=== PATIENT | female | born 1965 | race African-American/Black ===

== ENCOUNTER 2018-03-21 14:11 | Inpatient (IN) | payer MEDICARE, OTHER ==
[~2018-03-21] VITALS: Ht 165.1 cm; Wt 118.0 kg
[~2018-03-21 14:11] MED LIST: CALC1CAP PO; ESOM1CAP16 PO; FLEE5TAB PO; GABA400C5 PO; HYDR-3288 PO; MIDO5TAB PO; NOVOINJ3 SQ; ONDA4TAB15 PO; RANI150T PO
[2018-03-21 14:21] VITALS: BP 159/66; PULSE 78; RESP 23; TEMP 98.7; O2SAT 87
--- NOTE | 2018-03-21 14:44 | PD ---
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 Symptoms started this morning at 1 AM she describes as a burning sensation in her epigastrium. She reports multiple episodes of nonbloody emesis. She reports that she had similar pain last week with associated diarrhea but it resolved. She reports that yesterday she ate some spaghetti O's. She denies any other dietary changes. She reports chronic shortness of breath but denies any acute shortness of breath. She denies any chest pain, cough or congestion, lower extremity edema, flank pain, fevers or chills. She is anuric. She reports history of diabetes and hypertension. No other complaints. PFSH Past Medical History Arthritis: No Asthma: No Autoimmune Disease: No Blood Disorders: No Heart Rhythm Problems: No Cancer: No Cardiovascular Problems: Yes High Cholesterol: Yes Chemotherapy: No Chest Pain: No Congestive Heart Failure: No COPD: No Cerebrovascular Accident: No Diabetes: Yes Patient Takes Glucophage: No Dialysis: Yes (PERITONEAL NIGHTLY) Diminished Hearing: No Endocrine: Yes (DM about 5 yrs. ago) Gastrointestinal Disorders: Yes (REFLUX) GERD: Yes Genitourinary: Yes Headaches: No Hepatitis: No Hiatal Hernia: No Heparin Induced Thrombocytopen: No Immune Disorder: No Implanted Vascular Access Dvce: Yes (HX OF RIGHT IJ X 3/RIGHT ARM FISTULA) Kidney Stones: No Musculoskeletal: Yes Neurologic: Yes (NEUROPATHY) Psychiatric: No Reproductive: No Respiratory: Yes Immunizations Current: Yes Migraines: No Myocardial Infarction: No Radiation Therapy: No Renal Failure: Yes Seizures: No Sickle Cell Disease: No Sleep Apnea: No Thyroid Disease: No Ulcer: No ?: Unknown Menopausal: Yes : 1 Para: 1 Past Surgical History Abdominal Surgery: Yes (peritoneal dialysis gallbladder) AICD: No Appendectomy: No Arteriovenous Shunt: No Body Medical Devices: TENKOFF Cardiac Surgery: No Cholecystectomy: Yes Ear Surgery: No Endocrine Surgery: No Eye Surgery: No Genitourinary Surgery: No Gynecologic Surgery: No Insulin Pump: No Joint Replacement: No Neurologic Surgery: No Oral Surgery: No Pacemaker: No Thoracic Surgery: No Other Surgery: Yes (hernia fistula on left arm) Social History Alcohol Use: No Tobacco Use: No Substance Use: No Allergies-Medications (Allergen,Severity, Reaction): Coded Allergies: Sulfa (Sulfonamide Antibiotics) (Unverified Allergy, Severe, Rash, ) morphine (Unverified Allergy, Severe, ITCHING, 09/21/17) penicillin G (Unverified Allergy, Severe, UNKNOWN, 09/21/17) amoxicillin (Verified Allergy, Intermediate, Rash, 09/21/17) *MDRO Multi-Drug Resistant Organism (Verified Allergy, Unknown, 09/21/17) VRE Buttock Wound 01/15/2013 C Diff 05/2014 Reported Meds & Prescriptions Reported Meds & Active Scripts Active Grayson (Hydrocodone-Acetaminophen) 7.5-325 mg Tab 1 Tab PO HS PRN Reported Novolog Flexpen Inj (Insulin Aspart) Unknown Strength Pen Unknown Dose SQ Bisacodyl EC (Bisacodyl) 5 Mg Tabec 5 Mg PO DAILY PRN Calcium Acetate (Phosphate Binder) 667 Mg Cap 667 Mg PO BID TAKE WITH MEALS Esomeprazole DR 40 Mg Capdr 40 Mg PO DAILY Gabapentin 400 Mg Cap 400 Cap PO BID Midodrine 5 Mg Tab 5 Mg PO //SAT TUESDAY,TUESDAY,TUESDAY,TUESDAY Ondansetron (Ondansetron HCl) 4 Mg Tab 4 Mg PO TUTHSA PRN TUESDAY,TUESDAY, TUESDAY Ranitidine (Ranitidine HCl) 150 Mg Tab 150 Mg PO HS Review of Systems Except as stated in HPI: all other systems reviewed are Neg Physical Exam Narrative GENERAL: Well-developed well-nourished female who appears uncomfortable. Her oxygen saturation is 90% on room air. SKIN: Warm and dry. HEAD: Atraumatic. Normocephalic. EYES: Pupils equal and round. No scleral icterus. No injection or drainage. ENT: No nasal bleeding or discharge. Mucous membranes pink and moist. NECK: Trachea midline. No JVD. CARDIOVASCULAR: Regular rate and rhythm. No murmur appreciated. RESPIRATORY: No accessory muscle use. Clear to auscultation. Breath sounds equal bilaterally. GASTROINTESTINAL: Abdomen soft, tender to palpation in the epigastrium and periumbilical region without guarding. No CVA tenderness. MUSCULOSKELETAL: No obvious deformities. No clubbing. No cyanosis. No edema. NEUROLOGICAL: Awake and alert. No obvious cranial nerve deficits. Motor grossly within normal limits. Normal speech. Data Data Last Documented VS Vital Signs Date Time Temp Pulse Resp B/P (MAP) Pulse Ox O2 Delivery O2 Flow Rate FiO2 03/21/18 14:50 98 Room Air 03/21/18 14:36 20 03/21/18 14:21 98.7 78 159/66 (97) Orders Orders Arterial Blood Gas (Abg) (03/21/18 ) Comprehensive Metabolic Panel (03/21/18 14:38) Lipase (03/21/18 14:38) Lactic Acid (03/21/18 14:38) Prothrombin Time / Inr (Pt) (03/21/18 14:38) Act Partial Throm Time (Ptt) (03/21/18 14:38) Ct Abd/Pel W/O Iv Contrast (03/21/18 14:38) Iv Access Insert/Monitor (03/21/18 14:38) Ecg Monitoring (03/21/18 14:38) Oximetry (03/21/18 14:38) Morphine Inj (Morphine Inj) (03/21/18 14:45) Sodium Chloride 0.9% Flush (Ns Flush) (03/21/18 14:45) Electrocardiogram (03/21/18 14:38) Magnesium (Mg) (03/21/18 14:38) Phosphorus (Po4) (03/21/18 14:38) Ckmb (Isoenzyme) Profile (03/21/18 14:38) Troponin I (03/21/18 14:38) Chest, Single Ap (03/21/18 14:38) Bilateral Bp Monitoring (03/21/18 14:38) Ondansetron Odt (Zofran Odt) (03/21/18 14:45) Complete Blood Count With Diff (03/21/18 14:38) Hydromorphone Pf Inj (Dilaudid Pf Inj) (03/21/18 15:30) Consult Gastroenterology (03/21/18 ) (Hub Use Only)Inp Phy Cons/Ref (03/21/18 ) Invasive Rad Dept Consult (03/21/18 ) Ca 19-9 (03/21/18 16:34) Diet Npo Except Meds (03/21/18 Dinner) Igg Subclasses (1,2,3.4,Total) (03/21/18 16:35) Ranjana Screen (03/21/18 16:35) Admit Order (Ed Use Only) (03/21/18 16:44) Labs Laboratory Tests Test 03/21/18 14:48 03/21/18 14:50 Blood Gas Puncture Site RT RADIAL Blood Gas Patient Temperature 98.6 Blood Gas HCO3 25 mmol/L Blood Gas Base Excess 0.2 mmol/L Blood Gas Oxygen Saturation 91 % Arterial Blood pH 7.37 Arterial Blood Partial Pressure CO2 45 mmHg Arterial Blood Partial Pressure O2 71 mmHG Arterial Blood Oxygen Content 14.9 Vol % Arterial Blood Carboxyhemoglobin 1.6 % Arterial Blood Methemoglobin 1.0 % Blood Gas Hemoglobin 11.6 G/DL Oxygen Delivery Device NASAL CANNULA Blood Gas Liter Flow 2 L/M White Blood Count 13.4 TH/MM3 Red Blood Count 3.96 MIL/MM3 Hemoglobin 12.3 GM/DL Hematocrit 38.7 % Mean Corpuscular Volume 97.9 FL Mean Corpuscular Hemoglobin 31.1 PG Mean Corpuscular Hemoglobin Concent 31.8 % Red Cell Distribution Width 14.9 % Platelet Count 206 TH/MM3 Mean Platelet Volume 10.3 FL Neutrophils (%) (Auto) 90.7 % Lymphocytes (%) (Auto) 4.9 % Monocytes (%) (Auto) 4.2 % Eosinophils (%) (Auto) 0.0 % Basophils (%) (Auto) 0.2 % Neutrophils # (Auto) 12.1 TH/MM3 Lymphocytes # (Auto) 0.7 TH/MM3 Monocytes # (Auto) 0.6 TH/MM3 Eosinophils # (Auto) 0.0 TH/MM3 Basophils # (Auto) 0.0 TH/MM3 CBC Comment DIFF FINAL Differential Comment Prothrombin Time 10.1 SEC Prothromb Time International Ratio 1.0 RATIO Activated Partial Thromboplast Time 23.7 SEC Blood Urea Nitrogen 35 MG/DL Creatinine 9.14 MG/DL Random Glucose 316 MG/DL Total Protein 9.2 GM/DL Albumin 3.1 GM/DL Calcium Level 8.8 MG/DL Phosphorus Level 5.5 MG/DL Magnesium Level 2.3 MG/DL Alkaline Phosphatase 140 U/L Aspartate Amino Transf (AST/SGOT) 30 U/L Alanine Aminotransferase (ALT/SGPT) 23 U/L Total Bilirubin 0.4 MG/DL Sodium Level 137 MEQ/L Potassium Level 4.9 MEQ/L Chloride Level 99 MEQ/L Carbon Dioxide Level 27.2 MEQ/L Anion Gap 11 MEQ/L Estimat Glomerular Filtration Rate 5 ML/MIN Lactic Acid Level 1.6 mmol/L Total Creatine Kinase 94 U/L Troponin I 0.02 NG/ML Lipase 513 U/L [facility] Medical Decision Making Medical Screen Exam Complete: Yes Emergency Medical Condition: Yes Medical Record Reviewed: Yes Differential Diagnosis Pancreatitis, perforation, gastritis, gastroenteritis, colitis, diverticulitis, acute coronary syndrome Narrative Course The patient was placed on ECG monitoring pulse oximetry. 12-lead EKG was obtained. Lab work, chest x-ray, CT abdomen pelvis ordered. The patient was given Dilaudid. An ABG was obtained revealing CBC reveals WBC count of 13.4 with 90% neutrophils. CMP reveals GFR 5, glucose 316, lipase 513. CT abdomen and pelvis reveals large complex mixed attenuation mass lesion involving the tail the pancreas. A large pseudocyst would be a leading consideration. This is incompletely evaluated on this study. Discussed with echocardiography radiology technologist Dr. Gupta who will be happy to consult but recommends general surgery consult. I discussed with Dr. Regalado the general surgeon sql server consultant who sees no intervention from a surgery standpoint at this time but would be happy to discuss with GI. Ultimately this patient will be admitted and this can be worked out further on an inpatient basis. Discussed with Dr. Zhou who is agreeable with admission. Discussed with Dr. Joshua who will perform dialysis. Diagnosis Primary Impression: Abdominal pain Additional Impressions: Pancreatic pseudocyst Leukocytosis Admitting Information Admitting Physician Requests: Admit Yo Garcia March 21, 2018 14:44
[2018-03-21] MEDS ORDERED: ONDANSETRON ODT 4 MG TAB PO ONE (14:45)
[2018-03-21] MEDS ORDERED: MORPHINE SULFATE 4 MG/ML INJ IV PUSH ONE (14:45)
[2018-03-21] MEDS ORDERED: SODIUM CHLORIDE 0.9% FLUSH 10 ML FLUSH IV FLUSH PRN ×2 (14:45→17:15)
[2018-03-21 14:50] VITALS: O2SAT 98
[2018-03-21] MEDS ORDERED: HYDROmorphone HCL PF 2 MG/ML VIAL IV PUSH ONE (15:30)
--- NOTE | 2018-03-21 15:30 | RADRPT ---
EXAM DATE/TIME: 03/21/2018 14:44 [facility] COMPARISON: No previous studies available for comparison. INDICATIONS : Shortness of breath and vomiting. MEDICAL HISTORY : Hypertension. Diabetes mellitus type II. SURGICAL HISTORY : Appendectomy. ENCOUNTER: Initial ACUITY: 1 day PAIN SCORE: 0/10 LOCATION: Bilateral chest FINDINGS: A single view of the chest demonstrates the lungs to be symmetrically aerated without evidence of mas s, infiltrate or effusion. The cardiomediastinal contours are unremarkable. Osseous structures are intact. CONCLUSION: No acute disease. Antelmo Aparicio MD on March 21, 2018 at 15:27 Board Certified Radiologist. This report was verified electronically.
[2018-03-21 15:34] LABS: AUTOMATED NEUTROPHIL # 12.1 TH/MM3 (1.8-7.7); BASOPHIL % 0.2 % (0.0-2.0); HEMATOCRIT 38.7 % (35.0-46.0); HEMOGLOBIN 12.3 GM/DL (11.6-15.3); LYMPH % 4.9 % (9.0-44.0); LYMPHOCYTE # 0.7 TH/MM3 (1.0-4.8); MEAN CELL VOLUME 97.9 FL (80.0-100.0); MEAN CORPUSCULAR HEMOGLOBIN 31.1 PG (27.0-34.0); MEAN CORPUSCULAR HGB CONC 31.8 % (32.0-36.0); MEAN PLATELET VOLUME 10.3 FL (7.0-11.0); MONO % 4.2 % (0.0-8.0); MONOCYTE # 0.6 TH/MM3 (0-0.9); NEUT % 90.7 % (16.0-70.0); PLATELET COUNT 206 TH/MM3 (150-450); RED BLOOD COUNT 3.96 MIL/MM3 (4.00-5.30); RED CELL DISTRIBUTION WIDTH 14.9 % (11.6-17.2); WHITE BLOOD COUNT 13.4 TH/MM3 (4.0-11.0)
[2018-03-21 15:44] LABS: ALBUMIN 3.1 GM/DL (3.4-5.0); ALKALINE PHOSPHATASE 140 U/L (45-117); ALT (GPT) 23 U/L (10-53); AST (GOT) 30 U/L (15-37); BICARBONATE 27.2 MEQ/L (21.0-32.0); BLOOD UREA NITROGEN 35 MG/DL (7-18); CALCIUM 8.8 MG/DL (8.5-10.1); CHLORIDE 99 MEQ/L (98-107); CREATININE 9.14 MG/DL (0.50-1.00); GLOMERULAR FILTRATION RATE 5 ML/MIN (>89); GLUCOSE,RANDOM 316 MG/DL (74-106); MAGNESIUM 2.3 MG/DL (1.5-2.5); PHOSPHORUS 5.5 MG/DL (2.5-4.9); SODIUM (NA) 137 MEQ/L (136-145); TOTAL BILIRUBIN ADULT 0.4 MG/DL (0.2-1.0); TOTAL PROTEIN 9.2 GM/DL (6.4-8.2); TROPONIN I 0.02 NG/ML (0.02-0.05)
--- NOTE | 2018-03-21 15:44 | RADRPT ---
EXAM DATE/TIME: 03/21/2018 15:12 [facility] COMPARISON: No previous studies available for comparison. INDICATIONS : Mid abdominal pain with vomiting ORAL CONTRAST: No oral contrast ingested. RADIATION DOSE: 23.20 CTDIvol (mGy) ; Patient body habitus MEDICAL HISTORY : Gastroesophageal reflux disease. Diabetes mellitus type 1. Colitis SURGICAL HISTORY : None. ENCOUNTER: Initial ACUITY: 1 day PAIN SCALE: 5/10 LOCATION: abdominal TECHNIQUE: Volumetric scanning of the abdomen and pelvis was performed. Using automated exposure control and ad justment of the mA and/or kV according to patient size, radiation dose was kept as low as reasonably achievable to obtain optimal diagnostic quality images. DICOM format image data is available electro nically for review and comparison. FINDINGS: Lung bases are clear. Patient is status post cholecystectomy. Spleen, liver, adrenals, urinary bladde r unremarkable. Uterus and adnexa are unremarkable. Vascular calcifications are noted. There is no ev idence of bowel obstruction. No adenopathy. Extensive atherosclerotic calcifications are seen. The ex amination demonstrates at the tail of the pancreas medial to the spleen a mixed attenuation mass abut ting the posterior wall the stomach and measured approximate 9.3 x 6 cm on image 23 and 8.1 x 7.4 cm in transverse and AP dimension on image 26. The kidneys are small and hyperdense. Within the subcutan eous fat of the anterior abdominal wall at the level of the umbilicus, a hypodense collection is seen with calcification posteriorly measuring 6.3 x 1.8 cm in transverse and AP dimension. CONCLUSION: There is a large complex mixed attenuation mass lesion involving the tail of the pancreas. A large ps eudocyst would be the leading consideration. This is incompletely evaluated on this study. Antelmo Aparicio MD on March 21, 2018 at 15:39 Board Certified Radiologist. This report was verified electronically.
[2018-03-21 15:54] LABS: PROTHROMBIN TIME - PATIENT 10.1 SEC (9.8-11.6)
--- NOTE | 2018-03-21 16:34 | PD.CONS ---
HPI History of Present Illness This is a 52 year old yo F with PMH significant for ESRD on HD T,TH,Sat, gastroparesis, gastritis, pancreatitis with pancreatic pseudocyst, DM, hyperlipidemia, and neuropathy. Pt presented to the ER today with complaints of severe abdominal pain that began in the middle of the night and woke her up out of her sleep. Pain is located in her epigastric area, states constant, described as burning and aching. Associated with nausea and vomiting, reports multiple episodes of emesis, denies hematemesis and coffee ground emesis. Also complaining of acid reflux and heartburn, takes Prilosec with little relief. Denies any changes in BMs, unintentional weight loss. Labs in ER revealed elevated lipase and CT findings revealed a large complex mixed attenuation mass lesion involving the tail of the pancreas, pseudocyst would be leading consideration. Pt has history of pancreatic pseudocyst in 2014, seen by our service, underwent CT guided drainage. Last EGD done in 2014 revealed a normal exam. Has never had colonoscopy. Previous J tube for gastroparesis, this was removed in 2014 and she is not currently on any medication for this. She denies ETOH, smoking, illicit drug use. Recently started on two new medications , Auryxia and Tradjenta. She reports she has not recently followed up with a GI doctor. (Nadine Santiago) PFSH Past Medical History ESRD on HD Hyperlipidemia DM Gastroparesis Pancreatitis with pancreatic pseudocyst Neuropathy HTN Past Surgical History EGD Cholecystectomy Hernia repair Fistula (Nadine Santiago) Coded Allergies: Sulfa (Sulfonamide Antibiotics) (Unverified Allergy, Severe, Rash, ) morphine (Unverified Allergy, Severe, ITCHING, 09/21/17) penicillin G (Unverified Allergy, Severe, UNKNOWN, 09/21/17) amoxicillin (Verified Allergy, Intermediate, Rash, 09/21/17) *MDRO Multi-Drug Resistant Organism (Verified Allergy, Unknown, 09/21/17) VRE Buttock Wound 01/15/2013 C Diff 05/2014 Social History Denies ETOH, illicit drugs, smoking (Nadine Santiago) Review of Systems Gastrointestinal: COMPLAINS OF: Abdominal pain, Nausea, Vomiting, Heartburn, DENIES: Black stools, Bloody stools, Constipation, Diarrhea, Difficulty Swallowing, Odynophagia, Swelling of Abdomen, Hematemesis (Nadine Santiago) GI Exam Vitals I&O Vital Signs Date Time Temp Pulse Resp B/P (MAP) Pulse Ox O2 Delivery O2 Flow Rate FiO2 03/21/18 14:50 98 Room Air 03/21/18 14:36 20 03/21/18 14:21 98.7 78 23 159/66 (97) 87 Imaging Last Impressions Chest X-Ray 03/21/18 1438 Signed Impressions: Service Date/Time: Wednesday, March 21, 2018 14:44 - CONCLUSION: No acute disease. Antelmo Aparicio MD Abdomen/Pelvis CT 03/21/18 1438 Signed Impressions: Service Date/Time: Wednesday, March 21, 2018 15:12 - CONCLUSION: There is a large complex mixed attenuation mass lesion involving the tail of the pancreas. A large pseudocyst would be the leading consideration. This is incompletely evaluated on this study. Antelmo Aparicio MD Laboratory Test 03/21/18 14:48 03/21/18 14:50 Blood Gas Puncture Site RT RADIAL Blood Gas Patient Temperature 98.6 Blood Gas HCO3 25 mmol/L Blood Gas Base Excess 0.2 mmol/L Blood Gas Oxygen Saturation 91 % Arterial Blood pH 7.37 Arterial Blood Partial Pressure CO2 45 mmHg Arterial Blood Partial Pressure O2 71 mmHG Arterial Blood Oxygen Content 14.9 Vol % Arterial Blood Carboxyhemoglobin 1.6 % Arterial Blood Methemoglobin 1.0 % Blood Gas Hemoglobin 11.6 G/DL Oxygen Delivery Device NASAL CANNULA Blood Gas Liter Flow 2 L/M White Blood Count 13.4 TH/MM3 Red Blood Count 3.96 MIL/MM3 Hemoglobin 12.3 GM/DL Hematocrit 38.7 % Mean Corpuscular Volume 97.9 FL Mean Corpuscular Hemoglobin 31.1 PG Mean Corpuscular Hemoglobin Concent 31.8 % Red Cell Distribution Width 14.9 % Platelet Count 206 TH/MM3 Mean Platelet Volume 10.3 FL Neutrophils (%) (Auto) 90.7 % Lymphocytes (%) (Auto) 4.9 % Monocytes (%) (Auto) 4.2 % Eosinophils (%) (Auto) 0.0 % Basophils (%) (Auto) 0.2 % Neutrophils # (Auto) 12.1 TH/MM3 Lymphocytes # (Auto) 0.7 TH/MM3 Monocytes # (Auto) 0.6 TH/MM3 Eosinophils # (Auto) 0.0 TH/MM3 Basophils # (Auto) 0.0 TH/MM3 CBC Comment DIFF FINAL Differential Comment Prothrombin Time 10.1 SEC Prothromb Time International Ratio 1.0 RATIO Activated Partial Thromboplast Time 23.7 SEC Blood Urea Nitrogen 35 MG/DL Creatinine 9.14 MG/DL Random Glucose 316 MG/DL Total Protein 9.2 GM/DL Albumin 3.1 GM/DL Calcium Level 8.8 MG/DL Phosphorus Level 5.5 MG/DL Magnesium Level 2.3 MG/DL Alkaline Phosphatase 140 U/L Aspartate Amino Transf (AST/SGOT) 30 U/L Alanine Aminotransferase (ALT/SGPT) 23 U/L Total Bilirubin 0.4 MG/DL Sodium Level 137 MEQ/L Potassium Level 4.9 MEQ/L Chloride Level 99 MEQ/L Carbon Dioxide Level 27.2 MEQ/L Anion Gap 11 MEQ/L Estimat Glomerular Filtration Rate 5 ML/MIN Lactic Acid Level 1.6 mmol/L Total Creatine Kinase 94 U/L Troponin I 0.02 NG/ML Lipase 513 U/L Physical Examination HEENT: Normocephalic; atraumatic CHEST: Shallow respirations CARDIAC: RRR ABDOMEN: Obese, soft, epigastric tenderness, bowel sounds active SKIN: Normal; no rash; no jaundice. WELLNESS NURSE RN: Alert and oriented times three. (Nadine Santiago) Assessment and Plan Plan Assessment: - Pancreatitis with CT findings suggestive of possible large pancreatic pseudocyst History of pseudocyst with CT guided drainage in Nov 2014 Complaining of epigastric pain, nausea, vomiting that woke her up in the middle of the night Lipase-513 CT abdomen and pelvis W/O IV contrast (03/21) --> There is a large complex mixed attenuation mass lesion involving the tail of the pancreas. A large pseudocyst would be the leading consideration. This is incompletely evaluated on this study. History of pancreatitis with pancreatic pseudocyst, according to previous records was not amenable to drainage by IR 1st episode of pancreatitis in 2014 Denies ETOH New medications: Auryxia and Tradjenta Denies family history of pancreatic issues Previous cholecystectomy Last EGD in 2014, normal exam, previous EGD revealed esophagitis and gastritis Never had colonoscopy - Gastroparesis- previously had a J tube- removed in 2014, also noted to be previously on EES and Reglan, not currently on any medication for this at this time - Leukocytosis, afebrile - ESRD on HD- T, , Sat- did not go today because she did not feel well enough Plan: IR consult for possible drainage of pseudocyst CA 19-9 IgG 4, SNEHA NPO IVF Antiemetics PRN Pain control Monitor labs Further recommendations based on clinical course and results of above Pt has been seen and examined by myself and Dr. Gupta and this note is written on her behalf (Nadine Santiago) Physician Comments seen, examined agree with above if IR not able to drain/biopsy-we will consider eus tumor markers (Alicia Gupta MD) Nadine Santiago March 21, 2018 16:34 Alicia Gupta MD March 21, 2018 17:44
[2018-03-21 16:51] VITALS: BP 179/79; PULSE 75; RESP 18; O2SAT 94
[2018-03-21] MEDS ORDERED: SODIUM CHLOR 0.9% 1000 ML INJ 1,000 ML IV SCH (16:51)
[2018-03-21] MEDS ORDERED: BISACODYL 10 MG SUPP RECTAL PRN (17:00)
[2018-03-21] MEDS ORDERED: GLUCAGON 1 MG/ML VIAL OTHER PRN (17:00)
[2018-03-21] MEDS ORDERED: SENNOSIDES 8.6 MG TAB PO PRN (17:00)
[2018-03-21] MEDS: INSULIN ASPART SUPPLEMENTAL SCALE SQ SCH ×2 (17:00→21:00)
[2018-03-21] MEDS ORDERED: PANTOPRAZOLE SODIUM 40 MG VIAL IVP ONE (17:00)
[2018-03-21] MEDS ORDERED: LACTULOSE SYRUP 20 GM/30 ML CUP PO PRN (17:00)
[2018-03-21] MEDS ORDERED: NALOXONE HCL 0.4 MG/ML AMP IV PUSH PRN (17:00)
[2018-03-21] MEDS ORDERED: DEXTROSE 50% IN WATER 50 ML VIAL(D50) IV PUSH PRN (17:00)
[2018-03-21] MEDS ORDERED: MAGNESIUM HYDROXIDE SUSP 30 ML CUP PO PRN (17:00)
[2018-03-21 17:10] VITALS: O2SAT 90
[2018-03-21] MEDS ORDERED: SODIUM CHLOR 0.9% 1000 ML INJ 1,000 ML IV PRN (17:11)
[2018-03-21] MEDS ORDERED: SODIUM CHLOR 0.9% 1000 ML INJ 1,000 ML OTHER PRN ×2 (17:11)
[2018-03-21] MEDS ORDERED: ACETAMINOPHEN 325 MG TAB PO PRN (17:15)
[2018-03-21] MEDS ORDERED: cloNIDine HCL 0.1 MG TAB PO PRN ×2 (17:15→19:00)
[2018-03-21] MEDS ORDERED: HEPARIN SODIUM - IV 10,000 UNITS/10 ML VIAL IV FLUSH PRN (17:15)
[2018-03-21] MEDS ORDERED: NITROGLYCERIN 0.4 MG SL 25 TABS/BTL SL PRN (17:15)
[2018-03-21] MEDS ORDERED: diphenhydrAMINE HCL 25 MG CAP PO PRN (17:15)
--- NOTE | 2018-03-21 17:25 | PD.CONS ---
HPI Service Nephrology Consult Requested By Reason for Consult ESRD Primary Care Physician Lucretia Costello MD History of Present Illness Ms. Vega is a 52 year old lady with history of ESRD being admitted with abdominal pain. CT of the abdomen revealed large pancreatic complex cyst in the tail area, possibly pancreatic pseudocyst. No fever. She has nausea and vomiting. No diarrhea. Review of Systems Constitutional: COMPLAINS OF: Fatigue Cardiovascular: DENIES: Chest pain Gastrointestinal: COMPLAINS OF: Abdominal pain, Nausea, Vomiting Past Family Social History Allergies: Coded Allergies: Sulfa (Sulfonamide Antibiotics) (Unverified Allergy, Severe, Rash, ) morphine (Unverified Allergy, Severe, ITCHING, 09/21/17) penicillin G (Unverified Allergy, Severe, UNKNOWN, 09/21/17) amoxicillin (Verified Allergy, Intermediate, Rash, 09/21/17) *MDRO Multi-Drug Resistant Organism (Verified Allergy, Unknown, 09/21/17) VRE Buttock Wound 01/15/2013 C Diff 05/2014 Past Medical History ESRD Foot drop Hypertension Pancreatitis History of peritonitis Anemia Secondary hyperparathyroidism. Reported Medications Novolog Flexpen Inj (Insulin Aspart) Unknown Strength Pen Unknown Dose SQ Bisacodyl EC (Bisacodyl) 5 Mg Tabec 5 Mg PO DAILY PRN Calcium Acetate (Phosphate Binder) 667 Mg Cap 667 Mg PO BID TAKE WITH MEALS Esomeprazole DR 40 Mg Capdr 40 Mg PO DAILY Gabapentin 400 Mg Cap 400 Cap PO BID Midodrine 5 Mg Tab 5 Mg PO //SAT TUESDAY,TUESDAY,TUESDAY,TUESDAY Ondansetron (Ondansetron HCl) 4 Mg Tab 4 Mg PO TUTHSA PRN TUESDAY,TUESDAY, TUESDAY Ranitidine (Ranitidine HCl) 150 Mg Tab 150 Mg PO HS Family History reviewed, non contributory Social History , no tobacco or ETOH Physical Exam Vital Signs Vital Signs Date Time Temp Pulse Resp B/P (MAP) Pulse Ox O2 Delivery O2 Flow Rate FiO2 03/21/18 17:10 90 Room Air 03/21/18 16:51 75 18 179/79 (112) 94 Room Air 03/21/18 14:50 98 Room Air 03/21/18 14:36 20 03/21/18 14:21 98.7 78 23 159/66 (97) 87 Physical Exam GENERAL: patient is awake, complains of abdominal pain. SKIN: Warm and dry. HEAD: Normocephalic. EYES: No scleral icterus. No injection or drainage. NECK: Supple, trachea midline. No JVD or lymphadenopathy. CARDIOVASCULAR: Regular rhythm, tachycardia. RESPIRATORY: Breath sounds equal bilaterally. No accessory muscle use. GASTROINTESTINAL: Abdomen soft, positive bowel sounds, obese, some tenderness in the umbilical and epigastric areas. MUSCULOSKELETAL: No cyanosis, or edema. BACK: Nontender without obvious deformity. No CVA tenderness. Laboratory Laboratory Tests Test 03/21/18 14:48 03/21/18 14:50 Blood Gas Puncture Site RT RADIAL Blood Gas Patient Temperature 98.6 Blood Gas HCO3 25 Blood Gas Base Excess 0.2 Blood Gas Oxygen Saturation 91 Arterial Blood pH 7.37 Arterial Blood Partial Pressure CO2 45 Arterial Blood Partial Pressure O2 71 Arterial Blood Oxygen Content 14.9 Arterial Blood Carboxyhemoglobin 1.6 Arterial Blood Methemoglobin 1.0 Blood Gas Hemoglobin 11.6 Oxygen Delivery Device NASAL CANNULA Blood Gas Liter Flow 2 White Blood Count 13.4 Red Blood Count 3.96 Hemoglobin 12.3 Hematocrit 38.7 Mean Corpuscular Volume 97.9 Mean Corpuscular Hemoglobin 31.1 Mean Corpuscular Hemoglobin Concent 31.8 Red Cell Distribution Width 14.9 Platelet Count 206 Mean Platelet Volume 10.3 Neutrophils (%) (Auto) 90.7 Lymphocytes (%) (Auto) 4.9 Monocytes (%) (Auto) 4.2 Eosinophils (%) (Auto) 0.0 Basophils (%) (Auto) 0.2 Neutrophils # (Auto) 12.1 Lymphocytes # (Auto) 0.7 Monocytes # (Auto) 0.6 Eosinophils # (Auto) 0.0 Basophils # (Auto) 0.0 CBC Comment DIFF FINAL Differential Comment Prothrombin Time 10.1 Prothromb Time International Ratio 1.0 Activated Partial Thromboplast Time 23.7 Blood Urea Nitrogen 35 Creatinine 9.14 Random Glucose 316 Total Protein 9.2 Albumin 3.1 Calcium Level 8.8 Phosphorus Level 5.5 Magnesium Level 2.3 Alkaline Phosphatase 140 Aspartate Amino Transf (AST/SGOT) 30 Alanine Aminotransferase (ALT/SGPT) 23 Total Bilirubin 0.4 Sodium Level 137 Potassium Level 4.9 Chloride Level 99 Carbon Dioxide Level 27.2 Anion Gap 11 Estimat Glomerular Filtration Rate 5 Lactic Acid Level 1.6 Total Creatine Kinase 94 Troponin I 0.02 Lipase 513 Result Diagram: 03/21/18 1450 03/21/18 1450 Assessment and Plan Problem List: (1) ESRD (end stage renal disease) ICD Codes: N18.6 - ESRD (end stage renal disease) Status: Acute Plan: Dialysis today and TTS. Monitor fluid and electrolytes. No Gadolinium. Avoid excessive IVF. (2) Hypertension ICD Codes: I10 - Hypertension Status: Acute Plan: BP is high, home medication list does not include any antihypertensive, may not be accurate. No need for midodrine. Monitor. (3) Diabetes mellitus ICD Codes: E11.9 - Diabetes mellitus Status: Chronic Plan: Insulin coverage, maintain blood glucose between 140 and 180. (4) Abdominal pain ICD Codes: R10.9 - Abdominal pain Status: Acute Plan: CT report noted. GI on the case. (5) Pancreatic pseudocyst ICD Codes: K86.3 - Pseudocyst of pancreas Status: Acute Plan: Unclear if this is the cause of abdominal symptoms. GI workup in progress. Assessment and Plan Thanks for the consult. Lokesh Joshua MD March 21, 2018 17:25
--- NOTE | 2018-03-21 18:18 | HHI.HP ---
[facility] Lucretia Costello MD Admission Diagnosis Abdominal pain, pancreatic pseudocyst Diagnoses: (1) Pancreatic pseudocyst (2) Pancreatitis (3) Nausea & vomiting (4) Abdominal pain (5) ESRD on hemodialysis Chief Complaint: Nausea, vomiting and abdominal pain Travel History International Travel<30 Days: No Contact w/Intl Traveler <30 Da: No Traveled to Known Affected Are: No History of Present Illness Ms. Vega is a 52-year-old -[place] female with past medical history significant for HTN, HLD, ESRD on HD ,,Tue, gastroparesis, pancreatitis, pancreatic cyst, DM, neuropathy, and anemia who presents to the emergency department with complaints of abdominal pain, nausea and vomiting. Patient reports that abdominal pain began around 1 AM along with nausea and vomiting. She reports that the night before she had SpaghettiOs for dinner which she normally does not have. She describes pain as burning and aching rating it 10/ 10, moving on her left side would make pain radiated to her left side of her abdomen. She reports taking something for acid reflux without any relief of pain, nausea or vomiting. She denies any black, dark, or bloody emesis. She denies any recent fevers, chills, vomiting prior to this morning, shortness of breath, cough, diarrhea, constipation, black black stools, abdominal pain or discomfort previously. She also denies any recent ill contacts. She was not able to go to HD this morning as due to nausea and vomiting and she is currently seen in hemodialysis department undergoing HD. At the moment she reports pain is 9/10 with some ongoing nausea but no longer vomiting. She denies any headache, dizziness, or chest pain. She does endorse shortness of breath, reports that this has been ongoing for several months, no cough or fevers reported. Review of Systems Except as stated in HPI: all other systems reviewed are Neg Past Family Social History Past Medical History ESRD on HD Tuesday, , Tuesday Hyperlipidemia DM Gastroparesis Neuropathy Foot drop L>R per patient Peritonitis Anemia Secondary hyperparathyroidism Pancreatitis with pancreatic pseudocyst Neuropathy HTN Past Surgical History EGD J-tube insertion and subsequent removal in 2014 Cholecystectomy Hernia repair Left upper arm fistula Left femur fracture with surgical repair Reported Medications Reported Meds & Active Scripts Active Starbuck (Hydrocodone-Acetaminophen) 7.5-325 mg Tab 1 Tab PO HS PRN Reported Novolog Flexpen Inj (Insulin Aspart) Unknown Strength Pen Unknown Dose SQ Bisacodyl EC (Bisacodyl) 5 Mg Tabec 5 Mg PO DAILY PRN Calcium Acetate (Phosphate Binder) 667 Mg Cap 667 Mg PO BID TAKE WITH MEALS Esomeprazole DR 40 Mg Capdr 40 Mg PO DAILY Gabapentin 400 Mg Cap 400 Cap PO BID Midodrine 5 Mg Tab 5 Mg PO //SAT TUESDAY,TUESDAY,TUESDAY,TUESDAY Ondansetron (Ondansetron HCl) 4 Mg Tab 4 Mg PO TUTHSA PRN TUESDAY,TUESDAY, TUESDAY Ranitidine (Ranitidine HCl) 150 Mg Tab 150 Mg PO HS Allergies: Coded Allergies: Sulfa (Sulfonamide Antibiotics) (Unverified Allergy, Severe, Rash, ) morphine (Unverified Allergy, Severe, ITCHING, 09/21/17) penicillin G (Unverified Allergy, Severe, UNKNOWN, 09/21/17) amoxicillin (Verified Allergy, Intermediate, Rash, 09/21/17) *MDRO Multi-Drug Resistant Organism (Verified Allergy, Unknown, 09/21/17) VRE Buttock Wound 01/15/2013 C Diff 05/2014 Family History Family history significant for GERD Father: Renal disease Social History Denies ETOH, illicit drugs, smoking Physical Exam Vital Signs Vital Signs Date Time Temp Pulse Resp B/P (MAP) Pulse Ox O2 Delivery O2 Flow Rate FiO2 03/21/18 17:10 90 Room Air 03/21/18 16:51 75 18 179/79 (112) 94 Room Air 03/21/18 14:50 98 Room Air 03/21/18 14:36 20 03/21/18 14:21 98.7 78 23 159/66 (97) 87 Physical Exam GENERAL: This is a well-nourished, well-developed patient, in no apparent distress. SKIN: No rashes, ecchymoses or lesions. Cool and dry. HEAD: Atraumatic. Normocephalic. No temporal or scalp tenderness. EYES: Pupils equal round and reactive. Extraocular motions intact. No scleral icterus. No injection or drainage. ENT: Nose without bleeding, purulent drainage. Throat without erythema. Uvula midline. Airway patent. NECK: Trachea midline. No JVD. Supple. CARDIOVASCULAR: Regular rate and rhythm without murmurs, gallops, or rubs. Left upper arm fistula noted, currently undergoing HD. RESPIRATORY: Clear to auscultation. Breath sounds equal bilaterally. Rotation somewhat limited due to body habitus. No wheezes, rales, or rhonchi. GASTROINTESTINAL: Abdomen soft, nondistended, obese. Mid abdominal tenderness to palpation. No guarding. Normal active bowel sounds. MUSCULOSKELETAL: Extremities without clubbing, cyanosis, or edema. No joint tenderness, effusion, or edema noted. No calf tenderness. NEUROLOGICAL: Awake and alert, oriented 3. Cranial nerves II through XII grossly intact. Motor and sensory grossly within normal limits. Normal speech. Laboratory Laboratory Tests Test 03/21/18 14:48 03/21/18 14:50 Blood Gas Puncture Site RT RADIAL Blood Gas Patient Temperature 98.6 Blood Gas HCO3 25 Blood Gas Base Excess 0.2 Blood Gas Oxygen Saturation 91 Arterial Blood pH 7.37 Arterial Blood Partial Pressure CO2 45 Arterial Blood Partial Pressure O2 71 Arterial Blood Oxygen Content 14.9 Arterial Blood Carboxyhemoglobin 1.6 Arterial Blood Methemoglobin 1.0 Blood Gas Hemoglobin 11.6 Oxygen Delivery Device NASAL CANNULA Blood Gas Liter Flow 2 White Blood Count 13.4 Red Blood Count 3.96 Hemoglobin 12.3 Hematocrit 38.7 Mean Corpuscular Volume 97.9 Mean Corpuscular Hemoglobin 31.1 Mean Corpuscular Hemoglobin Concent 31.8 Red Cell Distribution Width 14.9 Platelet Count 206 Mean Platelet Volume 10.3 Neutrophils (%) (Auto) 90.7 Lymphocytes (%) (Auto) 4.9 Monocytes (%) (Auto) 4.2 Eosinophils (%) (Auto) 0.0 Basophils (%) (Auto) 0.2 Neutrophils # (Auto) 12.1 Lymphocytes # (Auto) 0.7 Monocytes # (Auto) 0.6 Eosinophils # (Auto) 0.0 Basophils # (Auto) 0.0 CBC Comment DIFF FINAL Differential Comment Prothrombin Time 10.1 Prothromb Time International Ratio 1.0 Activated Partial Thromboplast Time 23.7 Blood Urea Nitrogen 35 Creatinine 9.14 Random Glucose 316 Total Protein 9.2 Albumin 3.1 Calcium Level 8.8 Phosphorus Level 5.5 Magnesium Level 2.3 Alkaline Phosphatase 140 Aspartate Amino Transf (AST/SGOT) 30 Alanine Aminotransferase (ALT/SGPT) 23 Total Bilirubin 0.4 Sodium Level 137 Potassium Level 4.9 Chloride Level 99 Carbon Dioxide Level 27.2 Anion Gap 11 Estimat Glomerular Filtration Rate 5 Lactic Acid Level 1.6 Total Creatine Kinase 94 Troponin I 0.02 Lipase 513 Result Diagram: 03/21/18 1450 03/21/18 1450 Imaging Last Impressions Chest X-Ray 03/21/181437 Signed Impressions: Service Date/Time: Wednesday, March 21, 2018 14:44 - CONCLUSION: No acute disease. Antelmo Aparicio MD Abdomen/Pelvis CT 03/21/181437 Signed Impressions: Service Date/Time: Wednesday, March 21, 2018 15:12 - CONCLUSION: There is a large complex mixed attenuation mass lesion involving the tail of the pancreas. A large pseudocyst would be the leading consideration. This is incompletely evaluated on this study. Antelmo Aparicio MD Caprini VTE Risk Assessment Caprini VTE Risk Assessment: No/Low Risk (score <= 1) Caprini Risk Assessment Model Point Value = 1 Point Value = 2 Point Value = 3 Point Value = 5 Age 41-60 Minor surgery BMI > 25 kg/m2 Swollen legs Varicose veins or History of unexplained or recurrent spontaneous Oral contraceptives or hormone replacement Sepsis (< 1 month) Serious lung disease, including pneumonia (< 1 month) Abnormal pulmonary function Acute myocardial infarction Congestive heart failure (< 1 month) History of inflammatory bowel disease Medical patient at bed rest Age 61-74 Arthroscopic surgery Major open surgery (> 45 min) Laparoscopic surgery (> 45 min) Malignancy Confined to bed (> 72 hours) Immobilizing plaster cast Central venous access Age >= 75 History of VTE Family history of VTE Factor V Leiden Prothrombin [id number] Lupus anticoagulant Anticardiolipin antibodies Elevated serum homocysteine Heparin-induced thrombocytopenia Other congenital or acquired thrombophilia Stroke (< 1 month) Elective arthroplasty Hip, pelvis, or leg fracture Acute spinal cord injury (< 1 month) Prophylaxis Regimen Total Risk Factor Score Risk Level Prophylaxis Regimen 0-1 Low Early ambulation 2 Moderate Order ONE of the following: *Sequential Compression Device (SCD) *Heparin 5000 units SQ BID 3-4 Higher Order ONE of the following medications: *Heparin 5000 units SQ TID *Enoxaparin/Lovenox 40 mg SQ daily (WT < 150 kg, CrCl > 30 mL/min) *Enoxaparin/Lovenox 30 mg SQ daily (WT < 150 kg, CrCl > 10-29 mL/min) *Enoxaparin/Lovenox 30 mg SQ BID (WT < 150 kg, CrCl > 30 mL/min) AND/OR *Sequential Compression Device (SCD) 5 or more Highest Order ONE of the following medications: *Heparin 5000 units SQ TID (Preferred with Epidurals) *Enoxaparin/Lovenox 40 mg SQ daily (WT < 150 kg, CrCl > 30 mL/min) *Enoxaparin/Lovenox 30 mg SQ daily (WT < 150 kg, CrCl > 10-29 mL/min) *Enoxaparin/Lovenox 30 mg SQ BID (WT < 150 kg, CrCl > 30 mL/min) AND *Sequential Compression Device (SCD) Assessment and Plan Assessment and Plan Ms. Vega is a 52-year-old -[place] female with past medical history significant for HTN, HLD, ESRD on HD T,TH,Sat, gastroparesis, pancreatitis, pancreatic cyst, DM, neuropathy, and anemia who presents to the emergency department with complaints of abdominal pain, nausea and vomiting. Possible pancreatic pseudocyst Abdominal pain Leukocytosis -CT of abdomen and pelvis reviewed, pancreatic tail mass medial to the spleen with mixed attenuation, measuring approximately 9.3 x 6 cm on different image measuring 8.1 x 7.4 cm in transverse. Study is consistent with the large pseudocyst although incomplete evaluation with study. -Patient received IV Dilaudid in the ED. -Pain control with p.o. Starbuck as needed, IV Dilaudid for breakthrough pain -GI consulted for further recommendations, appreciate assistance. -IR consulted for possible drainage and biopsy tomorrow -Leukocytosis noted on lab, afebrile, chest x-ray negative, anuria, lactic acid 1.6. Possibly reactive, recheck CBC in am. Pancreatitis Nausea/vomiting -Lipase 513, no IVF secondary to ESRD on HD. HD done this afternoon, recheck lipase in the a.m. -CT of abdomen pelvis with the above findings -PO Zofran if able to take PO if not IV Reglan as needed for N/V -Discussed with Dr. Gupta at bedside, start clear liquid diet as tolerated DM Hx gastroparesis -Accu-Cheks with insulin sliding scale -Patient reports she takes long-acting insulin at bedtime, will hold for the moment secondary to nausea and vomiting and poor p.o. intake - Hx J-tube removal in 2014, could consider scheduled Reglan for gastroparesis ESRD on HD -On dialysis Tuesday, , Tuesday. Last HD done this afternoon on -Nephrology services consulted for ongoing management, greatly appreciate assistance. HTN -Currently having HD, history of hypotension on Midrin in the past -We will add clonidine as needed for HTN -Continue monitoring BP and if needed start antihypertensive DVT prophylaxis- VALENTINO/SCD's and early ambulation Discussed with patient, briefly with and . Physician Certification 2 Midnight Certification Type: Admission for Inpatient Services Order for Inpatient Services The services are ordered in accordance with Medicare regulations or non- Medicare payer requirements, as applicable. In the case of services not specified as inpatient-only, they are appropriately provided as inpatient services in accordance with the 2-midnight benchmark. Estimated LOS (days): 3 days is the estimated time the patient will need to remain in the hospital, assuming treatment plan goals are met and no additional complications. Post-Hospital Plan: Home Daria Rice March 21, 2018 18:18
[2018-03-21] MEDS ORDERED: ACETAMINOPHEN/HYDROcodone 325 MG/5 MG TAB PO PRN (18:30)
[2018-03-21] MEDS ORDERED: METOCLOPRAMIDE HCL 10 MG/2 ML VIAL IV PUSH PRN (18:30)
[2018-03-21 21:12] VITALS: BP 130/60; PULSE 71; RESP 19; TEMP 97.3; O2SAT 99
[2018-03-21] MEDS: ACETAMINOPHEN/HYDROcodone 325 MG/7.5 MG TAB PO PRN (21:54)
[2018-03-21] MEDS: DOCUSATE SODIUM 50 MG/SENNA 8.6 MG TAB PO SCH (21:54)
[2018-03-21] MEDS: ONDANSETRON ODT 4 MG TAB PO PRN (22:11)
[2018-03-22] VITALS: BP 145/79; PULSE 78; RESP 19; TEMP 97.6; O2SAT 93
[2018-03-22] MEDS: HYDROmorphone HCL PF 2 MG/ML VIAL IV PUSH PRN ×2 (02:53→14:06)
[2018-03-22 08:00] VITALS: BP 111/52; PULSE 82; RESP 19; TEMP 98.1; O2SAT 94
[2018-03-22] MEDS: DOCUSATE SODIUM 50 MG/SENNA 8.6 MG TAB PO SCH ×2 (08:23→22:21)
[2018-03-22 08:28] LABS: AUTOMATED NEUTROPHIL # 11.2 TH/MM3 (1.8-7.7); BASOPHIL % 0.3 % (0.0-2.0); EOSINOPHIL % 0.2 % (0.0-4.0); HEMATOCRIT 37.8 % (35.0-46.0); HEMOGLOBIN 11.6 GM/DL (11.6-15.3); LYMPH % 4.4 % (9.0-44.0); LYMPHOCYTE # 0.6 TH/MM3 (1.0-4.8); MEAN CELL VOLUME 99.3 FL (80.0-100.0); MEAN CORPUSCULAR HEMOGLOBIN 30.6 PG (27.0-34.0); MEAN CORPUSCULAR HGB CONC 30.8 % (32.0-36.0); MEAN PLATELET VOLUME 10.4 FL (7.0-11.0); MONO % 11.4 % (0.0-8.0); MONOCYTE # 1.5 TH/MM3 (0-0.9); NEUT % 83.7 % (16.0-70.0); PLATELET COUNT 212 TH/MM3 (150-450); RED BLOOD COUNT 3.81 MIL/MM3 (4.00-5.30); RED CELL DISTRIBUTION WIDTH 15.3 % (11.6-17.2); WHITE BLOOD COUNT 13.4 TH/MM3 (4.0-11.0)
[2018-03-22] MEDS: INSULIN ASPART SUPPLEMENTAL SCALE SQ SCH ×4 (08:28→22:21)
[2018-03-22] MEDS ORDERED: FERR1TAB16 PO (08:41)
[2018-03-22] MEDS ORDERED: TRAD5TAB PO (08:41)
[2018-03-22 09:35] LABS: ALBUMIN 2.9 GM/DL (3.4-5.0); AST (GOT) 23 U/L (15-37); BICARBONATE 28.4 MEQ/L (21.0-32.0); BLOOD UREA NITROGEN 21 MG/DL (7-18); CALCIUM 8.6 MG/DL (8.5-10.1); CHLORIDE 98 MEQ/L (98-107); CREATININE 6.73 MG/DL (0.50-1.00); GLOMERULAR FILTRATION RATE 8 ML/MIN (>89); GLUCOSE,RANDOM 211 MG/DL (74-106); SODIUM (NA) 138 MEQ/L (136-145)
[2018-03-22 09:40] LABS: ALKALINE PHOSPHATASE 134 U/L (45-117); ALT (GPT) 23 U/L (10-53); TOTAL BILIRUBIN ADULT 0.5 MG/DL (0.2-1.0); TOTAL PROTEIN 9.4 GM/DL (6.4-8.2)
[2018-03-22 10:46] VITALS: O2SAT 92
[2018-03-22 12:00] VITALS: BP 111/66; PULSE 77; RESP 19; TEMP 98.7; O2SAT 94
[2018-03-22] MEDS: PANTOPRAZOLE SOD 40 MG DELAYED RELEASE TAB PO SCH (12:00)
[2018-03-22] MEDS: ONDANSETRON ODT 4 MG TAB PO PRN (12:00)
[2018-03-22] MEDS: ACETAMINOPHEN/HYDROcodone 325 MG/7.5 MG TAB PO PRN (12:00)
--- NOTE | 2018-03-22 12:26 | HHI.NPPN ---
Subjective General Problems: Anemia Renal Failure: Chronic, End Stage Renal Disease Interval History Abdominal pain is still present. Ordered clear liquid diet but reporting nausea and diminished appetite. Dialyzed yesterday. (Mili Abarca) Review of Systems Gastrointestinal Gastrointestinal: Abdominal Pain, Nausea & Vomiting (Mili Abarca) Objective Data Data Vital Signs Date Time Temp Pulse Resp B/P (MAP) Pulse Ox O2 Delivery O2 Flow Rate FiO2 03/22/18 08:00 98.1 82 19 111/52 (71) 94 03/22/18 00:00 97.6 78 19 145/79 (101) 93 03/21/18 21:12 97.3 71 19 130/60 (83) 99 03/21/18 17:10 90 Room Air 03/21/18 16:51 75 18 179/79 (112) 94 Room Air 03/21/18 14:50 98 Room Air 03/21/18 14:36 20 03/21/18 14:21 98.7 78 23 159/66 (97) 87 (Mili Abarca) -: 03/22/18 0600 03/22/18 0702 Imaging Last 72 hours Impressions Chest X-Ray 03/21/18 1438 Signed Impressions: Service Date/Time: Wednesday, March 21, 2018 14:44 - CONCLUSION: No acute disease. Antelmo Aparicio MD Abdomen/Pelvis CT 03/21/18 1438 Signed Impressions: Service Date/Time: Wednesday, March 21, 2018 15:12 - CONCLUSION: There is a large complex mixed attenuation mass lesion involving the tail of the pancreas. A large pseudocyst would be the leading consideration. This is incompletely evaluated on this study. Antelmo Aparicio MD (Mili Abarca) Physical Exam General Appearance: Well Developed, Well Nourished, Comfortable, Obese (Mili Abarca) Throat Throat Exam: Oral Mucosa [place] & Moist (Mili Abarca) Pulmonary Resp Exam: Clear Bilaterally, Breath Sounds Equal, No Distress (Mili Abarca) Cardiology CV Exam: Regular, Normal Sinus Rhythm, Good Perfusion (Mili Abarca) Gastrointestinal/Abdomen GI Exam: Soft, Bowel Sounds Present, Positive Bowel Movement, Distended GI Remarks generalized tenderness upper quadrants, some guarding is noted. BM yesterday. (Mili Abarca) Musculoskeletal MS Exam: Joints Intact, Normal Tone, Unable to Ambulate (Mili Abarca) Integumentary Skin Exam: Clear, Warm, Dry, Intact (Mili Abarca) Extremeties Extremities Exam: No Edema, Pedal Pulses Palpable (Mili Abarca) Neurologic Neuro Exam: Alert, Awake, Oriented, Speech Clear, Moving All Extremities (Mili Abarca) Psychiatric Psych Exam: Appropriate Responses (Mili Abarca) Assessment/Plan Discussed Condition With: Patient Assessment Summary: Hypertension, End Stage Renal Disease Problem List: (1) ESRD (end stage renal disease) ICD Codes: N18.6 - ESRD (end stage renal disease) Status: Acute Plan: Continue HD support TTS, due tomorrow. She had 3.5L UF yesterday, tolerated well Avoid Left arm procedures, protect AVF form invasive procedures. Evaluate electrolytes intermittently. Avoid IVF administration; Gadolinium is contraindicated High protein diet encouraged as diet is advanced. . (2) Abdominal pain ICD Codes: R10.9 - Abdominal pain Status: Acute Plan: Now very nauseated. Had BM yesterday. CT report noted, has pancreatic cyst. To have I&D vs EUS to obtain tissues sample. GI following. PRN pain medications and antiemetics ordered. (3) Pancreatic pseudocyst ICD Codes: K86.3 - Pseudocyst of pancreas Status: Acute Plan: Unclear if this is the cause of abdominal symptoms. GI workup ongoing. See above. (4) Hypertension ICD Codes: I10 - Hypertension Status: Acute Plan: Blood pressure is high; home list not include any antihypertensive, may not be accurate. Will follow with HD clinic regarding list of medications. start amlodipine daily; has PRN clonidine ordered. (5) Diabetes mellitus ICD Codes: E11.9 - Diabetes mellitus Status: Chronic Plan: Insulin coverage, maintain blood glucose between 140 and 180. (Mili Abarca) Plan patient was seen and examined. Agree with above assessment and plan. (Lokesh Joshua MD) Mili Abarca March 22, 2018 12:26 Lokesh Joshua MD March 23, 2018 08:16
[2018-03-22] MEDS: amLODIPine BESYLATE 5 MG TAB PO SCH (13:00)
--- NOTE | 2018-03-22 13:32 | HHI.PR ---
Subjective Remarks Follow-up abdominal pain. Patient reporting nausea, but no vomiting. Still having abdominal pain in the upper abdomen, unchanged from yesterday. Objective Vitals Vital Signs Date Time Temp Pulse Resp B/P (MAP) Pulse Ox O2 Delivery O2 Flow Rate FiO2 03/22/18 12:00 98.7 77 19 111/66 (81) 94 03/22/18 10:46 92 Nasal Cannula 2.00 03/22/18 08:00 98.1 82 19 111/52 (71) 94 03/22/18 00:00 97.6 78 19 145/79 (101) 93 03/21/18 21:12 97.3 71 19 130/60 (83) 99 03/21/18 17:10 90 Room Air 03/21/18 16:51 75 18 179/79 (112) 94 Room Air 03/21/18 14:50 98 Room Air 03/21/18 14:36 20 03/21/18 14:21 98.7 78 23 159/66 (97) 87 I/O 03/21/18 03/21/18 03/21/18 03/22/18 03/22/18 03/22/18 07:00 15:00 23:00 07:00 15:00 23:00 Intake Total 240 ml Output Total 3500 ml Balance -3500 ml 240 ml Intake Oral 240 ml Output Hemodialysis 3500 ml Result Diagram: 03/22/18 0600 03/22/18 0702 Imaging Last Impressions Chest X-Ray 03/21/18 1438 Signed Impressions: Service Date/Time: Wednesday, March 21, 2018 14:44 - CONCLUSION: No acute disease. Antelmo Aparicio MD Abdomen/Pelvis CT 03/21/18 1438 Signed Impressions: Service Date/Time: Wednesday, March 21, 2018 15:12 - CONCLUSION: There is a large complex mixed attenuation mass lesion involving the tail of the pancreas. A large pseudocyst would be the leading consideration. This is incompletely evaluated on this study. Antelmo Aparicio MD Objective Remarks General: Obese female in no acute distress. Heart: Regular rate and rhythm. No murmur. Lungs: Clear to auscultation bilaterally. No wheezes, rales, or rhonchi. Breathing is nonlabored. Abdomen: Soft, tender to palpation in the upper abdomen and midepigastric region , nondistended. Extremities: No lower extremity edema. Psych: Alert and oriented. Neuro: Normal speech. No focal deficits noted. Procedures None Urinary Catheter: No Vascular Central Line Catheter: No A/P Problem List: (1) Pancreatic pseudocyst ICD Code: K86.3 - Pseudocyst of pancreas Status: Acute (2) Pancreatitis ICD Code: K85.90 - Acute pancreatitis without necrosis or infection, unspecified (3) Nausea & vomiting ICD Code: R11.2 - Nausea with vomiting, unspecified (4) Abdominal pain ICD Code: R10.9 - Unspecified abdominal pain (5) ESRD on hemodialysis ICD Code: N18.6 - End stage renal disease; Z99.2 - Dependence on renal dialysis Assessment and Plan 1. Abdominal pain: Pancreatic pseudocyst, possible pancreatic tail mass noted on CT. Appreciate gastroenterology recommendations. Planning for endoscopic ultrasound, possibly Tuesday. Continue pain control, antiemetics. Clear liquid diet. 2. End-stage renal disease: Continue hemodialysis per nephrology. 3. Pancreatitis: Lipase is improving. Continue pain control. 4. Diabetes mellitus: Monitor Accu-Cheks and cover with sliding scale insulin. 5. Gastroparesis: Not currently on medication. Had prior J-tube, which was removed in 2014. 6. Hypertension: Clonidine as needed. Patient has history of hypotension and is on Midrin. 7. DVT prophylaxis: VALENTINO Astudillo. Discharge Planning Pending clinical improvement. Bronson Zhou MD March 22, 2018 13:32
--- NOTE | 2018-03-22 13:38 | HHI.GIFU ---
Subjective Remarks Pt sitting up in bed Complaining of continued abdominal pain Tolerating clear liquids (Nadine Santiago) Objective Vitals I&O Vital Signs Date Time Temp Pulse Resp B/P (MAP) Pulse Ox O2 Delivery O2 Flow Rate FiO2 03/22/18 12:00 98.7 77 19 111/66 (81) 94 03/22/18 10:46 92 Nasal Cannula 2.00 03/22/18 08:00 98.1 82 19 111/52 (71) 94 03/22/18 00:00 97.6 78 19 145/79 (101) 93 03/21/18 21:12 97.3 71 19 130/60 (83) 99 03/21/18 17:10 90 Room Air 03/21/18 16:51 75 18 179/79 (112) 94 Room Air 03/21/18 14:50 98 Room Air 03/21/18 14:36 20 03/21/18 14:21 98.7 78 23 159/66 (97) 87 I/O 03/21/18 03/21/18 03/21/18 03/22/18 03/22/18 03/22/18 07:00 15:00 23:00 07:00 15:00 23:00 Intake Total 240 ml Output Total 3500 ml Balance -3500 ml 240 ml Intake Oral 240 ml Output Hemodialysis 3500 ml Laboratory Laboratory Tests Test 03/21/18 14:48 03/21/18 14:50 03/22/18 06:00 03/22/18 07:02 Blood Gas Puncture Site RT RADIAL Blood Gas Patient Temperature 98.6 Blood Gas HCO3 25 Blood Gas Base Excess 0.2 Blood Gas Oxygen Saturation 91 Arterial Blood pH 7.37 Arterial Blood Partial Pressure CO2 45 Arterial Blood Partial Pressure O2 71 Arterial Blood Oxygen Content 14.9 Arterial Blood Carboxyhemoglobin 1.6 Arterial Blood Methemoglobin 1.0 Blood Gas Hemoglobin 11.6 Oxygen Delivery Device NASAL CANNULA Blood Gas Liter Flow 2 White Blood Count 13.4 13.4 Red Blood Count 3.96 3.81 Hemoglobin 12.3 11.6 Hematocrit 38.7 37.8 Mean Corpuscular Volume 97.9 99.3 Mean Corpuscular Hemoglobin 31.1 30.6 Mean Corpuscular Hemoglobin Concent 31.8 30.8 Red Cell Distribution Width 14.9 15.3 Platelet Count 206 212 Mean Platelet Volume 10.3 10.4 Neutrophils (%) (Auto) 90.7 83.7 Lymphocytes (%) (Auto) 4.9 4.4 Monocytes (%) (Auto) 4.2 11.4 Eosinophils (%) (Auto) 0.0 0.2 Basophils (%) (Auto) 0.2 0.3 Neutrophils # (Auto) 12.1 11.2 Lymphocytes # (Auto) 0.7 0.6 Monocytes # (Auto) 0.6 1.5 Eosinophils # (Auto) 0.0 0.0 Basophils # (Auto) 0.0 0.0 CBC Comment DIFF FINAL DIFF FINAL Differential Comment Prothrombin Time 10.1 Prothromb Time International Ratio 1.0 Activated Partial Thromboplast Time 23.7 Blood Urea Nitrogen 35 21 Creatinine 9.14 6.73 Random Glucose 316 211 Total Protein 9.2 9.4 Albumin 3.1 2.9 Calcium Level 8.8 8.6 Phosphorus Level 5.5 Magnesium Level 2.3 Alkaline Phosphatase 140 134 Aspartate Amino Transf (AST/SGOT) 30 23 Alanine Aminotransferase (ALT/SGPT) 23 23 Total Bilirubin 0.4 0.5 Sodium Level 137 138 Potassium Level 4.9 3.7 Chloride Level 99 98 Carbon Dioxide Level 27.2 28.4 Anion Gap 11 12 Estimat Glomerular Filtration Rate 5 8 Lactic Acid Level 1.6 Total Creatine Kinase 94 Troponin I 0.02 Lipase 513 389 CA 19-9 Antigen 52.8 Imaging Last Impressions Chest X-Ray 03/21/188 Signed Impressions: Service Date/Time: Wednesday, March 21, 2018 14:44 - CONCLUSION: No acute disease. Antelmo Aparicio MD Abdomen/Pelvis CT 03/21/18 1438 Signed Impressions: Service Date/Time: Wednesday, March 21, 2018 15:12 - CONCLUSION: There is a large complex mixed attenuation mass lesion involving the tail of the pancreas. A large pseudocyst would be the leading consideration. This is incompletely evaluated on this study. Antelmo Aparicio MD Physical Exam HEENT: Normocephalic; atraumatic CHEST: Even/unlabored ABDOMEN: Distended, semi-firm, epigastric TTP, bowel sounds active SKIN: Normal; no rash; no jaundice. ESL INSTRUCTIONAL ASSISTANT: Alert and oriented times three. (Nadine Santiago) Assessment and Plan Plan Assessment: - Pancreatitis with CT findings suggestive of possible large pancreatic pseudocyst History of pseudocyst with CT guided drainage in Nov 2014 Complaining of epigastric pain, nausea, vomiting that woke her up in the middle of the night Lipase-513 CT abdomen and pelvis W/O IV contrast (03/21) --> There is a large complex mixed attenuation mass lesion involving the tail of the pancreas. A large pseudocyst would be the leading consideration. This is incompletely evaluated on this study. History of pancreatitis with pancreatic pseudocyst, according to previous records was not amenable to drainage by IR 1st episode of pancreatitis in 2014 Denies ETOH New medications: Auryxia and Tradjenta Denies family history of pancreatic issues Previous cholecystectomy Last EGD in 2014, normal exam, previous EGD revealed esophagitis and gastritis Never had colonoscopy - Gastroparesis- previously had a J tube- removed in 2014, also noted to be previously on EES and Reglan, not currently on any medication for this at this time - Leukocytosis, afebrile - ESRD on HD- , , Tue- did not go today because she did not feel well enough (03/22) Pt with continued abdominal pain. CA 19-9 - 52.8. Lipase now WNL. SNEHA negative, IgG [address] Machado IR, states that percutaneous drainage would not be the preferred option because she will likely end up with senior care drain. Discussed case with Dr. Jade and tenatively will plan for EUS Tuesday. Plan: Abdominal US EUS possibly Tuesday IgG 4 pending Clear liquids IVF Antiemetics PRN Pain control Monitor labs Further recommendations based on clinical course and results of above Pt has been seen and examined by myself and Dr. Gupta and this note is written on her behalf (Nadine Santiago) Physician Comments seen, examined agree with above (Alicia Gupta MD) Nadine Santiago March 22, 2018 13:38 Alicia Gupta MD March 22, 2018 16:47
--- NOTE | 2018-03-22 14:44 | RADRPT ---
EXAM DATE/TIME: 03/22/2018 14:33 [facility] COMPARISON: CT ABDOMEN & PELVIS W/O CONTRAST, August 12, 2015, 10:29. CT ABDOMEN & PELVIS W/O CONTRAST, March 21, 2018, 15:12. INDICATIONS : Evaluate for pancreatic pseudocyst drainage/biopsy FINDINGS: The patient's previous CT scan from 03/21/18 was reviewed. This indeed demonstrate a 5.8 x 9.3 cm thai ection within the tail of the pancreas. Review of the patient's previous imaging demonstrates a histo ry of pancreatitis. There is been previous drainage catheter placed within the collection along the p osterior aspect of the tail of the pancreas. Most recently there was a drainage catheter in this area 08/12/15. The previous imaging would suggest this represents chronic pseudocyst. I would not recommend repeat d rainage of this unless there is significant suspicion for infection and or obstruction. CONCLUSION: 1. This patient has had previous pancreatitis with drainage catheters placed in the same collection b ack in 2014 as such, I would not recommend drainage of this unless there is significant suspicion for infection or obstructive symptoms Broderick Machado MD on March 22, 2018 at 14:38 Board Certified Radiologist. This report was verified electronically.
[2018-03-22 16:00] VITALS: BP 100/52; PULSE 68; RESP 19; TEMP 98.3; O2SAT 91
[2018-03-22] MEDS: AURYXIA 210 MG PO SCH (17:00)
[2018-03-22 20:00] VITALS: BP 126/57; PULSE 85; RESP 17; TEMP 98.1; O2SAT 94
[2018-03-22] MEDS ORDERED: NON-FORMULARY DRUG (Ranitidine 150 MG) PO SCH (21:00)
[2018-03-22] MEDS ORDERED: CALCIUM ACETATE 667 MG CAP PO SCH (21:00)
--- NOTE | 2018-03-22 21:09 | RADRPT ---
EXAM DATE/TIME: 03/22/2018 19:40 [facility] COMPARISON: CT ABDOMEN & PELVIS W/O CONTRAST, March 21, 2018, 15:12. INDICATIONS : Abnormal CT. Pancreatic cyst. MEDICAL HISTORY : Hypercholesterolemia. Hypertension. Gastroesophageal reflux disease. Neuropathy. Dizziness. Numbness. Dyspnea. Colitis. Renal failure. Dialysis. Diabetes. Anemia. C-diff. SURGICAL HISTORY : Cholecystectomy. Fistula on left arm. ENCOUNTER: Subsequent ACUITY: 1 day PAIN SCORE: 6/10 LOCATION: Bilateral Abdomen. MEASUREMENTS: LIVER: 14.4 cm length COMMON DUCT: 6 mm RIGHT KIDNEY: 7.1 x 3.7 x 3.8 cm LEFT KIDNEY: 8.5 x 4.9 x 4.9 cm SPLEEN: 10.5 x cm length AORTA: 2.1cm maximal FINDINGS: LIVER: Normal echotexture without focal lesion or ductal dilatation. COMMON DUCT: No intraluminal mass or stone visualized. GALLBLADDER: The patient is status post cholecystectomy. PANCREAS: There is a complex cystic mass measuring 9.6 x 10.1 x 9.9 cm at the pancreatic tail region. This like ly represents a pseudocyst although is nonspecific. RIGHT KIDNEY: The kidneys are small and echogenic without hydronephrosis. LEFT KIDNEY: The kidneys are small and echogenic without hydronephrosis. SPLEEN: No focal lesion. AORTA: Non aneurysmal. IVC: Within normal limits. CONCLUSION: 1. 10 cm complex cystic mass the pancreatic tail. This is nonspecific. A pseudocyst would be the most common mass. Other cystic masses/neoplasms cannot be excluded on the ultrasound alone. 2. Small echogenic kidneys consistent with chronic renal disease. Tanmay Bella MD on March 22, 2018 at 21:02 Board Certified Radiologist. This report was verified electronically.
[2018-03-22] MEDS: GABAPENTIN 400 MG CAP PO SCH (22:21)
--- NOTE | 2018-03-22 22:33 | EKG ---
Date Performed: 03/21/2018 Time Performed: 15:46:01 PTAGE: 52 years EKG: Sinus rhythm MODERATE ST DEPRESSION ABNORMAL ECG PREVIOUS TRACING : 03/16/2016 21.18 Since the previous tracing, no significant change noted DOCTOR: Kaleb Hernandez Interpretating Date/Time 03/22/2018 22:32:02
[2018-03-23] VITALS (8 sets, daily range): BP systolic 79–166; BP diastolic 32–103; PULSE 77–96; RESP 16–20; TEMP 97.3–98.3; O2SAT 91–98
[2018-03-23] MEDS: ACETAMINOPHEN/HYDROcodone 325 MG/7.5 MG TAB PO PRN (06:37)
[2018-03-23] MEDS: AURYXIA 210 MG PO SCH ×3 (08:00→15:43)
[2018-03-23] MEDS: INSULIN ASPART SUPPLEMENTAL SCALE SQ SCH ×4 (08:15→21:42)
[2018-03-23] MEDS: PANTOPRAZOLE SOD 40 MG DELAYED RELEASE TAB PO SCH (08:17)
[2018-03-23] MEDS: amLODIPine BESYLATE 5 MG TAB PO SCH (08:17)
[2018-03-23] MEDS: DOCUSATE SODIUM 50 MG/SENNA 8.6 MG TAB PO SCH ×2 (08:17→21:41)
[2018-03-23] MEDS: GABAPENTIN 400 MG CAP PO SCH ×2 (08:17→21:41)
[2018-03-23 08:36] LABS: AUTOMATED NEUTROPHIL # 18.1 TH/MM3 (1.8-7.7); BASOPHIL % 0.2 % (0.0-2.0); EOSINOPHIL % 0.1 % (0.0-4.0); HEMATOCRIT 36.5 % (35.0-46.0); LYMPH % 3.5 % (9.0-44.0); LYMPHOCYTE # 0.7 TH/MM3 (1.0-4.8); MEAN CELL VOLUME 100.7 FL (80.0-100.0); MEAN CORPUSCULAR HEMOGLOBIN 30.4 PG (27.0-34.0); MEAN CORPUSCULAR HGB CONC 30.2 % (32.0-36.0); MEAN PLATELET VOLUME 10.3 FL (7.0-11.0); MONO % 9.3 % (0.0-8.0); MONOCYTE # 1.9 TH/MM3 (0-0.9); NEUT % 86.9 % (16.0-70.0); PLATELET COUNT 201 TH/MM3 (150-450); RED BLOOD COUNT 3.62 MIL/MM3 (4.00-5.30); RED CELL DISTRIBUTION WIDTH 15.3 % (11.6-17.2); WHITE BLOOD COUNT 20.8 TH/MM3 (4.0-11.0)
--- NOTE | 2018-03-23 08:54 | HHI.NPPN ---
Subjective General Problems: Anemia Renal Failure: Chronic, End Stage Renal Disease Interval History All the notes were reviewed. To have dialysis today. EUS is planned by GI. Patient reports that abdominal pain is better. Review of Systems Gastrointestinal Gastrointestinal: Abdominal Pain, Nausea & Vomiting Objective Data Data Vital Signs Date Time Temp Pulse Resp B/P (MAP) Pulse Ox O2 Delivery O2 Flow Rate FiO2 03/23/18 08:39 Nasal Cannula 2.00 03/23/18 00:00 97.6 79 17 121/60 (80) 95 03/22/18 20:00 98.1 85 17 126/57 (80) 94 03/22/18 16:00 98.3 68 19 100/52 (68) 91 03/22/18 12:00 98.7 77 19 111/66 (81) 94 03/22/18 10:46 92 Nasal Cannula 2.00 -: 03/23/18 0624 03/22/18 0702 Physical Exam General Appearance: Well Developed, Well Nourished, Comfortable, Obese Throat Throat Exam: Oral Mucosa [place] & Moist Pulmonary Resp Exam: Clear Bilaterally, Breath Sounds Equal, No Distress Cardiology CV Exam: Regular, Normal Sinus Rhythm, Good Perfusion Gastrointestinal/Abdomen GI Exam: Soft, Bowel Sounds Present, Positive Bowel Movement, Distended Musculoskeletal MS Exam: Joints Intact, Normal Tone, Unable to Ambulate Integumentary Skin Exam: Clear, Warm, Dry, Intact Extremeties Extremities Exam: No Edema, Pedal Pulses Palpable Neurologic Neuro Exam: Alert, Awake, Oriented, Speech Clear, Moving All Extremities Psychiatric Psych Exam: Appropriate Responses Assessment/Plan Discussed Condition With: Patient Assessment Summary: Hypertension, End Stage Renal Disease Problem List: (1) ESRD (end stage renal disease) ICD Codes: N18.6 - ESRD (end stage renal disease) Status: Acute Plan: Continue HD support TTS, dialysis today. Avoid Left arm procedures, protect AVF form invasive procedures. Evaluate electrolytes intermittently. Avoid IVF administration; Gadolinium is contraindicated High protein diet encouraged as diet is advanced. . (2) Abdominal pain ICD Codes: R10.9 - Abdominal pain Status: Acute Plan: CT report noted, has pancreatic cyst. EUS is planned. GI following. PRN pain medications and antiemetics ordered. (3) Pancreatic pseudocyst ICD Codes: K86.3 - Pseudocyst of pancreas Status: Acute Plan: Unclear if this is the cause of abdominal symptoms. GI workup ongoing. See above. (4) Hypertension ICD Codes: I10 - Hypertension Status: Acute Plan: BP is now acceptable. started amlodipine daily; has PRN clonidine ordered. (5) Diabetes mellitus ICD Codes: E11.9 - Diabetes mellitus Status: Chronic Plan: Insulin coverage, maintain blood glucose between 140 and 180. Lokesh Joshua MD March 23, 2018 08:54
[2018-03-23 09:01] LABS: BICARBONATE 26.8 MEQ/L (21.0-32.0); CALCIUM 8.5 MG/DL (8.5-10.1); CREATININE 8.58 MG/DL (0.50-1.00)
[2018-03-23] MEDS: MANNITOL 12.5 GM/50 ML VIAL IV PRN (09:58)
[2018-03-23] MEDS: ALBUMIN 25% INJ 100 ML IV PRN (09:58)
--- NOTE | 2018-03-23 14:36 | HHI.PR ---
Subjective Remarks Follow up abdominal pain. Patient still reporting upper abdominal pain, unchanged. No nausea/vomiting. Had dialysis today. Objective Vitals Vital Signs Date Time Temp Pulse Resp B/P (MAP) Pulse Ox O2 Delivery O2 Flow Rate FiO2 03/23/18 13:25 98.3 91 18 124/59 (80) 93 03/23/18 08:39 Nasal Cannula 2.00 03/23/18 08:00 97.3 87 16 79/32 (48) 91 03/23/18 00:00 97.6 79 17 121/60 (80) 95 03/22/18 20:00 98.1 85 17 126/57 (80) 94 03/22/18 16:00 98.3 68 19 100/52 (68) 91 I/O 03/22/18 03/22/18 03/22/18 03/23/18 03/23/18 03/23/18 07:00 15:00 23:00 07:00 15:00 23:00 Intake Total 240 ml 240 ml 240 ml Output Total 0 ml 1000 ml Balance 240 ml 240 ml 240 ml -1000 ml Intake Oral 240 ml 240 ml 240 ml Output Urine Total 0 ml Hemodialysis 1000 ml # Voids 0 # Bowel Movements 0 Result Diagram: 03/23/18 0624 03/23/18 0624 Imaging Last Impressions Consultation 03/22/18 1433 Signed Impressions: Service Date/Time: Thursday, March 22, 2018 14:33 - CONCLUSION: 1. This patient has had previous pancreatitis with drainage catheters placed in the same collection back in 2014 as such, I would not recommend drainage of this unless there is significant suspicion for infection or obstructive symptoms Broderick Machado MD Abdomen Ultrasound 03/22/18 0000 Signed Impressions: Service Date/Time: Thursday, March 22, 2018 19:40 - CONCLUSION: 1. 10 cm complex cystic mass the pancreatic tail. This is nonspecific. A pseudocyst would be the most common mass. Other cystic masses/neoplasms cannot be excluded on the ultrasound alone. 2. Small echogenic kidneys consistent with chronic renal disease. Tanmay Bella MD Chest X-Ray 03/21/18 1438 Signed Impressions: Service Date/Time: Wednesday, March 21, 2018 14:44 - CONCLUSION: No acute disease. Antelmo Aparicio MD Abdomen/Pelvis CT 03/21/18 1438 Signed Impressions: Service Date/Time: Wednesday, March 21, 2018 15:12 - CONCLUSION: There is a large complex mixed attenuation mass lesion involving the tail of the pancreas. A large pseudocyst would be the leading consideration. This is incompletely evaluated on this study. Antelmo Aparicio MD Objective Remarks General: Obese female in no acute distress. Heart: Regular rate and rhythm. No murmur. Lungs: Clear to auscultation bilaterally. No wheezes, rales, or rhonchi. Breathing is nonlabored. Abdomen: Soft, tender to palpation in the upper abdomen and midepigastric region , nondistended. Extremities: No lower extremity edema. Psych: Alert and oriented. Neuro: Normal speech. No focal deficits noted. Procedures None Urinary Catheter: No Vascular Central Line Catheter: No A/P Problem List: (1) Pancreatic pseudocyst ICD Code: K86.3 - Pseudocyst of pancreas Status: Acute (2) Pancreatitis ICD Code: K85.90 - Acute pancreatitis without necrosis or infection, unspecified (3) Nausea & vomiting ICD Code: R11.2 - Nausea with vomiting, unspecified (4) Abdominal pain ICD Code: R10.9 - Unspecified abdominal pain (5) ESRD on hemodialysis ICD Code: N18.6 - End stage renal disease; Z99.2 - Dependence on renal dialysis Assessment and Plan 1. Abdominal pain: Pancreatic pseudocyst, possible pancreatic tail mass noted on CT. Appreciate gastroenterology recommendations. Planning for endoscopic ultrasound, possibly tomorrow. Continue pain control, antiemetics. Clear liquid diet. May request IR drainage of pseudocyst. 2. End-stage renal disease: Continue hemodialysis per nephrology. 3. Pancreatitis: Lipase is improving. Continue pain control. 4. Diabetes mellitus: Monitor Accu-Cheks and cover with sliding scale insulin. 5. Gastroparesis: Not currently on medication. Had prior J-tube, which was removed in 2014. 6. Hypertension: Clonidine as needed. Patient has history of hypotension and is on Midrin. 7. DVT prophylaxis: SCDs, VALENTINO hose. 8. Leukocytosis: WBCs increasing. Recheck labs. Start empiric antibiotics for presumed GI source. Check blood cultures. Discussed with Dr. Gupta. Discharge Planning Pending clinical improvement. Bronson Zhou MD March 23, 2018 14:36
[2018-03-23] MEDS ORDERED: LEVOFLOXACIN 500 MG TAB PO SCH (15:00)
--- NOTE | 2018-03-23 15:37 | HHI.GIFU ---
Subjective Remarks Pt tolerating clear liquids Denies nausea, vomiting Still having some abdominal pain, states all the way across at the level of her umbilicus Had dialysis today (Nadine Santiago) Objective Vitals I&O Vital Signs Date Time Temp Pulse Resp B/P (MAP) Pulse Ox O2 Delivery O2 Flow Rate FiO2 03/23/18 13:25 98.3 91 18 124/59 (80) 93 03/23/18 08:39 Nasal Cannula 2.00 03/23/18 08:00 97.3 87 16 79/32 (48) 91 03/23/18 00:00 97.6 79 17 121/60 (80) 95 03/22/18 20:00 98.1 85 17 126/57 (80) 94 03/22/18 16:00 98.3 68 19 100/52 (68) 91 I/O 03/22/18 03/22/18 03/22/18 03/23/18 03/23/18 03/23/18 07:00 15:00 23:00 07:00 15:00 23:00 Intake Total 240 ml 240 ml 240 ml Output Total 0 ml 1000 ml Balance 240 ml 240 ml 240 ml -1000 ml Intake Oral 240 ml 240 ml 240 ml Output Urine Total 0 ml Hemodialysis 1000 ml # Voids 0 # Bowel Movements 0 Laboratory Laboratory Tests Test 03/23/18 06:24 White Blood Count 20.8 Red Blood Count 3.62 Hemoglobin 11.0 Hematocrit 36.5 Mean Corpuscular Volume 100.7 Mean Corpuscular Hemoglobin 30.4 Mean Corpuscular Hemoglobin Concent 30.2 Red Cell Distribution Width 15.3 Platelet Count 201 Mean Platelet Volume 10.3 Neutrophils (%) (Auto) 86.9 Lymphocytes (%) (Auto) 3.5 Monocytes (%) (Auto) 9.3 Eosinophils (%) (Auto) 0.1 Basophils (%) (Auto) 0.2 Neutrophils # (Auto) 18.1 Lymphocytes # (Auto) 0.7 Monocytes # (Auto) 1.9 Eosinophils # (Auto) 0.0 Basophils # (Auto) 0.0 CBC Comment DIFF FINAL Differential Comment Blood Urea Nitrogen 29 Creatinine 8.58 Random Glucose 160 Calcium Level 8.5 Sodium Level 137 Potassium Level 4.0 Chloride Level 97 Carbon Dioxide Level 26.8 Anion Gap 13 Estimat Glomerular Filtration Rate 6 Imaging Last Impressions Consultation 03/22/18 1433 Signed Impressions: Service Date/Time: Thursday, March 22, 2018 14:33 - CONCLUSION: 1. This patient has had previous pancreatitis with drainage catheters placed in the same collection back in 2014 as such, I would not recommend drainage of this unless there is significant suspicion for infection or obstructive symptoms Broderick Machado MD Abdomen Ultrasound 03/22/18 0000 Signed Impressions: Service Date/Time: Thursday, March 22, 2018 19:40 - CONCLUSION: 1. 10 cm complex cystic mass the pancreatic tail. This is nonspecific. A pseudocyst would be the most common mass. Other cystic masses/neoplasms cannot be excluded on the ultrasound alone. 2. Small echogenic kidneys consistent with chronic renal disease. Tanmay Bella MD Chest X-Ray 03/21/188 Signed Impressions: Service Date/Time: Wednesday, March 21, 2018 14:44 - CONCLUSION: No acute disease. Antelmo Aparicio MD Abdomen/Pelvis CT 03/21/18 1438 Signed Impressions: Service Date/Time: Wednesday, March 21, 2018 15:12 - CONCLUSION: There is a large complex mixed attenuation mass lesion involving the tail of the pancreas. A large pseudocyst would be the leading consideration. This is incompletely evaluated on this study. Antelmo Aparicio MD Physical Exam HEENT: Normocephalic; atraumatic CHEST: Even/unlabored ABDOMEN: Distended, semi-firm, epigastric TTP, bowel sounds active SKIN: Normal; no rash; no jaundice. ANNEALING OVEN OPERATOR: Alert and oriented times three. (Nadine Santiago) Assessment and Plan Plan Assessment: - Pancreatitis with CT findings suggestive of possible large pancreatic pseudocyst History of pseudocyst with CT guided drainage in Nov 2014 Complaining of epigastric pain, nausea, vomiting that woke her up in the middle of the night Lipase-513 CT abdomen and pelvis W/O IV contrast (03/21) --> There is a large complex mixed attenuation mass lesion involving the tail of the pancreas. A large pseudocyst would be the leading consideration. This is incompletely evaluated on this study. History of pancreatitis with pancreatic pseudocyst, according to previous records was not amenable to drainage by IR 1st episode of pancreatitis in 2014 Denies ETOH New medications: Auryxia and Tradjenta Denies family history of pancreatic issues Previous cholecystectomy Last EGD in 2014, normal exam, previous EGD revealed esophagitis and gastritis Never had colonoscopy - Gastroparesis- previously had a J tube- removed in 2014, also noted to be previously on EES and Reglan, not currently on any medication for this at this time - Leukocytosis, afebrile - ESRD on HD- T, TH, Sat- did not go today because she did not feel well enough (03/22) Pt with continued abdominal pain. CA 19-9 - 52.8. Lipase now WNL. SNEHA negative, IgG [address] Machado IR, states that percutaneous drainage would not be the preferred option because she will likely end up with terminal makeup operator drain. Discussed case with Dr. Jade and tenatively will plan for EUS Tuesday. (03/23) Pt complaining of continued abdominal pain. Tolerating clear liquids, denies nausea, vomiting. Went for dialysis today. Increase in leukocytosis noted, pt started on Levaquin and Flagyl. US abdomen --> 10 cm complex cystic mass the pancreatic tail. This is nonspecific. A pseudocyst would be the most common mass. Other cystic masses/neoplasms cannot be excluded on the ultrasound alone. Small echogenic kidneys consistent with chronic renal disease. Plan: EUS possibly tomorrow If WBCs continue to go up tonight, repeat CT and consult IR for drainage Obtain consent NPO after MN IgG 4 pending Clear liquids Flagyl and Levaquin IVF Antiemetics PRN Pain control Monitor labs Further recommendations based on clinical course and results of above Pt has been seen and examined by myself and Dr. Gupta and this note is written on her behalf (Nadine Santiago) Physician Comments agree with above ID consult stool studies c diff (Alicia Gupta MD) Nadine Santiago March 23, 2018 15:37 Alicia Gupta MD March 23, 2018 18:20
[2018-03-23] MEDS: metroNIDAZOLE 500 MG TAB PO SCH ×2 (15:42→21:41)
[2018-03-23 16:32] LABS: AUTOMATED NEUTROPHIL # 23.2 TH/MM3 (1.8-7.7); BASOPHIL # 0.1 TH/MM3 (0-0.2); BASOPHIL % 0.3 % (0.0-2.0); EOSINOPHIL % 0.2 % (0.0-4.0); HEMOGLOBIN 9.8 GM/DL (11.6-15.3); LYMPH % 4.5 % (9.0-44.0); LYMPHOCYTE # 1.2 TH/MM3 (1.0-4.8); MEAN CELL VOLUME 100.7 FL (80.0-100.0); MEAN CORPUSCULAR HEMOGLOBIN 30.7 PG (27.0-34.0); MEAN CORPUSCULAR HGB CONC 30.5 % (32.0-36.0); MEAN PLATELET VOLUME 10.9 FL (7.0-11.0); MONOCYTE # 1.9 TH/MM3 (0-0.9); PLATELET COUNT 175 TH/MM3 (150-450); RED BLOOD COUNT 3.18 MIL/MM3 (4.00-5.30); RED CELL DISTRIBUTION WIDTH 15.6 % (11.6-17.2); WHITE BLOOD COUNT 26.4 TH/MM3 (4.0-11.0)
--- NOTE | 2018-03-23 16:37 | PD ---
Physical Exam Narrative I, Dr. Cancino, have reviewed the advance practice practitioner's documentation and am in agreement, met with the patient face to face, made the diagnosis, and the medical decision making was done by me. *My assessment and Findings: Patient presented to the emergency department complaining of abdominal pain, nausea/vomiting, diarrhea. The latter of which resolved last week. She is a dialysis patient, but missed dialysis today. She presented to the emergency department afebrile, slightly hypertensive at 159/66 , remaining vital signs stable. She had diffuse abdominal tenderness on exam. Workup was positive for leukocytosis, slight acidosis, hyperglycemia, elevated lipase, and elevated creatinine. Chest x-ray was negative for any acute process and CT abdomen pelvis showed a mass lesion of pancreatic tail. The mid- level provider consulted GI and surgery from the emergency department. She was given IV Dilaudid for pain and admitted to the hospital for further evaluation and management. Data Data Last Documented VS Vital Signs Date Time Temp Pulse Resp B/P (MAP) Pulse Ox O2 Delivery O2 Flow Rate FiO2 03/21/18 14:50 98 Room Air 03/21/18 14:36 20 03/21/18 14:21 98.7 78 159/66 (97) Orders Orders Arterial Blood Gas (Abg) (03/21/18 ) Comprehensive Metabolic Panel (03/21/18 14:38) Lipase (03/21/18 14:38) Lactic Acid (03/21/18 14:38) Prothrombin Time / Inr (Pt) (03/21/18 14:38) Act Partial Throm Time (Ptt) (03/21/18 14:38) Ct Abd/Pel W/O Iv Contrast (03/21/18 14:38) Iv Access Insert/Monitor (03/21/18 14:38) Ecg Monitoring (03/21/18 14:38) Oximetry (03/21/18 14:38) Morphine Inj (Morphine Inj) (03/21/18 14:45) Sodium Chloride 0.9% Flush (Ns Flush) (03/21/18 14:45) Electrocardiogram (03/21/18 14:38) Magnesium (Mg) (03/21/18 14:38) Phosphorus (Po4) (03/21/18 14:38) Ckmb (Isoenzyme) Profile (03/21/18 14:38) Troponin I (03/21/18 14:38) Chest, Single Ap (03/21/18 14:38) Bilateral Bp Monitoring (03/21/18 14:38) Ondansetron Odt (Zofran Odt) (03/21/18 14:45) Complete Blood Count With Diff (03/21/18 14:38) Hydromorphone Pf Inj (Dilaudid Pf Inj) (03/21/18 15:30) Consult Gastroenterology (03/21/18 ) (Hub Use Only)Inp Phy Cons/Ref (03/21/18 ) Ca 19-9 (03/21/18 16:34) Igg Subclasses (1,2,3.4,Total) (03/21/18 16:35) Ranjana Screen (03/21/18 16:35) Admit Order (Ed Use Only) (03/21/18 16:44) Labs Laboratory Tests Test 03/21/18 14:48 03/21/18 14:50 Blood Gas Puncture Site RT RADIAL Blood Gas Patient Temperature 98.6 Blood Gas HCO3 25 mmol/L Blood Gas Base Excess 0.2 mmol/L Blood Gas Oxygen Saturation 91 % Arterial Blood pH 7.37 Arterial Blood Partial Pressure CO2 45 mmHg Arterial Blood Partial Pressure O2 71 mmHG Arterial Blood Oxygen Content 14.9 Vol % Arterial Blood Carboxyhemoglobin 1.6 % Arterial Blood Methemoglobin 1.0 % Blood Gas Hemoglobin 11.6 G/DL Oxygen Delivery Device NASAL CANNULA Blood Gas Liter Flow 2 L/M White Blood Count 13.4 TH/MM3 Red Blood Count 3.96 MIL/MM3 Hemoglobin 12.3 GM/DL Hematocrit 38.7 % Mean Corpuscular Volume 97.9 FL Mean Corpuscular Hemoglobin 31.1 PG Mean Corpuscular Hemoglobin Concent 31.8 % Red Cell Distribution Width 14.9 % Platelet Count 206 TH/MM3 Mean Platelet Volume 10.3 FL Neutrophils (%) (Auto) 90.7 % Lymphocytes (%) (Auto) 4.9 % Monocytes (%) (Auto) 4.2 % Eosinophils (%) (Auto) 0.0 % Basophils (%) (Auto) 0.2 % Neutrophils # (Auto) 12.1 TH/MM3 Lymphocytes # (Auto) 0.7 TH/MM3 Monocytes # (Auto) 0.6 TH/MM3 Eosinophils # (Auto) 0.0 TH/MM3 Basophils # (Auto) 0.0 TH/MM3 CBC Comment DIFF FINAL Differential Comment Prothrombin Time 10.1 SEC Prothromb Time International Ratio 1.0 RATIO Activated Partial Thromboplast Time 23.7 SEC Blood Urea Nitrogen 35 MG/DL Creatinine 9.14 MG/DL Random Glucose 316 MG/DL Total Protein 9.2 GM/DL Albumin 3.1 GM/DL Calcium Level 8.8 MG/DL Phosphorus Level 5.5 MG/DL Magnesium Level 2.3 MG/DL Alkaline Phosphatase 140 U/L Aspartate Amino Transf (AST/SGOT) 30 U/L Alanine Aminotransferase (ALT/SGPT) 23 U/L Total Bilirubin 0.4 MG/DL Sodium Level 137 MEQ/L Potassium Level 4.9 MEQ/L Chloride Level 99 MEQ/L Carbon Dioxide Level 27.2 MEQ/L Anion Gap 11 MEQ/L Estimat Glomerular Filtration Rate 5 ML/MIN Lactic Acid Level 1.6 mmol/L Total Creatine Kinase 94 U/L Troponin I 0.02 NG/ML Lipase 513 U/L MDM Supervised Visit with MARIS: Yes Diagnosis Primary Impression: Abdominal pain Qualified Codes: R10.84 - Generalized abdominal pain Additional Impressions: Leukocytosis Qualified Codes: D72.829 - Elevated white blood cell count, unspecified Pancreatic pseudocyst Admitting Information Admitting Physician Requests: Admit Condition: Stable Isabella Cancino MD March 23, 2018 16:37
[2018-03-23] MEDS ORDERED: DIATRIZOATE MEGLUM/DIATRIZOATE SOD 9 ML CUP PO ONE (19:00)
[2018-03-23] MEDS ORDERED: RESP: ALBUTEROL 2.5 MG/IPRATROPIUM 0.5 MG NEB (PRN) NEB (21:45)
[2018-03-23] MEDS ORDERED: Vancomycin Consult Pharmacy 1 EA OTHER SCH (21:45)
[2018-03-23] MEDS ORDERED: AZTREONAM INJ 2,000 MG in SODIUM CHLORIDE 0.9% INJ 100 ML IV SCH (21:45)
[2018-03-23] MEDS ORDERED: LEVOFLOXACIN 750 MG PREMIX INJ 150 ML IV SCH (21:45)
[2018-03-23] MEDS ORDERED: RESP: ALBUTEROL 2.5 MG/IPRATROPIUM 0.5 MG NEB (SCH) NEB (22:00)
--- NOTE | 2018-03-23 22:13 | RADRPT ---
EXAM DATE/TIME: 03/23/2018 20:47 [facility] COMPARISON: CHEST SINGLE AP, March 21, 2018, 14:44. INDICATIONS : Respiratory failure. MEDICAL HISTORY : Hypercholesterolemia. Hypertension. Gastroesophageal reflux disease. Neuropathy. Dizziness. Numbness. Dyspnea. Colitis. Renal failure. Dialysis. Diabetes mellitus type II. Anemia. C-diff. SURGICAL HISTORY : Cholecystectomy. Fistula on left arm. ENCOUNTER: Subsequent ACUITY: 1 week PAIN SCORE: 0/10 LOCATION: Bilateral chest FINDINGS: The heart size is enlarged. There is patchy density in the medial left base. Right lung appears gross ly clear. CONCLUSION: 1. Cardia megaly. 2. Increased density in the retrocardiac area likely related to some atelectasis or consolidation. Tanmay Bella MD on March 23, 2018 at 22:10 Board Certified Radiologist. This report was verified electronically.
--- NOTE | 2018-03-23 22:43 | RADRPT ---
EXAM DATE/TIME: 03/23/2018 21:21 [facility] COMPARISON: CT ABDOMEN & PELVIS W/O CONTRAST, March 21, 2018, 15:12. INDICATIONS : Abdominal pain, evaluate pancreatic pseudocyst. ORAL CONTRAST: No oral contrast ingested. RADIATION DOSE: 21.99 CTDIvol (mGy) MEDICAL HISTORY : Hypertension. Diabetes. Dialysis. Colitis. Renal failure. SURGICAL HISTORY : Cholecystectomy. ENCOUNTER: Initial ACUITY: 1 day PAIN SCALE: 4/10 LOCATION: Abdomen. TECHNIQUE: Volumetric scanning of the abdomen and pelvis was performed. Using automated exposure control and ad justment of the mA and/or kV according to patient size, radiation dose was kept as low as reasonably achievable to obtain optimal diagnostic quality images. DICOM format image data is available electro nically for review and comparison. FINDINGS: LOWER LUNGS: There are bibasilar areas of consolidation being worse on the left. LIVER: Homogeneous density without lesion. There is no dilation of the biliary tree. No calcified gallston es. SPLEEN: Normal size without lesion. The cystic lesion of the pancreatic tail abuts the medial aspect of the s pleen. PANCREAS: There is a 8 cm cystic mass of the pancreatic tail. KIDNEYS: Normal in size and shape. There is no mass, stone, or hydronephrosis. Arterial calcifications are se en in the central aspects of the kidneys bilaterally. ADRENAL GLANDS: Within normal limits. VASCULAR: There is no aortic aneurysm. Arterial calcifications are seen. BOWEL/MESENTERY: Sigmoid colon diverticula are seen. ABDOMINAL WALL: There appears to be hernia mesh in the midline. There is some fluid seen superficial to the mesh like ly related to a seroma. This was present previously. This measures 6.3 x 1.8 x 5.3 cm. RETROPERITONEUM: Normal size lymph nodes are seen. BLADDER: No wall thickening or mass. REPRODUCTIVE: Within normal limits. INGUINAL: There is no lymphadenopathy or hernia. MUSCULOSKELETAL: Within normal limits for patient age. CONCLUSION: 1. 8 cm cystic mass in the pancreatic tail. The slight erosions of pseudocysts. Other cystic masses i n the pancreatic tail couldn't similar appearance. 2. Hernia mesh in the midline with a suspected seroma seen superficial to this. This is unchanged. 3. Colonic diverticula in the sigmoid region without inflammatory change. 4. Bibasilar areas of consolidation. Tanmay Bella MD on March 23, 2018 at 22:37 Board Certified Radiologist. This report was verified electronically.
[2018-03-23 22:52] LABS: ALBUMIN 3.3 GM/DL (3.4-5.0); ALKALINE PHOSPHATASE 138 U/L (45-117); ALT (GPT) 32 U/L (10-53); AST (GOT) 39 U/L (15-37); BICARBONATE 29.5 MEQ/L (21.0-32.0); BLOOD UREA NITROGEN 19 MG/DL (7-18); CALCIUM 8.6 MG/DL (8.5-10.1); CHLORIDE 96 MEQ/L (98-107); CREATININE 6.19 MG/DL (0.50-1.00); GLOMERULAR FILTRATION RATE 9 ML/MIN (>89); GLUCOSE,RANDOM 212 MG/DL (74-106); SODIUM (NA) 136 MEQ/L (136-145); TOTAL BILIRUBIN ADULT 0.4 MG/DL (0.2-1.0); TOTAL PROTEIN 8.8 GM/DL (6.4-8.2)
[2018-03-23] MEDS ORDERED: LEVOFLOXACIN/DEXTROSE 250 MG/50 ML IV ONE (23:00)
[2018-03-23] MEDS ORDERED: VANCOMYCIN INJ 1,000 MG in SODIUM CHLOR 0.9% 250 ML INJ 250 ML IV ONE (23:00)
[2018-03-24] VITALS (21 sets, daily range): BP systolic 93–137; BP diastolic 50–65; PULSE 75–91; RESP 13–22; TEMP 98.3–100.1; O2SAT 93–100
[2018-03-24 00:23] LABS: AUTOMATED NEUTROPHIL # 17.8 TH/MM3 (1.8-7.7); BASOPHIL # 0.1 TH/MM3 (0-0.2); BASOPHIL % 0.4 % (0.0-2.0); HEMATOCRIT 35.5 % (35.0-46.0); HEMOGLOBIN 10.8 GM/DL (11.6-15.3); LYMPH % 1.8 % (9.0-44.0); LYMPHOCYTE # 0.4 TH/MM3 (1.0-4.8); MEAN CELL VOLUME 100.2 FL (80.0-100.0); MEAN CORPUSCULAR HEMOGLOBIN 30.6 PG (27.0-34.0); MEAN CORPUSCULAR HGB CONC 30.5 % (32.0-36.0); MEAN PLATELET VOLUME 10.3 FL (7.0-11.0); MONOCYTE # 1.8 TH/MM3 (0-0.9); NEUT % 88.8 % (16.0-70.0); PLATELET COUNT 194 TH/MM3 (150-450); RED BLOOD COUNT 3.54 MIL/MM3 (4.00-5.30); RED CELL DISTRIBUTION WIDTH 15.4 % (11.6-17.2); WHITE BLOOD COUNT 20.1 TH/MM3 (4.0-11.0)
[2018-03-24] MEDS ORDERED: SODIUM CHLOR 0.9% 1000 ML INJ 1,000 ML IV SCH (00:34)
[2018-03-24] MEDS ORDERED: SODIUM CHLORIDE 0.9% FLUSH 10 ML FLUSH IV FLUSH PRN ×2 (00:45→01:45)
[2018-03-24] MEDS ORDERED: fentaNYL DRIP 250 ML IV PRN ×2 (00:45→04:00)
[2018-03-24] MEDS ORDERED: ROCURONIUM INJ 100 MG/10 ML VIAL IV ONE (00:45)
[2018-03-24] MEDS ORDERED: ONDANSETRON HCL 4 MG/2 ML VIAL IV PUSH PRN (00:45)
[2018-03-24] MEDS ORDERED: NURSING INFORMATION XX SCH ×2 (00:45→03:15)
[2018-03-24] MEDS ORDERED: RESP: ALBUTEROL 2.5 MG/3 ML NEB (PRN) INH (00:45)
[2018-03-24] MEDS ORDERED: LACTULOSE SYRUP 20 GM/30 ML CUP PO PRN (00:45)
[2018-03-24] MEDS ORDERED: BISACODYL 10 MG SUPP RECTAL PRN (00:45)
[2018-03-24] MEDS ORDERED: PROPOFOL 1000 MG/100 ML INJ 100 ML IV PRN (00:45)
[2018-03-24] MEDS ORDERED: SENNOSIDES 8.6 MG TAB PO PRN (00:45)
[2018-03-24] MEDS ORDERED: ETOMIDATE 40 MG/20 ML VIAL IV PUSH ONE (00:45)
[2018-03-24] MEDS ORDERED: MAGNESIUM HYDROXIDE SUSP 30 ML CUP PO PRN (00:45)
[2018-03-24] MEDS ORDERED: CHLORHEXIDINE GLUCONATE 2 % 1 PACK (2 CLOTHS) TOP PRN (00:45)
[2018-03-24 00:54] LABS: BANDS 5 % (0-6); CORRECTED NUCLEATED RBC 1 /100 WBC (0-0); LYMPHOCYTES 3 % (9-44); MONOCYTES 4 % (0-8); MYELOCYTES 1 % (0-0); NEUTROPHIL # MANUAL DIFF 18.7 TH/MM3 (1.8-7.7); NUCLEATED RED BLOOD CELL 1 (0-0); POLYS (SEG NEUTROPHILS) 87 % (16-70)
[2018-03-24 00:55] LABS: TOXIC VACUOLATION PRESENT (NONE SEEN)
--- NOTE | 2018-03-24 01:37 | PD.PROCEDR ---
Central Line Procedure REASON FOR PROCEDURE Central venous access PROCEDURE PERFORMED Central line placement: Right IJ CVL CONSENT Informed consent for procedure was obtained from competent patient. The risks and benefits of the procedure were discussed to include but limited to bleeding , clot formation, infection, and even . ANESTHESIA Local injection of 1% Lidocaine DESCRIPTION OF THE PROCEDURE The patient was placed in supine, mild Trendelenburg position. The area was exposed and cleansed with ChloraPrep, times two. Large sterile drape was used to cover the patient, with the site exposed, under sterile conditions including cap, face mask, sterile gown, and sterile gloves. On multiple attempts, the introducer needle was inserted with negative pressure in syringe and venous flash was obtained. The guide wire was then advanced without any restriction and the needle was removed. The dilator was used without any complications. Using Seldinger technique the antibiotic triple lumen catheter was advanced over the guide wire to a depth of 14 centimeters. The guide wire was removed. All ports were aspirated with dark venous blood return and flushed easily with sterile saline. All ports were capped. Antibiotic disc was placed around central line at puncture site. The central line was secured to the skin with two interrupted 2.0 silk sutures. The area was bandaged with sterile see- through central line bandage. RADIOLOGICAL DATA Ultrasound guidance was used to locate right internal jugular vein. Doppler/ color flow was used to confirm venous flow. COMPLICATIONS: CVL goes cephalad towards the head. Once femoral line was placed, central line was removed. ESTIMATED BLOOD LOSS: Less than 10 cc. Bret Chau MD March 24, 2018 01:37
--- NOTE | 2018-03-24 01:43 | PD.CONS ---
[facility] Service Critical Care Medicine Consult Requested By Gemma Cristina Reason for Consult Respiratory failure/CO2 retention and no IV access Primary Care Physician Lucretia Costello MD History of Present Illness This is a 52-year-old AA female. Date of admission 03/21/2018. Past medical history includes end-stage renal disease on hemodialysis Tuesday// Tuesday. Diabetes mellitus with gastroparesis, hypertension, hyperlipidemia, history of's pancreatic cyst, anemia chronic kidney disease and secondary hyperparathyroidism. She presented to [facility] on 03/21 with a chief complaint of denies abdominal pain associated with nausea/vomiting. Rated as 10 on a scale of 1-10. CT the abdomen/pelvis revealed large complex mixed attenuation mass lesion involving the tail the pancreas. Large pseudocyst consideration.. Patient was placed on levofloxacin and metronidazole.. Patient was evaluated by nephrology and gastroenterology. Gastrology recommend repeat CT due to continued abdominal pain. This revealed seroma both her abdominal midline mesh and 8 cm pancreatic pseudocyst. Colonic diverticuli. Pulmonary infiltration. . Most recently there was a drainage catheter in this area 08/12/15.This was evaluated by interventional radiology did not do not recommend drainage at this time unless necessary for infectious causes. GI also recommended infectious disease consult which will be performed today. Overnight, patient became acutely hypoxic and short of breath. Confused with altered mental status. There have a pH is 7.18 with CO2 retention. Failed BiPAP was transferred to ICU for further evaluation treatment. Patient had no IV access on admission and after several times a central line was placed in the left femoral region. Failed internal jugular placement. Cannot identify subclavian vessels. She did fail high flow nasal cannula and is currently orotracheally intubated Review of Systems Constitutional: COMPLAINS OF: Fatigue, Weight gain, DENIES: Fever Endocrine: DENIES: Polydipsia, Polyuria Eyes: DENIES: Blurred vision Respiratory: DENIES: Apneas, Cough Cardiovascular: DENIES: Chest pain, Claudication Gastrointestinal: COMPLAINS OF: Abdominal pain, Nausea, Vomiting, DENIES: Diarrhea Genitourinary: DENIES: Urinary frequency Musculoskeletal: DENIES: Joint pain Integumentary: DENIES: Abnormal pigmentation, Pruritus, Rash Hematologic/lymphatic: DENIES: Bruising Immunologic/allergic: DENIES: Eczema Neurologic: DENIES: Headache Psychiatric: COMPLAINS OF: Anxiety, Confusion, Depression Past Family Social History Allergies: Coded Allergies: Sulfa (Sulfonamide Antibiotics) (Unverified Allergy, Severe, Rash, ) morphine (Unverified Allergy, Severe, ITCHING, 09/21/17) penicillin G (Unverified Allergy, Severe, UNKNOWN, 09/21/17) amoxicillin (Verified Allergy, Intermediate, Rash, 09/21/17) *MDRO Multi-Drug Resistant Organism (Verified Allergy, Unknown, 09/21/17) VRE Buttock Wound 01/15/2013 C Diff 05/2014 Past Medical History End-stage renal disease on hemodialysis Tuesday//Tuesday Essential hypertension Hyperlipidemia 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 Anemia of chronic kidney disease Secondary hyperparathyroidism Recurrent pancreatitis with pancreatic pseudocyst History of peritonitis Footdrop left greater than right Past Surgical History History of G-tube insertion and subsequent removal 2014 History of tracheostomy status post decannulation Left upper arm fistula History of midline hernia repair status post cholecystectomy Left femur fracture with surgical repair Reported Medications Novolog Flexpen Inj (Insulin Aspart) Unknown Strength Pen Unknown Dose SQ Bisacodyl EC (Bisacodyl) 5 Mg Tabec 5 Mg PO DAILY PRN Calcium Acetate (Phosphate Binder) 667 Mg Cap 667 Mg PO BID TAKE WITH MEALS Esomeprazole DR 40 Mg Capdr 40 Mg PO DAILY Gabapentin 400 Mg Cap 400 Cap PO BID Midodrine 5 Mg Tab 5 Mg PO //Tue,TUESDAY,TUESDAY,TUESDAY Ondansetron (Ondansetron HCl) 4 Mg Tab 4 Mg PO TUTHSA PRN TUESDAY,TUESDAY, TUESDAY Ranitidine (Ranitidine HCl) 150 Mg Tab 150 Mg PO HS Active Ordered Medications Reviewed in EMR Family History Father with medical renal disease. Positive for gastroesophageal reflux disease Social History No tobacco, alcohol or intravenous drug use Physical Exam Vital Signs Vital Signs Date Time Temp Pulse Resp B/P (MAP) Pulse Ox O2 Delivery O2 Flow Rate FiO2 03/24/18 00:46 95 15.00 03/23/18 23:44 98 40 03/23/18 23:44 96 Nasal Cannula 5.00 40 03/23/18 20:00 98.3 96 20 97/47 (64) 92 03/23/18 18:31 Nasal Cannula 2.00 03/23/18 16:10 100/61 (74) 03/23/18 16:05 166/103 (124) 03/23/18 16:00 98.1 77 17 85/42 (56) 92 03/23/18 14:40 16 03/23/18 13:25 98.3 91 18 124/59 (80) 93 03/23/18 08:39 Nasal Cannula 2.00 03/23/18 08:00 97.3 87 16 79/32 (48) 91 Physical Exam GENERAL: 62-year-old female currently resting in mildly confused SKIN: Warm and dry. No rashes appreciated HEAD: Atraumatic. Normocephalic. EYES: Pupils equal and round. No scleral icterus. No injection or drainage. ENT: No nasal bleeding or discharge. Mucous membranes pink and moist. NECK: Trachea midline. No JVD. CARDIOVASCULAR: Regular rate and rhythm. S1, S2. No S4. Diminished. RESPIRATORY: Diminished due to body habitus. Clear to auscultation. Breath sounds equal bilaterally. GASTROINTESTINAL: Abdomen soft, obese. Midline abdomen/epigastric region tender to palpation. No guarding rigidity. Normoactive bowel sounds. MUSCULOSKELETAL: Extremities with trace bilateral lower extremity edema. Left AV fistula with positive thrill. NEUROLOGICAL: Awake and alert. No obvious cranial nerve deficits. Diminished sensation to light touch and pinprick bilateral lower extremities. Motor grossly within normal limits. Five out of 5 muscle strength in the arms and legs. Normal speech. Laboratory Laboratory Tests Test 03/23/18 06:24 03/23/18 15:54 03/23/18 21:15 03/23/18 22:09 White Blood Count 20.8 26.4 Red Blood Count 3.62 3.18 Hemoglobin 11.0 9.8 Hematocrit 36.5 32.0 Mean Corpuscular Volume 100.7 100.7 Mean Corpuscular Hemoglobin 30.4 30.7 Mean Corpuscular Hemoglobin Concent 30.2 30.5 Red Cell Distribution Width 15.3 15.6 Platelet Count 201 175 Mean Platelet Volume 10.3 10.9 Neutrophils (%) (Auto) 86.9 88.0 Lymphocytes (%) (Auto) 3.5 4.5 Monocytes (%) (Auto) 9.3 7.0 Eosinophils (%) (Auto) 0.1 0.2 Basophils (%) (Auto) 0.2 0.3 Neutrophils # (Auto) 18.1 23.2 Lymphocytes # (Auto) 0.7 1.2 Monocytes # (Auto) 1.9 1.9 Eosinophils # (Auto) 0.0 0.0 Basophils # (Auto) 0.0 0.1 CBC Comment DIFF FINAL AUTO DIFF Differential Comment AUTO DIFF CONFIRMED Blood Urea Nitrogen 29 19 Creatinine 8.58 6.19 Random Glucose 160 212 Calcium Level 8.5 8.6 Sodium Level 137 136 Potassium Level 4.0 4.1 Chloride Level 97 96 Carbon Dioxide Level 26.8 29.5 Anion Gap 13 11 Estimat Glomerular Filtration Rate 6 9 Platelet Estimate NORMAL Platelet Morphology Comment NORMAL Blood Gas Puncture Site RT RADIAL Blood Gas Patient Temperature 98.6 Blood Gas HCO3 31 Blood Gas Base Excess 4.0 Blood Gas Oxygen Saturation 88 Arterial Blood pH 7.24 Arterial Blood Partial Pressure CO2 75 Arterial Blood Partial Pressure O2 64 Arterial Blood Oxygen Content 12.0 Arterial Blood Carboxyhemoglobin 1.8 Arterial Blood Methemoglobin 1.2 Blood Gas Hemoglobin 9.7 Oxygen Delivery Device NASAL CANNULA Blood Gas Liter Flow 2 Total Protein 8.8 Albumin 3.3 Alkaline Phosphatase 138 Aspartate Amino Transf (AST/SGOT) 39 Alanine Aminotransferase (ALT/SGPT) 32 Total Bilirubin 0.4 Lactic Acid Level 1.7 Ammonia 20 Test 03/24/18 00:12 03/24/18 00:30 White Blood Count 20.1 Red Blood Count 3.54 Hemoglobin 10.8 Hematocrit 35.5 Mean Corpuscular Volume 100.2 Mean Corpuscular Hemoglobin 30.6 Mean Corpuscular Hemoglobin Concent 30.5 Red Cell Distribution Width 15.4 Platelet Count 194 Mean Platelet Volume 10.3 Neutrophils (%) (Auto) 88.8 Lymphocytes (%) (Auto) 1.8 Monocytes (%) (Auto) 9.0 Eosinophils (%) (Auto) 0.0 Basophils (%) (Auto) 0.4 Neutrophils # (Auto) 17.8 Lymphocytes # (Auto) 0.4 Monocytes # (Auto) 1.8 Eosinophils # (Auto) 0.0 Basophils # (Auto) 0.1 CBC Comment AUTO DIFF Differential Total Cells Counted 100 Neutrophils % (Manual) 87 Band Neutrophils % 5 Lymphocytes % 3 Monocytes % 4 Neutrophils # (Manual) 18.7 Myelocytes 1 Nucleated Red Blood Cells 1 Differential Comment FINAL DIFF MANUAL Toxic Vacuolation PRESENT Platelet Estimate NORMAL Platelet Morphology Comment NORMAL Red Cell Morphology Comment NORMAL Blood Gas Puncture Site RT RADIAL Blood Gas Patient Temperature 98.6 Blood Gas HCO3 33 Blood Gas Base Excess 4.9 Blood Gas Oxygen Saturation 87 Arterial Blood pH 7.19 Arterial Blood Partial Pressure CO2 90 Arterial Blood Partial Pressure O2 68 Arterial Blood Oxygen Content 12.0 Arterial Blood Carboxyhemoglobin 1.4 Arterial Blood Methemoglobin 1.6 Blood Gas Hemoglobin 9.8 Oxygen Delivery Device BIPAP Blood Gas Ventilator Setting IPAP18/EPAP+8 Blood Gas Inspired Oxygen 40 Date/Time Source Procedure Growth Status 03/23/18 15:54 Blood Peripheral Aerobic Blood Culture Pending Received 03/23/18 15:54 Blood Peripheral Anaerobic Blood Culture Pending Received Result Diagram: 03/24/18 0012 03/23/189 Imaging Last Impressions Abdomen/Pelvis CT 03/23/18 1820 Signed Impressions: Service Date/Time: March 21:21 - CONCLUSION: 1. 8 cm cystic mass in the pancreatic tail. The slight erosions of pseudocysts. Other cystic masses in the pancreatic tail couldn't similar appearance. 2. Hernia mesh in the midline with a suspected seroma seen superficial to this. This is unchanged. 3. Colonic diverticula in the sigmoid region without inflammatory change. 4. Bibasilar areas of consolidation. Tanmay Bella MD Chest X-Ray 03/23/18 0000 Signed Impressions: Service Date/Time: March 20:47 - CONCLUSION: 1. Cardia megaly. 2. Increased density in the retrocardiac area likely related to some atelectasis or consolidation. Tanmay Bella MD Consultation 03/22/18 1433 Signed Impressions: Service Date/Time: Thursday, March 22, 2018 14:33 - CONCLUSION: 1. This patient has had previous pancreatitis with drainage catheters placed in the same collection back in 2015 as such, I would not recommend drainage of this unless there is significant suspicion for infection or obstructive symptoms Broderick Machado MD Abdomen Ultrasound 03/22/18 0000 Signed Impressions: Service Date/Time: Thursday, March 22, 2018 19:40 - CONCLUSION: 1. 10 cm complex cystic mass the pancreatic tail. This is nonspecific. A pseudocyst would be the most common mass. Other cystic masses/neoplasms cannot be excluded on the ultrasound alone. 2. Small echogenic kidneys consistent with chronic renal disease. Tanmay Bella MD Septic Shock Reassessment Septic shock perfusion: reassessment completed Assessment and Plan Assessment and Plan Neuro/Psych: Acute encephalopathy secondary to sepsis/pancreatitis Diabetic neuropathy Written for propofol/fentanyl drips for sedation/analgesia while intubated Goal of RA SS -2 Daily sedation vacation Acetaminophen 650 mg p.o. every 6 hours as needed fever Patient is currently on oxycodone/acetaminophen 5/325 1 tablet every 4 hours as needed pain 1 through 5. Hydromorphone 1 mg IV every 4 hours as needed pain 6 or 10 Currently on gabapentin 400mg p.o. twice daily home medication for neuropathy. Continue. CV: Essential hypertension Hyperlipidemia Currently normal saline at 84 cc an hour Currently not requiring vasopressors and/or antihypertensives On amlodipine 5 mg daily previously during this hospitalization. Is currently on hold Resp: Acute respiratory failure ASHLYN? PRVC ventilation ordered Albuterol/ipratropium aerosols every 4 hours with albuterol aerosols every 2 hours as needed dyspnea Ventilator bundle Spontaneous breathing trials when clinically indicated Follow postintubation chest x-ray and ABG GI: Gastroesophageal reflux disease Pancreatitis with pancreatic pseudocyst Currently n.p.o. NG tube replaced to low intermittent wall suction CT abdomen/pelvis revealed 8 cm pancreatic pseudocyst at tail of pancreas. Colonic diverticulosis. Seroma midline abdominal mesh. Evaluated by GI. They recommended ID consult and drainage places by IR. IR currently does not recommend. Previously placed 2014. Patient is on ranitidine 150 mg p.o. daily at night at home. Along with esomeprazole 40 mg daily at home Currently on lansoprazole 30 mg daily Docusate sodium/senna 1 tablet twice daily for bowel regimen : No indication for Garcia placement Endo: Diabetes mellitus Sliding scale insulin Novulog low regimen every 4 hours Accu-Cheks to maintain euglycemia Currently off linagliptin 5 mg p.o. daily and insulin aspart pen for diabetes at home. Renal: End-stage renal disease on hemodialysis Tuesday//Tuesday Secondary hyperparathyroidism IHD from left upper extremity per Dr. Joshua Heme: Macrocytic currently normocytic anemia/anemia of chronic kidney disease Leukocytosis Continue with ferric citrate 210 mg p.o. twice daily/home medication No indication for transfusion of blood products at this time. ID: Currently in vancomycin, aztreonam the prophylaxis and metronidazole Infectious disease consultation Pertinent cultures Blood cultures 2 no growth 03/23. Sputum and influenza ordered FEN: Replace electrolytes as clinically indicated Continue calcium acetate 667 mg p.o. twice daily with meals. MSK: History of foot drop left greater than right Elevated SNEHA with confirmatory test pending PT evaluate and treat Access -Left femoral CVL day #1 placed 03/24 failed right IJ CVL Prophylaxis -GI -pantoprazole -DVT -SCD/heparin subcu Critical Care: The total critical care time was 35 minutes. Time to perform other separately billable procedures was not included in the critical care time. Code Status Full code full code Discussed Condition With . Patient. Care plan discussed and all questions answered Bret Chau MD March 24, 2018 01:42
--- NOTE | 2018-03-24 02:13 | RADRPT ---
EXAM DATE/TIME: 03/24/2018 01:44 [facility] COMPARISON: CHEST SINGLE AP, March 23, 2018, 20:47. INDICATIONS : Confirm central line placement. MEDICAL HISTORY : Venous insufficiency. Hypertension. Diabetes. Dialysis. Colitis. Renal failure. SURGICAL HISTORY : Cholecystectomy. ENCOUNTER: Subsequent ACUITY: 1 day PAIN SCORE: 6/10 LOCATION: Bilateral chest FINDINGS: A single portable frontal view of the chest shows a catheter overlying the base the neck. This projec ts cephalad within the neck. The catheter does not project towards the cavoatrial junction. No pneumo thorax. Bilateral pulmonary infiltrates. These are progressed the prior study. Mild cardiomegaly. CONCLUSION: 1. Central line within the right neck projects cephalad into the neck and not towards the heart. No p neumothorax. 2. Worsening bilateral pulmonary infiltrates. Manuel Contreras Jr., MD on March 24, 2018 at 2:09 Board Certified Radiologist. This report was verified electronically.
[2018-03-24] MEDS: CHLORHEXIDINE GLUCONATE 2 % 1 PACK (2 CLOTHS) TOP SCH (02:43)
[2018-03-24 02:52] LABS: AUTOMATED NEUTROPHIL # 17.1 TH/MM3 (1.8-7.7); BASOPHIL % 0.2 % (0.0-2.0); EOSINOPHIL % 0.1 % (0.0-4.0); HEMATOCRIT 31.5 % (35.0-46.0); HEMOGLOBIN 9.7 GM/DL (11.6-15.3); LYMPH % 3.2 % (9.0-44.0); LYMPHOCYTE # 0.6 TH/MM3 (1.0-4.8); MEAN CELL VOLUME 99.3 FL (80.0-100.0); MEAN CORPUSCULAR HEMOGLOBIN 30.6 PG (27.0-34.0); MEAN CORPUSCULAR HGB CONC 30.8 % (32.0-36.0); MEAN PLATELET VOLUME 10.2 FL (7.0-11.0); MONO % 8.7 % (0.0-8.0); MONOCYTE # 1.7 TH/MM3 (0-0.9); NEUT % 87.8 % (16.0-70.0); PLATELET COUNT 204 TH/MM3 (150-450); RED BLOOD COUNT 3.17 MIL/MM3 (4.00-5.30); RED CELL DISTRIBUTION WIDTH 15.1 % (11.6-17.2); WHITE BLOOD COUNT 19.5 TH/MM3 (4.0-11.0)
[2018-03-24] MEDS: PANTOPRAZOLE SODIUM 40 MG VIAL IV PUSH SCH (03:00)
--- NOTE | 2018-03-24 03:05 | PD.PROCEDR ---
Central Line Procedure REASON FOR PROCEDURE Central venous access PROCEDURE PERFORMED Central line placement: Left femoral CVL CONSENT Informed consent for procedure was obtained from competent patient. The risks and benefits of the procedure were discussed to include but limited to bleeding , clot formation, infection, and even . ANESTHESIA Local injection of 1% Lidocaine DESCRIPTION OF THE PROCEDURE The patient was placed in supine, mild Trendelenburg position. The area was exposed and cleansed with ChloraPrep, times two. Large sterile drape was used to cover the patient, with the site exposed, under sterile conditions including cap, face mask, sterile gown, and sterile gloves. On single attempt, the introducer needle was inserted with negative pressure in syringe and venous flash was obtained. The guide wire was then advanced without any restriction and the needle was removed. The dilator was used without any complications. Using Seldinger technique the antibiotic coated triple catheter was advanced over the guide wire to a depth of 20 centimeters. The guide wire was removed. All ports were aspirated with dark venous blood return and flushed easily with sterile saline. All ports were capped. Antibiotic disc was placed around central line at puncture site. The central line was secured to the skin with two interrupted 2.0 silk sutures. The area was bandaged with sterile see- through central line bandage. RADIOLOGICAL DATA Ultrasound guidance was used to locate left femoral vein. Doppler/color flow was used to confirm venous flow. COMPLICATIONS: No apparent complications ESTIMATED BLOOD LOSS: Less than 1 cc. Bret Chau MD March 24, 2018 03:05
[2018-03-24] MEDS: metroNIDAZOLE 500 MG TAB PO SCH (03:15)
[2018-03-24 03:16] LABS: BICARBONATE 31.5 MEQ/L (21.0-32.0); CALCIUM 8.6 MG/DL (8.5-10.1); CREATININE 6.44 MG/DL (0.50-1.00)
[2018-03-24 03:19] LABS: TROPONIN I 0.06 NG/ML (0.02-0.05)
[2018-03-24] MEDS: AZTREONAM INJ 500 MG in SODIUM CHLORIDE 0.9% INJ 100 ML IV SCH ×3 (03:25→23:24)
[2018-03-24] MEDS ORDERED: MIDAZOLAM 100 MG/100 ML INJ 100 ML IV PRN (04:00)
[2018-03-24] MEDS ORDERED: TERBUTALINE INJ 1 MG/ML AMP SQ PRN (04:00)
[2018-03-24] MEDS ORDERED: NOREPINEPHRINE INJ 4 MG in SODIUM CHLOR 0.9% 250 ML INJ 246 ML IV PRN (04:00)
--- NOTE | 2018-03-24 04:07 | PD.PROCEDR ---
Procedure Note Procedure DATE: 03/24/2018 PROCEDURE: Orotracheal intubation INDICATION: Acute hypoxic respiratory failure DETAILS OF PROCEDURE The patient was placed in optimal position and preoxygenated with 100% FiO2 via bag valve mask. At the start oxygen saturation was 100%. The patient was administered 20 mg etomidate IV and 50 milligrams rocuronium IV. I entered the oropharynx with a size 4 GVL glidescope blade and obtained a grade 2 view of the airway. On single attempt a size 8.0 cuffed endotracheal tube was passed through the vocal cords. Correct tube location was confirmed with end tidal CO2 detector and by auscultating over bilateral lung jackson. The endotracheal tube was secured with adhesive tape at a depth of 23 cm at the lips. The patient was connected to the ventilator. The patient tolerated the procedure well without any apparent complications. Oxygen saturations were maintained greater than 95% all times. STAT chest x-ray pending at time of dictation. Bret Chau MD March 24, 2018 04:07
[2018-03-24] MEDS ORDERED: ONDANSETRON ODT 4 MG TAB PO PRN (04:15)
[2018-03-24 04:22] LABS: ALBUMIN 2.8 GM/DL (3.4-5.0); ALT (GPT) 26 U/L (10-53); AST (GOT) 25 U/L (15-37); CHOLESTEROL 151 MG/DL (120-200); DIRECT BILIRUBIN ADULT 0.1 MG/DL (0.0-0.2); TRIGLYCERIDES 78 MG/DL (42-150)
[2018-03-24 04:31] LABS: ALKALINE PHOSPHATASE 116 U/L (45-117); CHOLESTEROL/ HDL RATIO 2.97 RATIO; HDL CHOLESTEROL 50.7 MG/DL (40.0-60.0); INDIRECT BILIRUBIN 0.2 MG/DL (0.0-0.8); LDL CHOLESTEROL 85 MG/DL (0-99); TOTAL BILIRUBIN ADULT 0.3 MG/DL (0.2-1.0); TOTAL PROTEIN 7.7 GM/DL (6.4-8.2)
[2018-03-24] MEDS: RESP: ALBUTEROL 2.5 MG/IPRATROPIUM 0.5 MG NEB (SCH) INH ×6 (04:59→23:38)
--- NOTE | 2018-03-24 06:27 | RADRPT ---
EXAM DATE/TIME: 03/24/2018 04:47 [facility] COMPARISON: CHEST SINGLE AP, March 24, 2018, 1:44. INDICATIONS : Shortness of breath. MEDICAL HISTORY : Venous insufficiency. Hypertension. Diabetes. Dialysis. Colitis. Renal failure. SURGICAL HISTORY : Cholecystectomy. ENCOUNTER: Subsequent ACUITY: 1 week PAIN SCORE: Non-responsive. LOCATION: chest FINDINGS: Examination is limited by the portable nature of the study in conjunction with the patient's body hab itus. The heart is enlarged. Bilateral pulmonary infiltrates most pronounced within the left base. No effusions. Tip of the endotracheal tube 3 cm in the sudhir. Nasogastric tube courses off the inferio r margin of the film. No central line observed. No pneumothorax. CONCLUSION: Unchanged bilateral pulmonary infiltrates. Interval intubation. Manuel Contreras Jr., MD on March 24, 2018 at 6:25 Board Certified Radiologist. This report was verified electronically.
[2018-03-24] MEDS: MIDAZOLAM 50 MG/NS 50 ML DRIP Premix IV PRN ×2 (08:00→12:18)
[2018-03-24] MEDS: INSULIN ASPART SUPPLEMENTAL SCALE SQ SCH ×4 (08:00→23:24)
[2018-03-24] MEDS: GABAPENTIN 400 MG CAP PO SCH ×2 (09:00→20:08)
[2018-03-24] MEDS ORDERED: ARTIFICIAL TEARS OPTH OINT 3.5 APPLIC/3.5 GM TUBO EACH EYE SCH (09:00)
[2018-03-24] MEDS: DOCUSATE SODIUM 50 MG/SENNA 8.6 MG TAB PO SCH ×2 (09:00→20:09)
[2018-03-24] MEDS ORDERED: LANSOPRAZOLE SOLUTAB 30 MG TAB NG SCH (09:00)
[2018-03-24] MEDS: ARTIFICIAL TEARS OPTH SOLN 15 ML BTL EACH EYE SCH (09:00)
[2018-03-24 10:05] LABS: RANDOM VANCOMYCIN 16.1 COMMENT; TROPONIN I 0.1 NG/ML (0.02-0.05)
--- NOTE | 2018-03-24 10:55 | HHI.GIFU ---
Subjective Remarks Pt now orally intubated, CPAP trial Facial grimace to abdominal palpation Nonverbal- per chart pt became hypoxic over night and confused, failed BiPaP, was transferred to ICU and intubated (Nadine Santiago) Objective Vitals I&O Vital Signs Date Time Temp Pulse Resp B/P (MAP) Pulse Ox O2 Delivery O2 Flow Rate FiO2 03/24/18 08:24 98 40 03/24/18 06:00 75 03/24/18 05:01 100 50 03/24/18 04:00 99.1 91 21 135/65 (88) 97 03/24/18 04:00 91 03/24/18 04:00 50 03/24/18 03:59 100 50 03/24/18 03:04 95 High Flow Nasal Cannula 30.00 40 03/24/18 02:00 81 03/24/18 01:42 98.9 81 16 137/63 (87) 99 03/24/18 00:46 95 15.00 03/24/18 00:00 98.3 79 13 104/57 (73) 93 03/23/18 23:44 98 40 03/23/18 23:44 96 Nasal Cannula 5.00 40 03/23/18 20:00 98.3 96 20 97/47 (64) 92 03/23/18 18:31 Nasal Cannula 2.00 03/23/18 16:10 100/61 (74) 03/23/18 16:05 166/103 (124) 03/23/18 16:00 98.1 77 17 85/42 (56) 92 03/23/18 14:40 16 03/23/18 13:25 98.3 91 18 124/59 (80) 93 I/O 03/23/18 03/23/18 03/23/18 03/24/18 03/24/18 03/24/18 07:00 15:00 23:00 07:00 15:00 23:00 Intake Total 240 ml 965 ml 300 ml Output Total 1000 ml Balance 240 ml -1000 ml 965 ml 300 ml Intake Oral 240 ml 965 ml IV Total 300 ml Hemodialysis 1000 ml # Voids 0 0 # Bowel Movements 0 Laboratory Laboratory Tests Test 03/23/18 15:54 03/23/18 21:15 03/23/18 22:09 03/24/18 00:12 White Blood Count 26.4 20.1 Red Blood Count 3.18 3.54 Hemoglobin 9.8 10.8 Hematocrit 32.0 35.5 Mean Corpuscular Volume 100.7 100.2 Mean Corpuscular Hemoglobin 30.7 30.6 Mean Corpuscular Hemoglobin Concent 30.5 30.5 Red Cell Distribution Width 15.6 15.4 Platelet Count 175 194 Mean Platelet Volume 10.9 10.3 Neutrophils (%) (Auto) 88.0 88.8 Lymphocytes (%) (Auto) 4.5 1.8 Monocytes (%) (Auto) 7.0 9.0 Eosinophils (%) (Auto) 0.2 0.0 Basophils (%) (Auto) 0.3 0.4 Neutrophils # (Auto) 23.2 17.8 Lymphocytes # (Auto) 1.2 0.4 Monocytes # (Auto) 1.9 1.8 Eosinophils # (Auto) 0.0 0.0 Basophils # (Auto) 0.1 0.1 CBC Comment AUTO DIFF AUTO DIFF Differential Comment AUTO DIFF CONFIRMED FINAL DIFF MANUAL Platelet Estimate NORMAL NORMAL Platelet Morphology Comment NORMAL NORMAL Blood Gas Puncture Site RT RADIAL Blood Gas Patient Temperature 98.6 Blood Gas HCO3 31 Blood Gas Base Excess 4.0 Blood Gas Oxygen Saturation 88 Arterial Blood pH 7.24 Arterial Blood Partial Pressure CO2 75 Arterial Blood Partial Pressure O2 64 Arterial Blood Oxygen Content 12.0 Arterial Blood Carboxyhemoglobin 1.8 Arterial Blood Methemoglobin 1.2 Blood Gas Hemoglobin 9.7 Oxygen Delivery Device NASAL CANNULA Blood Gas Liter Flow 2 Blood Urea Nitrogen 19 Creatinine 6.19 Random Glucose 212 Total Protein 8.8 Albumin 3.3 Calcium Level 8.6 Alkaline Phosphatase 138 Aspartate Amino Transf (AST/SGOT) 39 Alanine Aminotransferase (ALT/SGPT) 32 Total Bilirubin 0.4 Sodium Level 136 Potassium Level 4.1 Chloride Level 96 Carbon Dioxide Level 29.5 Anion Gap 11 Estimat Glomerular Filtration Rate 9 Lactic Acid Level 1.7 Ammonia 20 Differential Total Cells Counted 100 Neutrophils % (Manual) 87 Band Neutrophils % 5 Lymphocytes % 3 Monocytes % 4 Neutrophils # (Manual) 18.7 Myelocytes 1 Nucleated Red Blood Cells 1 Toxic Vacuolation PRESENT Red Cell Morphology Comment NORMAL Test 03/24/18 00:30 03/24/18 01:30 03/24/18 02:30 03/24/18 03:30 Blood Gas Puncture Site RT RADIAL RT RADIAL Blood Gas Patient Temperature 98.6 98.6 Blood Gas HCO3 33 31 Blood Gas Base Excess 4.9 4.3 Blood Gas Oxygen Saturation 87 89 Arterial Blood pH 7.19 7.26 Arterial Blood Partial Pressure CO2 90 71 Arterial Blood Partial Pressure O2 68 68 Arterial Blood Oxygen Content 12.0 12.3 Arterial Blood Carboxyhemoglobin 1.4 1.3 Arterial Blood Methemoglobin 1.6 1.7 Blood Gas Hemoglobin 9.8 9.8 Oxygen Delivery Device BIPAP NASAL CANNULA Blood Gas Ventilator Setting [id number]/EPAP+8 Blood Gas Inspired Oxygen 40 Nasal Screen MRSA (PCR) MRSA NOT DETECTED White Blood Count 19.5 Red Blood Count 3.17 Hemoglobin 9.7 Hematocrit 31.5 Mean Corpuscular Volume 99.3 Mean Corpuscular Hemoglobin 30.6 Mean Corpuscular Hemoglobin Concent 30.8 Red Cell Distribution Width 15.1 Platelet Count 204 Mean Platelet Volume 10.2 Neutrophils (%) (Auto) 87.8 Lymphocytes (%) (Auto) 3.2 Monocytes (%) (Auto) 8.7 Eosinophils (%) (Auto) 0.1 Basophils (%) (Auto) 0.2 Neutrophils # (Auto) 17.1 Lymphocytes # (Auto) 0.6 Monocytes # (Auto) 1.7 Eosinophils # (Auto) 0.0 Basophils # (Auto) 0.0 CBC Comment DIFF FINAL Differential Comment Blood Gas Liter Flow 6 Blood Urea Nitrogen 21 Creatinine 6.44 Random Glucose 184 Calcium Level 8.6 Sodium Level 138 Potassium Level 4.0 Chloride Level 96 Carbon Dioxide Level 31.5 Anion Gap 11 Estimat Glomerular Filtration Rate 8 Troponin I 0.06 Lactic Acid Level 1.0 Total Bilirubin 0.3 Direct Bilirubin 0.1 Indirect Bilirubin 0.2 Aspartate Amino Transf (AST/SGOT) 25 Alanine Aminotransferase (ALT/SGPT) 26 Alkaline Phosphatase 116 Ammonia LESS THAN 10 Lactate Dehydrogenase 218 Total Creatine Kinase 82 C-Reactive Protein 27.50 Total Protein 7.7 Albumin 2.8 Triglycerides Level 78 Cholesterol Level 151 LDL Cholesterol 85 HDL Cholesterol 50.7 Cholesterol/HDL Ratio 2.97 Amylase Level 58 Lipase 98 Thyroid Stimulating Hormone 3rd Gen 0.183 Test 03/24/18 06:39 03/24/18 09:18 Blood Gas Puncture Site RT RADIAL Blood Gas Patient Temperature 98.6 Blood Gas HCO3 28 Blood Gas Base Excess 4.5 Blood Gas Oxygen Saturation 92 Arterial Blood pH 7.47 Arterial Blood Partial Pressure CO2 40 Arterial Blood Partial Pressure O2 67 Arterial Blood Oxygen Content 12.5 Arterial Blood Carboxyhemoglobin 1.2 Arterial Blood Methemoglobin 1.6 Blood Gas Hemoglobin 9.6 Oxygen Delivery Device VENTILATOR Blood Gas Ventilator Setting SEE COMMENT Blood Gas Inspired Oxygen 50 Total Creatine Kinase 72 Troponin I 0.10 Tumor Marker HCG 2 Random Vancomycin Level 16.1 Date/Time Source Procedure Growth Status 03/23/18 15:54 Blood Peripheral Aerobic Blood Culture Pending Received 03/23/18 15:54 Blood Peripheral Anaerobic Blood Culture Pending Received 03/24/18 06:30 Nasal Aspirate Influenza Types A,B Antigen (MICHAEL) Pending Received Imaging Last Impressions Chest X-Ray 03/24/18 0000 Signed Impressions: Service Date/Time: Saturday, March 24, 2018 04:47 - CONCLUSION: Unchanged bilateral pulmonary infiltrates. Interval intubation. Manuel Contreras Jr., MD Abdomen/Pelvis CT 03/23/18 1820 Signed Impressions: Service Date/Time: March 21:21 - CONCLUSION: 1. 8 cm cystic mass in the pancreatic tail. The slight erosions of pseudocysts. Other cystic masses in the pancreatic tail couldn't similar appearance. 2. Hernia mesh in the midline with a suspected seroma seen superficial to this. This is unchanged. 3. Colonic diverticula in the sigmoid region without inflammatory change. 4. Bibasilar areas of consolidation. Tanmay Bella MD Consultation 03/22/18 1433 Signed Impressions: Service Date/Time: Thursday, March 22, 2018 14:33 - CONCLUSION: 1. This patient has had previous pancreatitis with drainage catheters placed in the same collection back in 2015 as such, I would not recommend drainage of this unless there is significant suspicion for infection or obstructive symptoms Broderick Machdao MD Abdomen Ultrasound 03/22/18 0000 Signed Impressions: Service Date/Time: Thursday, March 22, 2018 19:40 - CONCLUSION: 1. 10 cm complex cystic mass the pancreatic tail. This is nonspecific. A pseudocyst would be the most common mass. Other cystic masses/neoplasms cannot be excluded on the ultrasound alone. 2. Small echogenic kidneys consistent with chronic renal disease. Tanmay Bella MD Physical Exam HEENT: Normocephalic; atraumatic CHEST: Diminished, breath sounds equal ABDOMEN: Distended, semi-firm, facial grimacing to palpation, bowel sounds active SKIN: Normal; no rash; no jaundice. 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 A large pseudocyst would be the leading consideration. This is incompletely evaluated on this study. History of pancreatitis with pancreatic pseudocyst, according to previous records was not amenable to drainage by IR 1st episode of pancreatitis in 2014 Denies ETOH New medications: Auryxia and Tradjenta Denies family history of pancreatic issues Previous cholecystectomy Last EGD in 2014, normal exam, previous EGD revealed esophagitis and gastritis Never had colonoscopy - Gastroparesis- previously had a J tube- removed in 2014, also noted to be previously on EES and Reglan, not currently on any medication for this at this time - Leukocytosis, afebrile - ESRD on HD- T, , Tue- did not go today because she did not feel well enough (03/22) Pt with continued abdominal pain. CA 19-9 - 52.8. Lipase now WNL. SNEHA negative, IgG [address] Carter BARRERA, states that percutaneous drainage would not be the preferred option because she will likely end up with group home drain. Discussed case with Dr. Jade and tenatively will plan for EUS Tuesday. (03/23) Pt complaining of continued abdominal pain. Tolerating clear liquids, denies nausea, vomiting. Went for dialysis today. Increase in leukocytosis noted, pt started on Levaquin and Flagyl. US abdomen --> 10 cm complex cystic mass the pancreatic tail. This is nonspecific. A pseudocyst would be the most common mass. Other cystic masses/neoplasms cannot be excluded on the ultrasound alone. Small echogenic kidneys consistent with chronic renal disease. (03/24) Pt became hypoxic overnight, failed BiPAP, transferred to ICU and intubated. Currently on CPAP trial. Chest x-ray reveals worsening bilateral pulmonary infiltrates. Leukocytosis did improve some this morning. ID consulted, recommendations pending. CT abdomen and pelvis W/O contrast repeated last night --> 8cm cystic mass in the pancreatic tail. The slight erosion of pseudocysts. Hernia mesh in the midline with a suspected seroma seen superficial to this. This is unchanged. Colonic diverticula in the sigmoid region without inflammatory change. Case discussed by Dr. Gupta with IR, still do not feel drainage is indicated at this time unless all attendings feel it necessary and the cause for infection. ID consult pending. Pt not stable at this time for EUS. Plan: EUS on hold- pt not stable ID consult pending IgG 4 pending Flagyl, Levaquin, Aztreonam IVF Antiemetics PRN Pain control Monitor labs Further recommendations based on clinical course and results of above Pt has been seen and examined by myself and Dr. Gupta and this note is written on her behalf (Nadine Santiago) Physician Comments seen, examined agree with above ok to start trickle feeding (Alicia Gupta MD) Nadine Santiago March 24, 2018 10:55 Alicia Gupta MD March 24, 2018 17:49
[2018-03-24 11:23] LABS: AUTOMATED NEUTROPHIL # 15.5 TH/MM3 (1.8-7.7); BASOPHIL # 0.1 TH/MM3 (0-0.2); BASOPHIL % 0.3 % (0.0-2.0); EOSINOPHIL # 0.1 TH/MM3 (0-0.4); EOSINOPHIL % 0.4 % (0.0-4.0); HEMATOCRIT 29.9 % (35.0-46.0); HEMOGLOBIN 9.2 GM/DL (11.6-15.3); LYMPH % 2.7 % (9.0-44.0); LYMPHOCYTE # 0.5 TH/MM3 (1.0-4.8); MEAN CELL VOLUME 98.7 FL (80.0-100.0); MEAN CORPUSCULAR HEMOGLOBIN 30.3 PG (27.0-34.0); MEAN CORPUSCULAR HGB CONC 30.7 % (32.0-36.0); MEAN PLATELET VOLUME 10.6 FL (7.0-11.0); MONO % 11.4 % (0.0-8.0); MONOCYTE # 2.1 TH/MM3 (0-0.9); NEUT % 85.2 % (16.0-70.0); PLATELET COUNT 210 TH/MM3 (150-450); RED BLOOD COUNT 3.03 MIL/MM3 (4.00-5.30); RED CELL DISTRIBUTION WIDTH 15.4 % (11.6-17.2); WHITE BLOOD COUNT 18.2 TH/MM3 (4.0-11.0)
[2018-03-24 11:40] LABS: BICARBONATE 30.8 MEQ/L (21.0-32.0); CALCIUM 8.5 MG/DL (8.5-10.1); CREATININE 6.76 MG/DL (0.50-1.00)
--- NOTE | 2018-03-24 11:51 | PD.ID.CON ---
History of Present Illness Service ID Consult Requested By Reason for Consult Evaluation and Mment of sepsis, Pneumonia in a patient with Pancreatic Pseudocyst. Primary Care Physician Lucretia Costello MD Diagnoses: History of Present Illness This is a 52-year-old AA female. Date of admission 03/21/2018. Past medical history includes end-stage renal disease on hemodialysis Tuesday// Tuesday. Diabetes mellitus with gastroparesis, hypertension, hyperlipidemia, history of's pancreatic cyst, anemia chronic kidney disease and secondary hyperparathyroidism. She presented to [facility] on 03/21 with a chief complaint of denies abdominal pain associated with nausea/vomiting. Rated as 10 on a scale of 1-10. CT the abdomen/pelvis revealed large complex mixed attenuation mass lesion involving the tail the pancreas. Large pseudocyst consideration.. Patient was placed on levofloxacin and metronidazole.. Patient was evaluated by nephrology and gastroenterology. Gastrology recommend repeat CT due to continued abdominal pain. This revealed seroma both her abdominal midline mesh and 8 cm pancreatic pseudocyst. Colonic diverticuli. Pulmonary infiltration. . Most recently there was a drainage catheter in this area 08/12/15.This was evaluated by interventional radiology did not do not recommend drainage at this time unless necessary for infectious causes. GI also recommended infectious disease consult which will be performed today. Overnight, patient became acutely hypoxic and short of breath. Confused with altered mental status. There have a pH is 7.18 with CO2 retention. Failed BiPAP was transferred to ICU for further evaluation treatment. Patient had no IV access on admission and after several times a central line was placed in the left femoral region. Failed internal jugular placement. Cannot identify subclavian vessels. She did fail high flow nasal cannula and is currently orotracheally intubated Review of Systems ROS Limitations: Intubated Past Family Social History Allergies: Coded Allergies: Sulfa (Sulfonamide Antibiotics) (Unverified Allergy, Severe, Rash, ) morphine (Unverified Allergy, Severe, ITCHING, 09/21/17) penicillin G (Unverified Allergy, Severe, UNKNOWN, 09/21/17) amoxicillin (Verified Allergy, Intermediate, Rash, 09/21/17) *MDRO Multi-Drug Resistant Organism (Verified Allergy, Unknown, 09/21/17) VRE Buttock Wound 01/15/2013 C Diff 05/2014 Past Medical History End-stage renal disease on hemodialysis Tuesday//Tuesday Essential hypertension Hyperlipidemia 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 Anemia of chronic kidney disease Secondary hyperparathyroidism Recurrent pancreatitis with pancreatic pseudocyst History of peritonitis Footdrop left greater than right Past Surgical History History of G-tube insertion and subsequent removal 2014 History of tracheostomy status post decannulation Left upper arm fistula History of midline hernia repair status post cholecystectomy Left femur fracture with surgical repair Reported Medications Reported Meds & Active Scripts Active [place] (Hydrocodone-Acetaminophen) 7.5-325 mg Tab 1 Tab PO HS PRN Reported Tradjenta (Linagliptin) 5 Mg Tab 5 Mg PO DAILY Auryxia (Ferric Citrate) 210 Mg Iron Tab 2 Tab PO TIDAC Novolog Flexpen Inj (Insulin Aspart) Unknown Strength Pen Unknown Dose SQ Bisacodyl EC (Bisacodyl) 5 Mg Tabec 5 Mg PO DAILY PRN Calcium Acetate (Phosphate Binder) 667 Mg Cap 667 Mg PO BID TAKE WITH MEALS Esomeprazole DR 40 Mg Capdr 40 Mg PO DAILY Gabapentin 400 Mg Cap 400 Cap PO BID Midodrine 5 Mg Tab 5 Mg PO //Tue,TUESDAY,TUESDAY,TUESDAY Ondansetron (Ondansetron HCl) 4 Mg Tab 4 Mg PO TUTHSA PRN TUESDAY,TUESDAY, TUESDAY Ranitidine (Ranitidine HCl) 150 Mg Tab 150 Mg PO HS Active Ordered Medications Current Medications Medications (Trade) Dose Ordered Sig/Valery Route Start Time Stop Time Status Last Admin (Narcan Inj) 0.4 mg UNSCH PRN IV PUSH 03/21/18 17:00 03/23/18 09:57 (D50w (Vial) Inj) 50 ml UNSCH PRN IV PUSH 03/21/18 17:00 (Glucagon Inj) 1 mg UNSCH PRN OTHER 03/21/18 17:00 Sodium Chloride 1,000 ml @ 0 mls/hr Q0M PRN OTHER 03/21/18 17:11 (Heparin Inj) 8,000 units UNSCH PRN IV FLUSH 03/21/18 17:15 Sodium Chloride 1,000 ml @ 200 mls/hr Q5H PRN IV 03/21/18 17:11 Sodium Chloride 1,000 ml @ 0 mls/hr Q0M PRN OTHER 03/21/18 17:11 (Mannitol Inj) 12.5 gm UNSCH PRN IV 03/21/18 17:15 03/23/18 09:58 Albumin Human 100 ml @ 60 mls/hr UNSCH PRN IV 03/21/18 17:15 03/23/18 09:58 (NS Flush) 5 ml UNSCH PRN IV FLUSH 03/21/18 17:15 (Heparin Inj) UNSCH PRN .XX 03/21/18 17:15 (Gentamicin Inj) 20 mg UNSCH PRN OTHER 03/21/18 17:15 (Tylenol) 650 mg UNSCH PRN PO 03/21/18 17:15 (Benadryl) 25 mg UNSCH PRN PO 03/21/18 17:15 (Nitrostat Sl) 0.4 mg UNSCH PRN SL 03/21/18 17:15 (Catapres) 0.1 mg UNSCH PRN PO 03/21/18 17:15 (Gelfoam 12 Mm/7 Mm Top) 1 foam UNSCH PRN TOP 03/21/18 17:15 (Reglan Inj) 5 mg Q6H PRN IV PUSH 03/21/18 18:30 (Dilaudid Pf Inj) 1 mg Q3H PRN IV PUSH 03/21/18 18:45 03/22/18 14:06 (Catapres) 0.1 mg Q6H PRN PO 03/21/18 19:00 (Neurontin) 400 mg BID PO 03/22/18 21:00 03/23/18 21:41 Patient Own Medication PT OWN MED: FANI... TIDAC PO 03/22/18 17:00 (Norvasc) 5 mg DAILY PO 03/22/18 13:00 Future Hold 03/23/18 08:17 (Flagyl) 500 mg Q6H PO 03/23/18 16:00 03/24/18 03:15 Pharmacy Profile Note 0 ml @ 0 mls/hr UNSCH OTHER 03/23/18 21:45 Aztreonam 500 mg/ Sodium Chloride 100 ml @ 200 mls/hr Q12H IV 03/23/18 23:00 Levofloxacin/ Dextrose 100 ml @ 100 mls/hr Q48H IV 03/25/18 20:00 (Peridex 0.12% Liq) 15 ml BID@08,20 MT 03/24/18 08:00 Sodium Chloride 1,000 ml @ 84 mls/hr [id number] IV 03/24/18 00:34 03/24/18 03:07 (NS Flush) 2 ml UNSCH PRN IV FLUSH 03/24/18 00:45 (NS Flush) 2 ml BID IV FLUSH 03/24/18 09:00 (Tears Naturale Opth Soln) 1 drop TID EACH EYE 03/24/18 09:00 (Duoneb Neb) 1 ampule Q4HR NEB INH 03/24/18 04:00 03/24/18 11:41 (Albuterol Neb) 2.5 mg Q2HR NEB PRN INH 03/24/18 00:45 [place] [place] 1 Q361D XX 03/24/18 00:45 03/24/18 00:45 (Chlorhexidine 2% Cloth) 3 pack Taper DAILY@04 TOP 03/24/18 04:00 03/20/19 03:59 03/24/18 02:43 (Chlorhexidine 2% Cloth) 3 pack UNSCH PRN TOP 03/24/18 00:45 (Izzy-Colace) 1 tab BID PO 03/24/18 09:00 (Milk Of Magnesia Liq) 30 ml Q12H PRN PO 03/24/18 00:45 (Senokot) 17.2 mg Q12H PRN PO 03/24/18 00:45 (Dulcolax Supp) 10 mg DAILY PRN RECTAL 03/24/18 00:45 (Lactulose Liq) 30 ml DAILY PRN PO 03/24/18 00:45 (NS Flush) DAILY IV FLUSH 03/24/18 09:00 (NS Flush) UNSCH PRN IV FLUSH 03/24/18 01:45 (Protonix Inj) 40 mg Q24H IV PUSH 03/24/18 03:00 03/24/18 03:00 (Percocet 5-325 Mg) 1 tab Q4H PRN PO 03/24/18 03:15 (Dilaudid Pf Inj) 1 mg Q4H PRN IV 03/24/18 03:30 [place] [place] [facility] [place] 1 Q361D XX 03/24/18 03:15 03/24/18 03:15 Fentanyl Citrate 250 ml @ 5 mls/hr TITRATE PRN IV 03/24/18 04:00 03/24/18 04:00 Norepinephrine Bitartrate 4 mg/ Sodium Chloride 250 ml @ 7.5 mls/hr TITRATE PRN IV 03/24/18 04:00 (Brethine Inj) 1 mg UNSCH PRN SQ 03/24/18 04:00 (Heparin Inj) 5,000 units Q12HR SQ 03/24/18 09:00 Midazolam HCl 50 ml @ 2 mls/hr TITRATE PRN IV 03/24/18 04:15 (Zofran Odt) 4 mg Q6H PRN PO 03/24/18 04:15 (NovoLOG SUPPLEMENTAL SCALE) 1 Q4HR SQ 03/24/18 08:00 Family History Father with medical renal disease. Positive for gastroesophageal reflux disease. Social History No tobacco, alcohol or intravenous drug use. Physical Exam Vital Signs Vital Signs Date Time Temp Pulse Resp B/P (MAP) Pulse Ox O2 Delivery O2 Flow Rate FiO2 03/24/18 11:41 97 40 03/24/18 10:00 76 03/24/18 09:00 40 03/24/18 08:24 98 40 03/24/18 08:00 75 03/24/18 08:00 50 03/24/18 06:00 75 03/24/18 05:01 100 50 03/24/18 04:00 99.1 91 21 135/65 (88) 97 03/24/18 04:00 91 03/24/18 04:00 50 03/24/18 03:59 100 50 03/24/18 03:04 95 High Flow Nasal Cannula 30.00 40 03/24/18 02:00 81 03/24/18 01:42 98.9 81 16 137/63 (87) 99 03/24/18 00:46 95 15.00 03/24/18 00:00 98.3 79 13 104/57 (73) 93 03/23/18 23:44 98 40 03/23/18 23:44 96 Nasal Cannula 5.00 40 03/23/18 20:00 98.3 96 20 97/47 (64) 92 03/23/18 18:31 Nasal Cannula 2.00 03/23/18 16:10 100/61 (74) 03/23/18 16:05 166/103 (124) 03/23/18 16:00 98.1 77 17 85/42 (56) 92 03/23/18 14:40 16 03/23/18 13:25 98.3 91 18 124/59 (80) 93 Physical Exam GENERAL:Obese, well-developed patient, in no apparent distress. SKIN: No rashes, ecchymoses or lesions. Cool and dry. HEAD: Atraumatic. Normocephalic. No temporal or scalp tenderness. EYES: Pupils equal round and reactive. No scleral icterus. No injection or drainage. ENT: Intubated. NECK: Trachea midline. Supple, nontender, no meningeal signs. CARDIOVASCULAR: HS audible. RESPIRATORY: Bilateral Decreased AE in bases anteriorly. GASTROINTESTINAL: Abdomen soft, non-tender, nondistended. Obese. MUSCULOSKELETAL: Extremities without clubbing, cyanosis, or edema. AV fistula site ok. NEUROLOGICAL: Sedated. Non focal exam Psych could not be assessed IV line sites with no e.o infection. Laboratory Laboratory Tests Test 03/23/18 15:54 03/23/18 21:15 03/23/18 22:09 03/24/18 00:12 White Blood Count 26.4 20.1 Red Blood Count 3.18 3.54 Hemoglobin 9.8 10.8 Hematocrit 32.0 35.5 Mean Corpuscular Volume 100.7 100.2 Mean Corpuscular Hemoglobin 30.7 30.6 Mean Corpuscular Hemoglobin Concent 30.5 30.5 Red Cell Distribution Width 15.6 15.4 Platelet Count 175 194 Mean Platelet Volume 10.9 10.3 Neutrophils (%) (Auto) 88.0 88.8 Lymphocytes (%) (Auto) 4.5 1.8 Monocytes (%) (Auto) 7.0 9.0 Eosinophils (%) (Auto) 0.2 0.0 Basophils (%) (Auto) 0.3 0.4 Neutrophils # (Auto) 23.2 17.8 Lymphocytes # (Auto) 1.2 0.4 Monocytes # (Auto) 1.9 1.8 Eosinophils # (Auto) 0.0 0.0 Basophils # (Auto) 0.1 0.1 CBC Comment AUTO DIFF AUTO DIFF Differential Comment AUTO DIFF CONFIRMED FINAL DIFF MANUAL Platelet Estimate NORMAL NORMAL Platelet Morphology Comment NORMAL NORMAL Blood Gas Puncture Site RT RADIAL Blood Gas Patient Temperature 98.6 Blood Gas HCO3 31 Blood Gas Base Excess 4.0 Blood Gas Oxygen Saturation 88 Arterial Blood pH 7.24 Arterial Blood Partial Pressure CO2 75 Arterial Blood Partial Pressure O2 64 Arterial Blood Oxygen Content 12.0 Arterial Blood Carboxyhemoglobin 1.8 Arterial Blood Methemoglobin 1.2 Blood Gas Hemoglobin 9.7 Oxygen Delivery Device NASAL CANNULA Blood Gas Liter Flow 2 Blood Urea Nitrogen 19 Creatinine 6.19 Random Glucose 212 Total Protein 8.8 Albumin 3.3 Calcium Level 8.6 Alkaline Phosphatase 138 Aspartate Amino Transf (AST/SGOT) 39 Alanine Aminotransferase (ALT/SGPT) 32 Total Bilirubin 0.4 Sodium Level 136 Potassium Level 4.1 Chloride Level 96 Carbon Dioxide Level 29.5 Anion Gap 11 Estimat Glomerular Filtration Rate 9 Lactic Acid Level 1.7 Ammonia 20 Differential Total Cells Counted 100 Neutrophils % (Manual) 87 Band Neutrophils % 5 Lymphocytes % 3 Monocytes % 4 Neutrophils # (Manual) 18.7 Myelocytes 1 Nucleated Red Blood Cells 1 Toxic Vacuolation PRESENT Red Cell Morphology Comment NORMAL Test 03/24/18 00:30 03/24/18 01:30 03/24/18 02:30 03/24/18 03:30 Blood Gas Puncture Site RT RADIAL RT RADIAL Blood Gas Patient Temperature 98.6 98.6 Blood Gas HCO3 33 31 Blood Gas Base Excess 4.9 4.3 Blood Gas Oxygen Saturation 87 89 Arterial Blood pH 7.19 7.26 Arterial Blood Partial Pressure CO2 90 71 Arterial Blood Partial Pressure O2 68 68 Arterial Blood Oxygen Content 12.0 12.3 Arterial Blood Carboxyhemoglobin 1.4 1.3 Arterial Blood Methemoglobin 1.6 1.7 Blood Gas Hemoglobin 9.8 9.8 Oxygen Delivery Device BIPAP NASAL CANNULA Blood Gas Ventilator Setting [id number]+8 Blood Gas Inspired Oxygen 40 Nasal Screen MRSA (PCR) MRSA NOT DETECTED White Blood Count 19.5 Red Blood Count 3.17 Hemoglobin 9.7 Hematocrit 31.5 Mean Corpuscular Volume 99.3 Mean Corpuscular Hemoglobin 30.6 Mean Corpuscular Hemoglobin Concent 30.8 Red Cell Distribution Width 15.1 Platelet Count 204 Mean Platelet Volume 10.2 Neutrophils (%) (Auto) 87.8 Lymphocytes (%) (Auto) 3.2 Monocytes (%) (Auto) 8.7 Eosinophils (%) (Auto) 0.1 Basophils (%) (Auto) 0.2 Neutrophils # (Auto) 17.1 Lymphocytes # (Auto) 0.6 Monocytes # (Auto) 1.7 Eosinophils # (Auto) 0.0 Basophils # (Auto) 0.0 CBC Comment DIFF FINAL Differential Comment Blood Gas Liter Flow 6 Blood Urea Nitrogen 21 Creatinine 6.44 Random Glucose 184 Calcium Level 8.6 Sodium Level 138 Potassium Level 4.0 Chloride Level 96 Carbon Dioxide Level 31.5 Anion Gap 11 Estimat Glomerular Filtration Rate 8 Troponin I 0.06 Lactic Acid Level 1.0 Total Bilirubin 0.3 Direct Bilirubin 0.1 Indirect Bilirubin 0.2 Aspartate Amino Transf (AST/SGOT) 25 Alanine Aminotransferase (ALT/SGPT) 26 Alkaline Phosphatase 116 Ammonia LESS THAN 10 Lactate Dehydrogenase 218 Total Creatine Kinase 82 C-Reactive Protein 27.50 Total Protein 7.7 Albumin 2.8 Triglycerides Level 78 Cholesterol Level 151 LDL Cholesterol 85 HDL Cholesterol 50.7 Cholesterol/HDL Ratio 2.97 Amylase Level 58 Lipase 98 Thyroid Stimulating Hormone 3rd Gen 0.183 Test 03/24/18 06:39 03/24/18 09:18 03/24/18 11:06 Blood Gas Puncture Site RT RADIAL Blood Gas Patient Temperature 98.6 Blood Gas HCO3 28 Blood Gas Base Excess 4.5 Blood Gas Oxygen Saturation 92 Arterial Blood pH 7.47 Arterial Blood Partial Pressure CO2 40 Arterial Blood Partial Pressure O2 67 Arterial Blood Oxygen Content 12.5 Arterial Blood Carboxyhemoglobin 1.2 Arterial Blood Methemoglobin 1.6 Blood Gas Hemoglobin 9.6 Oxygen Delivery Device VENTILATOR Blood Gas Ventilator Setting SEE COMMENT Blood Gas Inspired Oxygen 50 Total Creatine Kinase 72 Troponin I 0.10 Tumor Marker HCG 2 Random Vancomycin Level 16.1 White Blood Count 18.2 Red Blood Count 3.03 Hemoglobin 9.2 Hematocrit 29.9 Mean Corpuscular Volume 98.7 Mean Corpuscular Hemoglobin 30.3 Mean Corpuscular Hemoglobin Concent 30.7 Red Cell Distribution Width 15.4 Platelet Count 210 Mean Platelet Volume 10.6 Neutrophils (%) (Auto) 85.2 Lymphocytes (%) (Auto) 2.7 Monocytes (%) (Auto) 11.4 Eosinophils (%) (Auto) 0.4 Basophils (%) (Auto) 0.3 Neutrophils # (Auto) 15.5 Lymphocytes # (Auto) 0.5 Monocytes # (Auto) 2.1 Eosinophils # (Auto) 0.1 Basophils # (Auto) 0.1 CBC Comment DIFF FINAL Differential Comment Blood Urea Nitrogen 23 Creatinine 6.76 Random Glucose 118 Calcium Level 8.5 Sodium Level 139 Potassium Level 3.5 Chloride Level 100 Carbon Dioxide Level 30.8 Anion Gap 8 Estimat Glomerular Filtration Rate 8 Date/Time Source Procedure Growth Status 03/23/18 15:54 Blood Peripheral Aerobic Blood Culture - Preliminary NO GROWTH IN 1 DAY Resulted 03/23/18 15:54 Blood Peripheral Anaerobic Blood Culture - Preliminary NO GROWTH IN 1 DAY Resulted 03/24/18 06:30 Nasal Aspirate Influenza Types A,B Antigen (MICHAEL) - Final NEGATIVE FOR FLU A AND B ANTIGEN.... Complete Result Diagram: 03/24/18 1106 03/24/18 1106 Imaging Last Impressions Chest X-Ray 03/24/18 0000 Signed Impressions: Service Date/Time: Saturday, March 24, 2018 04:47 - CONCLUSION: Unchanged bilateral pulmonary infiltrates. Interval intubation. Manuel Contreras Jr., MD Abdomen/Pelvis CT 03/23/18 1820 Signed Impressions: Service Date/Time: March 21:21 - CONCLUSION: 1. 8 cm cystic mass in the pancreatic tail. The slight erosions of pseudocysts. Other cystic masses in the pancreatic tail couldn't similar appearance. 2. Hernia mesh in the midline with a suspected seroma seen superficial to this. This is unchanged. 3. Colonic diverticula in the sigmoid region without inflammatory change. 4. Bibasilar areas of consolidation. Tanmay Bella MD Consultation 03/22/18 1433 Signed Impressions: Service Date/Time: Thursday, March 22, 2018 14:33 - CONCLUSION: 1. This patient has had previous pancreatitis with drainage catheters placed in the same collection back in 2015 as such, I would not recommend drainage of this unless there is significant suspicion for infection or obstructive symptoms Broderick Machado MD Abdomen Ultrasound 03/22/18 0000 Signed Impressions: Service Date/Time: Thursday, March 22, 2018 19:40 - CONCLUSION: 1. 10 cm complex cystic mass the pancreatic tail. This is nonspecific. A pseudocyst would be the most common mass. Other cystic masses/neoplasms cannot be excluded on the ultrasound alone. 2. Small echogenic kidneys consistent with chronic renal disease. Tanmay Bella MD Assessment and Plan Assessment and Plan Possible new sepsis Pneumonia ? aspiration vs HCAP Acute resp failure on vent. Acute pancreatitis with pseudocyst. Morbidly obese BMI 41.3 kg/m2 DM2 uncontrolled with Nephropathy ESRD on HD using AV fistula. HD on ,,Tue Recs: Continue Azactam IV Continue Vanco IV in HD. Ordered x 1 dose and then pharmacist to make it scheduled at 1500 mg IV with each HD. Checked random level: 16.4 on preHD day (HD days ,,Tue) Continue Levaquin ok to change to oral. DC Flagyl Check sputum cultures Check UA with reflex to culture. Follow blood cultures Follow clinically. Ivelisse Tian RN, MD March 24, 2018 11:51
--- NOTE | 2018-03-24 12:28 | EKG ---
Date Performed: 03/24/2018 Time Performed: 09:22:14 PTAGE: 52 years EKG: Sinus rhythm with bigeminal PACs. Abnormal ECG PREVIOUS TRACING : 03/21/2018 15.46 Since the previous tracing, no significant change noted DOCTOR: Mohit Magana Interpretating Date/Time 03/24/2018 12:23:07
[2018-03-24] MEDS: HEPARIN SODIUM - SQ 10,000 UNITS/ML VIAL SQ SCH ×2 (12:30→20:08)
[2018-03-24] MEDS ORDERED: VANCOMYCIN INJ 1,500 MG in SODIUM CHLORID 0.9% 500 ML INJ 500 ML IV SCH (13:00)
[2018-03-24 13:27] LABS: HEMOGLOBIN A1C 10.9 % (4.3-6.0)
--- NOTE | 2018-03-24 13:30 | HHI.NPPN ---
Subjective General Problems: Anemia Renal Failure: Chronic, End Stage Renal Disease Interval History During dialysis and throughout the evening she became increasing somnolent. Was transferred to [facility], intubated and placed on the vent. Chest xray reviewed. Central line placed. at bedside. Multiple antibiotics started. (Mili Abarca) Review of Systems General General Remarks unable to obtain (Mili Abarca) Objective Data Data Vital Signs Date Time Temp Pulse Resp B/P (MAP) Pulse Ox O2 Delivery O2 Flow Rate FiO2 03/24/18 12:00 40 03/24/18 12:00 78 03/24/18 11:41 97 40 03/24/18 10:00 76 03/24/18 09:00 40 03/24/18 08:24 98 40 03/24/18 08:00 75 03/24/18 08:00 50 03/24/18 06:00 75 03/24/18 05:01 100 50 03/24/18 04:00 99.1 91 21 135/65 (88) 97 03/24/18 04:00 91 03/24/18 04:00 50 03/24/18 03:59 100 50 03/24/18 03:04 95 High Flow Nasal Cannula 30.00 40 03/24/18 02:00 81 03/24/18 01:42 98.9 81 16 137/63 (87) 99 03/24/18 00:46 95 15.00 03/24/18 00:00 98.3 79 13 104/57 (73) 93 03/23/18 23:44 98 40 03/23/18 23:44 96 Nasal Cannula 5.00 40 03/23/18 20:00 98.3 96 20 97/47 (64) 92 03/23/18 18:31 Nasal Cannula 2.00 03/23/18 16:10 100/61 (74) 03/23/18 16:05 166/103 (124) 03/23/18 16:00 98.1 77 17 85/42 (56) 92 03/23/18 14:40 16 03/23/18 13:25 98.3 91 18 124/59 (80) 93 (Mili Abarca) -: 03/24/18 1106 5/18/18 1106 Microbiology 03/23/18 Aerobic Blood Culture - Preliminary, Resulted NO GROWTH IN 1 DAY 03/23/18 Anaerobic Blood Culture - Preliminary, Resulted NO GROWTH IN 1 DAY 03/23/18 Aerobic Blood Culture - Preliminary, Resulted NO GROWTH IN 1 DAY 03/23/18 Anaerobic Blood Culture - Preliminary, Resulted NO GROWTH IN 1 DAY 03/24/18 Gram Stain, Received Pending 03/24/18 Sputum Culture, Received Pending 03/24/18 Influenza Types A,B Antigen (MICHAEL) - Final, Complete NEGATIVE FOR FLU A AND B ANTIGEN.... Imaging Last 72 hours Impressions Chest X-Ray 03/24/18 0000 Signed Impressions: Service Date/Time: Saturday, March 24, 2018 04:47 - CONCLUSION: Unchanged bilateral pulmonary infiltrates. Interval intubation. Manuel Contreras Jr., MD Chest X-Ray 03/24/18 0000 Signed Impressions: Service Date/Time: Saturday, March 24, 2018 01:44 - CONCLUSION: 1. Central line within the right neck projects cephalad into the neck and not towards the heart. No pneumothorax. 2. Worsening bilateral pulmonary infiltrates. Manuel Contreras Jr., MD Abdomen/Pelvis CT 03/23/18 1820 Signed Impressions: Service Date/Time: March 21:21 - CONCLUSION: 1. 8 cm cystic mass in the pancreatic tail. The slight erosions of pseudocysts. Other cystic masses in the pancreatic tail couldn't similar appearance. 2. Hernia mesh in the midline with a suspected seroma seen superficial to this. This is unchanged. 3. Colonic diverticula in the sigmoid region without inflammatory change. 4. Bibasilar areas of consolidation. Tanmay Bella MD Chest X-Ray 03/23/18 0000 Signed Impressions: Service Date/Time: March 20:47 - CONCLUSION: 1. Cardia megaly. 2. Increased density in the retrocardiac area likely related to some atelectasis or consolidation. Tanmay Bella MD Consultation 03/22/18 1433 Signed Impressions: Service Date/Time: Thursday, March 22, 2018 14:33 - CONCLUSION: 1. This patient has had previous pancreatitis with drainage catheters placed in the same collection back in 2014 as such, I would not recommend drainage of this unless there is significant suspicion for infection or obstructive symptoms Broderick Machado MD Abdomen Ultrasound 03/22/18 0000 Signed Impressions: Service Date/Time: Thursday, March 22, 2018 19:40 - CONCLUSION: 1. 10 cm complex cystic mass the pancreatic tail. This is nonspecific. A pseudocyst would be the most common mass. Other cystic masses/neoplasms cannot be excluded on the ultrasound alone. 2. Small echogenic kidneys consistent with chronic renal disease. Tanmay Bella MD Chest X-Ray 03/21/18 1438 Signed Impressions: Service Date/Time: Wednesday, March 21, 2018 14:44 - CONCLUSION: No acute disease. Antelmo Aparicio MD Abdomen/Pelvis CT 03/21/18 1438 Signed Impressions: Service Date/Time: Wednesday, March 21, 2018 15:12 - CONCLUSION: There is a large complex mixed attenuation mass lesion involving the tail of the pancreas. A large pseudocyst would be the leading consideration. This is incompletely evaluated on this study. Antelmo Aparicio MD Tubes & Lines Comment TLC left femoral (Mili Abarca) Physical Exam General Appearance: Well Developed, Well Nourished, Comfortable, Obese Appearance Remarks intubated, unresponsive (Mili Abarca) Throat Throat Exam: Oral Mucosa [place] & Moist (Mili Abarca) Pulmonary Resp Exam: Clear Bilaterally, Breath Sounds Equal, No Distress (Mili Abarca) Cardiology CV Exam: Regular, Normal Sinus Rhythm, Good Perfusion (Mili Abarca) Gastrointestinal/Abdomen GI Exam: Soft, Bowel Sounds Present, Positive Bowel Movement, Distended GI Remarks obese (Mili Abarca) Musculoskeletal MS Exam: Joints Intact, Normal Tone, Unable to Ambulate (Mili Abarca) Integumentary Skin Exam: Clear, Warm, Dry, Intact (Mili Abarca) Extremeties Extremities Exam: No Edema, Pedal Pulses Palpable (Mili Abarca) Neurologic Neuro Exam: Unresponsive, Sedated (Mili Abarca) Psychiatric Psych Exam: Appropriate Responses (Mili Abarca) Assessment/Plan Discussed Condition With: Spouse Assessment Summary: Anemia of CKD, Hypertension, End Stage Renal Disease Problem List: (1) ESRD (end stage renal disease) ICD Codes: N18.6 - ESRD (end stage renal disease) Status: Acute Plan: Continue HD support TTS, due tomorrow. One liter UF yesterday. Avoid Left arm procedures, protect AVF from invasive procedures. Evaluate electrolytes intermittently. Stop IVF that is infusing Gadolinium is contraindicated Currently NPO. (2) Abdominal pain ICD Codes: R10.9 - Abdominal pain Status: Acute Plan: CT report noted, has pancreatic cyst. Not a candidate for drainage. EUS on hold due to clinical instability GI following. (3) Pancreatic pseudocyst ICD Codes: K86.3 - Pseudocyst of pancreas Status: Acute Plan: Unclear if this is the cause of abdominal symptoms. GI workup ongoing. See above. (4) Hypertension ICD Codes: I10 - Hypertension Status: Acute Plan: Borderline hypotensive BP has been variable Stop IVF Fluid removal as tolerated (5) Diabetes mellitus ICD Codes: E11.9 - Diabetes mellitus Status: Chronic Plan: Insulin coverage, maintain blood glucose between 140 and 180. (6) Respiratory failure ICD Codes: J96.90 - Respiratory failure Status: Acute Plan: ABG reviewed, she had respiratory acidosis, CO 2 retention Intubated 03/24 Vent weening as tolerated, per protocol CCM managing (7) Pneumonia ICD Codes: J18.9 - Pneumonia Status: Acute Plan: ID following On IV Levaquin (may change to PO), IV vancomycin, IV Azactam. Lactic acid normal, afebrile with leukocytosis (Mili Abarca) Plan patient was seen and examined. All the notes were reviewed. Dialysis tomorrow. Avoid excessive IVF. Developed hypercapnic renal failure. (Lokesh Joshua MD) Mili Abarca March 24, 2018 13:29 Lokesh Joshua MD March 24, 2018 14:10
[2018-03-24 16:38] LABS: ANA PATTERN SPECKLED
[2018-03-24] MEDS: CHLORHEXIDINE 0.12% (ORAL KIT) 15 ML CUP MT SCH (20:10)
[2018-03-24] MEDS: SODIUM CHLORIDE 0.9% FLUSH 10 ML FLUSH IV FLUSH SCH (20:11)
[2018-03-25] VITALS (20 sets, daily range): BP systolic 93–124; BP diastolic 54–60; PULSE 71–94; RESP 16–28; TEMP 98.4–100.8; O2SAT 93–100
[2018-03-25] MEDS: PANTOPRAZOLE SODIUM 40 MG VIAL IV PUSH SCH (02:56)
[2018-03-25] MEDS: INSULIN ASPART SUPPLEMENTAL SCALE SQ SCH ×5 (04:00→20:00)
[2018-03-25] MEDS: RESP: ALBUTEROL 2.5 MG/IPRATROPIUM 0.5 MG NEB (SCH) INH ×6 (04:04→23:46)
[2018-03-25 04:31] LABS: AUTOMATED NEUTROPHIL # 15.9 TH/MM3 (1.8-7.7); BASOPHIL # 0.1 TH/MM3 (0-0.2); BASOPHIL % 0.5 % (0.0-2.0); EOSINOPHIL # 0.2 TH/MM3 (0-0.4); EOSINOPHIL % 0.8 % (0.0-4.0); HEMATOCRIT 31.2 % (35.0-46.0); HEMOGLOBIN 9.8 GM/DL (11.6-15.3); LYMPH % 4.4 % (9.0-44.0); LYMPHOCYTE # 0.8 TH/MM3 (1.0-4.8); MEAN CELL VOLUME 96.8 FL (80.0-100.0); MEAN CORPUSCULAR HEMOGLOBIN 30.5 PG (27.0-34.0); MEAN CORPUSCULAR HGB CONC 31.5 % (32.0-36.0); MEAN PLATELET VOLUME 10.7 FL (7.0-11.0); MONO % 10.4 % (0.0-8.0); NEUT % 83.9 % (16.0-70.0); PLATELET COUNT 232 TH/MM3 (150-450); RED BLOOD COUNT 3.22 MIL/MM3 (4.00-5.30); RED CELL DISTRIBUTION WIDTH 14.7 % (11.6-17.2)
[2018-03-25] MEDS: CHLORHEXIDINE GLUCONATE 2 % 1 PACK (2 CLOTHS) TOP SCH (04:45)
[2018-03-25 04:47] LABS: INTERNATIONAL NORMALIZED RATIO 1.1 RATIO; PROTHROMBIN TIME - PATIENT 11.2 SEC (9.8-11.6)
[2018-03-25 04:52] LABS: ALBUMIN 2.5 GM/DL (3.4-5.0); ALKALINE PHOSPHATASE 122 U/L (45-117); ALT (GPT) 19 U/L (10-53); AST (GOT) 20 U/L (15-37); BICARBONATE 26.9 MEQ/L (21.0-32.0); BLOOD UREA NITROGEN 32 MG/DL (7-18); CALCIUM 8.7 MG/DL (8.5-10.1); CHLORIDE 99 MEQ/L (98-107); CREATININE 7.97 MG/DL (0.50-1.00); GLOMERULAR FILTRATION RATE 6 ML/MIN (>89); GLUCOSE,RANDOM 128 MG/DL (74-106); MAGNESIUM 1.8 MG/DL (1.5-2.5); PHOSPHORUS 3.8 MG/DL (2.5-4.9); SODIUM (NA) 138 MEQ/L (136-145); TOTAL BILIRUBIN ADULT 0.5 MG/DL (0.2-1.0); TOTAL PROTEIN 7.4 GM/DL (6.4-8.2)
[2018-03-25] MEDS: DOCUSATE SODIUM 50 MG/SENNA 8.6 MG TAB PO SCH ×2 (09:00→21:05)
--- NOTE | 2018-03-25 09:48 | HHI.NPPN ---
Subjective General Problems: Anemia Renal Failure: Chronic, End Stage Renal Disease Additional Remarks Patient intubated, seen on HD today. Opens eyes, awake. Review of Systems General General Remarks unable to obtain Objective Data Data Vital Signs Date Time Temp Pulse Resp B/P (MAP) Pulse Ox O2 Delivery O2 Flow Rate FiO2 03/25/18 08:16 96 35 03/25/18 06:00 79 03/25/18 04:07 95 35 03/25/18 04:00 85 03/25/18 04:00 40 03/25/18 04:00 100.8 85 21 121/57 (78) 95 03/25/18 02:00 72 03/25/18 01:21 94 35 03/25/18 00:00 94 03/25/18 00:00 40 03/25/18 00:00 99.8 94 22 108/56 (73) 94 03/24/18 22:01 97 35 03/24/18 22:01 35 03/24/18 22:00 82 03/24/18 20:00 75 03/24/18 20:00 100.1 75 22 93/50 (64) 95 03/24/18 20:00 40 03/24/18 19:55 95 40 03/24/18 16:00 84 03/24/18 16:00 40 03/24/18 15:52 97 40 03/24/18 14:00 84 03/24/18 12:00 40 03/24/18 12:00 78 03/24/18 12:00 99.7 78 20 109/53 (71) 99 03/24/18 11:41 97 40 03/24/18 10:00 76 -: 03/25/18 0402 03/25/18 0402 Microbiology 03/24/18 Gram Stain - Final, Resulted 03/24/18 Sputum Culture, Resulted Pending Tubes & Lines Comment TLC left femoral Physical Exam General Appearance: Well Developed, Well Nourished, Comfortable, Obese Throat Throat Exam: Oral Mucosa [place] & Moist Pulmonary Resp Exam: Clear Bilaterally, Breath Sounds Equal, No Distress Cardiology CV Exam: Regular, Normal Sinus Rhythm, Good Perfusion Gastrointestinal/Abdomen GI Exam: Soft, Bowel Sounds Present, Positive Bowel Movement, Distended Musculoskeletal MS Exam: Joints Intact, Normal Tone, Unable to Ambulate Integumentary Skin Exam: Clear, Warm, Dry, Intact Extremeties Extremities Exam: No Edema, Pedal Pulses Palpable Neurologic Neuro Exam: Unresponsive, Sedated Psychiatric Psych Exam: Appropriate Responses Assessment/Plan Discussed Condition With: Spouse Assessment Summary: Anemia of CKD, Hypertension, End Stage Renal Disease Problem List: (1) ESRD (end stage renal disease) ICD Codes: N18.6 - ESRD (end stage renal disease) Status: Acute Plan: Continue HD support TTS. Seen on HD today, goal 3L UF as tolerated. Avoid Left arm procedures, protect AVF from invasive procedures. Evaluate electrolytes intermittently. Continue to hold IVFs. Gadolinium is contraindicated (2) Abdominal pain ICD Codes: R10.9 - Abdominal pain Status: Acute Plan: CT report noted, has pancreatic cyst. Not a candidate for drainage. EUS on hold due to clinical instability GI following. Continue to follow with ID (3) Pancreatic pseudocyst ICD Codes: K86.3 - Pseudocyst of pancreas Status: Acute Plan: Unclear if this is the cause of abdominal symptoms. GI workup ongoing. See above. (4) Hypertension ICD Codes: I10 - Hypertension Status: Acute Plan: Borderline hypotensive BP has been variable IVFs held Fluid removal as tolerated (5) Diabetes mellitus ICD Codes: E11.9 - Diabetes mellitus Status: Chronic Plan: Insulin coverage, maintain blood glucose between 140 and 180. (6) Respiratory failure ICD Codes: J96.90 - Respiratory failure Status: Acute Plan: ABG reviewed, she had respiratory acidosis, CO 2 retention Intubated 03/24 Vent weening as tolerated, per protocol UF as tolerated with HD CCM managing (7) Pneumonia ICD Codes: J18.9 - Pneumonia Status: Acute Plan: ID following On IV Levaquin (may change to PO), IV vancomycin, IV Azactam. Lactic acid normal, afebrile with leukocytosis Broderick Goodrich MD March 25, 2018 09:48
[2018-03-25] MEDS: HEPARIN SODIUM - SQ 10,000 UNITS/ML VIAL SQ SCH ×2 (11:06→21:05)
[2018-03-25] MEDS: SODIUM CHLORIDE 0.9% FLUSH 10 ML FLUSH IV FLUSH SCH ×4 (11:07→21:06)
[2018-03-25] MEDS: CHLORHEXIDINE 0.12% (ORAL KIT) 15 ML CUP MT SCH ×2 (11:09→20:00)
[2018-03-25] MEDS: GABAPENTIN 400 MG CAP PO SCH ×2 (12:38→21:05)
[2018-03-25] MEDS: AZTREONAM INJ 500 MG in SODIUM CHLORIDE 0.9% INJ 100 ML IV SCH ×2 (12:52→22:36)
[2018-03-25] MEDS ORDERED: ALBUMIN 25% INJ 100 ML IV ONE (14:00)
[2018-03-25] MEDS: ARTIFICIAL TEARS OPTH SOLN 15 ML BTL EACH EYE SCH ×3 (14:05→17:25)
[2018-03-25] MEDS ORDERED: LEVOFLOXACIN 250 MG TAB PO SCH (15:00)
--- NOTE | 2018-03-25 21:03 | HHI.CCPN ---
Subjective Remarks/Hospital Course This is a 52-year-old AA female. Date of admission 03/21/2018. Past medical history includes end-stage renal disease on hemodialysis Tuesday// Tuesday. Diabetes mellitus with gastroparesis, hypertension, hyperlipidemia, history of's pancreatic cyst, anemia chronic kidney disease and secondary hyperparathyroidism. She presented to [facility] on 03/21 with a chief complaint of denies abdominal pain associated with nausea/vomiting. Rated as 10 on a scale of 1-10. CT the abdomen/pelvis revealed large complex mixed attenuation mass lesion involving the tail the pancreas. Large pseudocyst consideration.. Patient was placed on levofloxacin and metronidazole.. Patient was evaluated by nephrology and gastroenterology. Gastrology recommend repeat CT due to continued abdominal pain. This revealed seroma both her abdominal midline mesh and 8 cm pancreatic pseudocyst. Colonic diverticuli. Pulmonary infiltration. . Most recently there was a drainage catheter in this area 08/12/15.This was evaluated by interventional radiology did not do not recommend drainage at this time unless necessary for infectious causes. GI also recommended infectious disease consult which will be performed today. Overnight, patient became acutely hypoxic and short of breath. Confused with altered mental status. There have a pH is 7.18 with CO2 retention. Failed BiPAP was transferred to ICU for further evaluation treatment. Patient had no IV access on admission and after several times a central line was placed in the left femoral region. Failed internal jugular placement. Cannot identify subclavian vessels. She did fail high flow nasal cannula and is currently orotracheally intubated Subjective: 03/25: HD today with 3.5 kg removal. Post HD hypotension with SBP 60, normalized after albumin 25 gram IV. Remains on mechanical ventilation, now tolerates CPAP 08/11. Objective Vital Signs Date Time Temp Pulse Resp B/P (MAP) Pulse Ox O2 Delivery O2 Flow Rate FiO2 03/25/18 20:22 100 35 03/25/18 18:00 75 03/25/18 16:00 98.6 16 117/58 (77) 03/24/18 03:04 High Flow Nasal Cannula 30.00 Intake and Output 03/25/18 03/25/18 03/26/18 08:00 16:00 00:00 Output Total 150 ml 3500 ml 0 ml Balance -150 ml -3500 ml 0 ml Result Diagram: 03/25/18 0402 03/25/18 0402 Other Results Microbiology Date/Time Source Procedure Growth Status 03/24/18 06:30 Nasal Aspirate Influenza Types A,B Antigen (MICHAEL) - Final NEGATIVE FOR FLU A AND B ANTIGEN.... Complete Imaging Last Impressions Abdomen/Pelvis CT 03/23/18 1820 Signed Impressions: Service Date/Time: March 21:21 - CONCLUSION: 1. 8 cm cystic mass in the pancreatic tail. The slight erosions of pseudocysts. Other cystic masses in the pancreatic tail couldn't similar appearance. 2. Hernia mesh in the midline with a suspected seroma seen superficial to this. This is unchanged. 3. Colonic diverticula in the sigmoid region without inflammatory change. 4. Bibasilar areas of consolidation. Tanmay Bella MD Chest X-Ray 03/23/18 0000 Signed Impressions: Service Date/Time: March 20:47 - CONCLUSION: 1. Cardia megaly. 2. Increased density in the retrocardiac area likely related to some atelectasis or consolidation. Tanmay Bella MD Consultation 03/22/18 1433 Signed Impressions: Service Date/Time: Thursday, March 22, 2018 14:33 - CONCLUSION: 1. This patient has had previous pancreatitis with drainage catheters placed in the same collection back in 2015 as such, I would not recommend drainage of this unless there is significant suspicion for infection or obstructive symptoms Broderick Machado MD Abdomen Ultrasound 03/22/18 0000 Signed Impressions: Service Date/Time: Thursday, March 22, 2018 19:40 - CONCLUSION: 1. 10 cm complex cystic mass the pancreatic tail. This is nonspecific. A pseudocyst would be the most common mass. Other cystic masses/neoplasms cannot be excluded on the ultrasound alone. 2. Small echogenic kidneys consistent with chronic renal disease. Tanmay Bella MD Procedures None Objective Remarks GENERAL: 62-year-old female currently resting SKIN: Warm and dry. No rashes appreciated HEAD: Atraumatic. Normocephalic. EYES: Pupils equal and round. No scleral icterus. No injection or drainage. ENT: No nasal bleeding or discharge. Mucous membranes pink and moist. NECK: Trachea midline. No JVD. CARDIOVASCULAR: Regular rate and rhythm. S1, S2. No S4. Diminished. RESPIRATORY: Diminished due to body habitus. Clear to auscultation. Breath sounds equal bilaterally. GASTROINTESTINAL: Abdomen soft, obese. Midline abdomen/epigastric region tender to palpation. No guarding rigidity. Normoactive bowel sounds. MUSCULOSKELETAL: Extremities with trace bilateral lower extremity edema. Left AV fistula with positive thrill. VASC: L femoral CVL in place. NEUROLOGICAL: Awake, opens eyes. No obvious cranial nerve deficits.. Motor grossly within normal limits. A/P Assessment and Plan Neuro/Psych: Acute encephalopathy secondary to sepsis/pancreatitis Diabetic neuropathy Written for propofol/fentanyl drips for sedation/analgesia while intubated Goal of RA SS -2 Daily sedation vacation Acetaminophen 650 mg p.o. every 6 hours as needed fever Patient is currently on oxycodone/acetaminophen 5/325 1 tablet every 4 hours as needed pain 1 through 5. Hydromorphone 1 mg IV every 4 hours as needed pain 6 or 10 Currently on gabapentin 400mg p.o. twice daily home medication for neuropathy. Continue. CV: Essential hypertension Hyperlipidemia Off IVF. Currently not requiring vasopressors and/or antihypertensives On amlodipine 5 mg daily previously during this hospitalization, will continue to hold Resp: Acute respiratory failure ASHLYN? PRVC ventilation ordered. Daily CPAP trials. Albuterol/ipratropium aerosols every 4 hours with albuterol aerosols every 2 hours as needed dyspnea Ventilator bundle Spontaneous breathing trials when clinically indicated Follow postintubation chest x-ray and ABG GI: Gastroesophageal reflux disease Pancreatitis with pancreatic pseudocyst Currently n.p.o., start trickle feeds per GI recs. Glucerna 10 ml/hr. EUS on hold. CT abdomen/pelvis revealed 8 cm pancreatic pseudocyst at tail of pancreas. Colonic diverticulosis. Seroma midline abdominal mesh. Evaluated by GI. They recommended ID consult and drainage places by IR. IR currently does not recommend. Previously placed 2014. Patient is on ranitidine 150 mg p.o. daily at night at home. Along with esomeprazole 40 mg daily at home Currently on lansoprazole 30 mg daily Docusate sodium/senna 1 tablet twice daily for bowel regimen FEN/RENAL: End-stage renal disease on hemodialysis Tuesday//Tuesday No indication for Garcia placement Secondary hyperparathyroidism IHD from left upper extremity fistula per Dr. Joshua Continue calcium acetate 667 mg p.o. twice daily with meals. Endo: Diabetes mellitus Sliding scale insulin Novulog low regimen every 4 hours Accu-Cheks to maintain euglycemia Currently off linagliptin 5 mg p.o. daily and insulin aspart pen for diabetes at home. Heme: Macrocytic currently normocytic anemia/anemia of chronic kidney disease Leukocytosis Continue with ferric citrate 210 mg p.o. twice daily/home medication No indication for transfusion of blood products at this time. ID: Aspiration pneumonia vs HCAP. Currently in vancomycin, aztreonam and levaquin. Flagyl discontinued per ID. Infectious disease following Pertinent cultures Blood cultures 2 no growth 03/23. Sputum neg 03/24, influenza negative. MSK: History of foot drop left greater than right Elevated SNEHA with confirmatory test pending PT evaluate and treat Access -Left femoral CVL placed 03/24 #2. failed right IJ CVL Prophylaxis -GI -pantoprazole -DVT -SCD/heparin subcu Level 3 followup Sheeba Parada MD March 25, 2018 21:03
[2018-03-25] MEDS: LEVOFLOXACIN 500 MG PREMIX INJ 100 ML IV SCH (21:06)
[2018-03-26] VITALS (20 sets, daily range): BP systolic 104–163; BP diastolic 55–76; PULSE 72–84; RESP 20–29; TEMP 98.2–100.3; O2SAT 95–100
[2018-03-26] MEDS: HYDROmorphone HCL PF 0.5 MG/0.5 ML SYRINGE IV PRN (01:02)
[2018-03-26] MEDS: RESP: ALBUTEROL 2.5 MG/IPRATROPIUM 0.5 MG NEB (SCH) INH ×6 (03:59→23:31)
[2018-03-26] MEDS: INSULIN ASPART SUPPLEMENTAL SCALE SQ SCH ×6 (04:00→20:00)
[2018-03-26] MEDS: CHLORHEXIDINE GLUCONATE 2 % 1 PACK (2 CLOTHS) TOP SCH (04:00)
[2018-03-26] MEDS: PANTOPRAZOLE SODIUM 40 MG VIAL IV PUSH SCH (06:21)
[2018-03-26 07:30] LABS: AUTOMATED NEUTROPHIL # 15.7 TH/MM3 (1.8-7.7); BASOPHIL % 0.2 % (0.0-2.0); EOSINOPHIL # 0.2 TH/MM3 (0-0.4); HEMATOCRIT 29.9 % (35.0-46.0); HEMOGLOBIN 9.3 GM/DL (11.6-15.3); LYMPH % 2.8 % (9.0-44.0); LYMPHOCYTE # 0.5 TH/MM3 (1.0-4.8); MEAN CELL VOLUME 96.7 FL (80.0-100.0); MEAN CORPUSCULAR HEMOGLOBIN 30.1 PG (27.0-34.0); MEAN CORPUSCULAR HGB CONC 31.2 % (32.0-36.0); MEAN PLATELET VOLUME 10.2 FL (7.0-11.0); MONO % 10.2 % (0.0-8.0); MONOCYTE # 1.9 TH/MM3 (0-0.9); NEUT % 85.8 % (16.0-70.0); PLATELET COUNT 258 TH/MM3 (150-450); RED BLOOD COUNT 3.09 MIL/MM3 (4.00-5.30); WHITE BLOOD COUNT 18.3 TH/MM3 (4.0-11.0)
[2018-03-26 07:37] LABS: ALBUMIN 2.6 GM/DL (3.4-5.0); AST (GOT) 16 U/L (15-37); BICARBONATE 26.5 MEQ/L (21.0-32.0); BLOOD UREA NITROGEN 26 MG/DL (7-18); CHLORIDE 98 MEQ/L (98-107); CREATININE 6.59 MG/DL (0.50-1.00); GLOMERULAR FILTRATION RATE 8 ML/MIN (>89); GLUCOSE,RANDOM 139 MG/DL (74-106); SODIUM (NA) 139 MEQ/L (136-145)
[2018-03-26 07:40] LABS: ALKALINE PHOSPHATASE 116 U/L (45-117); ALT (GPT) 14 U/L (10-53); TOTAL BILIRUBIN ADULT 0.5 MG/DL (0.2-1.0); TOTAL PROTEIN 7.6 GM/DL (6.4-8.2)
[2018-03-26] MEDS: CHLORHEXIDINE 0.12% (ORAL KIT) 15 ML CUP MT SCH ×2 (08:58→20:00)
[2018-03-26] MEDS: SODIUM CHLORIDE 0.9% FLUSH 10 ML FLUSH IV FLUSH SCH ×3 (09:00→21:01)
[2018-03-26] MEDS: GABAPENTIN 400 MG CAP PO SCH ×2 (09:01→21:01)
[2018-03-26] MEDS: HEPARIN SODIUM - SQ 10,000 UNITS/ML VIAL SQ SCH ×2 (09:01→21:00)
[2018-03-26] MEDS: DOCUSATE SODIUM 50 MG/SENNA 8.6 MG TAB PO SCH ×2 (09:04→21:01)
--- NOTE | 2018-03-26 10:19 | HHI.NPPN ---
Subjective General Problems: Anemia Renal Failure: Chronic, End Stage Renal Disease Additional Remarks Patient intubated, awake. Some hypotension after HD yesterday Review of Systems General General Remarks unable to obtain Objective Data Data Vital Signs Date Time Temp Pulse Resp B/P (MAP) Pulse Ox O2 Delivery O2 Flow Rate FiO2 03/26/18 08:01 96 35 03/26/18 08:00 35 03/26/18 06:00 81 03/26/18 05:45 100 100 03/26/18 04:56 95 35 03/26/18 04:30 100 15.00 100 03/26/18 04:00 99.0 80 23 163/76 (105) 99 03/26/18 04:00 80 03/26/18 04:00 35 03/26/18 04:00 35 03/26/18 02:00 74 03/26/18 01:32 20 03/26/18 01:02 100 35 03/26/18 00:00 35 03/26/18 00:00 72 03/26/18 00:00 99.2 72 20 126/60 (82) 97 03/25/18 22:02 100 35 03/25/18 22:00 35 03/25/18 22:00 76 03/25/18 20:22 100 35 03/25/18 20:00 35 03/25/18 20:00 71 03/25/18 20:00 99.2 71 17 103/59 (74) 99 03/25/18 18:00 75 03/25/18 16:22 95 35 03/25/18 16:00 98.6 80 16 117/58 (77) 99 03/25/18 16:00 40 03/25/18 16:00 80 03/25/18 14:00 79 03/25/18 13:44 35 03/25/18 13:44 99 35 03/25/18 12:00 40 03/25/18 12:00 76 03/25/18 12:00 98.9 76 20 93/54 (67) 97 03/25/18 11:00 97 35 -: 03/26/18 0630 03/26/18 0630 Tubes & Lines Comment TLC left femoral Physical Exam General Appearance: Well Developed, Well Nourished, Comfortable, Obese Throat Throat Exam: Oral Mucosa [place] & Moist Pulmonary Resp Exam: Clear Bilaterally, Breath Sounds Equal, No Distress Cardiology CV Exam: Regular, Normal Sinus Rhythm, Good Perfusion Gastrointestinal/Abdomen GI Exam: Soft, Bowel Sounds Present, Positive Bowel Movement, Distended Musculoskeletal MS Exam: Joints Intact, Normal Tone, Unable to Ambulate Integumentary Skin Exam: Clear, Warm, Dry, Intact Extremeties Extremities Exam: No Edema, Pedal Pulses Palpable Neurologic Neuro Exam: Unresponsive, Sedated Psychiatric Psych Exam: Appropriate Responses Assessment/Plan Discussed Condition With: Spouse Assessment Summary: Anemia of CKD, Hypertension, End Stage Renal Disease Problem List: (1) ESRD (end stage renal disease) ICD Codes: N18.6 - ESRD (end stage renal disease) Status: Acute Plan: Continue HD support TTS. HD done yesterday with 3.5L UF. Some hypotension post HD, BP improved today. Plan next HD Tuesday. Avoid Left arm procedures, protect AVF from invasive procedures. Evaluate electrolytes intermittently. Continue to hold IVFs. Gadolinium is contraindicated (2) Abdominal pain ICD Codes: R10.9 - Abdominal pain Status: Acute Plan: CT report noted, has pancreatic cyst. Not a candidate for drainage. EUS on hold due to clinical instability GI following. Continue to follow with ID (3) Pancreatic pseudocyst ICD Codes: K86.3 - Pseudocyst of pancreas Status: Acute Plan: Unclear if this is the cause of abdominal symptoms. GI workup ongoing. See above. (4) Hypertension ICD Codes: I10 - Hypertension Status: Acute Plan: Borderline hypotensive BP has been variable IVFs held Fluid removal as tolerated (5) Diabetes mellitus ICD Codes: E11.9 - Diabetes mellitus Status: Chronic Plan: Insulin coverage, maintain blood glucose between 140 and 180. (6) Respiratory failure ICD Codes: J96.90 - Respiratory failure Status: Acute Plan: ABG reviewed, she had respiratory acidosis, CO 2 retention Intubated 03/24 Vent weening as tolerated, per protocol UF as tolerated with HD CCM managing (7) Pneumonia ICD Codes: J18.9 - Pneumonia Status: Acute Plan: ID following On IV Levaquin (may change to PO), IV vancomycin, IV Azactam. Lactic acid normal, afebrile with leukocytosis Broderick Goodrich MD March 26, 2018 10:19
[2018-03-26] MEDS: AURYXIA 210 MG PO SCH ×2 (12:00→16:34)
--- NOTE | 2018-03-26 12:27 | HHI.CCPN ---
Subjective Remarks/Hospital Course This is a 52-year-old AA female. Date of admission 03/21/2018. Past medical history includes end-stage renal disease on hemodialysis Tuesday// Tuesday. Diabetes mellitus with gastroparesis, hypertension, hyperlipidemia, history of's pancreatic cyst, anemia chronic kidney disease and secondary hyperparathyroidism. She presented to [facility] on 03/21 with a chief complaint of denies abdominal pain associated with nausea/vomiting. Rated as 10 on a scale of 1-10. CT the abdomen/pelvis revealed large complex mixed attenuation mass lesion involving the tail the pancreas. Large pseudocyst consideration.. Patient was placed on levofloxacin and metronidazole.. Patient was evaluated by nephrology and gastroenterology. Gastrology recommend repeat CT due to continued abdominal pain. This revealed seroma both her abdominal midline mesh and 8 cm pancreatic pseudocyst. Colonic diverticuli. Pulmonary infiltration. . Most recently there was a drainage catheter in this area 08/12/15.This was evaluated by interventional radiology did not do not recommend drainage at this time unless necessary for infectious causes. GI also recommended infectious disease consult which will be performed today. Overnight, patient became acutely hypoxic and short of breath. Confused with altered mental status. There have a pH is 7.18 with CO2 retention. Failed BiPAP was transferred to ICU for further evaluation treatment. Patient had no IV access on admission and after several times a central line was placed in the left femoral region. Failed internal jugular placement. Cannot identify subclavian vessels. She did fail high flow nasal cannula and is currently orotracheally intubated 03/25: HD today with 3.5 kg removal. Post HD hypotension with SBP 60, normalized after albumin 25 gram IV. Remains on mechanical ventilation, now tolerates CPAP 10/5. Subjective: 03/26 Tolerating CPAP 10/5, placed to 5/5 now and RSBI in 40s, plan to extubate if tolerates. Objective Vital Signs Date Time Temp Pulse Resp B/P (MAP) Pulse Ox O2 Delivery O2 Flow Rate FiO2 03/26/18 10:26 99 35 03/26/18 10:00 84 03/26/18 08:00 100.3 22 127/60 (82) 03/26/18 04:30 15.00 03/24/18 03:04 High Flow Nasal Cannula Intake and Output 03/26/18 03/26/18 03/27/18 08:00 16:00 00:00 Intake Total 76 ml Output Total 150 ml Balance -74 ml Result Diagram: 03/26/18 0630 03/26/18 0630 Other Results Microbiology Date/Time Source Procedure Growth Status 03/24/18 12:40 Sputum Endotracheal Gram Stain - Final Complete 03/24/18 12:40 Sputum Endotracheal Sputum Culture - Final HEAVY GROWTH NORMAL RESPIRATORY ROSE Complete 03/24/18 06:30 Nasal Aspirate Influenza Types A,B Antigen (MICHAEL) - Final NEGATIVE FOR FLU A AND B ANTIGEN.... Complete Imaging Last Impressions Abdomen/Pelvis CT 03/23/18 1820 Signed Impressions: Service Date/Time: March 21:21 - CONCLUSION: 1. 8 cm cystic mass in the pancreatic tail. The slight erosions of pseudocysts. Other cystic masses in the pancreatic tail couldn't similar appearance. 2. Hernia mesh in the midline with a suspected seroma seen superficial to this. This is unchanged. 3. Colonic diverticula in the sigmoid region without inflammatory change. 4. Bibasilar areas of consolidation. Tanmay Bella MD Chest X-Ray 03/23/18 0000 Signed Impressions: Service Date/Time: March 20:47 - CONCLUSION: 1. Cardia megaly. 2. Increased density in the retrocardiac area likely related to some atelectasis or consolidation. Tanmay Bella MD Consultation 03/22/18 1433 Signed Impressions: Service Date/Time: Thursday, March 22, 2018 14:33 - CONCLUSION: 1. This patient has had previous pancreatitis with drainage catheters placed in the same collection back in 2015 as such, I would not recommend drainage of this unless there is significant suspicion for infection or obstructive symptoms Broderick Machado MD Abdomen Ultrasound 03/22/18 0000 Signed Impressions: Service Date/Time: Thursday, March 22, 2018 19:40 - CONCLUSION: 1. 10 cm complex cystic mass the pancreatic tail. This is nonspecific. A pseudocyst would be the most common mass. Other cystic masses/neoplasms cannot be excluded on the ultrasound alone. 2. Small echogenic kidneys consistent with chronic renal disease. Tanmay Bella MD Procedures None Objective Remarks GENERAL: 62-year-old female currently sitting up in [facility] bed on vent. SKIN: Warm and dry. HEAD: Atraumatic. Normocephalic. EYES: Pupils equal and round. No scleral icterus. No injection or drainage. ENT: No nasal bleeding or discharge. Mucous membranes pink and moist. NECK: Trachea midline. No JVD. CARDIOVASCULAR: Regular rate and rhythm. S1, S2. RESPIRATORY: Diminished due to body habitus. Clear to auscultation. Breath sounds equal bilaterally. On CPAP 5/5 and appears comfortable with RSBI iin 40s. GASTROINTESTINAL: Abdomen soft, obese. Midline abdomen/epigastric region tender to palpation but appears less tender than yesterday. No guarding rigidity. Normoactive bowel sounds. MUSCULOSKELETAL: Extremities with trace bilateral lower extremity edema. Left AV fistula with positive thrill. VASC: L femoral CVL in place. Dressing in place at R IJ site. NEUROLOGICAL: Awake, opens eyes, makes eye contact nods and does hand gestures in response to questions. . No obvious cranial nerve deficits. Moving all extremities without focal deficit. A/P Assessment and Plan Neuro/Psych: Acute encephalopathy secondary to sepsis/pancreatitis Diabetic neuropathy Off sedatives and following commands. Acetaminophen 650 mg p.o. every 6 hours as needed fever Patient is currently on oxycodone/acetaminophen 5/325 1 tablet every 4 hours as needed pain 1 through 5. Hydromorphone 1 mg IV every 4 hours as needed pain 6 or 10 Currently on gabapentin 400mg p.o. twice daily home medication for neuropathy. Continue. CV: Essential hypertension Hyperlipidemia Off IVF. Currently not requiring vasopressors and/or antihypertensives Resume amlodipine 5 mg daily Resp: Acute respiratory failure ASHLYN? PRVC, Tolerating CPAP trial. Extubate today. Bipap nocturnal. Albuterol/ipratropium aerosols every 4 hours with albuterol aerosols every 2 hours as needed dyspnea GI: Gastroesophageal reflux disease Pancreatitis with pancreatic pseudocyst Tolerating trickle feeds. Swallow eval when extubated. NPO at midnight for possible EUS on Tuesday, though Dr. Gupta says it may need to be rescheduled due to multiple cases. CT abdomen/pelvis revealed 8 cm pancreatic pseudocyst at tail of pancreas. Colonic diverticulosis. Seroma midline abdominal mesh. Evaluated by GI. They recommended ID consult and drainage places by IR. IR currently does not recommend. Previously placed 2014. Patient is on ranitidine 150 mg p.o. daily at night at home/ esomeprazole 40 mg daily at home Currently on lansoprazole 30 mg daily Docusate sodium/senna 1 tablet twice daily for bowel regimen FEN/RENAL: End-stage renal disease on hemodialysis Tuesday//Tuesday No indication for Garcia placement Secondary hyperparathyroidism IHD from left upper extremity fistula per Dr. Joshua Continue calcium acetate 667 mg p.o. twice daily with meals. Endo: Diabetes mellitus Sliding scale insulin Novulog low regimen every 4 hours Accu-Cheks to maintain euglycemia. Glucose at target. Currently off linagliptin 5 mg p.o. daily and insulin aspart pen for diabetes at home. Heme: Macrocytic currently normocytic anemia/anemia of chronic kidney disease Leukocytosis Continue with ferric citrate 210 mg p.o. twice daily/home medication No indication for transfusion of blood products at this time. ID: Aspiration pneumonia vs HCAP. Currently on vancomycin, aztreonam and levaquin. Flagyl discontinued per ID. Infectious disease following, likely can narrow coverage, discussing with cross cover ID. Pertinent cultures Blood cultures 2 no growth 03/23. Sputum neg 03/24, influenza negative. MSK: History of foot drop left greater than right Elevated SNEHA with low titer. PT evaluate and treat Access -Left femoral CVL placed 03/24 #3. right IJ CVL was removed after it tracked up into neck. Place PIV and d/c CVL. Prophylaxis -GI -pantoprazole -DVT -SCD/heparin subcu Patient is tolerating CPAP. GI uncertain if EUS can be done Tuesday or not and agree with proceeding with extubation at this time. updated at bedside. Level 3 followup Sheeba Parada MD March 26, 2018 12:27
[2018-03-26] MEDS: AZTREONAM INJ 500 MG in SODIUM CHLORIDE 0.9% INJ 100 ML IV SCH (12:36)
[2018-03-26] MEDS: ARTIFICIAL TEARS OPTH SOLN 15 ML BTL EACH EYE SCH ×3 (12:36→18:17)
[2018-03-26] MEDS: oxyCODONE/ACETAMINOPHEN 5 MG/325 MG TAB PO PRN (13:53)
--- NOTE | 2018-03-26 18:12 | HHI.IDPN ---
Subjective Subjective Remarks ID X cover for Dr Rodriguez 52 yo F morbidly obese with ESRD/HD presented with abd pain on 03/21/2018. w/u showed panceratic pseudocst Overnight, patient became acutely hypoxic and short of breath, was intubated BC are negative @ 3 days, WBC still elevated @ 18 K Today pt is doing better extubated on NC O2 denies c/o Antibiotics m levaquin vancomycin Allergies: Coded Allergies: Sulfa (Sulfonamide Antibiotics) (Unverified Allergy, Severe, Rash, ) morphine (Unverified Allergy, Severe, ITCHING, 09/21/17) penicillin G (Unverified Allergy, Severe, UNKNOWN, 09/21/17) amoxicillin (Verified Allergy, Intermediate, Rash, 09/21/17) *MDRO Multi-Drug Resistant Organism (Verified Allergy, Unknown, 09/21/17) VRE Buttock Wound 01/15/2013 C Diff 05/2014 Objective . Vital Signs Date Time Temp Pulse Resp B/P (MAP) Pulse Ox O2 Delivery O2 Flow Rate FiO2 03/26/18 16:00 98.2 81 29 104/55 (71) 96 03/26/18 16:00 81 03/26/18 14:54 20 03/26/18 14:00 Nasal Cannula 4 03/26/18 14:00 83 03/26/18 14:00 98 Nasal Cannula 4.00 03/26/18 12:00 99.5 76 24 113/58 (76) 98 03/26/18 12:00 76 03/26/18 12:00 35 03/26/18 10:26 99 35 03/26/18 10:00 84 03/26/18 08:01 96 35 03/26/18 08:00 76 03/26/18 08:00 100.3 76 22 127/60 (82) 98 03/26/18 08:00 35 03/26/18 06:00 81 03/26/18 05:45 100 100 03/26/18 04:56 95 35 03/26/18 04:30 100 15.00 100 03/26/18 04:00 99.0 80 23 163/76 (105) 99 03/26/18 04:00 80 03/26/18 04:00 35 03/26/18 04:00 35 03/26/18 02:00 74 03/26/18 01:32 20 03/26/18 01:02 100 35 03/26/18 00:00 35 03/26/18 00:00 72 03/26/18 00:00 99.2 72 20 126/60 (82) 97 03/25/18 22:02 100 35 03/25/18 22:00 35 03/25/18 22:00 76 03/25/18 20:22 100 35 03/25/18 20:00 35 03/25/18 20:00 71 03/25/18 20:00 99.2 71 17 103/59 (74) 99 03/26/18 03/26/18 03/27/18 15:00 23:00 07:00 Intake Total 100 ml Balance 100 ml IV Total 100 ml . Laboratory Tests Test 03/25/18 04:02 03/26/18 06:30 White Blood Count 19.0 TH/MM3 18.3 TH/MM3 Red Blood Count 3.22 MIL/MM3 3.09 MIL/MM3 Hemoglobin 9.8 GM/DL 9.3 GM/DL Hematocrit 31.2 % 29.9 % Mean Corpuscular Volume 96.8 FL 96.7 FL Mean Corpuscular Hemoglobin 30.5 PG 30.1 PG Mean Corpuscular Hemoglobin Concent 31.5 % 31.2 % Red Cell Distribution Width 14.7 % 15.0 % Platelet Count 232 TH/MM3 258 TH/MM3 Mean Platelet Volume 10.7 FL 10.2 FL Neutrophils (%) (Auto) 83.9 % 85.8 % Lymphocytes (%) (Auto) 4.4 % 2.8 % Monocytes (%) (Auto) 10.4 % 10.2 % Eosinophils (%) (Auto) 0.8 % 1.0 % Basophils (%) (Auto) 0.5 % 0.2 % Neutrophils # (Auto) 15.9 TH/MM3 15.7 TH/MM3 Lymphocytes # (Auto) 0.8 TH/MM3 0.5 TH/MM3 Monocytes # (Auto) 2.0 TH/MM3 1.9 TH/MM3 Eosinophils # (Auto) 0.2 TH/MM3 0.2 TH/MM3 Basophils # (Auto) 0.1 TH/MM3 0.0 TH/MM3 CBC Comment DIFF FINAL DIFF FINAL Differential Comment Laboratory Tests Test 03/25/18 04:02 03/26/18 06:30 Blood Urea Nitrogen 32 MG/DL 26 MG/DL Creatinine 7.97 MG/DL 6.59 MG/DL Random Glucose 128 MG/DL 139 MG/DL Total Protein 7.4 GM/DL 7.6 GM/DL Albumin 2.5 GM/DL 2.6 GM/DL Calcium Level 8.7 MG/DL 9.0 MG/DL Phosphorus Level 3.8 MG/DL Magnesium Level 1.8 MG/DL Alkaline Phosphatase 122 U/L 116 U/L Aspartate Amino Transf (AST/SGOT) 20 U/L 16 U/L Alanine Aminotransferase (ALT/SGPT) 19 U/L 14 U/L Total Bilirubin 0.5 MG/DL 0.5 MG/DL Sodium Level 138 MEQ/L 139 MEQ/L Potassium Level 3.7 MEQ/L 3.6 MEQ/L Chloride Level 99 MEQ/L 98 MEQ/L Carbon Dioxide Level 26.9 MEQ/L 26.5 MEQ/L Anion Gap 12 MEQ/L 15 MEQ/L Estimat Glomerular Filtration Rate 6 ML/MIN 8 ML/MIN Lactic Acid Level 1.3 mmol/L Microbiology Date/Time Source Procedure Growth Status 03/24/18 12:40 Sputum Endotracheal Gram Stain - Final Complete 03/24/18 12:40 Sputum Endotracheal Sputum Culture - Final HEAVY GROWTH NORMAL RESPIRATORY MADHU Complete 03/24/18 06:30 Nasal Aspirate Influenza Types A,B Antigen (MICHAEL) - Final NEGATIVE FOR FLU A AND B ANTIGEN.... Complete Imaging Last Impressions Chest X-Ray 03/24/18 0000 Signed Impressions: Service Date/Time: Saturday, March 24, 2018 04:47 - CONCLUSION: Unchanged bilateral pulmonary infiltrates. Interval intubation. Manuel Contreras Jr., MD Abdomen/Pelvis CT 03/23/18 1820 Signed Impressions: Service Date/Time: March 21:21 - CONCLUSION: 1. 8 cm cystic mass in the pancreatic tail. The slight erosions of pseudocysts. Other cystic masses in the pancreatic tail couldn't similar appearance. 2. Hernia mesh in the midline with a suspected seroma seen superficial to this. This is unchanged. 3. Colonic diverticula in the sigmoid region without inflammatory change. 4. Bibasilar areas of consolidation. Tanmay Bella MD Consultation 03/22/18 1433 Signed Impressions: Service Date/Time: Thursday, March 22, 2018 14:33 - CONCLUSION: 1. This patient has had previous pancreatitis with drainage catheters placed in the same collection back in 2015 as such, I would not recommend drainage of this unless there is significant suspicion for infection or obstructive symptoms Broderick Machado MD Abdomen Ultrasound 03/22/18 0000 Signed Impressions: Service Date/Time: Thursday, March 22, 2018 19:40 - CONCLUSION: 1. 10 cm complex cystic mass the pancreatic tail. This is nonspecific. A pseudocyst would be the most common mass. Other cystic masses/neoplasms cannot be excluded on the ultrasound alone. 2. Small echogenic kidneys consistent with chronic renal disease. Tanmay Bella MD Physical Exam GENERAL:Obese, well-developed patient, in no apparent distress. SKIN: No rashes, ecchymoses or lesions. Cool and dry. HEAD: Atraumatic. Normocephalic. No temporal or scalp tenderness. EYES: Pupils equal round and reactive. No scleral icterus. No injection or drainage. ENT: Intubated. NECK: Trachea midline. Supple, nontender, no meningeal signs. CARDIOVASCULAR: regular ; no murmurs RESPIRATORY: Bilateral Decreased AE in bases anteriorly. GASTROINTESTINAL: Abdomen soft, non-tender, nondistended. Obese. No palpable masses MUSCULOSKELETAL: Extremities without clubbing, cyanosis, or edema. AV fistula site ok. NEUROLOGICAL: Sedated. Non focal exam Psych could not be assessed Assessment & Plan Remarks Possible new sepsis Pneumonia ? aspiration vs HCAP nl madhu on resp clx - blood clx all negative @ 72 hrs Acute resp failure on vent. Acute pancreatitis with pseudocyst. Morbidly obese BMI 41.3 kg/m2 DM2 uncontrolled with Nephropathy ESRD on HD using AV fistula. HD on ,,Sat - pt is anuric Recs: dc Azactam IV dc Vanco IV Continue Levaquin ok to change to oral. fu clx untill final fu clinically repeat clx if more fever dw Yesenia Grimes MD March 26, 2018 18:12
--- NOTE | 2018-03-26 19:14 | HHI.GIFU ---
GI Follow-up Note Consult Follow-up Subjective: Late entry-patient seen earlier int .Patient laying in bed comfortably, intubated , awake -possible extubation today.no nausea, vomiting, pain better . Objective: PHYSICAL EXAMINATION: Vitals signs stable No fever Vital Signs Date Time Temp Pulse Resp B/P (MAP) Pulse Ox O2 Delivery O2 Flow Rate FiO2 03/26/18 18:00 79 03/26/18 16:00 98.2 81 29 104/55 (71) 96 03/26/18 16:00 81 03/26/18 14:54 20 03/26/18 14:00 Nasal Cannula 4 03/26/18 14:00 83 03/26/18 14:00 98 Nasal Cannula 4.00 03/26/18 12:00 99.5 76 24 113/58 (76) 98 03/26/18 12:00 76 03/26/18 12:00 35 HEENT: Pupils round and reactive to light; normocephalic; atraumatic; no jaundice. Throat is clear. NECK: Neck is supple, no JVD, no lymphadenopathy. CHEST: Chest is clear to auscultation and percussion. CARDIAC: Regular rate and rhythm with no murmur gallop or rubs. ABDOMEN: Soft, obese , nontender; no hepatosplenomegaly; bowel sounds are present in all four quadrants. EXTREMITIES: No clubbing, cyanosis, or edema. SKIN: Normal; no rash; no jaundice. [employer]: No focal deficits; alert and oriented times three. Available Data (labs, X- Rays, Procedues) : Laboratory Tests Test 03/25/18 04:02 03/26/18 06:30 White Blood Count 19.0 TH/MM3 18.3 TH/MM3 Red Blood Count 3.22 MIL/MM3 3.09 MIL/MM3 Hemoglobin 9.8 GM/DL 9.3 GM/DL Hematocrit 31.2 % 29.9 % Mean Corpuscular Volume 96.8 FL 96.7 FL Mean Corpuscular Hemoglobin 30.5 PG 30.1 PG Mean Corpuscular Hemoglobin Concent 31.5 % 31.2 % Red Cell Distribution Width 14.7 % 15.0 % Platelet Count 232 TH/MM3 258 TH/MM3 Mean Platelet Volume 10.7 FL 10.2 FL Neutrophils (%) (Auto) 83.9 % 85.8 % Lymphocytes (%) (Auto) 4.4 % 2.8 % Monocytes (%) (Auto) 10.4 % 10.2 % Eosinophils (%) (Auto) 0.8 % 1.0 % Basophils (%) (Auto) 0.5 % 0.2 % Neutrophils # (Auto) 15.9 TH/MM3 15.7 TH/MM3 Lymphocytes # (Auto) 0.8 TH/MM3 0.5 TH/MM3 Monocytes # (Auto) 2.0 TH/MM3 1.9 TH/MM3 Eosinophils # (Auto) 0.2 TH/MM3 0.2 TH/MM3 Basophils # (Auto) 0.1 TH/MM3 0.0 TH/MM3 CBC Comment DIFF FINAL DIFF FINAL Differential Comment Prothrombin Time 11.2 SEC Prothromb Time International Ratio 1.1 RATIO Activated Partial Thromboplast Time 25.5 SEC Blood Urea Nitrogen 32 MG/DL 26 MG/DL Creatinine 7.97 MG/DL 6.59 MG/DL Random Glucose 128 MG/DL 139 MG/DL Total Protein 7.4 GM/DL 7.6 GM/DL Albumin 2.5 GM/DL 2.6 GM/DL Calcium Level 8.7 MG/DL 9.0 MG/DL Phosphorus Level 3.8 MG/DL Magnesium Level 1.8 MG/DL Alkaline Phosphatase 122 U/L 116 U/L Aspartate Amino Transf (AST/SGOT) 20 U/L 16 U/L Alanine Aminotransferase (ALT/SGPT) 19 U/L 14 U/L Total Bilirubin 0.5 MG/DL 0.5 MG/DL Sodium Level 138 MEQ/L 139 MEQ/L Potassium Level 3.7 MEQ/L 3.6 MEQ/L Chloride Level 99 MEQ/L 98 MEQ/L Carbon Dioxide Level 26.9 MEQ/L 26.5 MEQ/L Anion Gap 12 MEQ/L 15 MEQ/L Estimat Glomerular Filtration Rate 6 ML/MIN 8 ML/MIN Lactic Acid Level 1.3 mmol/L ASSESSMENT/PLAN: Pancreatic pseudocyst-no indication of infection-was evaluated by surgery and IR -no drainage recommended abdominal pain-better , unclear if related to pseudocyst respiratory failure-s/p intubation -improving-possible extubation today elevated wbc -improving ,possible aspiration pneumonia - id following morbid obesity ESRD on HD Recommendations advance diet as tolerated, tf if remains intubated eus possible tomorrow if scheduled permits, if not next week to further evaluate pseudocyst antibiotics as per ID discussed with rn, patient and It was a pleasure seeing Tam Vega. Thank you for this consult. Entered by: Alicia Mayfield MD March 26, 2018 19:14
[2018-03-27] VITALS (18 sets, daily range): BP systolic 89–125; BP diastolic 50–63; PULSE 71–90; RESP 19–115; TEMP 98.2–98.7; O2SAT 93–100
[2018-03-27] MEDS: SODIUM CHLOR 0.9% 1000 ML INJ 1,000 ML IV SCH ×2 (03:29→04:36)
[2018-03-27] MEDS: PANTOPRAZOLE SODIUM 40 MG VIAL IV PUSH SCH (03:29)
[2018-03-27] MEDS: RESP: ALBUTEROL 2.5 MG/IPRATROPIUM 0.5 MG NEB (SCH) INH ×6 (03:54→22:57)
[2018-03-27] MEDS: CHLORHEXIDINE GLUCONATE 2 % 1 PACK (2 CLOTHS) TOP SCH (04:00)
[2018-03-27] MEDS: INSULIN ASPART SUPPLEMENTAL SCALE SQ SCH ×6 (04:00→20:16)
[2018-03-27 08:05] LABS: BASOPHIL # 0.1 TH/MM3 (0-0.2); BASOPHIL % 0.5 % (0.0-2.0); EOSINOPHIL # 0.3 TH/MM3 (0-0.4); EOSINOPHIL % 1.6 % (0.0-4.0); HEMATOCRIT 30.5 % (35.0-46.0); HEMOGLOBIN 9.2 GM/DL (11.6-15.3); LYMPH % 5.4 % (9.0-44.0); LYMPHOCYTE # 0.9 TH/MM3 (1.0-4.8); MEAN CELL VOLUME 98.1 FL (80.0-100.0); MEAN CORPUSCULAR HEMOGLOBIN 29.7 PG (27.0-34.0); MEAN CORPUSCULAR HGB CONC 30.3 % (32.0-36.0); MEAN PLATELET VOLUME 9.8 FL (7.0-11.0); MONO % 9.4 % (0.0-8.0); MONOCYTE # 1.6 TH/MM3 (0-0.9); NEUT % 83.1 % (16.0-70.0); PLATELET COUNT 298 TH/MM3 (150-450); RED BLOOD COUNT 3.11 MIL/MM3 (4.00-5.30); RED CELL DISTRIBUTION WIDTH 15.5 % (11.6-17.2); WHITE BLOOD COUNT 16.9 TH/MM3 (4.0-11.0)
[2018-03-27 08:28] LABS: BICARBONATE 27.7 MEQ/L (21.0-32.0); CREATININE 7.7 MG/DL (0.50-1.00)
[2018-03-27] MEDS: SODIUM CHLORIDE 0.9% FLUSH 10 ML FLUSH IV FLUSH SCH ×3 (09:00→18:12)
[2018-03-27] MEDS: DOCUSATE SODIUM 50 MG/SENNA 8.6 MG TAB PO SCH ×2 (09:00→20:17)
--- NOTE | 2018-03-27 10:18 | PD.PROCEDR ---
GI Procedure PROCEDURE PERFORMED EGD with biopsy followed by endoscopic ultrasound with FNA INDICATION FOR PROCEDURE Abdominal pain, pancreatic pseudocyst PROCEDURE: The procedure, risks and benefits were discussed with Patient/POA and informed consent was obtained. Anesthesia sedated Patient with Diprivan. Patient was placed in the left lateral decubitus position. EGD: The Pentax videoscope was introduced through the oropharynx and advanced to the second portion of the duodenum under direct visualization. Retroflexion was performed in the stomach. FINDINGS: The esophagus this was normal The stomach there was a large bulging into the posterior wall of the stomach with patchy erythema probably from secondary compression but no ulcerations no erosions 2 small nodules were noted in the antrum one measuring about 2-3 mm the other about 7-8 mm both were biopsied but benign-appearing The duodenum this was normal EUS: The Pentax videoscope was introduced through the oropharynx and advanced to the second portion of the duodenum . FINDINGS: The pancreatic parenchyma in the head and the body was basically unremarkable with normal pancreatic duct and normal common bile duct The antral nodule appeared to be a hypoechoic lesion in the submucosa homogeneous otherwise unremarkable The pancreatic cyst appeared to be a large simple cyst measuring about 7-8 cm FNA was performed and we obtained dark green return more bilious than anything else at this point the sample fluid is going to be sent for analysis No lymphadenopathy was seen No gallbladder was seen ESTIMATED BLOOD LOSS: None SPECIMENS REMOVED: Antral biopsies and pancreatic cyst sample COMPLICATIONS: None IMPRESSION: Gastritis Antral nodules Pancreatic pseudocyst PLAN: Await biopsies Continue with current supportive care Monitor labs Patient was noted to be on antibiotics and no additional antibiotics were used during the procedure Avtar Jade MD March 27, 2018 10:18
[2018-03-27] MEDS ORDERED: DO NOT ADM ANY ANTICOAGULANT DRUGS PRN (10:35)
[2018-03-27] MEDS ORDERED: *RESP: ALBUTEROL 2.5 MG/3 ML NEB (PRN) PERIprocedural Use ONLY NEB ONE (10:43)
[2018-03-27] MEDS: CHLORHEXIDINE 0.12% (ORAL KIT) 15 ML CUP MT SCH ×2 (11:55→20:00)
[2018-03-27] MEDS: GABAPENTIN 400 MG CAP PO SCH ×2 (11:56→20:17)
[2018-03-27] MEDS: AURYXIA 210 MG PO SCH ×3 (11:56→18:11)
[2018-03-27] MEDS: HEPARIN SODIUM - SQ 10,000 UNITS/ML VIAL SQ SCH ×2 (11:56→20:16)
[2018-03-27] MEDS: ARTIFICIAL TEARS OPTH SOLN 15 ML BTL EACH EYE SCH ×3 (11:57→18:12)
[2018-03-27] MEDS: amLODIPine BESYLATE 5 MG TAB PO SCH (11:57)
[2018-03-27] MEDS ORDERED: PHENYLEPH/NS 1000 MCG/10 ML SYR IV ONE (12:00)
[2018-03-27] MEDS ORDERED: LIDOCAINE HCL 1% PF 5 ML SYRINGE OTHER ONE (12:00)
[2018-03-27] MEDS ORDERED: ONDANSETRON HCL 4 MG/2 ML VIAL IV ONE (12:00)
[2018-03-27] MEDS ORDERED: GLYCOPYRROLATE 1 MG/5 ML SYRINGE IV PUSH ONE (12:00)
[2018-03-27] MEDS ORDERED: ROCURONIUM INJ 50 MG/5 ML SYRINGE IV PUSH ONE (12:00)
[2018-03-27] MEDS ORDERED: PROPOFOL 200 MG/20 ML AMP IV ONE (12:00)
[2018-03-27] MEDS ORDERED: NEOSTIGMINE 5 MG/5 ML SYRINGE IV PUSH ONE (12:00)
--- NOTE | 2018-03-27 13:50 | HHI.PR ---
Addendum to Inpatient Note Addendum Reason: Additional Documentation Additional Information Patient in procedure earlier today. to cover for me 03/28/2018 to 03/30/2018. Ivelisse Rodriguez MD March 27, 2018 13:50
--- NOTE | 2018-03-27 17:24 | HHI.CCPN ---
Subjective Remarks/Hospital Course This is a 52-year-old AA female. Date of admission 03/21/2018. Past medical history includes end-stage renal disease on hemodialysis Tuesday// Tuesday. Diabetes mellitus with gastroparesis, hypertension, hyperlipidemia, history of's pancreatic cyst, anemia chronic kidney disease and secondary hyperparathyroidism. She presented to [facility] on 03/21 with a chief complaint of denies abdominal pain associated with nausea/vomiting. Rated as 10 on a scale of 1-10. CT the abdomen/pelvis revealed large complex mixed attenuation mass lesion involving the tail the pancreas. Large pseudocyst consideration.. Patient was placed on levofloxacin and metronidazole.. Patient was evaluated by nephrology and gastroenterology. Gastrology recommend repeat CT due to continued abdominal pain. This revealed seroma both her abdominal midline mesh and 8 cm pancreatic pseudocyst. Colonic diverticuli. Pulmonary infiltration. . Most recently there was a drainage catheter in this area 08/12/15.This was evaluated by interventional radiology did not do not recommend drainage at this time unless necessary for infectious causes. GI also recommended infectious disease consult which will be performed today. Overnight, patient became acutely hypoxic and short of breath. Confused with altered mental status. There have a pH is 7.18 with CO2 retention. Failed BiPAP was transferred to ICU for further evaluation treatment. Patient had no IV access on admission and after several times a central line was placed in the left femoral region. Failed internal jugular placement. Cannot identify subclavian vessels. She did fail high flow nasal cannula and is currently orotracheally intubated 03/25: HD today with 3.5 kg removal. Post HD hypotension with SBP 60, normalized after albumin 25 gram IV. Remains on mechanical ventilation, now tolerates CPAP 10/5. Subjective: 03/26 Tolerating CPAP 10/5, placed to 5/5 now and RSBI in 40s, plan to extubate if tolerates. 03/27: On BiPAP overnight yesterday. On nasal cannula currently. Underwent EGD earlier. Resting comfortably in bed not in any acute distress. Objective Vital Signs Date Time Temp Pulse Resp B/P (MAP) Pulse Ox O2 Delivery O2 Flow Rate FiO2 03/27/18 16:00 98.6 79 28 99/54 (69) 93 03/27/18 08:12 Nasal Cannula 3.00 5/21/18 00:35 35 Intake and Output 03/27/18 03/27/18 03/28/18 08:00 16:00 00:00 Intake Total 2000 ml 450 ml Output Total 0 ml Balance 2000 ml 450 ml Result Diagram: 03/27/18 0708 03/27/18 0708 Imaging Last Impressions Abdomen/Pelvis CT 03/23/18 1820 Signed Impressions: Service Date/Time: March 21:21 - CONCLUSION: 1. 8 cm cystic mass in the pancreatic tail. The slight erosions of pseudocysts. Other cystic masses in the pancreatic tail couldn't similar appearance. 2. Hernia mesh in the midline with a suspected seroma seen superficial to this. This is unchanged. 3. Colonic diverticula in the sigmoid region without inflammatory change. 4. Bibasilar areas of consolidation. Tanmay Bella MD Chest X-Ray 03/23/18 0000 Signed Impressions: Service Date/Time: March 20:47 - CONCLUSION: 1. Cardia megaly. 2. Increased density in the retrocardiac area likely related to some atelectasis or consolidation. Tanmay Bella MD Consultation 03/22/18 1433 Signed Impressions: Service Date/Time: Thursday, March 22, 2018 14:33 - CONCLUSION: 1. This patient has had previous pancreatitis with drainage catheters placed in the same collection back in 2014 as such, I would not recommend drainage of this unless there is significant suspicion for infection or obstructive symptoms Broderick Machado MD Abdomen Ultrasound 03/22/18 0000 Signed Impressions: Service Date/Time: Thursday, March 22, 2018 19:40 - CONCLUSION: 1. 10 cm complex cystic mass the pancreatic tail. This is nonspecific. A pseudocyst would be the most common mass. Other cystic masses/neoplasms cannot be excluded on the ultrasound alone. 2. Small echogenic kidneys consistent with chronic renal disease. Tanmay Bella MD Procedures None Objective Remarks GENERAL: 62-year-old female currently sitting up in [facility] bed on nasal cannula SKIN: Warm and dry. HEAD: Atraumatic. Normocephalic. EYES: Pupils equal and round. No scleral icterus. No injection or drainage. ENT: No nasal bleeding or discharge. Mucous membranes pink and moist. NECK: Trachea midline. No JVD. CARDIOVASCULAR: Regular rate and rhythm. S1, S2. RESPIRATORY: Diminished due to body habitus. Clear to auscultation. Breath sounds equal bilaterally. GASTROINTESTINAL: Abdomen soft, obese. Midline abdomen/epigastric region tender to palpation but appears less tender than yesterday. No guarding rigidity. Normoactive bowel sounds. MUSCULOSKELETAL: Extremities with trace bilateral lower extremity edema. Left AV fistula with positive thrill. VASC: L femoral CVL in place. Dressing in place at R IJ site. NEUROLOGICAL: Awake, opens eyes, makes eye contact nods and does hand gestures in response to questions. . No obvious cranial nerve deficits. Moving all extremities without focal deficit. A/P Assessment and Plan Neuro/Psych: Acute encephalopathy secondary to sepsis/pancreatitis Diabetic neuropathy Off sedatives and following commands. Acetaminophen 650 mg p.o. every 6 hours as needed fever Patient is currently on oxycodone/acetaminophen 5/325 1 tablet every 4 hours as needed pain 1 through 5. Hydromorphone 1 mg IV every 4 hours as needed pain 6 or 10 Currently on gabapentin 400mg p.o. twice daily home medication for neuropathy. Continue. CV: Essential hypertension Hyperlipidemia Off IVF. Currently not requiring vasopressors and/or antihypertensives Resume amlodipine 5 mg daily Resp: Acute respiratory failure ASHLYN? Extubated on 03/26, continue Bipap nocturnal and as needed. Albuterol/ipratropium aerosols every 4 hours with albuterol aerosols every 2 hours as needed dyspnea GI: Gastroesophageal reflux disease Pancreatitis with pancreatic pseudocyst Status post EGD/EUS with sampling from pancreatic pseudocyst done on 03/27. CT abdomen/pelvis revealed 8 cm pancreatic pseudocyst at tail of pancreas. Colonic diverticulosis. Seroma midline abdominal mesh. Evaluated by GI. They recommended ID consult and drainage places by IR. IR currently does not recommend. Previously placed 2014. Patient is on ranitidine 150 mg p.o. daily at night at home/ esomeprazole 40 mg daily at home Currently on lansoprazole 30 mg daily Docusate sodium/senna 1 tablet twice daily for bowel regimen FEN/RENAL: End-stage renal disease on hemodialysis Tuesday//Tuesday No indication for Garcia placement Secondary hyperparathyroidism IHD from left upper extremity fistula per Dr. Joshua Continue calcium acetate 667 mg p.o. twice daily with meals. Endo: Diabetes mellitus Sliding scale insulin Novulog low regimen every 4 hours Accu-Cheks to maintain euglycemia. Glucose at target. Currently off linagliptin 5 mg p.o. daily and insulin aspart pen for diabetes at home. Heme: Macrocytic currently normocytic anemia/anemia of chronic kidney disease Leukocytosis Continue with ferric citrate 210 mg p.o. twice daily/home medication No indication for transfusion of blood products at this time. ID: Aspiration pneumonia vs HCAP. Currently on vancomycin, aztreonam and levaquin. Flagyl discontinued per ID. Infectious disease following, likely can narrow coverage, discussing with cross cover ID. Pertinent cultures Blood cultures 2 no growth 03/23. Sputum neg 03/24, influenza negative. MSK: History of foot drop left greater than right Elevated SNEHA with low titer. PT evaluate and treat Access -Left femoral CVL placed 03/24. right IJ CVL was removed after it tracked up into neck. Place PIV and d/c CVL. Prophylaxis -GI -pantoprazole -DVT -SCD/heparin subcu Consult and transfer to hospitalist service for further medical management. Critical signing off, please reconsult if needed. Agus Rodriguez MD March 27, 2018 17:24
--- NOTE | 2018-03-27 19:22 | HHI.NPPN ---
Subjective General Problems: Anemia Renal Failure: Chronic, End Stage Renal Disease Additional Remarks Underwent EUS earlier. Dialysis tomorrow. On Oxygen by Nasal cannula Review of Systems General General Remarks unable to obtain Objective Data Data 03/27/18 03/28/18 19:00 07:00 Intake Total 1230 ml Output Total 0 ml Balance 1230 ml Intake Oral 780 ml IV Total 225 ml Other 225 ml Output Urine Total 0 ml # Bowel Movements 1 Vital Signs Date Time Temp Pulse Resp B/P (MAP) Pulse Ox O2 Delivery O2 Flow Rate FiO2 03/27/18 18:00 90 03/27/18 16:00 98.6 79 28 99/54 (69) 93 03/27/18 16:00 79 03/27/18 14:00 80 03/27/18 12:00 83 03/27/18 12:00 98.4 83 24 124/63 (83) 03/27/18 11:00 88 19 124/57 (79) 96 03/27/18 10:33 98.6 92 18 136/58 (84) 90 03/27/18 08:12 100 Nasal Cannula 3.00 03/27/18 08:02 100 Nasal Cannula 4 03/27/18 08:02 98.3 76 20 131/76 (94) 100 03/27/18 08:00 03/27/18 08:00 85 03/27/18 07:00 98.6 85 115 89/50 (63) 98 03/27/18 06:00 80 03/27/18 04:00 98.7 79 24 125/60 (81) 97 03/27/18 04:00 79 03/27/18 02:00 72 03/27/18 00:35 98 35 03/27/18 00:00 98.4 73 19 98/55 (69) 94 03/27/18 00:00 73 03/26/18 22:26 96 35 03/26/18 22:00 80 03/26/18 20:00 75 03/26/18 20:00 98.8 75 20 111/56 (74) 100 03/26/18 19:58 100 Nasal Cannula 3.00 -: 03/27/18 0708 03/27/18 0708 Microbiology 03/27/18 Gram Stain, Received Pending 03/27/18 Body Fluid Culture, Received Pending Tubes & Lines Comment TLC left femoral Physical Exam General Appearance: Well Developed, Well Nourished, Comfortable, Obese Throat Throat Exam: Oral Mucosa Carrizo & Moist Pulmonary Resp Exam: Clear Bilaterally, Breath Sounds Equal, No Distress Cardiology CV Exam: Regular, Normal Sinus Rhythm, Good Perfusion Gastrointestinal/Abdomen GI Exam: Soft, Bowel Sounds Present, Positive Bowel Movement, Distended Musculoskeletal MS Exam: Joints Intact, Normal Tone, Unable to Ambulate Integumentary Skin Exam: Clear, Warm, Dry, Intact Extremeties Extremities Exam: No Edema, Pedal Pulses Palpable Neurologic Neuro Exam: Unresponsive, Sedated Psychiatric Psych Exam: Appropriate Responses Assessment/Plan Discussed Condition With: Spouse Assessment Summary: Anemia of CKD, Hypertension, End Stage Renal Disease Problem List: (1) ESRD (end stage renal disease) ICD Codes: N18.6 - ESRD (end stage renal disease) Status: Acute Plan: Continue HD support TTS. Avoid Left arm procedures, protect AVF from invasive procedures. Evaluate electrolytes intermittently. Continue to hold IVFs. Gadolinium is contraindicated (2) Abdominal pain ICD Codes: R10.9 - Abdominal pain Status: Acute Plan: CT report noted, has pancreatic cyst. Had EUS today. Had FNA biopsy of the pancreatic pseudocyst. Awaiting biopsy results. (3) Pancreatic pseudocyst ICD Codes: K86.3 - Pseudocyst of pancreas Status: Acute Plan: Unclear if this is the cause of abdominal symptoms. GI workup ongoing. See above. (4) Hypertension ICD Codes: I10 - Hypertension Status: Acute Plan: Borderline hypotensive BP has been variable IVFs held Fluid removal as tolerated (5) Diabetes mellitus ICD Codes: E11.9 - Diabetes mellitus Status: Chronic Plan: Insulin coverage, maintain blood glucose between 140 and 180. (6) Pneumonia ICD Codes: J18.9 - Pneumonia Status: Acute Plan: Antibiotics per Lokesh Venegas MD March 27, 2018 19:22
[2018-03-27] MEDS: LEVOFLOXACIN 500 MG PREMIX INJ 100 ML IV SCH (20:15)
[2018-03-28] VITALS (15 sets, daily range): BP systolic 92–160; BP diastolic 49–60; PULSE 69–80; RESP 19–25; TEMP 98.2–98.8; O2SAT 93–100
[2018-03-28] MEDS: INSULIN ASPART SUPPLEMENTAL SCALE SQ SCH ×6 (01:10→20:54)
[2018-03-28] MEDS: RESP: ALBUTEROL 2.5 MG/IPRATROPIUM 0.5 MG NEB (SCH) INH (03:30)
[2018-03-28] MEDS: CHLORHEXIDINE GLUCONATE 2 % 1 PACK (2 CLOTHS) TOP SCH (04:00)
[2018-03-28] MEDS: PANTOPRAZOLE SODIUM 40 MG VIAL IV PUSH SCH (05:39)
[2018-03-28] MEDS: AURYXIA 210 MG PO SCH ×3 (08:00→17:38)
[2018-03-28] MEDS: amLODIPine BESYLATE 5 MG TAB PO SCH (09:00)
[2018-03-28] MEDS: GABAPENTIN 400 MG CAP PO SCH ×2 (09:00→20:53)
[2018-03-28] MEDS: DOCUSATE SODIUM 50 MG/SENNA 8.6 MG TAB PO SCH ×2 (09:00→20:54)
[2018-03-28] MEDS: SODIUM CHLORIDE 0.9% FLUSH 10 ML FLUSH IV FLUSH SCH ×3 (09:00→20:53)
[2018-03-28] MEDS: HEPARIN SODIUM - SQ 10,000 UNITS/ML VIAL SQ SCH ×2 (09:00→20:53)
[2018-03-28 09:23] LABS: HEMATOCRIT 28.1 % (35.0-46.0); HEMOGLOBIN 8.6 GM/DL (11.6-15.3); MEAN CELL VOLUME 97.5 FL (80.0-100.0); MEAN CORPUSCULAR HEMOGLOBIN 29.8 PG (27.0-34.0); MEAN CORPUSCULAR HGB CONC 30.5 % (32.0-36.0); MEAN PLATELET VOLUME 9.6 FL (7.0-11.0); PLATELET COUNT 293 TH/MM3 (150-450); RED BLOOD COUNT 2.88 MIL/MM3 (4.00-5.30); RED CELL DISTRIBUTION WIDTH 15.4 % (11.6-17.2); WHITE BLOOD COUNT 13.7 TH/MM3 (4.0-11.0)
--- NOTE | 2018-03-28 09:33 | HHI.IDPN ---
Subjective Subjective Remarks ID COVERAGE 52 yo F morbidly obese with ESRD/HD presented with abd pain on 03/21/2018. w/u showed panceratic pseudocst Overnight, patient became acutely hypoxic and short of breath, was intubated BC are negative @ 3 days, WBC still elevated @ 18 K Today pt is doing better extubated on NC O2 denies c/o This is a 52-year-old AA female. Date of admission 03/21/2018. Past medical history includes end-stage renal disease on hemodialysis Tuesday/ /Tuesday. Diabetes mellitus with gastroparesis, hypertension, hyperlipidemia, history of's pancreatic cyst, anemia chronic kidney disease and secondary hyperparathyroidism. She presented to [facility] on 03/21 with a chief complaint of denies abdominal pain associated with nausea/vomiting. Rated as 10 on a scale of 1-10. CT the abdomen/pelvis revealed large complex mixed attenuation mass lesion involving the tail the pancreas. Large pseudocyst consideration.. Patient was placed on levofloxacin and metronidazole.. Patient was evaluated by nephrology and gastroenterology. Gastrology recommend repeat CT due to continued abdominal pain. This revealed seroma both her abdominal midline mesh and 8 cm pancreatic pseudocyst. Colonic diverticuli. Pulmonary infiltration. . Most recently there was a drainage catheter in this area 08/12/15.This was evaluated by interventional radiology did not do not recommend drainage at this time unless necessary for infectious causes. GI also recommended infectious disease consult which will be performed today. Overnight, patient became acutely hypoxic and short of breath. Confused with altered mental status. There have a pH is 7.18 with CO2 retention. Failed BiPAP was transferred to ICU for further evaluation treatment. Patient had no IV access on admission and after several times a central line was placed in the left femoral region. Failed internal jugular placement. Cannot identify subclavian vessels. She did fail high flow nasal cannula and is currently orotracheally intubated Notes reviewed On nasal O2 Afebrile BP okay Getting ready to start hemodialysis Underwent GI procedure yesterday, and had aspiration of the pancreatic pseudocyst Pancreatic pseudocyst fluid culture pending WBC decreasing Antibiotics Levaquin Current Medications Medications (Trade) Dose Ordered Sig/Valery Route Start Time Stop Time Status Last Admin (Narcan Inj) 0.4 mg UNSCH PRN IV PUSH 03/21/18 17:00 03/23/18 09:57 (D50w (Vial) Inj) 50 ml UNSCH PRN IV PUSH 03/21/18 17:00 (Glucagon Inj) 1 mg UNSCH PRN OTHER 03/21/18 17:00 Sodium Chloride 1,000 ml @ 0 mls/hr Q0M PRN OTHER 03/21/18 17:11 (Heparin Inj) 8,000 units UNSCH PRN IV FLUSH 03/21/18 17:15 Sodium Chloride 1,000 ml @ 200 mls/hr Q5H PRN IV 03/21/18 17:11 Sodium Chloride 1,000 ml @ 0 mls/hr Q0M PRN OTHER 03/21/18 17:11 (Mannitol Inj) 12.5 gm UNSCH PRN IV 03/21/18 17:15 03/23/18 09:58 Albumin Human 100 ml @ 60 mls/hr UNSCH PRN IV 03/21/18 17:15 03/23/18 09:58 (NS Flush) 5 ml UNSCH PRN IV FLUSH 03/21/18 17:15 (Heparin Inj) UNSCH PRN .XX 03/21/18 17:15 (Gentamicin Inj) 20 mg UNSCH PRN OTHER 03/21/18 17:15 (Tylenol) 650 mg UNSCH PRN PO 03/21/18 17:15 (Benadryl) 25 mg UNSCH PRN PO 03/21/18 17:15 (Nitrostat Sl) 0.4 mg UNSCH PRN SL 03/21/18 17:15 (Catapres) 0.1 mg UNSCH PRN PO 03/21/18 17:15 (Gelfoam 12 Mm/7 Mm Top) 1 foam UNSCH PRN TOP 03/21/18 17:15 (Reglan Inj) 5 mg Q6H PRN IV PUSH 03/21/18 18:30 (Dilaudid Pf Inj) 1 mg Q3H PRN IV PUSH 03/21/18 18:45 03/22/18 14:06 (Catapres) 0.1 mg Q6H PRN PO 03/21/18 19:00 (Neurontin) 400 mg BID PO 03/22/18 21:00 03/27/18 20:17 Patient Own Medication PT OWN MED: FANI... TIDAC PO 03/22/18 17:00 03/27/18 18:11 Levofloxacin/ Dextrose 100 ml @ 100 mls/hr Q48H IV 03/25/18 20:00 03/27/18 20:15 (Peridex 0.12% Liq) 15 ml BID@08,20 MT 03/24/18 08:00 03/27/18 11:55 (NS Flush) 2 ml UNSCH PRN IV FLUSH 03/24/18 00:45 03/25/18 02:56 (NS Flush) 2 ml BID IV FLUSH 03/24/18 09:00 03/27/18 18:12 (Tears Naturale Opth Soln) 1 drop TID EACH EYE 03/24/18 09:00 03/27/18 18:12 (Albuterol Neb) 2.5 mg Q2HR NEB PRN INH 03/24/18 00:45 ([facility] Nursing Information) 1 Q361D XX 03/24/18 00:45 03/24/18 00:45 (Chlorhexidine 2% Cloth) 3 pack Taper DAILY@04 TOP 03/24/18 04:00 03/20/19 03:59 03/28/18 04:00 (Chlorhexidine 2% Cloth) 3 pack UNSCH PRN TOP 03/24/18 00:45 (Izzy-Colace) 1 tab BID PO 03/24/18 09:00 03/27/18 20:17 (Milk Of Magnesia Liq) 30 ml Q12H PRN PO 03/24/18 00:45 (Senokot) 17.2 mg Q12H PRN PO 03/24/18 00:45 (Dulcolax Supp) 10 mg DAILY PRN RECTAL 03/24/18 00:45 (Lactulose Liq) 30 ml DAILY PRN PO 03/24/18 00:45 (NS Flush) DAILY IV FLUSH 03/24/18 09:00 03/27/18 09:00 (NS Flush) UNSCH PRN IV FLUSH 03/24/18 01:45 (Protonix Inj) 40 mg Q24H IV PUSH 03/24/18 03:00 03/28/18 05:39 (Percocet 5-325 Mg) 1 tab Q4H PRN PO 03/24/18 03:15 03/26/18 13:53 (Dilaudid Pf Inj) 1 mg Q4H PRN IV 03/24/18 03:30 03/26/18 01:02 ([facility] Nursing Information) 1 Q361D XX 03/24/18 03:15 03/24/18 03:15 Fentanyl Citrate 250 ml @ 5 mls/hr TITRATE PRN IV 03/24/18 04:00 03/24/18 04:00 (Heparin Inj) 5,000 units Q12HR SQ 03/24/18 09:00 03/27/18 20:16 Midazolam HCl 50 ml @ 2 mls/hr TITRATE PRN IV 03/24/18 04:15 03/24/18 12:18 (Zofran Odt) 4 mg Q6H PRN PO 03/24/18 04:15 (NovoLOG SUPPLEMENTAL SCALE) 1 Q4HR SQ 03/24/18 08:00 03/28/18 01:10 (Norvasc) 5 mg DAILY PO 03/27/18 09:00 03/27/18 11:57 ([facility] Nursing Information) ALL NURSING DEPARTME... 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 Anemia of chronic kidney disease Secondary hyperparathyroidism Recurrent pancreatitis with pancreatic pseudocyst History of peritonitis Footdrop left greater than right Past Surgical History History of G-tube insertion and subsequent removal 2014 History of tracheostomy status post decannulation Left upper arm fistula History of midline hernia repair status post cholecystectomy Left femur fracture with surgical repair Allergies: Coded Allergies: Sulfa (Sulfonamide Antibiotics) (Unverified Allergy, Severe, Rash, ) morphine (Unverified Allergy, Severe, ITCHING, 09/21/17) penicillin G (Unverified Allergy, Severe, UNKNOWN, 09/21/17) amoxicillin (Verified Allergy, Intermediate, Rash, 09/21/17) *MDRO Multi-Drug Resistant Organism (Verified Allergy, Unknown, 09/21/17) VRE Buttock Wound 01/15/2013 C Diff 05/2014 Objective . Vital Signs Date Time Temp Pulse Resp B/P (MAP) Pulse Ox O2 Delivery O2 Flow Rate FiO2 03/28/18 08:00 98.2 75 23 101/49 (66) 93 03/28/18 08:00 75 03/28/18 06:00 73 03/28/18 04:07 100 40 03/28/18 04:00 72 03/28/18 04:00 98.2 70 22 92/55 (67) 97 03/28/18 02:00 69 03/28/18 01:09 100 50 03/28/18 00:00 98.3 72 20 92/54 (67) 100 03/28/18 00:00 72 03/27/18 23:20 100 50 03/27/18 22:00 71 03/27/18 20:45 95 50 03/27/18 20:00 98.2 79 20 101/55 (70) 96 03/27/18 20:00 79 03/27/18 19:45 96 35 03/27/18 19:26 93 Nasal Cannula 3.00 03/27/18 18:00 90 03/27/18 16:00 98.6 79 28 99/54 (69) 93 03/27/18 16:00 79 03/27/18 14:00 80 03/27/18 12:00 83 03/27/18 12:00 98.4 83 24 124/63 (83) 03/27/18 11:00 88 19 124/57 (79) 96 03/27/18 10:33 98.6 92 18 136/58 (84) 90 . Laboratory Tests Test 03/27/18 07:08 03/28/18 08:40 White Blood Count 16.9 TH/MM3 13.7 TH/MM3 Red Blood Count 3.11 MIL/MM3 2.88 MIL/MM3 Hemoglobin 9.2 GM/DL 8.6 GM/DL Hematocrit 30.5 % 28.1 % Mean Corpuscular Volume 98.1 FL 97.5 FL Mean Corpuscular Hemoglobin 29.7 PG 29.8 PG Mean Corpuscular Hemoglobin Concent 30.3 % 30.5 % Red Cell Distribution Width 15.5 % 15.4 % Platelet Count 298 TH/MM3 293 TH/MM3 Mean Platelet Volume 9.8 FL 9.6 FL Neutrophils (%) (Auto) 83.1 % Lymphocytes (%) (Auto) 5.4 % Monocytes (%) (Auto) 9.4 % Eosinophils (%) (Auto) 1.6 % Basophils (%) (Auto) 0.5 % Neutrophils # (Auto) 14.0 TH/MM3 Lymphocytes # (Auto) 0.9 TH/MM3 Monocytes # (Auto) 1.6 TH/MM3 Eosinophils # (Auto) 0.3 TH/MM3 Basophils # (Auto) 0.1 TH/MM3 CBC Comment DIFF FINAL Differential Comment Laboratory Tests Test 03/27/18 07:08 03/27/18 11:27 03/28/18 08:40 Blood Urea Nitrogen 37 MG/DL Creatinine 7.70 MG/DL Random Glucose 110 MG/DL Calcium Level 9.0 MG/DL Sodium Level 140 MEQ/L Potassium Level 4.0 MEQ/L Chloride Level 102 MEQ/L Carbon Dioxide Level 27.7 MEQ/L Anion Gap 10 MEQ/L Estimat Glomerular Filtration Rate 7 ML/MIN Lipase 87 U/L Carcinoembryonic Antigen 1.6 NG/ML Microbiology Date/Time Source Procedure Growth Status 03/27/18 10:03 Fluid Pancreatic Fluid Gram Stain - Final Resulted 03/27/18 10:03 Fluid Pancreatic Fluid Body Fluid Culture Pending Resulted Imaging Last Impressions Chest X-Ray 03/24/18 0000 Signed Impressions: Service Date/Time: Saturday, March 24, 2018 04:47 - CONCLUSION: Unchanged bilateral pulmonary infiltrates. Interval intubation. Manuel Contreras Jr., MD Abdomen/Pelvis CT 03/23/18 1820 Signed Impressions: Service Date/Time: March 21:21 - CONCLUSION: 1. 8 cm cystic mass in the pancreatic tail. The slight erosions of pseudocysts. Other cystic masses in the pancreatic tail couldn't similar appearance. 2. Hernia mesh in the midline with a suspected seroma seen superficial to this. This is unchanged. 3. Colonic diverticula in the sigmoid region without inflammatory change. 4. Bibasilar areas of consolidation. Tanmay Bella MD Consultation 03/22/18 1433 Signed Impressions: Service Date/Time: Thursday, March 22, 2018 14:33 - CONCLUSION: 1. This patient has had previous pancreatitis with drainage catheters placed in the same collection back in 2014 as such, I would not recommend drainage of this unless there is significant suspicion for infection or obstructive symptoms Broderick Machado MD Abdomen Ultrasound 03/22/18 0000 Signed Impressions: Service Date/Time: Thursday, March 22, 2018 19:40 - CONCLUSION: 1. 10 cm complex cystic mass the pancreatic tail. This is nonspecific. A pseudocyst would be the most common mass. Other cystic masses/neoplasms cannot be excluded on the ultrasound alone. 2. Small echogenic kidneys consistent with chronic renal disease. Tanmay Bella MD Physical Exam GENERAL: Obese, well-developed patient, awake and alert , in no apparent distress. SKIN: No rashes, ecchymoses or lesions. Cool and dry. HEAD: Atraumatic. Normocephalic. No temporal or scalp tenderness. EYES: Pupils equal round and reactive. No scleral icterus. No injection or drainage. ENT: Intubated. NECK: Trachea midline. Supple, nontender, no meningeal signs. CARDIOVASCULAR: regular ; no murmurs RESPIRATORY: Bilateral Decreased AE in bases anteriorly. GASTROINTESTINAL: Abdomen soft, non-tender, nondistended. Obese. MUSCULOSKELETAL: Extremities without clubbing, cyanosis, or edema. AV fistula site ok. NEUROLOGICAL: Grossly nonfocal Psych calm and cooperative Assessment & Plan Remarks Possible new sepsis, improving Pneumonia ? aspiration vs HCAP - nl madhu on resp clx - blood clx all negative @ 72 hrs Acute resp failure on vent. Acute pancreatitis with pseudocyst. Morbidly obese BMI 41.3 kg/m2 DM2 uncontrolled with Nephropathy ESRD on HD using AV fistula. HD on ,Th,Sat - pt is anuric Recs: Continue Levaquin Follow new cultures Monitor progress Follow Flori Cabezas MD March 28, 2018 09:33
[2018-03-28] MEDS: MANNITOL 12.5 GM/50 ML VIAL IV PRN (10:03)
[2018-03-28] MEDS: ALBUMIN 25% INJ 100 ML IV PRN (10:03)
--- NOTE | 2018-03-28 10:35 | HHI.NPPN ---
Subjective General Problems: Anemia Renal Failure: Chronic, End Stage Renal Disease Interval History Seen during bedside dialysis. is present. More alert. (Mili Abarca) Objective Data Data Vital Signs Date Time Temp Pulse Resp B/P (MAP) Pulse Ox O2 Delivery O2 Flow Rate FiO2 03/28/18 10:00 74 03/28/18 08:00 98.2 75 23 101/49 (66) 93 03/28/18 08:00 75 03/28/18 06:00 73 03/28/18 04:07 100 40 03/28/18 04:00 72 03/28/18 04:00 98.2 70 22 92/55 (67) 97 03/28/18 02:00 69 03/28/18 01:09 100 50 03/28/18 00:00 98.3 72 20 92/54 (67) 100 03/28/18 00:00 72 03/27/18 23:20 100 50 03/27/18 22:00 71 03/27/18 20:45 95 50 03/27/18 20:00 98.2 79 20 101/55 (70) 96 03/27/18 20:00 79 03/27/18 19:45 96 35 03/27/18 19:26 93 Nasal Cannula 3.00 03/27/18 18:00 90 03/27/18 16:00 98.6 79 28 99/54 (69) 93 03/27/18 16:00 79 03/27/18 14:00 80 03/27/18 12:00 83 03/27/18 12:00 98.4 83 24 124/63 (83) 03/27/18 11:00 88 19 124/57 (79) 96 03/27/18 10:33 98.6 92 18 136/58 (84) 90 (Mili Abarca) -: 03/28/18 0840 03/27/18 0708 Imaging Last Impressions Chest X-Ray 03/24/18 0000 Signed Impressions: Service Date/Time: Saturday, March 24, 2018 04:47 - CONCLUSION: Unchanged bilateral pulmonary infiltrates. Interval intubation. Manuel Contreras Jr., MD Abdomen/Pelvis CT 03/23/18 1820 Signed Impressions: Service Date/Time: March 21:21 - CONCLUSION: 1. 8 cm cystic mass in the pancreatic tail. The slight erosions of pseudocysts. Other cystic masses in the pancreatic tail couldn't similar appearance. 2. Hernia mesh in the midline with a suspected seroma seen superficial to this. This is unchanged. 3. Colonic diverticula in the sigmoid region without inflammatory change. 4. Bibasilar areas of consolidation. Tanmay Bella MD Consultation 03/22/18 1433 Signed Impressions: Service Date/Time: Thursday, March 22, 2018 14:33 - CONCLUSION: 1. This patient has had previous pancreatitis with drainage catheters placed in the same collection back in 2014 as such, I would not recommend drainage of this unless there is significant suspicion for infection or obstructive symptoms Broderick Machado MD Abdomen Ultrasound 03/22/18 0000 Signed Impressions: Service Date/Time: Thursday, March 22, 2018 19:40 - CONCLUSION: 1. 10 cm complex cystic mass the pancreatic tail. This is nonspecific. A pseudocyst would be the most common mass. Other cystic masses/neoplasms cannot be excluded on the ultrasound alone. 2. Small echogenic kidneys consistent with chronic renal disease. Tanmay Bella MD (Mili Abarca) Physical Exam General Appearance: Well Developed, Well Nourished, Comfortable, Obese (Mili Abarca) Throat Throat Exam: Oral Mucosa [place] & Moist (Mili Abarca) Pulmonary Resp Exam: Clear Bilaterally, Breath Sounds Equal, No Distress (Mili Abarca) Cardiology CV Exam: Regular, Normal Sinus Rhythm, Good Perfusion (Mili Abarca) Gastrointestinal/Abdomen GI Exam: Soft, Bowel Sounds Present, Positive Bowel Movement, Distended GI Remarks obese (Mili Abarca) Musculoskeletal MS Exam: Joints Intact, Normal Tone, Unable to Ambulate (Mili Abarca) Integumentary Skin Exam: Clear, Warm, Dry, Intact (Mili Abarca) Extremeties Extremities Exam: Pedal Pulses Palpable, Moderate Edema (Mili Abarca) Neurologic Neuro Exam: Awake, Speech Clear, Moving All Extremities (Mili Abarca) Psychiatric Psych Exam: Appropriate Responses (Mili Abarca) Assessment/Plan Discussed Condition With: Patient, Spouse Assessment Summary: Anemia of CKD, Hypotension, End Stage Renal Disease Problem List: (1) ESRD (end stage renal disease) ICD Codes: N18.6 - ESRD (end stage renal disease) Status: Acute Plan: Seen during bedside dialysis today on a 3K, 250 BFR, goal 2L Continue HD support TTS. AVF has infiltrated recently, protect that extremity Evaluate electrolytes intermittently. Avoid IVF Gadolinium is contraindicated High protein diet recommended. (2) Abdominal pain ICD Codes: R10.9 - Abdominal pain Status: Acute Plan: CT report noted, has pancreatic cyst. s/p EUS today with FNA biopsy of the pancreatic pseudocyst, results pending (3) Pancreatic pseudocyst ICD Codes: K86.3 - Pseudocyst of pancreas Status: Acute Plan: Unclear if this is the cause of abdominal symptoms. GI workup ongoing. See above. (4) Hypertension ICD Codes: I10 - Hypertension Status: Acute Plan: Stop Norvasc Intermittent hypotension, given 3 liters IVF overnight. Fluid removal as tolerated with HD Can use midodrine if needed (5) Diabetes mellitus ICD Codes: E11.9 - Diabetes mellitus Status: Chronic Plan: Insulin coverage, maintain blood glucose between 140 and 180. (6) Pneumonia ICD Codes: J18.9 - Pneumonia Status: Acute Plan: ? aspiration On Levaquin. Previously on Vancomycin and aztreonam ID has evaluated (Mili Abarca) Plan patient was seen and examined during dialysis. Her AVF is not functioning well, low blood flow rate. May need Fistulogram. Agree with above assessment and plan. (Lokesh Joshua MD) Mili Abarca March 28, 2018 10:35 Lokesh Joshua MD March 28, 2018 16:04
[2018-03-28 10:49] LABS: ALBUMIN 2.3 GM/DL (3.4-5.0); AST (GOT) 15 U/L (15-37); BLOOD UREA NITROGEN 38 MG/DL (7-18); CALCIUM 8.7 MG/DL (8.5-10.1); CHLORIDE 102 MEQ/L (98-107); CREATININE 7.41 MG/DL (0.50-1.00); GLOMERULAR FILTRATION RATE 7 ML/MIN (>89); GLUCOSE,RANDOM 116 MG/DL (74-106); SODIUM (NA) 140 MEQ/L (136-145)
[2018-03-28 10:50] LABS: ALT (GPT) 13 U/L (10-53)
[2018-03-28 10:52] LABS: ALKALINE PHOSPHATASE 100 U/L (45-117); TOTAL BILIRUBIN ADULT 0.3 MG/DL (0.2-1.0); TOTAL PROTEIN 7.2 GM/DL (6.4-8.2)
--- NOTE | 2018-03-28 11:08 | HHI.PR ---
Subjective Remarks The patient was getting dialysis. She said that she has been coughing up a lot of mucus. She says her abdominal pain is improved. Discussed with nursing at the bedside. Objective Vitals Vital Signs Date Time Temp Pulse Resp B/P (MAP) Pulse Ox O2 Delivery O2 Flow Rate FiO2 03/28/18 10:00 74 03/28/18 08:00 98.2 75 23 101/49 (66) 93 03/28/18 08:00 75 03/28/18 06:00 73 03/28/18 04:07 100 40 03/28/18 04:00 72 03/28/18 04:00 98.2 70 22 92/55 (67) 97 03/28/18 02:00 69 03/28/18 01:09 100 50 03/28/18 00:00 98.3 72 20 92/54 (67) 100 03/28/18 00:00 72 03/27/18 23:20 100 50 03/27/18 22:00 71 03/27/18 20:45 95 50 03/27/18 20:00 98.2 79 20 101/55 (70) 96 03/27/18 20:00 79 03/27/18 19:45 96 35 03/27/18 19:26 93 Nasal Cannula 3.00 03/27/18 18:00 90 03/27/18 16:00 98.6 79 28 99/54 (69) 93 03/27/18 16:00 79 03/27/18 14:00 80 03/27/18 12:00 83 03/27/18 12:00 98.4 83 24 124/63 (83) I/O 03/27/18 03/27/18 03/27/18 03/28/18 03/28/18 03/28/18 07:00 15:00 23:00 07:00 15:00 23:00 Intake Total 2000 ml 450 ml 780 ml 360 ml Output Total 0 ml 0 ml 0 ml Balance 2000 ml 450 ml 780 ml 360 ml Intake Oral 0 ml 780 ml 360 ml IV Total 2000 ml 225 ml Other 225 ml Output Urine Total 0 ml 0 ml 0 ml # Bowel Movements 1 1 0 Result Diagram: 03/28/18 0840 03/28/18 0840 Imaging Last Impressions Chest X-Ray 03/24/18 0000 Signed Impressions: Service Date/Time: Saturday, March 24, 2018 04:47 - CONCLUSION: Unchanged bilateral pulmonary infiltrates. Interval intubation. Manuel Contreras Jr., MD Abdomen/Pelvis CT 03/23/18 1820 Signed Impressions: Service Date/Time: March 21:21 - CONCLUSION: 1. 8 cm cystic mass in the pancreatic tail. The slight erosions of pseudocysts. Other cystic masses in the pancreatic tail couldn't similar appearance. 2. Hernia mesh in the midline with a suspected seroma seen superficial to this. This is unchanged. 3. Colonic diverticula in the sigmoid region without inflammatory change. 4. Bibasilar areas of consolidation. Tanmay Bella MD Consultation 03/22/18 1433 Signed Impressions: Service Date/Time: Thursday, March 22, 2018 14:33 - CONCLUSION: 1. This patient has had previous pancreatitis with drainage catheters placed in the same collection back in 2014 as such, I would not recommend drainage of this unless there is significant suspicion for infection or obstructive symptoms Broderick Machado MD Abdomen Ultrasound 03/22/18 0000 Signed Impressions: Service Date/Time: Thursday, March 22, 2018 19:40 - CONCLUSION: 1. 10 cm complex cystic mass the pancreatic tail. This is nonspecific. A pseudocyst would be the most common mass. Other cystic masses/neoplasms cannot be excluded on the ultrasound alone. 2. Small echogenic kidneys consistent with chronic renal disease. Tanmay Bella MD Objective Remarks GENERAL: No apparent distress. SKIN: Warm and dry. HEAD: Atraumatic. Normocephalic. EYES: Pupils equal and round. No scleral icterus. No injection or drainage. ENT: No nasal bleeding or discharge. Mucous membranes pink and moist. NECK: Trachea midline. No JVD. CARDIOVASCULAR: Regular rate and rhythm. S1, S2. RESPIRATORY: Clear to auscultation. Breath sounds equal bilaterally. GASTROINTESTINAL: Abdomen soft, obese. Midline abdomen/epigastric region tender to palpation but appears less tender than yesterday. No guarding rigidity. Normoactive bowel sounds. MUSCULOSKELETAL: Extremities with trace bilateral lower extremity edema. Left AV fistula with positive thrill. VASC: L femoral CVL in place. Dressing in place at R IJ site. NEUROLOGICAL: No obvious cranial nerve deficits. Moving all extremities without focal deficit. Procedures None A/P Problem List: (1) Pancreatic pseudocyst ICD Code: K86.3 - Pseudocyst of pancreas Status: Acute (2) Pancreatitis ICD Code: K85.90 - Acute pancreatitis without necrosis or infection, unspecified (3) Nausea & vomiting ICD Code: R11.2 - Nausea with vomiting, unspecified (4) Abdominal pain ICD Code: R10.9 - Unspecified abdominal pain (5) ESRD on hemodialysis ICD Code: N18.6 - End stage renal disease; Z99.2 - Dependence on renal dialysis Assessment and Plan Acute encephalopathy secondary to sepsis/pancreatitis Diabetic neuropathy. Off sedatives and following commands. - Acetaminophen 650 mg p.o. every 6 hours as needed fever - Patient is currently on oxycodone/acetaminophen 5/325 1 tablet every 4 hours as needed pain 1 through 5. Hydromorphone 1 mg IV every 4 hours as needed pain 6 or 10 - Currently on gabapentin 400mg p.o. twice daily home medication for neuropathy. Continue. Essential hypertension Hyperlipidemia Off IVF. Currently not requiring vasopressors and/or antihypertensives - Resume amlodipine 5 mg daily Acute respiratory failure ASHLYN? Extubated on 03/26. - continue Bipap nocturnal and as needed. - Albuterol/ipratropium aerosols every 4 hours with albuterol aerosols every 2 hours as needed dyspnea Gastroesophageal reflux disease/ Pancreatitis with pancreatic pseudocyst Status post EGD/EUS with sampling from pancreatic pseudocyst done on 03/27. CT abdomen/pelvis revealed 8 cm pancreatic pseudocyst at tail of pancreas. Colonic diverticulosis. Seroma midline abdominal mesh. Evaluated by GI. They recommended ID consult and drainage places by IR. IR currently does not recommend. Previously placed 2014. - Patient is on ranitidine 150 mg p.o. daily at night at home/ esomeprazole 40 mg daily at home. Currently on lansoprazole 30 mg daily - Docusate sodium/senna 1 tablet twice daily for bowel regimen - follow up with GI End-stage renal disease on hemodialysis Tuesday//Tuesday No indication for Garcia placement. Secondary hyperparathyroidism. IHD from left upper extremity fistula per Dr. Joshua - Continue calcium acetate 667 mg p.o. twice daily with meals. Diabetes mellitus - Sliding scale insulin NovoLog low regimen every 4 hours Accu-Cheks to maintain euglycemia. Glucose at target. - Currently off linagliptin 5 mg p.o. daily and insulin aspart pen for diabetes at home. Aspiration pneumonia vs HCAP. - Currently Levaquin per ID. History of foot drop left greater than right Elevated SNEHA with low titer. - PT evaluate and treat Prophylaxis -GI -pantoprazole -DVT -SCD/heparin subcu Problem Qualifiers (1) Abdominal pain: Qualified Codes: R10.84 - Generalized abdominal pain John Blackburn DO March 28, 2018 11:08
[2018-03-28] MEDS: ARTIFICIAL TEARS OPTH SOLN 15 ML BTL EACH EYE SCH ×3 (11:48→17:14)
[2018-03-28] MEDS: oxyCODONE/ACETAMINOPHEN 5 MG/325 MG TAB PO PRN (11:48)
[2018-03-28] MEDS: CHLORHEXIDINE 0.12% (ORAL KIT) 15 ML CUP MT SCH ×2 (11:50→20:00)
--- NOTE | 2018-03-28 15:27 | HHI.GIFU ---
Subjective Remarks Pt reports significant improvement in abdominal pain and nausea today Lunch tray at bedside has been completely finished Reports BM this morning (Nadine Santiago) Objective Vitals I&O Vital Signs Date Time Temp Pulse Resp B/P (MAP) Pulse Ox O2 Delivery O2 Flow Rate FiO2 03/28/18 14:00 73 03/28/18 12:48 16 03/28/18 12:00 80 03/28/18 12:00 98.7 80 25 111/58 (75) 95 03/28/18 10:00 74 03/28/18 08:00 98.2 75 23 101/49 (66) 93 03/28/18 08:00 75 03/28/18 06:00 73 03/28/18 04:07 100 40 03/28/18 04:00 72 03/28/18 04:00 98.2 70 22 92/55 (67) 97 03/28/18 02:00 69 03/28/18 01:09 100 50 03/28/18 00:00 98.3 72 20 92/54 (67) 100 03/28/18 00:00 72 03/27/18 23:20 100 50 03/27/18 22:00 71 03/27/18 20:45 95 50 03/27/18 20:00 98.2 79 20 101/55 (70) 96 03/27/18 20:00 79 03/27/18 19:45 96 35 03/27/18 19:26 93 Nasal Cannula 3.00 03/27/18 18:00 90 03/27/18 16:00 98.6 79 28 99/54 (69) 93 03/27/18 16:00 79 I/O 03/27/18 03/27/18 03/27/18 03/28/18 03/28/18 03/28/18 07:00 15:00 23:00 07:00 15:00 23:00 Intake Total 2000 ml 450 ml 780 ml 360 ml 200 ml Output Total 0 ml 0 ml 0 ml 3000 ml Balance 2000 ml 450 ml 780 ml 360 ml -2800 ml Intake Oral 0 ml 780 ml 360 ml IV Total 2000 ml 225 ml 200 ml Other 225 ml Output Urine Total 0 ml 0 ml 0 ml Hemodialysis 3000 ml # Bowel Movements 1 1 0 Laboratory Laboratory Tests Test 03/28/18 08:40 White Blood Count 13.7 Red Blood Count 2.88 Hemoglobin 8.6 Hematocrit 28.1 Mean Corpuscular Volume 97.5 Mean Corpuscular Hemoglobin 29.8 Mean Corpuscular Hemoglobin Concent 30.5 Red Cell Distribution Width 15.4 Platelet Count 293 Mean Platelet Volume 9.6 Blood Urea Nitrogen 38 Creatinine 7.41 Random Glucose 116 Total Protein 7.2 Albumin 2.3 Calcium Level 8.7 Alkaline Phosphatase 100 Aspartate Amino Transf (AST/SGOT) 15 Alanine Aminotransferase (ALT/SGPT) 13 Total Bilirubin 0.3 Sodium Level 140 Potassium Level 4.1 Chloride Level 102 Carbon Dioxide Level 26.0 Anion Gap 12 Estimat Glomerular Filtration Rate 7 Phosphorus Level 5.7 Date/Time Source Procedure Growth Status 03/23/18 15:54 Blood Peripheral Aerobic Blood Culture - Final NO GROWTH IN 5 DAYS Complete 03/23/18 15:54 Blood Peripheral Anaerobic Blood Culture - Final NO GROWTH IN 5 DAYS Complete 03/27/18 10:03 Fluid Pancreatic Fluid Gram Stain - Final Resulted 03/27/18 10:03 Fluid Pancreatic Fluid Body Fluid Culture - Preliminary NO GROWTH IN 24 HOURS. Resulted 03/24/18 12:40 Sputum Endotracheal Gram Stain - Final Complete 03/24/18 12:40 Sputum Endotracheal Sputum Culture - Final HEAVY GROWTH NORMAL RESPIRATORY ROSE Complete Imaging Last Impressions Chest X-Ray 03/24/18 0000 Signed Impressions: Service Date/Time: Saturday, March 24, 2018 04:47 - CONCLUSION: Unchanged bilateral pulmonary infiltrates. Interval intubation. Manuel Contreras Jr., MD Abdomen/Pelvis CT 03/23/18 1820 Signed Impressions: Service Date/Time: March 21:21 - CONCLUSION: 1. 8 cm cystic mass in the pancreatic tail. The slight erosions of pseudocysts. Other cystic masses in the pancreatic tail couldn't similar appearance. 2. Hernia mesh in the midline with a suspected seroma seen superficial to this. This is unchanged. 3. Colonic diverticula in the sigmoid region without inflammatory change. 4. Bibasilar areas of consolidation. Tanmay Bella MD Consultation 03/22/18 1433 Signed Impressions: Service Date/Time: Thursday, March 22, 2018 14:33 - CONCLUSION: 1. This patient has had previous pancreatitis with drainage catheters placed in the same collection back in 2014 as such, I would not recommend drainage of this unless there is significant suspicion for infection or obstructive symptoms Broderick Machado MD Abdomen Ultrasound 03/22/18 0000 Signed Impressions: Service Date/Time: Thursday, March 22, 2018 19:40 - CONCLUSION: 1. 10 cm complex cystic mass the pancreatic tail. This is nonspecific. A pseudocyst would be the most common mass. Other cystic masses/neoplasms cannot be excluded on the ultrasound alone. 2. Small echogenic kidneys consistent with chronic renal disease. Tanmay Bella MD Physical Exam HEENT: Normocephalic; atraumatic CHEST: Diminished, breath sounds equal ABDOMEN: Distended, semi-firm, nontender, bowel sounds active SKIN: Normal; no rash; no jaundice. MERCERIZING RANGE CONTROLLER: Alert and oriented x 3 (Nadine Santiago [employer]) Assessment and Plan Plan Assessment: - Pancreatitis with CT findings suggestive of possible large pancreatic pseudocyst History of pseudocyst with CT guided drainage in Nov 2014 Complaining of epigastric pain, nausea, vomiting that woke her up in the middle of the night [id number] CT abdomen and pelvis W/O IV contrast (03/21) --> There is a large complex mixed attenuation mass lesion involving the tail of the pancreas. A large pseudocyst would be the leading consideration. This is incompletely evaluated on this study. History of pancreatitis with pancreatic pseudocyst, according to previous records was not amenable to drainage by IR 1st episode of pancreatitis in 2014 Denies ETOH New medications: Auryxia and Tradjenta Denies family history of pancreatic issues Previous cholecystectomy Last EGD in 2014, normal exam, previous EGD revealed esophagitis and gastritis Never had colonoscopy - Gastroparesis- previously had a J tube- removed in 2014, also noted to be previously on EES and Reglan, not currently on any medication for this at this time - Leukocytosis, afebrile - ESRD on HD- , , Tue- did not go today because she did not feel well enough (03/22) Pt with continued abdominal pain. CA 19-9 - 52.8. Lipase now WNL. SNEHA negative, IgG [address] Machado IR, states that percutaneous drainage would not be the preferred option because she will likely end up with terminologist drain. Discussed case with Dr. Jade and tenatively will plan for EUS Tuesday. (03/23) Pt complaining of continued abdominal pain. Tolerating clear liquids, denies nausea, vomiting. Went for dialysis today. Increase in leukocytosis noted, pt started on Levaquin and Flagyl. US abdomen --> 10 cm complex cystic mass the pancreatic tail. This is nonspecific. A pseudocyst would be the most common mass. Other cystic masses/neoplasms cannot be excluded on the ultrasound alone. Small echogenic kidneys consistent with chronic renal disease. (03/24) Pt became hypoxic overnight, failed BiPAP, transferred to ICU and intubated. Currently on CPAP trial. Chest x-ray reveals worsening bilateral pulmonary infiltrates. Leukocytosis did improve some this morning. ID consulted, recommendations pending. CT abdomen and pelvis W/O contrast repeated last night --> 8cm cystic mass in the pancreatic tail. The slight erosion of pseudocysts. Hernia mesh in the midline with a suspected seroma seen superficial to this. This is unchanged. Colonic diverticula in the sigmoid region without inflammatory change. Case discussed by Dr. Gupta with IR, still do not feel drainage is indicated at this time unless all attendings feel it necessary and the cause for infection. ID consult pending. Pt not stable at this time for EUS. EGD/EUS (03/27) --> Gastritis, antral nodules, pancreatic pseudocyst. FNA performed with dark green appearing to be bilious return, sent for aclasis. (03/28) WBCs improved some today. Pancreatic pseudocyst culture shows no growth within 24 hours. Cytology pending. Pt reports improvement in abdominal pain and nausea. Has been tolerating PO. Plan: EGD biopsy pending Pancreatic pseudocyst cytology and final culture pending ID following IgG 4 pending IVF Antiemetics PRN Pain control Monitor labs Further recommendations based on clinical course and results of above Pt has been seen and examined by myself and Dr. Jade and this note is written on his behalf (Nadine Santiago) Physician Comments Patient seen and examined Agree with above Continue with current supportive care Monitor labs (Avtar Jade MD) Nadine Santiago March 28, 2018 15:27 Avtar Jade MD March 28, 2018 21:22
[2018-03-29] VITALS (10 sets, daily range): BP systolic 87–119; BP diastolic 51–60; PULSE 72–83; RESP 16–78; TEMP 98.2–98.8; O2SAT 92–100
[2018-03-29] MEDS: INSULIN ASPART SUPPLEMENTAL SCALE SQ SCH ×6 (00:24→20:00)
[2018-03-29] MEDS: CHLORHEXIDINE GLUCONATE 2 % 1 PACK (2 CLOTHS) TOP SCH (04:00)
[2018-03-29] MEDS: PANTOPRAZOLE SODIUM 40 MG VIAL IV PUSH SCH (04:00)
[2018-03-29] MEDS: CHLORHEXIDINE 0.12% (ORAL KIT) 15 ML CUP MT SCH ×2 (08:00→20:00)
[2018-03-29] MEDS: ARTIFICIAL TEARS OPTH SOLN 15 ML BTL EACH EYE SCH ×3 (09:00→16:25)
[2018-03-29] MEDS: AURYXIA 210 MG PO SCH ×3 (09:14→16:42)
[2018-03-29] MEDS: HEPARIN SODIUM - SQ 10,000 UNITS/ML VIAL SQ SCH ×2 (09:15→20:10)
[2018-03-29] MEDS: GABAPENTIN 400 MG CAP PO SCH ×2 (09:15→20:10)
[2018-03-29] MEDS: SODIUM CHLORIDE 0.9% FLUSH 10 ML FLUSH IV FLUSH SCH ×3 (09:15→20:13)
[2018-03-29] MEDS: DOCUSATE SODIUM 50 MG/SENNA 8.6 MG TAB PO SCH ×2 (09:15→20:10)
--- NOTE | 2018-03-29 09:52 | HHI.NPPN ---
Subjective General Problems: Anemia Renal Failure: Chronic, End Stage Renal Disease Interval History Poor flow through AVF yesterday. 3L fluid removal during dialysis. Awake, eating breakfast. (Mili Abarca) Objective Data Data Vital Signs Date Time Temp Pulse Resp B/P (MAP) Pulse Ox O2 Delivery O2 Flow Rate FiO2 03/29/18 08:23 99 Nasal Cannula 3.00 03/29/18 08:00 81 03/29/18 06:00 81 03/29/18 04:00 83 03/29/18 04:00 98.3 83 20 102/53 (69) 100 03/29/18 02:00 79 03/29/18 00:00 80 03/29/18 00:00 98.4 80 22 119/56 (77) 100 03/28/18 22:00 80 03/28/18 20:39 97 Nasal Cannula 3.00 03/28/18 20:00 98.6 80 20 160/60 (93) 97 03/28/18 20:00 79 03/28/18 18:00 74 03/28/18 16:00 76 03/28/18 16:00 98.8 76 19 97/52 (67) 94 03/28/18 14:00 73 03/28/18 12:48 16 03/28/18 12:00 80 03/28/18 12:00 98.7 80 25 111/58 (75) 95 03/28/18 10:00 74 (Mili Abarca) -: 03/28/18 0840 03/28/18 0840 Physical Exam General Appearance: Well Developed, Well Nourished, No Acute Distress, Comfortable, Obese (Mili Abarca) Ears & Nose Ears & Nose Remarks congestion (Mili Abarca) Throat Throat Exam: Oral Mucosa Ferney & Moist (Mili Abarca) Pulmonary Resp Exam: Breath Sounds Equal, No Distress, Crackles, Diminished Breath Sounds (Mili Abarca) Cardiology CV Exam: Regular, Normal Sinus Rhythm, Good Perfusion (Miil Abarca) Gastrointestinal/Abdomen GI Exam: Soft, Bowel Sounds Present, Positive Bowel Movement, Distended GI Remarks obese (Mili Abarca) Musculoskeletal MS Exam: Joints Intact, Normal Tone, Unable to Ambulate (Mili Abarca) Integumentary Skin Exam: Clear, Warm, Dry, Intact (Mili Abarca) Extremeties Extremities Exam: Pedal Pulses Palpable, Moderate Edema (Mili Abarca) Neurologic Neuro Exam: Awake, Speech Clear, Moving All Extremities (Mili Abarca) Psychiatric Psych Exam: Appropriate Responses (Mili Abarca) Assessment/Plan Discussed Condition With: Patient, Spouse Assessment Summary: Anemia of CKD, Hypotension, End Stage Renal Disease Problem List: (1) ESRD (end stage renal disease) ICD Codes: N18.6 - ESRD (end stage renal disease) Status: Acute Plan: Continue HD support TTS. Due tomorrow AVF with recent infilration. May need fistulogram tomorrow. Evaluate electrolytes intermittently. Avoid IVF Gadolinium is contraindicated High protein diet encouraged. She takes Auryxia for a phosphate binder, bringing from home. (2) Abdominal pain ICD Codes: R10.9 - Abdominal pain Status: Acute Plan: CT report noted, had pancreatic cyst. s/p EUS 03/28 with FNA biopsy of the pancreatic pseudocyst, results pending (3) Pancreatic pseudocyst ICD Codes: K86.3 - Pseudocyst of pancreas Status: Acute Plan: Unclear if this is the cause of abdominal symptoms. GI workup ongoing. See above. (4) Hypertension ICD Codes: I10 - Hypertension Status: Acute Plan: Off antihypertensives Borderline hypotensive Fluid removal as tolerated with HD Can use midodrine if needed (5) Diabetes mellitus ICD Codes: E11.9 - Diabetes mellitus Status: Chronic Plan: Insulin coverage, maintain blood glucose between 140 and 180. (6) Pneumonia ICD Codes: J18.9 - Pneumonia Status: Acute Plan: ? aspiration On Levaquin ID has evaluated (7) Anemia ICD Codes: D64.9 - Anemia Status: Acute Plan: Epogen with dialysis ordered Plan p (Mili Abarca) Plan patient was seen and examined. Agree with above assessment and plan. (Lokesh Joshua MD) Mili Abarca March 29, 2018 09:52 Lokesh Joshua MD March 29, 2018 10:42
--- NOTE | 2018-03-29 09:58 | HHI.PR ---
Subjective Remarks The patient was resting comfortably in bed. She had no acute complaints. She said she had dialysis yesterday and normally gets dialysis on Wednesdays. Objective Vitals Vital Signs Date Time Temp Pulse Resp B/P (MAP) Pulse Ox O2 Delivery O2 Flow Rate FiO2 03/29/18 08:23 99 Nasal Cannula 3.00 03/29/18 08:00 81 03/29/18 06:00 81 03/29/18 04:00 83 03/29/18 04:00 98.3 83 20 102/53 (69) 100 03/29/18 02:00 79 03/29/18 00:00 80 03/29/18 00:00 98.4 80 22 119/56 (77) 100 03/28/18 22:00 80 03/28/18 20:39 97 Nasal Cannula 3.00 03/28/18 20:00 98.6 80 20 160/60 (93) 97 03/28/18 20:00 79 03/28/18 18:00 74 03/28/18 16:00 76 03/28/18 16:00 98.8 76 19 97/52 (67) 94 03/28/18 14:00 73 03/28/18 12:48 16 03/28/18 12:00 80 03/28/18 12:00 98.7 80 25 111/58 (75) 95 03/28/18 10:00 74 I/O 03/28/18 03/28/18 03/28/18 03/29/18 03/29/18 03/29/18 07:00 15:00 23:00 07:00 15:00 23:00 Intake Total 360 ml 200 ml 1200 ml 360 ml Output Total 0 ml 3000 ml 0 ml 0 ml Balance 360 ml -2800 ml 1200 ml 360 ml Intake Oral 360 ml 1200 ml 360 ml IV Total 200 ml Output Urine Total 0 ml 0 ml 0 ml Hemodialysis 3000 ml # Bowel Movements 0 2 0 Result Diagram: 03/28/18 0840 03/28/18 0840 Imaging Last Impressions Chest X-Ray 03/24/18 0000 Signed Impressions: Service Date/Time: Saturday, March 24, 2018 04:47 - CONCLUSION: Unchanged bilateral pulmonary infiltrates. Interval intubation. Manuel Contreras Jr., MD Abdomen/Pelvis CT 03/23/18 1820 Signed Impressions: Service Date/Time: March 21:21 - CONCLUSION: 1. 8 cm cystic mass in the pancreatic tail. The slight erosions of pseudocysts. Other cystic masses in the pancreatic tail couldn't similar appearance. 2. Hernia mesh in the midline with a suspected seroma seen superficial to this. This is unchanged. 3. Colonic diverticula in the sigmoid region without inflammatory change. 4. Bibasilar areas of consolidation. Tanmay Bella MD Consultation 03/22/18 1433 Signed Impressions: Service Date/Time: Thursday, March 22, 2018 14:33 - CONCLUSION: 1. This patient has had previous pancreatitis with drainage catheters placed in the same collection back in 2014 as such, I would not recommend drainage of this unless there is significant suspicion for infection or obstructive symptoms Broderick Machado MD Abdomen Ultrasound 03/22/18 0000 Signed Impressions: Service Date/Time: Thursday, March 22, 2018 19:40 - CONCLUSION: 1. 10 cm complex cystic mass the pancreatic tail. This is nonspecific. A pseudocyst would be the most common mass. Other cystic masses/neoplasms cannot be excluded on the ultrasound alone. 2. Small echogenic kidneys consistent with chronic renal disease. Tanmay Bella MD Objective Remarks GENERAL: No apparent distress. SKIN: Warm and dry. HEAD: Atraumatic. Normocephalic. EYES: Pupils equal and round. No scleral icterus. No injection or drainage. ENT: No nasal bleeding or discharge. Mucous membranes pink and moist. NECK: Trachea midline. No JVD. CARDIOVASCULAR: Regular rate and rhythm. S1, S2. RESPIRATORY: Clear to auscultation. Breath sounds equal bilaterally. GASTROINTESTINAL: Abdomen soft, obese. No guarding or rigidity. Normoactive bowel sounds. MUSCULOSKELETAL: Extremities with trace bilateral lower extremity edema. Left AV fistula with positive thrill. VASC: L femoral CVL in place. Dressing in place at R IJ site. NEUROLOGICAL: No obvious cranial nerve deficits. Moving all extremities without focal deficit. Procedures None A/P Problem List: (1) Pancreatic pseudocyst ICD Code: K86.3 - Pseudocyst of pancreas Status: Acute (2) Pancreatitis ICD Code: K85.90 - Acute pancreatitis without necrosis or infection, unspecified (3) Nausea & vomiting ICD Code: R11.2 - Nausea with vomiting, unspecified (4) Abdominal pain ICD Code: R10.9 - Unspecified abdominal pain (5) ESRD on hemodialysis ICD Code: N18.6 - End stage renal disease; Z99.2 - Dependence on renal dialysis Assessment and Plan Gastroesophageal reflux disease/ Pancreatitis with pancreatic pseudocyst Status post EGD/EUS with sampling from pancreatic pseudocyst done on 03/27. CT abdomen/pelvis revealed 8 cm pancreatic pseudocyst at tail of pancreas. Colonic diverticulosis. Seroma midline abdominal mesh. Evaluated by GI. They recommended ID consult and drainage placed by IR. IR currently does not recommend as previously placed 2014. - Patient is on ranitidine 150 mg p.o. daily at night at home/ esomeprazole 40 mg daily at home. Currently on pantoprazole. - pain control with docusate sodium/senna 1 tablet twice daily for bowel regimen. - follow up with GI. Acute respiratory failure ASHLYN? Extubated on 03/26. Aspiration pneumonia vs HCAP. Stable on 3L NC. - Currently on IV Levaquin per ID. - continue Bipap nocturnal and as needed. - Albuterol/ipratropium aerosols every 4 hours with albuterol aerosols every 2 hours as needed dyspnea. - Incentive spirometry. - PT/ OT. End-stage renal disease on hemodialysis Tuesday//Tuesday No indication for Garcia placement. Secondary hyperparathyroidism. IHD from left upper extremity fistula per Dr. Joshua - Continue calcium acetate 667 mg p.o. twice daily with meals. - dialysis per nephrology. Essential hypertension/ hypotension Off IVF. Currently not requiring vasopressors and/or antihypertensives - d/c amlodipine 5 mg daily Diabetes mellitus Well controlled. - Sliding scale insulin NovoLog low regimen every 4 hours Accu-Cheks to maintain euglycemia. Glucose at target. - Currently off linagliptin 5 mg p.o. daily and insulin aspart pen for diabetes at home. Acute encephalopathy secondary to sepsis/pancreatitis Off sedatives and following commands. - Acetaminophen 650 mg p.o. every 6 hours as needed fever - Patient is currently on oxycodone/acetaminophen 5/325 1 tablet every 4 hours as needed pain 1 through 5. Hydromorphone 1 mg IV every 4 hours as needed pain 6 or 10 - Currently on gabapentin 400mg p.o. twice daily home medication for neuropathy. Prophylaxis -GI -pantoprazole -DVT -SCD/heparin subcu Discharge Planning Transfer to floor Problem Qualifiers (1) Abdominal pain: Qualified Codes: R10.84 - Generalized abdominal pain John Blackburn DO March 29, 2018 09:58
--- NOTE | 2018-03-29 10:01 | HHI.IDPN ---
Subjective Subjective Remarks ID COVERAGE 52 yo F morbidly obese with ESRD/HD presented with abd pain on 03/21/2018. w/u showed panceratic pseudocst Overnight, patient became acutely hypoxic and short of breath, was intubated BC are negative @ 3 days, WBC still elevated @ 18 K Today pt is doing better extubated on NC O2 denies c/o This is a 52-year-old AA female. Date of admission 03/21/2018. Past medical history includes end-stage renal disease on hemodialysis Tuesday/ /Tuesday. Diabetes mellitus with gastroparesis, hypertension, hyperlipidemia, history of's pancreatic cyst, anemia chronic kidney disease and secondary hyperparathyroidism. She presented to [facility] on 03/21 with a chief complaint of denies abdominal pain associated with nausea/vomiting. Rated as 10 on a scale of 1-10. CT the abdomen/pelvis revealed large complex mixed attenuation mass lesion involving the tail the pancreas. Large pseudocyst consideration.. Patient was placed on levofloxacin and metronidazole.. Patient was evaluated by nephrology and gastroenterology. Gastrology recommend repeat CT due to continued abdominal pain. This revealed seroma both her abdominal midline mesh and 8 cm pancreatic pseudocyst. Colonic diverticuli. Pulmonary infiltration. . Most recently there was a drainage catheter in this area 08/12/15.This was evaluated by interventional radiology did not do not recommend drainage at this time unless necessary for infectious causes. GI also recommended infectious disease consult which will be performed today. Overnight, patient became acutely hypoxic and short of breath. Confused with altered mental status. There have a pH is 7.18 with CO2 retention. Failed BiPAP was transferred to ICU for further evaluation treatment. Patient had no IV access on admission and after several times a central line was placed in the left femoral region. Failed internal jugular placement. Cannot identify subclavian vessels. She did fail high flow nasal cannula and is currently orotracheally intubated Notes reviewed Afebrile BP okay Abdominal pain is better No N/V Eating well Not SOB Had hemodialysis yesterday Underwent GI procedure 03/27, and had aspiration of the pancreatic pseudocyst Pancreatic pseudocyst fluid culture negative WBC decreasing Antibiotics Levaquin Current Medications Medications (Trade) Dose Ordered Sig/Valery Route Start Time Stop Time Status Last Admin (Narcan Inj) 0.4 mg UNSCH PRN IV PUSH 03/21/18 17:00 03/23/18 09:57 (D50w (Vial) Inj) 50 ml UNSCH PRN IV PUSH 03/21/18 17:00 (Glucagon Inj) 1 mg UNSCH PRN OTHER 03/21/18 17:00 Sodium Chloride 1,000 ml @ 0 mls/hr Q0M PRN OTHER 03/21/18 17:11 (Heparin Inj) 8,000 units UNSCH PRN IV FLUSH 03/21/18 17:15 Sodium Chloride 1,000 ml @ 200 mls/hr Q5H PRN IV 03/21/18 17:11 Sodium Chloride 1,000 ml @ 0 mls/hr Q0M PRN OTHER 03/21/18 17:11 (Mannitol Inj) 12.5 gm UNSCH PRN IV 03/21/18 17:15 03/23/18 09:58 Albumin Human 100 ml @ 60 mls/hr UNSCH PRN IV 03/21/18 17:15 03/23/18 09:58 (NS Flush) 5 ml UNSCH PRN IV FLUSH 03/21/18 17:15 (Heparin Inj) UNSCH PRN .XX 03/21/18 17:15 (Gentamicin Inj) 20 mg UNSCH PRN OTHER 03/21/18 17:15 (Tylenol) 650 mg UNSCH PRN PO 03/21/18 17:15 (Benadryl) 25 mg UNSCH PRN PO 03/21/18 17:15 (Nitrostat Sl) 0.4 mg UNSCH PRN SL 03/21/18 17:15 (Catapres) 0.1 mg UNSCH PRN PO 03/21/18 17:15 (Gelfoam 12 Mm/7 Mm Top) 1 foam UNSCH PRN TOP 03/21/18 17:15 (Reglan Inj) 5 mg Q6H PRN IV PUSH 03/21/18 18:30 (Dilaudid Pf Inj) 1 mg Q3H PRN IV PUSH 03/21/18 18:45 03/22/18 14:06 (Catapres) 0.1 mg Q6H PRN PO 03/21/18 19:00 (Neurontin) 400 mg BID PO 03/22/18 21:00 03/27/18 20:17 Patient Own Medication PT OWN MED: FANI... TIDAC PO 03/22/18 17:00 03/27/18 18:11 Levofloxacin/ Dextrose 100 ml @ 100 mls/hr Q48H IV 03/25/18 20:00 03/27/18 20:15 (Peridex 0.12% Liq) 15 ml BID@08,20 MT 03/24/18 08:00 03/27/18 11:55 (NS Flush) 2 ml UNSCH PRN IV FLUSH 03/24/18 00:45 03/25/18 02:56 (NS Flush) 2 ml BID IV FLUSH 03/24/18 09:00 03/27/18 18:12 (Tears Naturale Opth Soln) 1 drop TID EACH EYE 03/24/18 09:00 03/27/18 18:12 (Albuterol Neb) 2.5 mg Q2HR NEB PRN INH 03/24/18 00:45 ([facility] Nursing Information) 1 Q361D XX 03/24/18 00:45 03/24/18 00:45 (Chlorhexidine 2% Cloth) 3 pack Taper DAILY@04 TOP 03/24/18 04:00 03/20/19 03:59 03/28/18 04:00 (Chlorhexidine 2% Cloth) 3 pack UNSCH PRN TOP 03/24/18 00:45 (Izzy-Colace) 1 tab BID PO 03/24/18 09:00 03/27/18 20:17 (Milk Of Magnesia Liq) 30 ml Q12H PRN PO 03/24/18 00:45 (Senokot) 17.2 mg Q12H PRN PO 03/24/18 00:45 (Dulcolax Supp) 10 mg DAILY PRN RECTAL 03/24/18 00:45 (Lactulose Liq) 30 ml DAILY PRN PO 03/24/18 00:45 (NS Flush) DAILY IV FLUSH 03/24/18 09:00 03/27/18 09:00 (NS Flush) UNSCH PRN IV FLUSH 03/24/18 01:45 (Protonix Inj) 40 mg Q24H IV PUSH 03/24/18 03:00 03/28/18 05:39 (Percocet 5-325 Mg) 1 tab Q4H PRN PO 03/24/18 03:15 03/26/18 13:53 (Dilaudid Pf Inj) 1 mg Q4H PRN IV 03/24/18 03:30 03/26/18 01:02 ([facility] Nursing Information) 1 Q361D XX 03/24/18 03:15 03/24/18 03:15 Fentanyl Citrate 250 ml @ 5 mls/hr TITRATE PRN IV 03/24/18 04:00 03/24/18 04:00 (Heparin Inj) 5,000 units Q12HR SQ 03/24/18 09:00 03/27/18 20:16 Midazolam HCl 50 ml @ 2 mls/hr TITRATE PRN IV 03/24/18 04:15 03/24/18 12:18 (Zofran Odt) 4 mg Q6H PRN PO 03/24/18 04:15 (NovoLOG SUPPLEMENTAL SCALE) 1 Q4HR SQ 03/24/18 08:00 03/28/18 01:10 (Norvasc) 5 mg DAILY PO 03/27/18 09:00 03/27/18 11:57 ([facility] Nursing Information) ALL NURSING DEPARTME... 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 Anemia of chronic kidney disease Secondary hyperparathyroidism Recurrent pancreatitis with pancreatic pseudocyst History of peritonitis Footdrop left greater than right Past Surgical History History of G-tube insertion and subsequent removal 2014 History of tracheostomy status post decannulation Left upper arm fistula History of midline hernia repair status post cholecystectomy Left femur fracture with surgical repair Allergies: Coded Allergies: Sulfa (Sulfonamide Antibiotics) (Unverified Allergy, Severe, Rash, ) morphine (Unverified Allergy, Severe, ITCHING, 09/21/17) penicillin G (Unverified Allergy, Severe, UNKNOWN, 09/21/17) amoxicillin (Verified Allergy, Intermediate, Rash, 09/21/17) *MDRO Multi-Drug Resistant Organism (Verified Allergy, Unknown, 09/21/17) VRE Buttock Wound 01/15/2013 C Diff 05/2014 Objective . Vital Signs Date Time Temp Pulse Resp B/P (MAP) Pulse Ox O2 Delivery O2 Flow Rate FiO2 03/29/18 08:23 99 Nasal Cannula 3.00 03/29/18 08:00 81 03/29/18 08:00 98.2 81 62 87/52 (64) 99 03/29/18 06:00 81 03/29/18 04:00 83 03/29/18 04:00 98.3 83 20 102/53 (69) 100 03/29/18 02:00 79 03/29/18 00:00 80 03/29/18 00:00 98.4 80 22 119/56 (77) 100 03/28/18 22:00 80 03/28/18 20:39 97 Nasal Cannula 3.00 03/28/18 20:00 98.6 80 20 160/60 (93) 97 03/28/18 20:00 79 03/28/18 18:00 74 03/28/18 16:00 76 03/28/18 16:00 98.8 76 19 97/52 (67) 94 03/28/18 14:00 73 03/28/18 12:48 16 03/28/18 12:00 80 03/28/18 12:00 98.7 80 25 111/58 (75) 95 03/28/18 10:00 74 . Laboratory Tests Test 03/28/18 08:40 White Blood Count 13.7 TH/MM3 Red Blood Count 2.88 MIL/MM3 Hemoglobin 8.6 GM/DL Hematocrit 28.1 % Mean Corpuscular Volume 97.5 FL Mean Corpuscular Hemoglobin 29.8 PG Mean Corpuscular Hemoglobin Concent 30.5 % Red Cell Distribution Width 15.4 % Platelet Count 293 TH/MM3 Mean Platelet Volume 9.6 FL Laboratory Tests Test 03/27/18 11:27 03/28/18 08:40 Lipase 87 U/L Carcinoembryonic Antigen 1.6 NG/ML Blood Urea Nitrogen 38 MG/DL Creatinine 7.41 MG/DL Random Glucose 116 MG/DL Total Protein 7.2 GM/DL Albumin 2.3 GM/DL Calcium Level 8.7 MG/DL Alkaline Phosphatase 100 U/L Aspartate Amino Transf (AST/SGOT) 15 U/L Alanine Aminotransferase (ALT/SGPT) 13 U/L Total Bilirubin 0.3 MG/DL Sodium Level 140 MEQ/L Potassium Level 4.1 MEQ/L Chloride Level 102 MEQ/L Carbon Dioxide Level 26.0 MEQ/L Anion Gap 12 MEQ/L Estimat Glomerular Filtration Rate 7 ML/MIN Phosphorus Level 5.7 MG/DL Microbiology Date/Time Source Procedure Growth Status 03/27/18 10:03 Fluid Pancreatic Fluid Gram Stain - Final Resulted 03/27/18 10:03 Fluid Pancreatic Fluid Body Fluid Culture - Preliminary NO GROWTH IN 48 HOURS. Resulted Imaging Last Impressions Chest X-Ray 03/24/18 0000 Signed Impressions: Service Date/Time: Saturday, March 24, 2018 04:47 - CONCLUSION: Unchanged bilateral pulmonary infiltrates. Interval intubation. Manuel Contreras Jr., MD Abdomen/Pelvis CT 03/23/18 1820 Signed Impressions: Service Date/Time: March 21:21 - CONCLUSION: 1. 8 cm cystic mass in the pancreatic tail. The slight erosions of pseudocysts. Other cystic masses in the pancreatic tail couldn't similar appearance. 2. Hernia mesh in the midline with a suspected seroma seen superficial to this. This is unchanged. 3. Colonic diverticula in the sigmoid region without inflammatory change. 4. Bibasilar areas of consolidation. Tanmay Bella MD Consultation 03/22/18 1433 Signed Impressions: Service Date/Time: Thursday, March 22, 2018 14:33 - CONCLUSION: 1. This patient has had previous pancreatitis with drainage catheters placed in the same collection back in 2015 as such, I would not recommend drainage of this unless there is significant suspicion for infection or obstructive symptoms Broderick Machado MD Abdomen Ultrasound 03/22/18 0000 Signed Impressions: Service Date/Time: Thursday, March 22, 2018 19:40 - CONCLUSION: 1. 10 cm complex cystic mass the pancreatic tail. This is nonspecific. A pseudocyst would be the most common mass. Other cystic masses/neoplasms cannot be excluded on the ultrasound alone. 2. Small echogenic kidneys consistent with chronic renal disease. Tanmay Bella MD Physical Exam GENERAL: Obese, well-developed patient, awake and alert , NAD SKIN: No rashes, ecchymoses or lesions. Cool and dry. HEAD: Atraumatic. Normocephalic. No temporal or scalp tenderness. EYES: Pupils equal round and reactive. No scleral icterus. No injection or drainage. ENT: Intubated. NECK: Trachea midline. Supple, nontender, no meningeal signs. CARDIOVASCULAR: regular ; no murmurs RESPIRATORY: Bilateral Decreased AE in bases anteriorly. GASTROINTESTINAL: Abdomen soft, non-tender, nondistended. Obese. MUSCULOSKELETAL: Extremities without clubbing, cyanosis, or edema. AV fistula site ok. NEUROLOGICAL: Grossly nonfocal Psych calm and cooperative Assessment & Plan Remarks Possible new sepsis, improving Pneumonia ? aspiration vs HCAP - nl madhu on resp clx - blood clx all negative @ 72 hrs Acute resp failure on vent. Acute pancreatitis with pseudocyst. Morbidly obese BMI 41.3 kg/m2 DM2 uncontrolled with Nephropathy ESRD on HD using AV fistula. HD on ,Th,Sat - pt is anuric Recs: Continue Levaquin Follow new cultures Monitor progress Follow Flori Cabezas MD March 29, 2018 10:01
[2018-03-29 10:49] LABS: HEMATOCRIT 30.4 % (35.0-46.0); HEMOGLOBIN 9.2 GM/DL (11.6-15.3); MEAN CELL VOLUME 99.4 FL (80.0-100.0); MEAN CORPUSCULAR HEMOGLOBIN 30.1 PG (27.0-34.0); MEAN CORPUSCULAR HGB CONC 30.3 % (32.0-36.0); MEAN PLATELET VOLUME 9.5 FL (7.0-11.0); PLATELET COUNT 290 TH/MM3 (150-450); RED BLOOD COUNT 3.05 MIL/MM3 (4.00-5.30); RED CELL DISTRIBUTION WIDTH 15.5 % (11.6-17.2); WHITE BLOOD COUNT 10.8 TH/MM3 (4.0-11.0)
[2018-03-29 11:11] LABS: BICARBONATE 30.1 MEQ/L (21.0-32.0); CREATININE 7.25 MG/DL (0.50-1.00); MAGNESIUM 2.3 MG/DL (1.5-2.5)
--- NOTE | 2018-03-29 11:12 | HHI.GIFU ---
Subjective Remarks Pt resting in bed, napping, family at bedside. Offers no complaints. (Mis Maria) Objective Vitals I&O Vital Signs Date Time Temp Pulse Resp B/P (MAP) Pulse Ox O2 Delivery O2 Flow Rate FiO2 03/29/18 10:00 79 03/29/18 08:23 99 Nasal Cannula 3.00 03/29/18 08:00 81 03/29/18 08:00 98.2 81 62 87/52 (64) 99 03/29/18 06:00 81 03/29/18 04:00 83 03/29/18 04:00 98.3 83 20 102/53 (69) 100 03/29/18 02:00 79 03/29/18 00:00 80 03/29/18 00:00 98.4 80 22 119/56 (77) 100 03/28/18 22:00 80 03/28/18 20:39 97 Nasal Cannula 3.00 03/28/18 20:00 98.6 80 20 160/60 (93) 97 03/28/18 20:00 79 03/28/18 18:00 74 03/28/18 16:00 76 03/28/18 16:00 98.8 76 19 97/52 (67) 94 03/28/18 14:00 73 03/28/18 12:48 16 03/28/18 12:00 80 03/28/18 12:00 98.7 80 25 111/58 (75) 95 I/O 03/28/18 03/28/18 03/28/18 03/29/18 03/29/18 03/29/18 07:00 15:00 23:00 07:00 15:00 23:00 Intake Total 360 ml 200 ml 1200 ml 360 ml Output Total 0 ml 3000 ml 0 ml 0 ml Balance 360 ml -2800 ml 1200 ml 360 ml Intake Oral 360 ml 1200 ml 360 ml IV Total 200 ml Output Urine Total 0 ml 0 ml 0 ml Hemodialysis 3000 ml # Bowel Movements 0 2 0 Laboratory Laboratory Tests Test 03/29/18 10:10 White Blood Count 10.8 Red Blood Count 3.05 Hemoglobin 9.2 Hematocrit 30.4 Mean Corpuscular Volume 99.4 Mean Corpuscular Hemoglobin 30.1 Mean Corpuscular Hemoglobin Concent 30.3 Red Cell Distribution Width 15.5 Platelet Count 290 Mean Platelet Volume 9.5 Date/Time Source Procedure Growth Status 03/23/18 15:54 Blood Peripheral Aerobic Blood Culture - Final NO GROWTH IN 5 DAYS Complete 03/23/18 15:54 Blood Peripheral Anaerobic Blood Culture - Final NO GROWTH IN 5 DAYS Complete 03/27/18 10:03 Fluid Pancreatic Fluid Gram Stain - Final Resulted 03/27/18 10:03 Fluid Pancreatic Fluid Body Fluid Culture - Preliminary NO GROWTH IN 48 HOURS. Resulted 03/24/18 12:40 Sputum Endotracheal Gram Stain - Final Complete 03/24/18 12:40 Sputum Endotracheal Sputum Culture - Final HEAVY GROWTH NORMAL RESPIRATORY ROSE Complete Imaging Last Impressions Chest X-Ray 03/24/18 0000 Signed Impressions: Service Date/Time: Saturday, March 24, 2018 04:47 - CONCLUSION: Unchanged bilateral pulmonary infiltrates. Interval intubation. Manuel Contreras Jr., MD Abdomen/Pelvis CT 03/23/18 1820 Signed Impressions: Service Date/Time: March 21:21 - CONCLUSION: 1. 8 cm cystic mass in the pancreatic tail. The slight erosions of pseudocysts. Other cystic masses in the pancreatic tail couldn't similar appearance. 2. Hernia mesh in the midline with a suspected seroma seen superficial to this. This is unchanged. 3. Colonic diverticula in the sigmoid region without inflammatory change. 4. Bibasilar areas of consolidation. Tanmay Bella MD Consultation 03/22/18 1433 Signed Impressions: Service Date/Time: Thursday, March 22, 2018 14:33 - CONCLUSION: 1. This patient has had previous pancreatitis with drainage catheters placed in the same collection back in 2015 as such, I would not recommend drainage of this unless there is significant suspicion for infection or obstructive symptoms Broderick Machado MD Abdomen Ultrasound 03/22/18 0000 Signed Impressions: Service Date/Time: Thursday, March 22, 2018 19:40 - CONCLUSION: 1. 10 cm complex cystic mass the pancreatic tail. This is nonspecific. A pseudocyst would be the most common mass. Other cystic masses/neoplasms cannot be excluded on the ultrasound alone. 2. Small echogenic kidneys consistent with chronic renal disease. Tanmay Bella MD Physical Exam HEENT: Normocephalic; atraumatic CHEST: Diminished ABDOMEN: obese, soft, nontender, bowel sounds active SKIN: Normal; no rash; no jaundice. SEPARATOR OPERATOR: sleepy (Mis Maria DECAL CUTTER) Assessment and Plan Plan Assessment: - Pancreatitis with CT findings suggestive of possible large pancreatic pseudocyst History of pseudocyst with CT guided drainage in Nov 2014 Complaining of epigastric pain, nausea, vomiting that woke her up in the middle of the night Lipase-513 CT abdomen and pelvis W/O IV contrast (03/21) --> There is a large complex mixed attenuation mass lesion involving the tail of the pancreas. A large pseudocyst would be the leading consideration. This is incompletely evaluated on this study. History of pancreatitis with pancreatic pseudocyst, according to previous records was not amenable to drainage by IR 1st episode of pancreatitis in 2014 Denies ETOH New medications: Auryxia and Tradjenta Denies family history of pancreatic issues Previous cholecystectomy Last EGD in 2014, normal exam, previous EGD revealed esophagitis and gastritis Never had colonoscopy - Gastroparesis- previously had a J tube- removed in 2014, also noted to be previously on EES and Reglan, not currently on any medication for this at this time - Leukocytosis, afebrile - ESRD on HD- , , Tue- did not go today because she did not feel well enough (03/22) Pt with continued abdominal pain. CA 19-9 - 52.8. Lipase now WNL. SNEHA negative, IgG [address] 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 Discussed case with Dr. Jade and tenatively will plan for EUS Tuesday. (03/23) Pt complaining of continued abdominal pain. Tolerating clear liquids, denies nausea, vomiting. Went for dialysis today. Increase in leukocytosis noted, pt started on Levaquin and Flagyl. US abdomen --> 10 cm complex cystic mass the pancreatic tail. This is nonspecific. A pseudocyst would be the most common mass. Other cystic masses/neoplasms cannot be excluded on the ultrasound alone. Small echogenic kidneys consistent with chronic renal disease. (03/24) Pt became hypoxic overnight, failed BiPAP, transferred to ICU and intubated. Currently on CPAP trial. Chest x-ray reveals worsening bilateral pulmonary infiltrates. Leukocytosis did improve some this morning. ID consulted, recommendations pending. CT abdomen and pelvis W/O contrast repeated last night --> 8cm cystic mass in the pancreatic tail. The slight erosion of pseudocysts. Hernia mesh in the midline with a suspected seroma seen superficial to this. This is unchanged. Colonic diverticula in the sigmoid region without inflammatory change. Case discussed by Dr. Gupta with IR, still do not feel drainage is indicated at this time unless all attendings feel it necessary and the cause for infection. ID consult pending. Pt not stable at this time for EUS. EGD/EUS (03/27) --> Gastritis, antral nodules, pancreatic pseudocyst. FNA performed with dark green appearing to be bilious return, sent for aclasis. (03/28) WBCs improved some today. Pancreatic pseudocyst culture shows no growth within 24 hours. Cytology pending. Pt reports improvement in abdominal pain and nausea. Has been tolerating PO. 03/29 - resting in bed napping. cyst culture no growth 48h, cytology pending, IGG4 pending. EGD bx reactive gastropathy. WBC trending down. Plan: await pseudocyst cytology and final culture ID following await IGG4 Monitor labs supportive care Pt has been seen and examined by myself and Dr. Jade and this note is written on his behalf (Mis Maria) Physician Comments Patient seen and examined Agree with above Continue with current supportive care Monitor labs With the lipase measuring 0 in the fluid from the cyst it makes it unlikely that this is a pseudocyst or a pancreatic related cyst At this point the patient seems to be doing well clinically and so monitoring is a very appropriate strategy Patient will need to follow-up with GI post discharge (Avtar Jade MD) Mis Maria March 29, 2018 11:12 Avtar Jade MD March 29, 2018 20:51
[2018-03-29 18:19] LABS: LIPASE BODY FLUID 0 U/L
[2018-03-29] MEDS: LEVOFLOXACIN 500 MG PREMIX INJ 100 ML IV SCH (20:09)
[2018-03-30] VITALS: BP 101/50; PULSE 96; RESP 18; TEMP 98.8; O2SAT 92
[2018-03-30] MEDS: CHLORHEXIDINE GLUCONATE 2 % 1 PACK (2 CLOTHS) TOP SCH (01:10)
[2018-03-30] MEDS: INSULIN ASPART SUPPLEMENTAL SCALE SQ SCH ×7 (01:11→21:33)
[2018-03-30 04:00] VITALS: BP 100/62; PULSE 85; RESP 18; TEMP 99; O2SAT 95
[2018-03-30 08:00] VITALS: BP 86/45; PULSE 80; RESP 18; TEMP 98.6; O2SAT 95
[2018-03-30] MEDS: CHLORHEXIDINE 0.12% (ORAL KIT) 15 ML CUP MT SCH ×2 (08:00→20:00)
[2018-03-30 08:14] LABS: HEMATOCRIT 28.1 % (35.0-46.0); HEMOGLOBIN 8.7 GM/DL (11.6-15.3); MEAN CELL VOLUME 99.1 FL (80.0-100.0); MEAN CORPUSCULAR HEMOGLOBIN 30.5 PG (27.0-34.0); MEAN CORPUSCULAR HGB CONC 30.8 % (32.0-36.0); MEAN PLATELET VOLUME 9.2 FL (7.0-11.0); PLATELET COUNT 290 TH/MM3 (150-450); RED BLOOD COUNT 2.84 MIL/MM3 (4.00-5.30); RED CELL DISTRIBUTION WIDTH 15.4 % (11.6-17.2); WHITE BLOOD COUNT 9.8 TH/MM3 (4.0-11.0)
[2018-03-30] MEDS: AURYXIA 210 MG PO SCH ×3 (08:46→16:59)
[2018-03-30] MEDS: SODIUM CHLORIDE 0.9% FLUSH 10 ML FLUSH IV FLUSH SCH ×3 (08:47→21:29)
[2018-03-30] MEDS: DOCUSATE SODIUM 50 MG/SENNA 8.6 MG TAB PO SCH ×2 (08:47→21:28)
[2018-03-30] MEDS: HEPARIN SODIUM - SQ 10,000 UNITS/ML VIAL SQ SCH ×2 (08:52→21:35)
[2018-03-30 08:53] LABS: BICARBONATE 27.2 MEQ/L (21.0-32.0); CREATININE 8.55 MG/DL (0.50-1.00); MAGNESIUM 2.3 MG/DL (1.5-2.5)
[2018-03-30] MEDS: PANTOPRAZOLE SOD 40 MG DELAYED RELEASE TAB PO SCH (08:53)
[2018-03-30] MEDS: GABAPENTIN 400 MG CAP PO SCH ×2 (08:53→21:28)
[2018-03-30] MEDS: ARTIFICIAL TEARS OPTH SOLN 15 ML BTL EACH EYE SCH ×3 (08:56→17:00)
[2018-03-30 09:15] VITALS: O2SAT 93
[2018-03-30] MEDS ORDERED: MIDODRINE 5 MG TAB PO ONE (09:15)
[2018-03-30] MEDS: MIDODRINE 5 MG TAB PO SCH ×2 (10:06→16:59)
--- NOTE | 2018-03-30 11:00 | HHI.NPPN ---
Subjective General Problems: Anemia Renal Failure: Chronic, End Stage Renal Disease Interval History [place] [facility] Sleepy but able to arouse to voice. Due for dialysis, hypotensive although asymptomatic. (Mili Abarca) Objective Data Data Vital Signs Date Time Temp Pulse Resp B/P (MAP) Pulse Ox O2 Delivery O2 Flow Rate FiO2 03/30/18 04:00 99.0 85 18 100/62 (75) 95 03/30/18 00:00 98.8 96 18 101/50 (67) 92 03/29/18 20:00 82 03/29/18 20:00 98.6 81 16 102/51 (68) 92 03/29/18 16:00 98.4 72 18 96/60 (72) 98 03/29/18 12:00 98.8 81 78 107/57 (74) 94 03/29/18 12:00 81 (Mili Abarca) -: 03/30/18 0739 03/30/18 0739 Physical Exam General Appearance: Well Developed, Well Nourished, No Acute Distress, Comfortable, Sleeping, Obese (Mili Abarca) Ears & Nose Ears & Nose Remarks congestion (Mili Abarca) Throat Throat Exam: Oral Mucosa Skene & Moist (Mili Abarca) Pulmonary Resp Exam: Breath Sounds Equal, No Distress, Crackles, Diminished Breath Sounds (Mili Abarca) Cardiology CV Exam: Regular, Normal Sinus Rhythm, Good Perfusion (Mili Abarca) Gastrointestinal/Abdomen GI Exam: Soft, Bowel Sounds Present, Positive Bowel Movement, Distended GI Remarks obese (Mili Abarca) Musculoskeletal MS Exam: Joints Intact, Normal Tone, Unable to Ambulate (Mili Abarca) Integumentary Skin Exam: Clear, Warm, Dry, Intact (Mili Abarca) Extremeties Extremities Exam: Pedal Pulses Palpable, Moderate Edema (Mili Abarca) Neurologic Neuro Exam: Alert, Awake, Oriented, Moving All Extremities Neuro Remarks mumbling (Mili Abarca) Psychiatric Psych Exam: Appropriate Responses (Mili Abarac) Assessment/Plan Discussed Condition With: Patient, Spouse Assessment Summary: Anemia of CKD, Hypotension, End Stage Renal Disease Problem List: (1) ESRD (end stage renal disease) ICD Codes: N18.6 - ESRD (end stage renal disease) Status: Acute Plan: Continue HD support TTS. Due today. AVF accessed without difficulty per HD nurses Ordered midodrine to be given prior to dialysis. Mannitol and albumin if needed for intradialytic hypotension Evaluate electrolytes intermittently. Avoid IVF Gadolinium is contraindicated High protein diet encouraged. She takes Auryxia for a phosphate binder. (2) Hypotension ICD Codes: I95.9 - Hypotension Status: Acute Plan: Stop all antihypertensives Ordered midodrine TID, 10 mg (3) Abdominal pain ICD Codes: R10.9 - Abdominal pain Status: Acute Plan: CT report noted, had pancreatic cyst. s/p EUS 03/28 with FNA biopsy of the pancreatic pseudocyst, results pending outpatient follow up (4) Pancreatic pseudocyst ICD Codes: K86.3 - Pseudocyst of pancreas Status: Acute Plan: see above Unclear if that was the cause of her pain (5) Diabetes mellitus ICD Codes: E11.9 - Diabetes mellitus Status: Chronic Plan: Insulin coverage, maintain blood glucose between 140 and 180. (6) Pneumonia ICD Codes: J18.9 - Pneumonia Status: Acute Plan: ? aspiration On Levaquin ID has evaluated (7) Anemia ICD Codes: D64.9 - Anemia Status: Acute Plan: Epogen with dialysis as ordered Plan (Mili Abarca) Plan patient was seen and examined. Fistula not functioning well, has poor blood flow , will consult interventional radiology for Fistulogram. (Lokesh Joshua MD) Mili Abarca March 30, 2018 11:00 Lokesh Joshua MD March 30, 2018 16:16
[2018-03-30] MEDS: ALBUMIN 25% INJ 100 ML IV PRN ×2 (11:47→11:48)
[2018-03-30] MEDS: MANNITOL 12.5 GM/50 ML VIAL IV PRN ×3 (11:47→11:49)
[2018-03-30] MEDS: EPOETIN ALFA 10,000 UNITS/ML VIAL IV PUSH PRN (11:48)
[2018-03-30] MEDS: GELATIN 12 MM/7 MM FOAM TOP PRN (11:48)
[2018-03-30 16:00] VITALS: BP 116/58; PULSE 74; RESP 18; TEMP 98.3; O2SAT 96
--- NOTE | 2018-03-30 17:04 | HHI.GIFU ---
Subjective Remarks Patient is resting in the bed family member at her bedside Back from dialysis, Appetite good, ate 100% of her sandwich Current hemoglobin 8.7 Denies any abdominal pain (Janelle Aguilera) Objective Vitals I&O Vital Signs Date Time Temp Pulse Resp B/P (MAP) Pulse Ox O2 Delivery O2 Flow Rate FiO2 03/30/18 09:15 93 Nasal Cannula 2.00 03/30/18 08:00 98.6 80 18 86/45 (59) 95 03/30/18 04:00 99.0 85 18 100/62 (75) 95 03/30/18 00:00 98.8 96 18 101/50 (67) 92 03/29/18 20:00 82 03/29/18 20:00 98.6 81 16 102/51 (68) 92 I/O 03/29/18 03/29/18 03/29/18 03/30/18 03/30/18 03/30/18 07:00 15:00 23:00 07:00 15:00 23:00 Intake Total 360 ml 820 ml Output Total 0 ml Balance 360 ml 820 ml Intake Oral 360 ml 720 ml IV Total 100 ml Output Urine Total 0 ml # Bowel Movements 0 1 1 Laboratory Laboratory Tests Test 03/30/18 07:39 White Blood Count 9.8 Red Blood Count 2.84 Hemoglobin 8.7 Hematocrit 28.1 Mean Corpuscular Volume 99.1 Mean Corpuscular Hemoglobin 30.5 Mean Corpuscular Hemoglobin Concent 30.8 Red Cell Distribution Width 15.4 Platelet Count 290 Mean Platelet Volume 9.2 Blood Urea Nitrogen 50 Creatinine 8.55 Random Glucose 140 Calcium Level 9.0 Magnesium Level 2.3 Sodium Level 139 Potassium Level 4.2 Chloride Level 101 Carbon Dioxide Level 27.2 Anion Gap 11 Estimat Glomerular Filtration Rate 6 Date/Time Source Procedure Growth Status 03/23/18 15:54 Blood Peripheral Aerobic Blood Culture - Final NO GROWTH IN 5 DAYS Complete 03/23/18 15:54 Blood Peripheral Anaerobic Blood Culture - Final NO GROWTH IN 5 DAYS Complete 03/27/18 10:03 Fluid Pancreatic Fluid Gram Stain - Final Complete 03/27/18 10:03 Fluid Pancreatic Fluid Body Fluid Culture - Final NO GROWTH IN 72 HRS.--AEROBICALLY OR ... Complete 03/24/18 12:40 Sputum Endotracheal Gram Stain - Final Complete 03/24/18 12:40 Sputum Endotracheal Sputum Culture - Final HEAVY GROWTH NORMAL RESPIRATORY ROSE Complete Imaging Last Impressions Chest X-Ray 03/24/18 0000 Signed Impressions: Service Date/Time: Saturday, March 24, 2018 04:47 - CONCLUSION: Unchanged bilateral pulmonary infiltrates. Interval intubation. Manuel Contreras Jr., MD Abdomen/Pelvis CT 03/23/18 1820 Signed Impressions: Service Date/Time: March 21:21 - CONCLUSION: 1. 8 cm cystic mass in the pancreatic tail. The slight erosions of pseudocysts. Other cystic masses in the pancreatic tail couldn't similar appearance. 2. Hernia mesh in the midline with a suspected seroma seen superficial to this. This is unchanged. 3. Colonic diverticula in the sigmoid region without inflammatory change. 4. Bibasilar areas of consolidation. Tanmay Bella MD Consultation 03/22/18 1433 Signed Impressions: Service Date/Time: Thursday, March 22, 2018 14:33 - CONCLUSION: 1. This patient has had previous pancreatitis with drainage catheters placed in the same collection back in 2014 as such, I would not recommend drainage of this unless there is significant suspicion for infection or obstructive symptoms Broderick Machado MD Abdomen Ultrasound 03/22/18 0000 Signed Impressions: Service Date/Time: Thursday, March 22, 2018 19:40 - CONCLUSION: 1. 10 cm complex cystic mass the pancreatic tail. This is nonspecific. A pseudocyst would be the most common mass. Other cystic masses/neoplasms cannot be excluded on the ultrasound alone. 2. Small echogenic kidneys consistent with chronic renal disease. Tanmay Bella MD Physical Exam HEENT: Normocephalic; atraumatic, obese CHEST: Diminished in her bases bilateral no obvious rhonchi ABDOMEN: Round, obese, soft, nontender, bowel sounds active SKIN: Dry, no rash; no jaundice. 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 A large pseudocyst would be the leading consideration. This is incompletely evaluated on this study. History of pancreatitis with pancreatic pseudocyst, according to previous records was not amenable to drainage by IR 1st episode of pancreatitis in 2014 Denies ETOH New medications: Auryxia and Tradjenta Denies family history of pancreatic issues Previous cholecystectomy Last EGD in 2014, normal exam, previous EGD revealed esophagitis and gastritis Never had colonoscopy - Gastroparesis- previously had a J tube- removed in 2014, also noted to be previously on EES and Reglan, not currently on any medication for this at this time - Leukocytosis, afebrile - ESRD on HD- , , Tue- did not go today because she did not feel well enough (03/22) Pt with continued abdominal pain. CA 19-9 - 52.8. Lipase now WNL. SNEHA negative, IgG [address] Carter BARRERA, states that percutaneous drainage would not be the preferred option because she will likely end up with usp drain. Discussed case with Dr. Jade and tenatively will plan for EUS Tuesday. (03/23) Pt complaining of continued abdominal pain. Tolerating clear liquids, denies nausea, vomiting. Went for dialysis today. Increase in leukocytosis noted, pt started on Levaquin and Flagyl. US abdomen --> 10 cm complex cystic mass the pancreatic tail. This is nonspecific. A pseudocyst would be the most common mass. Other cystic masses/neoplasms cannot be excluded on the ultrasound alone. Small echogenic kidneys consistent with chronic renal disease. (03/24) Pt became hypoxic overnight, failed BiPAP, transferred to ICU and intubated. Currently on CPAP trial. Chest x-ray reveals worsening bilateral pulmonary infiltrates. Leukocytosis did improve some this morning. ID consulted, recommendations pending. CT abdomen and pelvis W/O contrast repeated last night --> 8cm cystic mass in the pancreatic tail. The slight erosion of pseudocysts. Hernia mesh in the midline with a suspected seroma seen superficial to this. This is unchanged. Colonic diverticula in the sigmoid region without inflammatory change. Case discussed by Dr. Gupta with IR, still do not feel drainage is indicated at this time unless all attendings feel it necessary and the cause for infection. ID consult pending. Pt not stable at this time for EUS. EGD/EUS (03/27) --> Gastritis, antral nodules, pancreatic pseudocyst. FNA performed with dark green appearing to be bilious return, sent for aclasis. (03/28) WBCs improved some today. Pancreatic pseudocyst culture shows no growth within 24 hours. Cytology pending. Pt reports improvement in abdominal pain and nausea. Has been tolerating PO. 03/29 - resting in bed napping. cyst culture no growth 48h, cytology pending, IGG4 pending. EGD bx reactive gastropathy. WBC trending down. 03/30/2018 patient is back from dialysis, appetite good, not complaining of any nausea or vomiting or abdominal pain. Current hemoglobin 8.7. Hemodialysis done today. Appreciate ID input, fluid amylase pending Generalized improvement in patient's symptoms. Plan: await pseudocyst cytology and final culture Monitor labs and pending cultures supportive care Encouraged some increase activity in bed and in room Will need outpatient GI follow-up after discharge Pt has been seen and examined by myself and Dr. Jade and this note is written on his behalf (Janelle Aguilera) Physician Comments Patient seen and examined Agree with above Continue with current supportive care Monitor labs Cytologies come back negative from the cyst Lipase is 0 from the cyst making this less likely to be a pancreatic cyst or even a pancreatic pseudocyst At this point my suspicion is that this is a biloma and we will continue to monitor Patient to follow-up with GI post discharge Not much to add from a GI perspective at this point we will sign off (Avtar Jade MD) Janelle Aguilera March 30, 2018 17:04 Avtar Jade MD March 30, 2018 23:50
--- NOTE | 2018-03-30 17:06 | HHI.PR ---
Subjective Remarks The patient was about to eat a salad. She said she was missing her dressing. She wants to go home soon. Her family was at the bedside. Seen alongside with nephrology. Discussed with nursing. Objective Vitals Vital Signs Date Time Temp Pulse Resp B/P (MAP) Pulse Ox O2 Delivery O2 Flow Rate FiO2 03/30/18 09:15 93 Nasal Cannula 2.00 03/30/18 08:00 98.6 80 18 86/45 (59) 95 03/30/18 04:00 99.0 85 18 100/62 (75) 95 03/30/18 00:00 98.8 96 18 101/50 (67) 92 03/29/18 20:00 82 03/29/18 20:00 98.6 81 16 102/51 (68) 92 I/O 03/29/18 03/29/18 03/29/18 03/30/18 03/30/18 03/30/18 07:00 15:00 23:00 07:00 15:00 23:00 Intake Total 360 ml 820 ml Output Total 0 ml Balance 360 ml 820 ml Intake Oral 360 ml 720 ml IV Total 100 ml Output Urine Total 0 ml # Bowel Movements 0 1 1 Result Diagram: 03/30/18 0739 03/30/18 0739 Imaging Last Impressions Chest X-Ray 03/24/18 0000 Signed Impressions: Service Date/Time: Saturday, March 24, 2018 04:47 - CONCLUSION: Unchanged bilateral pulmonary infiltrates. Interval intubation. Manuel Contreras Jr., MD Abdomen/Pelvis CT 03/23/18 1820 Signed Impressions: Service Date/Time: March 21:21 - CONCLUSION: 1. 8 cm cystic mass in the pancreatic tail. The slight erosions of pseudocysts. Other cystic masses in the pancreatic tail couldn't similar appearance. 2. Hernia mesh in the midline with a suspected seroma seen superficial to this. This is unchanged. 3. Colonic diverticula in the sigmoid region without inflammatory change. 4. Bibasilar areas of consolidation. Tanmay Bella MD Consultation 03/22/18 5295 Signed Impressions: Service Date/Time: Thursday, March 22, 2018 14:33 - CONCLUSION: 1. This patient has had previous pancreatitis with drainage catheters placed in the same collection back in 2014 as such, I would not recommend drainage of this unless there is significant suspicion for infection or obstructive symptoms Broderick Machado MD Abdomen Ultrasound 03/22/18 0000 Signed Impressions: Service Date/Time: Thursday, March 22, 2018 19:40 - CONCLUSION: 1. 10 cm complex cystic mass the pancreatic tail. This is nonspecific. A pseudocyst would be the most common mass. Other cystic masses/neoplasms cannot be excluded on the ultrasound alone. 2. Small echogenic kidneys consistent with chronic renal disease. Tanmay Bella MD Objective Remarks GENERAL: No apparent distress. SKIN: Warm and dry. HEAD: Atraumatic. Normocephalic. EYES: Pupils equal and round. No scleral icterus. No injection or drainage. ENT: No nasal bleeding or discharge. Mucous membranes pink and moist. NECK: Trachea midline. No JVD. CARDIOVASCULAR: Regular rate and rhythm. S1, S2. RESPIRATORY: Clear to auscultation. Breath sounds equal bilaterally. GASTROINTESTINAL: Abdomen soft, obese. No guarding or rigidity. Normoactive bowel sounds. MUSCULOSKELETAL: Extremities with trace bilateral lower extremity edema. Left AV fistula with positive thrill. VASC: L femoral CVL in place. Dressing in place at R IJ site. NEUROLOGICAL: No obvious cranial nerve deficits. Moving all extremities without focal deficit. Procedures None A/P Problem List: (1) Pancreatic pseudocyst ICD Code: K86.3 - Pseudocyst of pancreas Status: Acute (2) Pancreatitis ICD Code: K85.90 - Acute pancreatitis without necrosis or infection, unspecified (3) Nausea & vomiting ICD Code: R11.2 - Nausea with vomiting, unspecified (4) Abdominal pain ICD Code: R10.9 - Unspecified abdominal pain (5) ESRD on hemodialysis ICD Code: N18.6 - End stage renal disease; Z99.2 - Dependence on renal dialysis Assessment and Plan Gastroesophageal reflux disease/ Pancreatitis with pancreatic pseudocyst Status post EGD/EUS with sampling from pancreatic pseudocyst done on 03/27. CT abdomen/pelvis revealed 8 cm pancreatic pseudocyst at tail of pancreas. Colonic diverticulosis. Seroma midline abdominal mesh. Evaluated by GI. They recommended ID consult and drainage placed by IR. IR currently does not recommend as previously placed 2014. Pathology reveals pancreatic cyst. - Patient is on ranitidine 150 mg p.o. daily at night at home/ esomeprazole 40 mg daily at home. Currently on pantoprazole. - pain control with docusate sodium/senna 1 tablet twice daily for bowel regimen. - follow up with GI. Acute respiratory failure ASHLYN? Extubated on 03/26. Aspiration pneumonia vs HCAP. Stable on 3L NC. - Currently on IV Levaquin per ID. - continue Bipap nocturnal and as needed. - Albuterol/ipratropium aerosols every 4 hours with albuterol aerosols every 2 hours as needed dyspnea. - Incentive spirometry. - PT/ OT. End-stage renal disease on hemodialysis Tuesday//Tuesday No indication for Garcia placement. Secondary hyperparathyroidism. IHD from left upper extremity fistula per Dr. Joshua. - Continue calcium acetate 667 mg p.o. twice daily with meals. - dialysis per nephrology. - fistulogram per IR pending. Essential hypertension/ hypotension Off IVF. Currently not requiring vasopressors and/or antihypertensives - d/c amlodipine 5 mg daily - midodrine resumed. Diabetes mellitus Well controlled. - Sliding scale insulin NovoLog low regimen every 4 hours Accu-Cheks to maintain euglycemia. Glucose at target. - Currently off linagliptin 5 mg p.o. daily and insulin aspart pen for diabetes at home. Acute encephalopathy secondary to sepsis/pancreatitis Off sedatives and following commands. - Acetaminophen 650 mg p.o. every 6 hours as needed fever - Patient is currently on oxycodone/acetaminophen 5/325 1 tablet every 4 hours as needed pain 1 through 5. Hydromorphone 1 mg IV every 4 hours as needed pain 6 or 10 - Currently on gabapentin 400mg p.o. twice daily home medication for neuropathy. Prophylaxis -GI -pantoprazole -DVT -SCD/heparin subcu Discharge Planning Awaiting fistulogram Problem Qualifiers (1) Abdominal pain: Qualified Codes: R10.84 - Generalized abdominal pain John Blackburn DO March 30, 2018 17:06
[2018-03-30 20:00] VITALS: BP 95/47; PULSE 78; RESP 16; TEMP 97.8; O2SAT 92
[2018-03-31] VITALS (13 sets, daily range): BP systolic 86–130; BP diastolic 40–72; PULSE 68–94; RESP 16–22; TEMP 97.6–100.8; O2SAT 90–100
[2018-03-31] MEDS: INSULIN ASPART SUPPLEMENTAL SCALE SQ SCH ×6 (00:14→20:00)
[2018-03-31] MEDS: CHLORHEXIDINE GLUCONATE 2 % 1 PACK (2 CLOTHS) TOP SCH ×2 (04:00→21:16)
[2018-03-31] MEDS: MIDODRINE 5 MG TAB PO SCH ×3 (06:11→18:27)
[2018-03-31] MEDS: CHLORHEXIDINE 0.12% (ORAL KIT) 15 ML CUP MT SCH ×2 (07:08→20:00)
[2018-03-31] MEDS: AURYXIA 210 MG PO SCH ×3 (08:00→17:00)
[2018-03-31] MEDS: SODIUM CHLORIDE 0.9% FLUSH 10 ML FLUSH IV FLUSH SCH ×3 (09:00→21:15)
[2018-03-31] MEDS: DOCUSATE SODIUM 50 MG/SENNA 8.6 MG TAB PO SCH ×2 (09:00→21:00)
[2018-03-31] MEDS: ARTIFICIAL TEARS OPTH SOLN 15 ML BTL EACH EYE SCH ×3 (09:00→18:00)
[2018-03-31] MEDS: HEPARIN SODIUM - SQ 10,000 UNITS/ML VIAL SQ SCH ×2 (09:00→21:16)
[2018-03-31] MEDS: GABAPENTIN 400 MG CAP PO SCH ×2 (09:28→21:16)
[2018-03-31] MEDS: PANTOPRAZOLE SOD 40 MG DELAYED RELEASE TAB PO SCH (09:28)
--- NOTE | 2018-03-31 10:47 | HHI.NPPN ---
Subjective General Problems: Anemia Renal Failure: Chronic, End Stage Renal Disease Interval History NPO for fistulogram today. No new concerns. (Mili Abarca) Objective Data Data Vital Signs Date Time Temp Pulse Resp B/P (MAP) Pulse Ox O2 Delivery O2 Flow Rate FiO2 03/31/18 08:00 100.3 94 19 130/60 (83) 90 03/31/18 04:58 98.1 82 16 100/67 (78) 92 03/31/18 00:00 97.7 79 16 97/56 (70) 91 03/30/18 20:00 97.8 78 16 95/47 (63) 92 03/30/18 16:00 98.3 74 18 116/58 (77) 96 (Mili Abarca) -: 03/30/18 0739 03/30/18 0739 Physical Exam General Appearance: Well Developed, Well Nourished, No Acute Distress, Comfortable, Obese (Mili Abarca) Ears & Nose Ears & Nose Remarks congestion (Mili Abarca) Throat Throat Exam: Oral Mucosa [place] & Moist (Mili Abarca) Pulmonary Resp Exam: Breath Sounds Equal, No Distress, Crackles, Diminished Breath Sounds (Mili Abarca) Cardiology CV Exam: Regular, Normal Sinus Rhythm, Good Perfusion (Mili Abarca) Gastrointestinal/Abdomen GI Exam: Soft, Bowel Sounds Present, Positive Bowel Movement, Distended GI Remarks obese (Mili Abarca) Musculoskeletal MS Exam: Joints Intact, Normal Tone, Unable to Ambulate (Mili Abarca) Integumentary Skin Exam: Clear, Warm, Dry, Intact (Mili Abarca) Extremeties Extremities Exam: Pedal Pulses Palpable, Moderate Edema (Mili Abarca) Neurologic Neuro Exam: Alert, Awake, Oriented, Moving All Extremities Neuro Remarks mumbling (Mili Abarca) Psychiatric Psych Exam: Appropriate Responses (Mili Abarca) Assessment/Plan Discussed Condition With: Patient, Spouse Assessment Summary: Anemia of CKD, Hypotension, End Stage Renal Disease Problem List: (1) ESRD (end stage renal disease) ICD Codes: N18.6 - ESRD (end stage renal disease) Status: Acute Plan: Continue HD support TTS. Due tomorrow Poor flow through AVF yesterday, pending fistulogram today Provided that is normal, may be cleared for discharge to resume outpatient HD arrangements. On midodrine TID, BP better. Evaluate electrolytes intermittently. Avoid IVF Gadolinium is contraindicated High protein diet encouraged. She takes Auryxia for a phosphate binder. (2) Hypotension ICD Codes: I95.9 - Hypotension Status: Acute Plan: On midodrine TID, 10 mg (3) Abdominal pain ICD Codes: R10.9 - Abdominal pain Status: Acute Plan: CT report noted, had pancreatic cyst. s/p EUS 03/28 with FNA biopsy of the pancreatic pseudocyst, results pending outpatient follow up (4) Pancreatic pseudocyst ICD Codes: K86.3 - Pseudocyst of pancreas Status: Acute Plan: see above Unclear if that was the cause of her pain (5) Diabetes mellitus ICD Codes: E11.9 - Diabetes mellitus Status: Chronic Plan: Insulin coverage, maintain blood glucose between 140 and 180. (6) Pneumonia ICD Codes: J18.9 - Pneumonia Status: Acute Plan: ? aspiration On Levaquin ID has evaluated (7) Anemia ICD Codes: D64.9 - Anemia Status: Acute Plan: Epogen with dialysis as ordered (Mili Abarca) Plan patient was seen and examined. Discussed with interventional radiologist. Stent extended to area of stenosis in the outflow vein. Dialysis tomorrow. Pathology from pancreatic pseudocyst: negative for malignant cells. Possible discharge tomorrow after dialysis. (Lokesh Joshua MD) Mili Abarca March 31, 2018 10:47 Lokesh Joshua MD March 31, 2018 14:36
--- NOTE | 2018-03-31 12:08 | HHI.PR ---
Subjective Remarks The patient was waiting to go for her fistulogram. She said that she was having some increased shortness of breath. Otherwise she had no acute complaints. Her family was at the bedside. Objective Vitals Vital Signs Date Time Temp Pulse Resp B/P (MAP) Pulse Ox O2 Delivery O2 Flow Rate FiO2 03/31/18 08:00 100.3 94 19 130/60 (83) 90 03/31/18 04:58 98.1 82 16 100/67 (78) 92 03/31/18 00:00 97.7 79 16 97/56 (70) 91 03/30/18 20:00 97.8 78 16 95/47 (63) 92 03/30/18 16:00 98.3 74 18 116/58 (77) 96 I/O 03/30/18 03/30/18 03/30/18 03/31/18 03/31/18 03/31/18 07:00 15:00 23:00 07:00 15:00 23:00 Intake Total 840 ml Balance 840 ml Intake Oral 840 ml # Bowel Movements 1 1 1 Result Diagram: 03/30/18 0739 03/30/18 0739 Imaging Last Impressions Chest X-Ray 03/24/18 0000 Signed Impressions: Service Date/Time: Saturday, March 24, 2018 04:47 - CONCLUSION: Unchanged bilateral pulmonary infiltrates. Interval intubation. Manuel Contreras Jr., MD Abdomen/Pelvis CT 03/23/18 1820 Signed Impressions: Service Date/Time: March 21:21 - CONCLUSION: 1. 8 cm cystic mass in the pancreatic tail. The slight erosions of pseudocysts. Other cystic masses in the pancreatic tail couldn't similar appearance. 2. Hernia mesh in the midline with a suspected seroma seen superficial to this. This is unchanged. 3. Colonic diverticula in the sigmoid region without inflammatory change. 4. Bibasilar areas of consolidation. Tanmay Bella MD Consultation 03/22/18 1433 Signed Impressions: Service Date/Time: Thursday, March 22, 2018 14:33 - CONCLUSION: 1. This patient has had previous pancreatitis with drainage catheters placed in the same collection back in 2014 as such, I would not recommend drainage of this unless there is significant suspicion for infection or obstructive symptoms Broderick Machado MD Abdomen Ultrasound 03/22/18 0000 Signed Impressions: Service Date/Time: Thursday, March 22, 2018 19:40 - CONCLUSION: 1. 10 cm complex cystic mass the pancreatic tail. This is nonspecific. A pseudocyst would be the most common mass. Other cystic masses/neoplasms cannot be excluded on the ultrasound alone. 2. Small echogenic kidneys consistent with chronic renal disease. Tanmay Bella MD Objective Remarks GENERAL: No apparent distress. SKIN: Warm and dry. HEAD: Atraumatic. Normocephalic. EYES: Pupils equal and round. No scleral icterus. No injection or drainage. ENT: No nasal bleeding or discharge. Mucous membranes pink and moist. NECK: Trachea midline. No JVD. CARDIOVASCULAR: Regular rate and rhythm. S1, S2. RESPIRATORY: Diffuse wheezing. GASTROINTESTINAL: Abdomen soft, obese. No guarding or rigidity. Normoactive bowel sounds. MUSCULOSKELETAL: Extremities with trace bilateral lower extremity edema. Left AV fistula with positive thrill. VASC: L femoral CVL in place. Dressing in place at R IJ site. NEUROLOGICAL: No obvious cranial nerve deficits. Moving all extremities without focal deficit. Procedures None A/P Problem List: (1) Pancreatic pseudocyst ICD Code: K86.3 - Pseudocyst of pancreas Status: Acute (2) Pancreatitis ICD Code: K85.90 - Acute pancreatitis without necrosis or infection, unspecified (3) Nausea & vomiting ICD Code: R11.2 - Nausea with vomiting, unspecified (4) Abdominal pain ICD Code: R10.9 - Unspecified abdominal pain (5) ESRD on hemodialysis ICD Code: N18.6 - End stage renal disease; Z99.2 - Dependence on renal dialysis Assessment and Plan Gastroesophageal reflux disease/ Pancreatitis with pancreatic pseudocyst Status post EGD/EUS with sampling from pancreatic pseudocyst done on 03/27. CT abdomen/pelvis revealed 8 cm pancreatic pseudocyst at tail of pancreas. Colonic diverticulosis. Seroma midline abdominal mesh. Evaluated by GI. They recommended ID consult and drainage placed by IR. IR currently does not recommend as previously placed 2014. Pathology reveals pancreatic cyst. - Patient is on ranitidine 150 mg p.o. daily at night at home/ esomeprazole 40 mg daily at home. Currently on pantoprazole. - pain control with docusate sodium/senna 1 tablet twice daily for bowel regimen. - follow up with GI. Acute respiratory failure ASHLYN? Extubated on 03/26. Aspiration pneumonia vs HCAP. Stable on 3L NC. - Currently on IV Levaquin per ID. - continue Bipap nocturnal and as needed. - Albuterol/ipratropium aerosols every 6 hours with albuterol aerosols every 2 hours as needed dyspnea. - Start IV Solu-Medrol. - Incentive spirometry. - PT/ OT. - Pulmonology consult if no improvement. End-stage renal disease on hemodialysis Tuesday//Tuesday No indication for Garcia placement. Secondary hyperparathyroidism. IHD from left upper extremity fistula per Dr. Joshua. - Continue calcium acetate 667 mg p.o. twice daily with meals. - dialysis per nephrology. - fistulogram per IR pending. Essential hypertension/ hypotension Off IVF. Currently not requiring vasopressors and/or antihypertensives - d/c amlodipine 5 mg daily - midodrine resumed. Diabetes mellitus Well controlled. - Sliding scale insulin NovoLog low regimen every 4 hours Accu-Cheks to maintain euglycemia. - Currently off linagliptin 5 mg p.o. daily and insulin aspart pen for diabetes at home. Acute encephalopathy secondary to sepsis/pancreatitis Off sedatives and following commands. - Acetaminophen 650 mg p.o. every 6 hours as needed fever - Patient is currently on oxycodone/acetaminophen 5/325 1 tablet every 4 hours as needed pain 1 through 5. Hydromorphone 1 mg IV every 4 hours as needed pain 6 or 10 - Currently on gabapentin 400mg p.o. twice daily home medication for neuropathy. Prophylaxis -GI -pantoprazole -DVT -SCD/heparin subcu Discharge Planning Awaiting fistulogram and improvement in respiratory status. May need SNF placement. Problem Qualifiers (1) Abdominal pain: Qualified Codes: R10.84 - Generalized abdominal pain John Blackburn DO March 31, 2018 12:08
[2018-03-31] MEDS: methylPREDNISolone SOD SUCC 40 MG/1 ML VIAL IV PUSH SCH ×2 (12:30→21:16)
[2018-03-31] MEDS ORDERED: MIDAZOLAM HCL 2 MG/2 ML VIAL ONE ×2 (12:43→13:31)
[2018-03-31] MEDS ORDERED: HEPARIN SODIUM - IV 10,000 UNITS/10 ML VIAL ONE (13:46)
[2018-03-31] MEDS ORDERED: VANCOMYCIN HCL 1000 MG VIAL ONE (13:56)
[2018-03-31] MEDS ORDERED: SODIUM CHLOR 0.9% 250 ML INJ 250 ML ONE (13:57)
[2018-03-31] MEDS: ASPIRIN 325 MG TAB PO SCH (14:30)
[2018-03-31] MEDS ORDERED: RESP: ALBUTEROL 2.5 MG/3 ML NEB (SCH) ONE (15:17)
--- NOTE | 2018-03-31 15:29 | RADRPT ---
EXAM DATE: 03/31/2018 3:06 PM EDT AGE/SEX: 52 years / Female INDICATIONS: Cough. CLINICAL DATA: This is the patient's initial encounter. Patient reports that signs and symptoms have been present for 2 days and indicates a pain score of 0/10. MEDICAL/SURGICAL HISTORY: . Venous insufficiency. Hypertension. Diabetes. Dialysis. Colitis. Re nal Cholecystectomy. COMPARISON: [facility] – [place], CHEST SINGLE AP, 03/24/2018. . FINDINGS: Patient has been extubated in the interval. NG tube has also been removed. Cardiac silhouette remains enlarged with mild diffuse interstitial prominence improved from previous exam. There is also improv ed aeration of the left lower lung zone. Remainder of the exam is unchanged. CONCLUSION: 1. Cardiomegaly with improved positive fluid balance. 2. Improved left lower lung zone airspace disease. Electronically signed by: Bonifacio Holder MD 03/31/2018 3:27 PM EDT
--- NOTE | 2018-03-31 16:15 | RADRPT ---
EXAM DATE: 03/31/2018 3:10 PM EDT AGE/SEX: 52 years / Female INDICATIONS: Patient presents with non functioning fistula in need of intervention. CLINICAL DATA: This is the patient's initial encounter. Patient reports that signs and symptoms have been present for 2 weeks and indicates a pain score of 0/10. MEDICAL/SURGICAL HISTORY: . ESRD on HD Tuesday, , TuesdayHyperlipidemiaDMGastroparesis NeuropathyFoot drop L>R per patientPeritonitisAnemiaSecondary hyperparathyroidismPancreatitis with pa ncreatic pseudocyst NeuropathyHTN . EGDJ-tube insertion and subsequent removal in 2014Cholecystectom yHernia repair Left upper arm fistula Left femur fracture with surgical repair COMPARISON: No prior [place] exams available for comparison. FLUORO TIME (min): 5:45 IMAGE SERIES: 1 ACCESS SITE: Left FISTULA SEDATION TIME (min): 60 CONTRAST (cc): 25CC Visipaque (iodixanol) MEDICATION(S): 4MG midazolam (Versed) IV 160MCG fentanyl (Sublimaze) IV DEVICE(S): Left stent (self expanding) EVERFLEX 8X40 . . PROCEDURE : 1. Ultrasound guided puncture of the proximal outflow vein of the fistula. 2. Evaluation of dialysis fistula. 3. 6 mm and 8 mm balloon angioplasty of the proximal outflow vein at the central stent junction 4. Placement of 8 x 40 mm self-expanding stent in the proximal outflow vein 5. Upper extremity venogram. 6. Superior venacavogram. 7. Conscious sedation with continuous EKG and oximetry monitoring. The risks, benefits and alternatives to the procedure were explained and verbal and written consent w as obtained. The site was prepped in sterile fashion. Full sterile technique was used, including cap, mask, steri le gloves and gown and a large sterile sheet. Hand hygiene and 2% chlorhexidine and/or betadine/alco hol prep was utilized per protocol for cutaneous antisepsis. Sterile gel and sterile probe cover wer e utilized for ultrasound guidance. The skin and subcutaneous tissues were infiltrated with local an esthetic solution. With ultrasound and fluoroscopic guidance the proximal outflow vein of the fistula was punctured and a small 4 [place] dilator placed. Contrast injection through the dilator was then performed centered a bout the upper extremity and chest. This demonstrated no evidence of central outflow vein stenosis. S ubclavian, brachiocephalic and SVC are grossly patent. Minimal reflux of contrast demonstrated probab le stenosis just proximal to the puncture site. Therefore, the existing dilator was removed and hemos tasis obtained with a small pursestring suture. Second access was obtained more centrally in the more central outflow vein with ultrasound guidance and a 4 [place]itan dilator placed. Following multiple hany pulations, a Glidewire was successfully advanced through the arterial segment and into the brachial a rtery. 4 Occitan Kumpe catheter was advanced over the wire and angiography was performed. This demonst rated a patent stent extending from the arterial anastomosis to the very proximal outflow vein. Sever e approximately 1 cm length stenosis of the proximal outflow vein approximately 2 cm central to the s tent was noted. Subsequently a 6 [place] sheath was placed. Serial dilatations utilizing 6 mm and 8 mm balloons were then performed to resolution of the balloon waist for 3 minutes x3 dilatations. Follow -up angiography demonstrated no interval improvement. Therefore, decision was made to extend the sten t slightly more centrally. An 8 x 40 mm self-expanding stent was then deployed and subsequently postd ilated with 8 mm balloon. Follow-up angiography demonstrated good angiographic result with mild extri nsic constrained stent through the previous lesion. Improved thrill was noted in the outflow vein. Th erefore, lies and catheters were removed. Sheath was removed and hemostasis obtained at the puncture site with manual compression. . The patient tolerated the procedure well and there were no complications. Conscious sedation was per formed with the prescribed dosages and duration as above in the presence of an independent trained ra diology nurse to assist in the monitoring of the patient. EKG and oximetry remained stable throughou t the procedure. CONCLUSION: 1. Left upper extremity brachiobasilic fistula. 2. Patent previously placed stent in the very proximal outflow vein just beyond the arterial anastom osis. 3. Severe approximately 1 cm length stenosis of the proximal basilic outflow vein approximately 2 cm beyond the central stent. This was resistant to balloon dilatation with 6 mm and 8 mm balloons. Ther efore, the originally placed stent was extended approximately 3 cm more centrally with an 8 x 40 mm s elf-expanding stent. Patient's skin was marked demarcating the central aspect of the stent. This shou ld be sufficient [place] outflow vein for cannulation. Findings were personally discussed with Dr. Joshua. Electronically signed by: Bonifacio Holder MD 03/31/2018 4:14 PM EDT
--- NOTE | 2018-03-31 19:11 | HHI.PR ---
Addendum to Inpatient Note Addendum Reason: Additional Documentation Additional Information Attempted to see patient henry today. She was out for fistulogram. Dw continue Levaquin over weekend. If fevers persist please call [facility]. If fever and diarrhea persist consider stool Cdiff PCR covering for me this weekend. Ivelisse Rodriguez MD March 31, 2018 19:11
[2018-03-31] MEDS: RESP: ALBUTEROL 2.5 MG/IPRATROPIUM 0.5 MG NEB (SCH) NEB (20:37)
[2018-03-31 20:50] LABS: HEMOGLOBIN 10.3 GM/DL (11.6-15.3); MEAN CELL VOLUME 99.3 FL (80.0-100.0); MEAN CORPUSCULAR HEMOGLOBIN 31.1 PG (27.0-34.0); MEAN CORPUSCULAR HGB CONC 31.3 % (32.0-36.0); MEAN PLATELET VOLUME 9.3 FL (7.0-11.0); PLATELET COUNT 288 TH/MM3 (150-450); RED BLOOD COUNT 3.32 MIL/MM3 (4.00-5.30); RED CELL DISTRIBUTION WIDTH 15.1 % (11.6-17.2); WHITE BLOOD COUNT 11.9 TH/MM3 (4.0-11.0)
[2018-03-31] MEDS: LEVOFLOXACIN 500 MG PREMIX INJ 100 ML IV SCH (21:15)
[2018-03-31 21:19] LABS: BICARBONATE 28.1 MEQ/L (21.0-32.0); CALCIUM 9.6 MG/DL (8.5-10.1); CREATININE 7.37 MG/DL (0.50-1.00); MAGNESIUM 2.2 MG/DL (1.5-2.5)
[2018-04-01] VITALS: BP 117/56; PULSE 79; RESP 18; TEMP 98; O2SAT 92
[2018-04-01] MEDS: INSULIN ASPART SUPPLEMENTAL SCALE SQ SCH ×6 (01:29→21:34)
[2018-04-01 04:00] VITALS: BP 121/57; PULSE 74; RESP 18; TEMP 98; O2SAT 99
[2018-04-01] MEDS: methylPREDNISolone SOD SUCC 40 MG/1 ML VIAL IV PUSH SCH ×3 (05:32→21:32)
[2018-04-01] MEDS: MIDODRINE 5 MG TAB PO SCH ×3 (05:32→18:47)
[2018-04-01 07:32] LABS: HEMATOCRIT 30.1 % (35.0-46.0); MEAN CELL VOLUME 99.6 FL (80.0-100.0); MEAN CORPUSCULAR HEMOGLOBIN 29.9 PG (27.0-34.0); MEAN PLATELET VOLUME 9.1 FL (7.0-11.0); PLATELET COUNT 364 TH/MM3 (150-450); RED BLOOD COUNT 3.02 MIL/MM3 (4.00-5.30); RED CELL DISTRIBUTION WIDTH 15.8 % (11.6-17.2); WHITE BLOOD COUNT 11.2 TH/MM3 (4.0-11.0)
[2018-04-01 08:00] VITALS: BP 126/60; PULSE 63; RESP 17; TEMP 97.8; O2SAT 95
[2018-04-01] MEDS: CHLORHEXIDINE 0.12% (ORAL KIT) 15 ML CUP MT SCH ×2 (08:00→20:00)
[2018-04-01] MEDS: AURYXIA 210 MG PO SCH ×3 (08:00→18:48)
[2018-04-01 08:04] LABS: BICARBONATE 27.9 MEQ/L (21.0-32.0); CALCIUM 9.1 MG/DL (8.5-10.1); CREATININE 8.05 MG/DL (0.50-1.00); MAGNESIUM 2.3 MG/DL (1.5-2.5)
[2018-04-01] MEDS: ARTIFICIAL TEARS OPTH SOLN 15 ML BTL EACH EYE SCH ×3 (08:19→18:00)
[2018-04-01] MEDS: SODIUM CHLORIDE 0.9% FLUSH 10 ML FLUSH IV FLUSH SCH ×3 (08:19→21:33)
[2018-04-01] MEDS: RESP: ALBUTEROL 2.5 MG/IPRATROPIUM 0.5 MG NEB (SCH) NEB ×3 (08:59→21:15)
[2018-04-01] MEDS: HEPARIN SODIUM - SQ 10,000 UNITS/ML VIAL SQ SCH ×2 (09:00→21:32)
[2018-04-01] MEDS: ASPIRIN 325 MG TAB PO SCH (09:00)
--- NOTE | 2018-04-01 10:22 | HHI.NPPN ---
Subjective General Problems: Anemia Renal Failure: Chronic, End Stage Renal Disease History of Present Illness 53 year old with ESRD AVF stent placement Additional Remarks had hematoma Objective Data Data 04/01/18 04/02/18 19:00 07:00 Output Total 300 ml Balance -300 ml Hemodialysis 300 ml Vital Signs Date Time Temp Pulse Resp B/P (MAP) Pulse Ox O2 Delivery O2 Flow Rate FiO2 04/01/18 08:00 97.8 63 17 126/60 (82) 95 04/01/18 08:00 Nasal Cannula 5.00 04/01/18 04:00 98.0 74 18 121/57 (78) 99 04/01/18 00:00 98.0 79 18 117/56 (76) 92 03/31/18 23:50 82 03/31/18 21:15 Nasal Cannula 2.00 03/31/18 20:37 94 Nasal Cannula 2.00 03/31/18 20:00 97.6 78 20 107/54 (71) 94 03/31/18 19:32 68 03/31/18 16:00 99.4 75 19 109/52 (71) 94 03/31/18 15:34 77 20 130/71 (90) 100 03/31/18 15:04 74 22 86/48 (61) 99 03/31/18 14:34 77 19 91/72 (78) 97 03/31/18 14:19 99.3 76 22 90/40 (57) 97 03/31/18 12:00 100.8 81 19 100/53 (69) 90 -: 04/01/18 0548 04/01/18 0548 Physical Exam General Appearance: Well Developed, Well Nourished, No Acute Distress, Comfortable, Obese Throat Throat Exam: Oral Mucosa [place] & Moist Pulmonary Resp Exam: Breath Sounds Equal, No Distress, Crackles, Diminished Breath Sounds Cardiology CV Exam: Regular, Normal Sinus Rhythm, Good Perfusion Gastrointestinal/Abdomen GI Exam: Soft, Bowel Sounds Present, Positive Bowel Movement, Distended Musculoskeletal MS Exam: Joints Intact, Normal Tone, Unable to Ambulate Integumentary Skin Exam: Clear, Warm, Dry, Intact Extremeties Extremities Exam: Pedal Pulses Palpable, Moderate Edema (hematoma left arm) Neurologic Neuro Exam: Alert, Awake, Oriented, Moving All Extremities Psychiatric Psych Exam: Appropriate Responses Assessment/Plan Discussed Condition With: Patient, Spouse Assessment Summary: Anemia of CKD, Hypotension, End Stage Renal Disease Problem List: (1) ESRD (end stage renal disease) ICD Codes: N18.6 - ESRD (end stage renal disease) Status: Acute Plan: Continue HD support TTS. Poor flow through AVF did not work today Hematoma s/p stent it is not working spoke with Dr. Contreras about vascath insertion he will place it High protein diet encouraged. She takes Auryxia for a phosphate binder. (2) Hypotension ICD Codes: I95.9 - Hypotension Status: Acute Plan: On midodrine TID, 10 mg (3) Abdominal pain ICD Codes: R10.9 - Abdominal pain Status: Acute Plan: CT report noted, had pancreatic cyst. s/p EUS 03/28 with FNA biopsy of the pancreatic pseudocyst, results pending outpatient follow up (4) Pancreatic pseudocyst ICD Codes: K86.3 - Pseudocyst of pancreas Status: Acute Plan: see above Unclear if that was the cause of her pain (5) Diabetes mellitus ICD Codes: E11.9 - Diabetes mellitus Status: Chronic Plan: Insulin coverage, maintain blood glucose between 140 and 180. (6) Pneumonia ICD Codes: J18.9 - Pneumonia Status: Acute Plan: ? aspiration On Levaquin ID has evaluated (7) Anemia ICD Codes: D64.9 - Anemia Status: Acute Plan: Epogen with dialysis as ordered Plan patient was seen and examined. Discussed with interventional radiologist. Stent extended to area of stenosis in the outflow vein. Dialysis tomorrow. Pathology from pancreatic pseudocyst: negative for malignant cells. Possible discharge tomorrow after dialysis. Darius Chavez MD April 01, 2018 10:22
[2018-04-01] MEDS: DOCUSATE SODIUM 50 MG/SENNA 8.6 MG TAB PO SCH ×3 (10:29→21:31)
[2018-04-01] MEDS: PANTOPRAZOLE SOD 40 MG DELAYED RELEASE TAB PO SCH (10:29)
[2018-04-01] MEDS: GABAPENTIN 400 MG CAP PO SCH ×3 (10:29→21:31)
[2018-04-01 12:00] VITALS: BP 100/48; PULSE 59; RESP 16; TEMP 97.5; O2SAT 92
[2018-04-01] MEDS: ALBUMIN 25% INJ 100 ML IV PRN ×3 (14:37→16:36)
[2018-04-01] MEDS: MANNITOL 12.5 GM/50 ML VIAL IV PRN ×2 (14:38→17:34)
[2018-04-01] MEDS: GELATIN 12 MM/7 MM FOAM TOP PRN (14:38)
--- NOTE | 2018-04-01 14:53 | PD.RAD ---
Post Procedure Progress Note Pre Procedure Diagnosis: (1) ESRD (end stage renal disease) on dialysis Post Procedure Diagnosis: (1) ESRD (end stage renal disease) on dialysis Procedure Date: April 01, 2018 Supervising Radiologist: Manuel Contreras JR Proceduralist/Assist: Lilliam Christiansen, RT(R)(), Maryjane Piedra RT(R) Anesthesia: Local Plan of Activity Patient to Unit: Nursing Unit Patient Condition: Good See PACS Report for procedural detail/treatment Central Venous Access Device Procedure 1 Right Internal Jugular Hemodialysis Catheter Non-Tunneled Placement dual lumen Citizen [place]: 14 Findings: Place right IJ Vascath. In good position and functions well. OK to use. Jr. Ben,Manuel Cotton MD April 01, 2018 14:53
[2018-04-01] MEDS ORDERED: HEPARIN SODIUM - IV 2,000 UNITS/2 ML VIAL IV FLUSH PRN (15:00)
[2018-04-01] MEDS ORDERED: SODIUM CHLORIDE 0.9% FLUSH 10 ML FLUSH IV FLUSH PRN (15:00)
--- NOTE | 2018-04-01 15:38 | HHI.PR ---
Subjective Remarks The patient was about to go down to interventional radiology. She wanted to make sure she had lidocaine and pain control for the procedure. She had no other acute concerns. Discussed with nursing. Objective Vitals Vital Signs Date Time Temp Pulse Resp B/P (MAP) Pulse Ox O2 Delivery O2 Flow Rate FiO2 04/01/18 12:00 97.5 59 16 100/48 (65) 92 04/01/18 08:00 97.8 63 17 126/60 (82) 95 04/01/18 08:00 Nasal Cannula 5.00 04/01/18 04:00 98.0 74 18 121/57 (78) 99 04/01/18 00:00 98.0 79 18 117/56 (76) 92 03/31/18 23:50 82 03/31/18 21:15 Nasal Cannula 2.00 03/31/18 20:37 94 Nasal Cannula 2.00 03/31/18 20:00 97.6 78 20 107/54 (71) 94 03/31/18 19:32 68 03/31/18 16:00 99.4 75 19 109/52 (71) 94 03/31/18 15:34 77 20 130/71 (90) 100 I/O 03/31/18 03/31/18 03/31/18 04/01/18 04/01/18 04/01/18 07:00 15:00 23:00 07:00 15:00 23:00 Intake Total 100 ml Output Total 2 ml 300 ml Balance 100 ml -2 ml -300 ml Intake Oral 0 ml IV Total 100 ml Stool Total 2 ml Hemodialysis 300 ml # Voids 0 5 # Bowel Movements 1 3 Result Diagram: 04/01/18 0548 04/01/18 0548 Imaging Last Impressions Shunt Study 03/31/18 0000 Signed Impressions: CONCLUSION: 1. Left upper extremity brachiobasilic fistula. 2. Patent previously placed stent in the very proximal outflow vein just beyon d the arterial anastomosis. 3. Severe approximately 1 cm length stenosis of the proximal basilic outflow v ein approximately 2 cm beyond the central stent. This was resistant to balloon dilatation with 6 mm and 8 mm balloons. Therefore, the originally placed stent was extended approximately 3 cm more centrally with an 8 x 40 mm self-expanding stent. Patient's skin was marked demarcating the central aspect of the stent. This should be sufficient [place] outflow vein for cannulation. Findings were personally discussed with Dr. Joshua. Chest X-Ray 03/31/18 0000 Signed Impressions: CONCLUSION: 1. Cardiomegaly with improved positive fluid balance. 2. Improved left lower lung zone airspace disease. Abdomen/Pelvis CT 03/23/18 1820 Signed Impressions: Service Date/Time: March 21:21 - CONCLUSION: 1. 8 cm cystic mass in the pancreatic tail. The slight erosions of pseudocysts. Other cystic masses in the pancreatic tail couldn't similar appearance. 2. Hernia mesh in the midline with a suspected seroma seen superficial to this. This is unchanged. 3. Colonic diverticula in the sigmoid region without inflammatory change. 4. Bibasilar areas of consolidation. Tanmay Bella MD Consultation 03/22/18 1433 Signed Impressions: Service Date/Time: Thursday, March 22, 2018 14:33 - CONCLUSION: 1. This patient has had previous pancreatitis with drainage catheters placed in the same collection back in 2014 as such, I would not recommend drainage of this unless there is significant suspicion for infection or obstructive symptoms Broderick Machado MD Abdomen Ultrasound 03/22/18 0000 Signed Impressions: Service Date/Time: Thursday, March 22, 2018 19:40 - CONCLUSION: 1. 10 cm complex cystic mass the pancreatic tail. This is nonspecific. A pseudocyst would be the most common mass. Other cystic masses/neoplasms cannot be excluded on the ultrasound alone. 2. Small echogenic kidneys consistent with chronic renal disease. Tanmay Bella MD Objective Remarks GENERAL: No apparent distress. SKIN: Warm and dry. HEAD: Atraumatic. Normocephalic. EYES: Pupils equal and round. No scleral icterus. No injection or drainage. ENT: No nasal bleeding or discharge. Mucous membranes pink and moist. NECK: Trachea midline. No JVD. CARDIOVASCULAR: Regular rate and rhythm. S1, S2. RESPIRATORY: Diffuse wheezing has improved. GASTROINTESTINAL: Abdomen soft, obese. No guarding or rigidity. Normoactive bowel sounds. MUSCULOSKELETAL: Extremities with trace bilateral lower extremity edema. Left AV fistula with positive thrill. VASC: L femoral CVL in place. Dressing in place at R IJ site. NEUROLOGICAL: No obvious cranial nerve deficits. Moving all extremities without focal deficit. Procedures None A/P Problem List: (1) Pancreatic pseudocyst ICD Code: K86.3 - Pseudocyst of pancreas Status: Acute (2) Pancreatitis ICD Code: K85.90 - Acute pancreatitis without necrosis or infection, unspecified (3) Nausea & vomiting ICD Code: R11.2 - Nausea with vomiting, unspecified (4) Abdominal pain ICD Code: R10.9 - Unspecified abdominal pain (5) ESRD on hemodialysis ICD Code: N18.6 - End stage renal disease; Z99.2 - Dependence on renal dialysis Assessment and Plan Gastroesophageal reflux disease/ Pancreatitis with pancreatic pseudocyst Status post EGD/EUS with sampling from pancreatic pseudocyst done on 03/27. CT abdomen/pelvis revealed 8 cm pancreatic pseudocyst at tail of pancreas. Colonic diverticulosis. Seroma midline abdominal mesh. Evaluated by GI. They recommended ID consult and drainage placed by IR. IR currently does not recommend as previously placed 2014. Pathology reveals pancreatic cyst. - Patient is on ranitidine 150 mg p.o. daily at night at home/ esomeprazole 40 mg daily at home. Currently on pantoprazole. - pain control with docusate sodium/senna 1 tablet twice daily for bowel regimen. - follow up with GI as an outpt. Acute respiratory failure/ PNA ASHLYN? Extubated on 03/26. Aspiration pneumonia vs HCAP. Stable on 3L NC. - Currently on IV Levaquin per ID. - continue Bipap nocturnal and as needed. - Albuterol/ipratropium aerosols every 6 hours with albuterol aerosols every 2 hours as needed dyspnea. - Improved with IV Solu-Medrol. Decrease to BID. - Incentive spirometry. - PT/ OT. - Pulmonology consult if no improvement. End-stage renal disease on hemodialysis Tuesday//Tuesday No indication for Garcia placement. Secondary hyperparathyroidism. IHD from left upper extremity fistula per Dr. Joshua. - Continue calcium acetate 667 mg p.o. twice daily with meals. - dialysis per nephrology. Vas-Cath ordered. Essential hypertension/ hypotension Off IVF. Currently not requiring vasopressors and/or antihypertensives - d/c amlodipine 5 mg daily - midodrine resumed. Diabetes mellitus Well controlled. - Sliding scale insulin NovoLog low regimen every 4 hours Accu-Cheks to maintain euglycemia. - Currently off linagliptin 5 mg p.o. daily and insulin aspart pen for diabetes at home. Acute encephalopathy Secondary to sepsis/pancreatitis. Resolved. - Acetaminophen 650 mg p.o. every 6 hours as needed fever - Patient is currently on oxycodone/acetaminophen 5/325 1 tablet every 4 hours as needed pain 1 through 5. Hydromorphone 1 mg IV every 4 hours as needed pain 6 or 10 - Currently on gabapentin 400mg p.o. twice daily home medication for neuropathy. Prophylaxis -GI -pantoprazole -DVT -SCD/heparin subcu Discharge Planning Await ID clearance then D/c to SNF Problem Qualifiers (1) Abdominal pain: Qualified Codes: R10.84 - Generalized abdominal pain John Blackburn DO April 01, 2018 15:38
--- NOTE | 2018-04-01 16:22 | RADRPT ---
EXAM DATE: 04/01/2018 3:18 PM EDT AGE/SEX: 52 years / Female INDICATIONS: Patient presents with non functioning fistula in need of vas cath for dialysis. CLINICAL DATA: This is the patient's initial encounter. Patient reports that signs and symptoms have been present for 1 day and indicates a pain score of 2/10. MEDICAL/SURGICAL HISTORY: . ESRD on HD Tuesday, , TuesdayHyperlipidemiaDMGastroparesis NeuropathyFoot drop L>R per patientPeritonitisAnemiaSecondary hyperparathyroidismPancreatitis with pa ncreatic pseudocyst NeuropathyHTN . EGDJ-tube insertion and subsequent removal in 2014Cholecystectom yHernia repair Left upper arm fistula Left femur fracture with surgical repair COMPARISON: None. FLUORO TIME (min): 1:12 IMAGE SERIES: 1 ACCESS SITE: Right internal jugular vein DEVICE(S): 14 [place] double lumen Schon catheter 15cm . . PROCEDURE : 1. Ultrasound guided venipuncture. 2. Fluoroscopic guidance. 3. Central line placement. The risks, benefits and alternatives to the procedure were explained and verbal and written consent w as obtained. The site was prepped in sterile fashion. Full sterile technique was used, including ca p, mask, sterile gloves and gown and a large sterile sheet. Hand hygiene and 2% chlorhexidine prep w as utilized per protocol for cutaneous antisepsis with appropriate dry time for site. Sterile gel an d sterile probe cover were utilized for ultrasound guidance. The skin and subcutaneous tissues were infiltrated with local anesthetic solution. A suitable site a ward the vein was selected with ultrasound and fluoroscopic guidance. A small incision was made. Th e vein was accessed under direct ultrasound visualization using the micropuncture technique. The veronica ropuncture set was exchanged for a 0.035 wire. The tract was dilated. The catheter was advanced int o position under direct fluoroscopic visualization, and was advanced with the tip at the junction of the superior vena cava and rt atrium. The catheter was fixed in place with suture and a sterile dres sing was applied. The patient tolerated the procedure well and there were no complications. CONCLUSION: 1. Uncomplicated right internal jugular vein temporary dialysis catheter placement as above. Electronically signed by: Manuel Contreras MD 04/01/2018 4:21 PM EDT
[2018-04-01] MEDS: HEPARIN SODIUM - IV 10,000 UNITS/10 ML VIAL PRN (17:33)
[2018-04-01] MEDS: GENTAMICIN SULFATE 20 MG/2 ML VIAL OTHER PRN (17:33)
[2018-04-01 20:00] VITALS: BP 135/63; PULSE 64; PULSE 69; RESP 16; TEMP 98.1; O2SAT 100
[2018-04-01 21:14] VITALS: O2SAT 100
[2018-04-01] MEDS: HYDROmorphone HCL PF 0.5 MG/0.5 ML SYRINGE IV PRN (22:45)
[2018-04-02] VITALS (8 sets, daily range): BP systolic 118–137; BP diastolic 57–72; PULSE 56–68; RESP 16–19; TEMP 98–98.2; O2SAT 95–100
[2018-04-02] MEDS: INSULIN ASPART SUPPLEMENTAL SCALE SQ SCH ×6 (00:17→21:09)
[2018-04-02] MEDS: CHLORHEXIDINE GLUCONATE 2 % 1 PACK (2 CLOTHS) TOP SCH (04:00)
[2018-04-02] MEDS: MIDODRINE 5 MG TAB PO SCH ×3 (05:39→16:33)
[2018-04-02 06:44] LABS: HEMOGLOBIN 8.4 GM/DL (11.6-15.3); MEAN CELL VOLUME 101.7 FL (80.0-100.0); MEAN CORPUSCULAR HEMOGLOBIN 30.6 PG (27.0-34.0); MEAN CORPUSCULAR HGB CONC 30.1 % (32.0-36.0); MEAN PLATELET VOLUME 9.4 FL (7.0-11.0); PLATELET COUNT 341 TH/MM3 (150-450); RED BLOOD COUNT 2.75 MIL/MM3 (4.00-5.30); RED CELL DISTRIBUTION WIDTH 15.8 % (11.6-17.2); WHITE BLOOD COUNT 12.7 TH/MM3 (4.0-11.0)
[2018-04-02 07:11] LABS: BICARBONATE 29.9 MEQ/L (21.0-32.0); CALCIUM 9.5 MG/DL (8.5-10.1); CREATININE 6.03 MG/DL (0.50-1.00); MAGNESIUM 2.3 MG/DL (1.5-2.5)
[2018-04-02] MEDS: GABAPENTIN 400 MG CAP PO SCH ×2 (07:57→21:10)
[2018-04-02] MEDS: HEPARIN SODIUM - SQ 10,000 UNITS/ML VIAL SQ SCH ×2 (07:57→21:10)
[2018-04-02] MEDS: ASPIRIN 325 MG TAB PO SCH (07:57)
[2018-04-02] MEDS: methylPREDNISolone SOD SUCC 40 MG/1 ML VIAL IV PUSH SCH (07:57)
[2018-04-02] MEDS: DOCUSATE SODIUM 50 MG/SENNA 8.6 MG TAB PO SCH ×2 (07:57→21:10)
[2018-04-02] MEDS: PANTOPRAZOLE SOD 40 MG DELAYED RELEASE TAB PO SCH (07:57)
[2018-04-02] MEDS: ARTIFICIAL TEARS OPTH SOLN 15 ML BTL EACH EYE SCH ×3 (07:58→16:34)
[2018-04-02] MEDS: SODIUM CHLORIDE 0.9% FLUSH 10 ML FLUSH IV FLUSH SCH ×3 (07:58→21:10)
[2018-04-02] MEDS: AURYXIA 210 MG PO SCH ×3 (07:59→16:33)
[2018-04-02] MEDS: CHLORHEXIDINE 0.12% (ORAL KIT) 15 ML CUP MT SCH ×2 (08:00→20:00)
[2018-04-02] MEDS: INSULIN DETEMIR 100 UNITS/ML VIAL SQ SCH ×2 (09:47→21:10)
[2018-04-02] MEDS ORDERED: INSULIN HUMAN REGULAR 1,000 UNITS/10 ML VIAL SQ ONE ×2 (12:00→14:45)
[2018-04-02] MEDS ORDERED: RESP: ALBUTEROL 2.5 MG/IPRATROPIUM 0.5 MG NEB (SCH) NEB ONE (12:00)
--- NOTE | 2018-04-02 12:08 | HHI.PR ---
Subjective Remarks The patient said that she had her ups and downs. She said that she had surgery on her neck and it hurt a lot. She said her breathing bothered her at times. Discussed with nursing at the bedside. Objective Vitals Vital Signs Date Time Temp Pulse Resp B/P (MAP) Pulse Ox O2 Delivery O2 Flow Rate FiO2 04/02/18 08:11 Nasal Cannula 3.00 04/02/18 08:00 98.0 56 17 130/60 (83) 97 04/02/18 04:00 63 04/02/18 04:00 98.2 67 16 125/64 (84) 98 04/02/18 00:00 98.0 66 16 127/63 (84) 100 04/02/18 00:00 68 04/01/18 21:14 100 Nasal Cannula 5.00 04/01/18 20:00 69 04/01/18 20:00 98.1 64 16 135/63 (87) 100 I/O 04/01/18 04/01/18 04/01/18 04/02/18 04/02/18 04/02/18 07:00 15:00 23:00 07:00 15:00 23:00 Intake Total 720 ml 240 ml Output Total 2 ml 300 ml 3500 ml Balance -2 ml -300 ml -2780 ml 240 ml Intake Oral 720 ml 240 ml Output Urine Total 0 ml Stool Total 2 ml Hemodialysis 300 ml 3500 ml # Voids 5 0 # Bowel Movements 0 0 Result Diagram: 04/02/18 0515 04/02/18 0955 Imaging Last Impressions Catheter Placement X-Ray 04/01/18 0000 Signed Impressions: CONCLUSION: 1. Uncomplicated right internal jugular vein temporary dialysis catheter place ment as above. Shunt Study 03/31/18 0000 Signed Impressions: CONCLUSION: 1. Left upper extremity brachiobasilic fistula. 2. Patent previously placed stent in the very proximal outflow vein just beyon d the arterial anastomosis. 3. Severe approximately 1 cm length stenosis of the proximal basilic outflow v ein approximately 2 cm beyond the central stent. This was resistant to balloon dilatation with 6 mm and 8 mm balloons. Therefore, the originally placed stent was extended approximately 3 cm more centrally with an 8 x 40 mm self-expanding stent. Patient's skin was marked demarcating the central aspect of the stent. This should be sufficient [place] outflow vein for cannulation. Findings were personally discussed with Dr. Joshua. Chest X-Ray 03/31/18 0000 Signed Impressions: CONCLUSION: 1. Cardiomegaly with improved positive fluid balance. 2. Improved left lower lung zone airspace disease. Abdomen/Pelvis CT 03/23/18 1820 Signed Impressions: Service Date/Time: March 21:21 - CONCLUSION: 1. 8 cm cystic mass in the pancreatic tail. The slight erosions of pseudocysts. Other cystic masses in the pancreatic tail couldn't similar appearance. 2. Hernia mesh in the midline with a suspected seroma seen superficial to this. This is unchanged. 3. Colonic diverticula in the sigmoid region without inflammatory change. 4. Bibasilar areas of consolidation. Tanmay Bella MD Consultation 03/22/18 1433 Signed Impressions: Service Date/Time: Thursday, March 22, 2018 14:33 - CONCLUSION: 1. This patient has had previous pancreatitis with drainage catheters placed in the same collection back in 2014 as such, I would not recommend drainage of this unless there is significant suspicion for infection or obstructive symptoms Broderick Machado MD Abdomen Ultrasound 03/22/18 0000 Signed Impressions: Service Date/Time: Thursday, March 22, 2018 19:40 - CONCLUSION: 1. 10 cm complex cystic mass the pancreatic tail. This is nonspecific. A pseudocyst would be the most common mass. Other cystic masses/neoplasms cannot be excluded on the ultrasound alone. 2. Small echogenic kidneys consistent with chronic renal disease. Tanmay Bella MD Objective Remarks GENERAL: No apparent distress. SKIN: Warm and dry. HEAD: Atraumatic. Normocephalic. EYES: Pupils equal and round. No scleral icterus. No injection or drainage. ENT: No nasal bleeding or discharge. Mucous membranes pink and moist. NECK: Trachea midline. No JVD. Vas-cath in place. CARDIOVASCULAR: Regular rate and rhythm. S1, S2. RESPIRATORY: Coarse rhonchi. GASTROINTESTINAL: Abdomen soft, obese. No guarding or rigidity. Normoactive bowel sounds. MUSCULOSKELETAL: Extremities with trace bilateral lower extremity edema. Left AV fistula with positive thrill. NEUROLOGICAL: No obvious cranial nerve deficits. Moving all extremities without focal deficit. Procedures Vas-cath placed A/P Problem List: (1) Pancreatic pseudocyst ICD Code: K86.3 - Pseudocyst of pancreas Status: Acute (2) Pancreatitis ICD Code: K85.90 - Acute pancreatitis without necrosis or infection, unspecified (3) Nausea & vomiting ICD Code: R11.2 - Nausea with vomiting, unspecified (4) Abdominal pain ICD Code: R10.9 - Unspecified abdominal pain (5) ESRD on hemodialysis ICD Code: N18.6 - End stage renal disease; Z99.2 - Dependence on renal dialysis Assessment and Plan Acute respiratory failure/ PNA ASHLYN? Extubated on 03/26. Aspiration pneumonia vs HCAP. Stable on 3L NC. Repeat CXR with improvement in aeration and fluid balance. - Currently on IV Levaquin per ID. - continue Bipap nocturnal and as needed. - Albuterol/ipratropium aerosols every 6 hours with albuterol aerosols every 2 hours as needed dyspnea. - d/c steroids. - Incentive spirometry. - PT/ OT. End-stage renal disease On hemodialysis Tuesday//Tuesday. Fistula has been problematic. Vas- cath placed 04/01. - Continue calcium acetate 667 mg p.o. twice daily with meals. - dialysis per nephrology. Gastroesophageal reflux disease/ Pancreatitis with pancreatic pseudocyst Status post EGD/EUS with sampling from pancreatic pseudocyst done on 03/27. CT abdomen/pelvis revealed 8 cm pancreatic pseudocyst at tail of pancreas. Colonic diverticulosis. Seroma midline abdominal mesh. Evaluated by GI. They recommended ID consult and drainage placed by IR. IR currently does not recommend as previously placed 2014. Pathology reveals pancreatic cyst. - Patient is on ranitidine 150 mg p.o. daily at night at home/ esomeprazole 40 mg daily at home. Currently on pantoprazole. - pain control with docusate sodium/senna 1 tablet twice daily for bowel regimen. - follow up with GI as an outpt. Essential hypertension/ hypotension Off IVF. Currently not requiring vasopressors and/or antihypertensives - d/c amlodipine 5 mg daily - midodrine resumed. Diabetes mellitus Poorly controlled s/t steroids. - d/c steroids. - Sliding scale insulin NovoLog low regimen every 4 hours Accu-Cheks to maintain euglycemia. - Currently off linagliptin 5 mg p.o. daily and insulin aspart pen for diabetes at home. - Levemir 10 units daily. Regular insulin x 1. Adjust regimen as needed. Acute encephalopathy Secondary to sepsis/pancreatitis. Resolved. - Acetaminophen 650 mg p.o. every 6 hours as needed fever - Patient is currently on oxycodone/acetaminophen 5/325 1 tablet every 4 hours as needed pain 1 through 5. Hydromorphone 1 mg IV every 4 hours as needed pain 6 or 10 - Currently on gabapentin 400mg p.o. twice daily home medication for neuropathy. Prophylaxis -GI -pantoprazole -DVT -SCD/heparin subcu Discharge Planning Await ID clearance then D/c to SNF. Hopefully 1-2 days Problem Qualifiers (1) Abdominal pain: Qualified Codes: R10.84 - Generalized abdominal pain John Blackburn DO April 02, 2018 12:08
[2018-04-02] MEDS: RESP: ALBUTEROL 2.5 MG/IPRATROPIUM 0.5 MG NEB (SCH) NEB ×2 (15:10→21:19)
[2018-04-02] MEDS ORDERED: INSULIN ASPART 1,000 UNITS/10 ML VIAL SQ ONE (15:45)
--- NOTE | 2018-04-02 16:55 | HHI.NPPN ---
Subjective General Problems: Anemia Renal Failure: Chronic, End Stage Renal Disease History of Present Illness 53 year old with ESRD AVF stent placement Additional Remarks had hematoma non functioning AVF Objective Data Data Vital Signs Date Time Temp Pulse Resp B/P (MAP) Pulse Ox O2 Delivery O2 Flow Rate FiO2 04/02/18 16:00 98.0 68 17 137/63 (87) 99 04/02/18 15:20 99 Nasal Cannula 5.00 04/02/18 12:00 98.1 67 17 118/57 (77) 95 04/02/18 08:11 Nasal Cannula 3.00 04/02/18 08:00 98.0 56 17 130/60 (83) 97 04/02/18 04:00 63 04/02/18 04:00 98.2 67 16 125/64 (84) 98 04/02/18 00:00 98.0 66 16 127/63 (84) 100 04/02/18 00:00 68 04/01/18 21:14 100 Nasal Cannula 5.00 04/01/18 20:00 69 04/01/18 20:00 98.1 64 16 135/63 (87) 100 -: 04/02/18 0515 04/02/18 1245 Physical Exam General Appearance: Well Developed, Well Nourished, No Acute Distress, Comfortable, Obese Throat Throat Exam: Oral Mucosa [place] & Moist Pulmonary Resp Exam: Breath Sounds Equal, No Distress, Crackles, Diminished Breath Sounds Cardiology CV Exam: Regular, Normal Sinus Rhythm, Good Perfusion Gastrointestinal/Abdomen GI Exam: Soft, Bowel Sounds Present, Positive Bowel Movement, Distended Musculoskeletal MS Exam: Joints Intact, Normal Tone, Unable to Ambulate Integumentary Skin Exam: Clear, Warm, Dry, Intact Extremeties Extremities Exam: Pedal Pulses Palpable, Moderate Edema (hematoma left arm) Neurologic Neuro Exam: Alert, Awake, Oriented, Moving All Extremities Psychiatric Psych Exam: Appropriate Responses Assessment/Plan Discussed Condition With: Patient, Spouse Assessment Summary: Anemia of CKD, Hypotension, End Stage Renal Disease Problem List: (1) ESRD (end stage renal disease) ICD Codes: N18.6 - ESRD (end stage renal disease) Status: Acute Plan: Continue HD support TTS. Poor flow through AVF did not work today Hematoma s/p stent it is not working Hemodialysis yesterday via Vascath 3.5 L off High protein diet encouraged. She takes Auryxia for a phosphate binder. Dr. Joshua to follow (2) Hypotension ICD Codes: I95.9 - Hypotension Status: Acute Plan: On midodrine TID, 10 mg (3) Abdominal pain ICD Codes: R10.9 - Abdominal pain Status: Acute Plan: CT report noted, had pancreatic cyst. s/p EUS 03/28 with FNA biopsy of the pancreatic pseudocyst, results pending outpatient follow up (4) Pancreatic pseudocyst ICD Codes: K86.3 - Pseudocyst of pancreas Status: Acute Plan: see above Unclear if that was the cause of her pain (5) Diabetes mellitus ICD Codes: E11.9 - Diabetes mellitus Status: Chronic Plan: Insulin coverage, maintain blood glucose between 140 and 180. (6) Pneumonia ICD Codes: J18.9 - Pneumonia Status: Acute Plan: ? aspiration On Levaquin ID has evaluated (7) Anemia ICD Codes: D64.9 - Anemia Status: Acute Plan: Epogen with dialysis as ordered Plan patient was seen and examined. Discussed with interventional radiologist. Stent extended to area of stenosis in the outflow vein. Dialysis tomorrow. Pathology from pancreatic pseudocyst: negative for malignant cells. Possible discharge tomorrow after dialysis. Darius Chavez MD April 02, 2018 16:55
[2018-04-02] MEDS: LEVOFLOXACIN 500 MG PREMIX INJ 100 ML IV SCH (21:08)
[2018-04-03] VITALS (9 sets, daily range): BP systolic 94–123; BP diastolic 48–74; PULSE 52–69; RESP 17–19; TEMP 98–98.5; O2SAT 91–100
[2018-04-03] MEDS: INSULIN ASPART SUPPLEMENTAL SCALE SQ SCH ×7 (00:14→23:53)
[2018-04-03] MEDS: CHLORHEXIDINE GLUCONATE 2 % 1 PACK (2 CLOTHS) TOP SCH (04:00)
[2018-04-03] MEDS: MIDODRINE 5 MG TAB PO SCH ×3 (06:45→18:06)
[2018-04-03 07:19] LABS: HEMATOCRIT 27.3 % (35.0-46.0); HEMOGLOBIN 8.4 GM/DL (11.6-15.3); MEAN CELL VOLUME 99.4 FL (80.0-100.0); MEAN CORPUSCULAR HEMOGLOBIN 30.4 PG (27.0-34.0); MEAN CORPUSCULAR HGB CONC 30.6 % (32.0-36.0); PLATELET COUNT 374 TH/MM3 (150-450); RED BLOOD COUNT 2.75 MIL/MM3 (4.00-5.30); RED CELL DISTRIBUTION WIDTH 15.3 % (11.6-17.2); WHITE BLOOD COUNT 12.8 TH/MM3 (4.0-11.0)
[2018-04-03 07:51] LABS: BICARBONATE 29.3 MEQ/L (21.0-32.0); CALCIUM 9.3 MG/DL (8.5-10.1); CREATININE 7.34 MG/DL (0.50-1.00); MAGNESIUM 2.2 MG/DL (1.5-2.5)
[2018-04-03] MEDS: CHLORHEXIDINE 0.12% (ORAL KIT) 15 ML CUP MT SCH ×2 (08:00→20:00)
[2018-04-03] MEDS: ARTIFICIAL TEARS OPTH SOLN 15 ML BTL EACH EYE SCH ×3 (09:00→16:34)
[2018-04-03] MEDS ORDERED: predniSONE 20 MG TAB PO SCH (09:00)
[2018-04-03] MEDS: SODIUM CHLORIDE 0.9% FLUSH 10 ML FLUSH IV FLUSH SCH ×3 (09:00→21:47)
[2018-04-03] MEDS: GABAPENTIN 400 MG CAP PO SCH ×2 (09:07→21:43)
[2018-04-03] MEDS: PANTOPRAZOLE SOD 40 MG DELAYED RELEASE TAB PO SCH (09:07)
[2018-04-03] MEDS: DOCUSATE SODIUM 50 MG/SENNA 8.6 MG TAB PO SCH ×2 (09:07→21:00)
[2018-04-03] MEDS: HEPARIN SODIUM - SQ 10,000 UNITS/ML VIAL SQ SCH ×2 (09:08→21:00)
[2018-04-03] MEDS: ASPIRIN 325 MG TAB PO SCH (09:09)
[2018-04-03] MEDS: AURYXIA 210 MG PO SCH ×3 (09:09→18:06)
[2018-04-03] MEDS: INSULIN DETEMIR 100 UNITS/ML VIAL SQ SCH ×2 (09:10→21:47)
[2018-04-03] MEDS: oxyCODONE/ACETAMINOPHEN 5 MG/325 MG TAB PO PRN ×3 (09:20→21:55)
--- NOTE | 2018-04-03 10:44 | HHI.NPPN ---
Subjective General Problems: Anemia Renal Failure: Chronic, End Stage Renal Disease History of Present Illness 53 year old with ESRD AVF stent placement Additional Remarks Patient had VasCath placed for dialysis on Tuesday. On 4 liters of oxygen. Objective Data Data Vital Signs Date Time Temp Pulse Resp B/P (MAP) Pulse Ox O2 Delivery O2 Flow Rate FiO2 04/03/18 08:36 98 Nasal Cannula 4.00 04/03/18 08:00 98.5 56 19 100/51 (67) 99 04/03/18 04:00 98.0 66 19 120/70 (87) 100 04/03/18 04:00 60 04/03/18 00:00 98.2 67 19 123/74 (90) 100 04/03/18 00:00 69 04/02/18 21:19 97 Nasal Cannula 4.00 04/02/18 20:00 Nasal Cannula 4.00 04/02/18 20:00 98.1 66 19 125/72 (89) 100 04/02/18 20:00 63 04/02/18 16:00 98.0 68 17 137/63 (87) 99 04/02/18 15:20 99 Nasal Cannula 5.00 04/02/18 12:00 98.1 67 17 118/57 (77) 95 -: 04/03/18 0700 04/03/18 0700 Physical Exam General Appearance: Well Developed, Well Nourished, No Acute Distress, Comfortable, Obese Throat Throat Exam: Oral Mucosa [place] & Moist Pulmonary Resp Exam: Breath Sounds Equal, No Distress, Crackles, Diminished Breath Sounds Cardiology CV Exam: Regular, Normal Sinus Rhythm, Good Perfusion Gastrointestinal/Abdomen GI Exam: Soft, Bowel Sounds Present, Positive Bowel Movement, Distended Musculoskeletal MS Exam: Joints Intact, Normal Tone, Unable to Ambulate Integumentary Skin Exam: Clear, Warm, Dry, Intact Extremeties Extremities Exam: Pedal Pulses Palpable, Moderate Edema (hematoma left arm) Neurologic Neuro Exam: Alert, Awake, Oriented, Moving All Extremities Psychiatric Psych Exam: Appropriate Responses Assessment/Plan Discussed Condition With: Patient, Spouse Assessment Summary: Anemia of CKD, Hypotension, End Stage Renal Disease Problem List: (1) ESRD (end stage renal disease) ICD Codes: N18.6 - ESRD (end stage renal disease) Status: Acute Plan: Continue HD support TTS. Will consult IR for PermCath placement. AVF could not be cannulated on Tuesday. High protein diet encouraged. She takes Auryxia for a phosphate binder. (2) Hypotension ICD Codes: I95.9 - Hypotension Status: Acute Plan: On midodrine TID, 10 mg (3) Abdominal pain ICD Codes: R10.9 - Abdominal pain Status: Acute Plan: CT report noted, had pancreatic cyst. s/p EUS 03/28 with FNA biopsy of the pancreatic pseudocyst, no malignant cells on biopsy. (4) Pancreatic pseudocyst ICD Codes: K86.3 - Pseudocyst of pancreas Status: Acute Plan: see above Unclear if that was the cause of her pain (5) Diabetes mellitus ICD Codes: E11.9 - Diabetes mellitus Status: Chronic Plan: Insulin coverage, maintain blood glucose between 140 and 180. (6) Pneumonia ICD Codes: J18.9 - Pneumonia Status: Acute Plan: ? aspiration On Levaquin ID has evaluated (7) Anemia ICD Codes: D64.9 - Anemia Status: Acute Plan: Epogen with dialysis as ordered Lokesh Joshua MD April 03, 2018 10:44
--- NOTE | 2018-04-03 12:04 | HHI.PR ---
Subjective Remarks The patient was resting in bed. She said she wanted her pain controlled. She said she was next due for dialysis tomorrow. She said she would be willing to go to a SNF for a short period of time. Discussed with nursing. Objective Vitals Vital Signs Date Time Temp Pulse Resp B/P (MAP) Pulse Ox O2 Delivery O2 Flow Rate FiO2 04/03/18 10:20 18 04/03/18 09:00 99 Nasal Cannula 4.00 04/03/18 08:36 98 Nasal Cannula 4.00 04/03/18 08:00 98.5 56 19 100/51 (67) 99 04/03/18 04:00 98.0 66 19 120/70 (87) 100 04/03/18 04:00 60 04/03/18 00:00 98.2 67 19 123/74 (90) 100 04/03/18 00:00 69 04/02/18 21:19 97 Nasal Cannula 4.00 04/02/18 20:00 Nasal Cannula 4.00 04/02/18 20:00 98.1 66 19 125/72 (89) 100 04/02/18 20:00 63 04/02/18 16:00 98.0 68 17 137/63 (87) 99 04/02/18 15:20 99 Nasal Cannula 5.00 04/02/18 12:00 98.1 67 17 118/57 (77) 95 I/O 04/02/18 04/02/18 04/02/18 04/03/18 04/03/18 04/03/18 07:00 15:00 23:00 07:00 15:00 23:00 Intake Total 240 ml 1080 ml 240 ml Balance 240 ml 1080 ml 240 ml Intake Oral 240 ml 1080 ml 240 ml # Voids 0 0 0 # Bowel Movements 0 0 0 Result Diagram: 04/03/18 0700 04/03/18 0700 Imaging Last Impressions Catheter Placement X-Ray 04/01/18 0000 Signed Impressions: CONCLUSION: 1. Uncomplicated right internal jugular vein temporary dialysis catheter place ment as above. Shunt Study 03/31/18 0000 Signed Impressions: CONCLUSION: 1. Left upper extremity brachiobasilic fistula. 2. Patent previously placed stent in the very proximal outflow vein just beyon d the arterial anastomosis. 3. Severe approximately 1 cm length stenosis of the proximal basilic outflow v ein approximately 2 cm beyond the central stent. This was resistant to balloon dilatation with 6 mm and 8 mm balloons. Therefore, the originally placed stent was extended approximately 3 cm more centrally with an 8 x 40 mm self-expanding stent. Patient's skin was marked demarcating the central aspect of the stent. This should be sufficient [place] outflow vein for cannulation. Findings were personally discussed with Dr. Joshua. Chest X-Ray 03/31/18 0000 Signed Impressions: CONCLUSION: 1. Cardiomegaly with improved positive fluid balance. 2. Improved left lower lung zone airspace disease. Abdomen/Pelvis CT 03/23/18 1820 Signed Impressions: Service Date/Time: March 21:21 - CONCLUSION: 1. 8 cm cystic mass in the pancreatic tail. The slight erosions of pseudocysts. Other cystic masses in the pancreatic tail couldn't similar appearance. 2. Hernia mesh in the midline with a suspected seroma seen superficial to this. This is unchanged. 3. Colonic diverticula in the sigmoid region without inflammatory change. 4. Bibasilar areas of consolidation. Tanmay Bella MD Consultation 03/22/18 1433 Signed Impressions: Service Date/Time: Thursday, March 22, 2018 14:33 - CONCLUSION: 1. This patient has had previous pancreatitis with drainage catheters placed in the same collection back in 2014 as such, I would not recommend drainage of this unless there is significant suspicion for infection or obstructive symptoms Broderick Machado MD Abdomen Ultrasound 03/22/18 0000 Signed Impressions: Service Date/Time: Thursday, March 22, 2018 19:40 - CONCLUSION: 1. 10 cm complex cystic mass the pancreatic tail. This is nonspecific. A pseudocyst would be the most common mass. Other cystic masses/neoplasms cannot be excluded on the ultrasound alone. 2. Small echogenic kidneys consistent with chronic renal disease. Tanmay Bella MD Objective Remarks GENERAL: No apparent distress. SKIN: Warm and dry. HEAD: Atraumatic. Normocephalic. EYES: Pupils equal and round. No scleral icterus. No injection or drainage. ENT: No nasal bleeding or discharge. Mucous membranes pink and moist. NECK: Trachea midline. No JVD. Vas-cath in place. CARDIOVASCULAR: Regular rate and rhythm. S1, S2. RESPIRATORY: CTAB. No W/R/R. GASTROINTESTINAL: Abdomen soft, obese. No guarding or rigidity. Normoactive bowel sounds. MUSCULOSKELETAL: Extremities with trace bilateral lower extremity edema. Left AV fistula with positive thrill. NEUROLOGICAL: No obvious cranial nerve deficits. Moving all extremities without focal deficit. Procedures Vas-cath placed A/P Problem List: (1) Pancreatic pseudocyst ICD Code: K86.3 - Pseudocyst of pancreas Status: Acute (2) Pancreatitis ICD Code: K85.90 - Acute pancreatitis without necrosis or infection, unspecified (3) Nausea & vomiting ICD Code: R11.2 - Nausea with vomiting, unspecified (4) Abdominal pain ICD Code: R10.9 - Unspecified abdominal pain (5) ESRD on hemodialysis ICD Code: N18.6 - End stage renal disease; Z99.2 - Dependence on renal dialysis Assessment and Plan Acute respiratory failure/ PNA ASHLYN? Extubated on 03/26. Aspiration pneumonia vs HCAP. Stable on 3L NC. Repeat CXR with improvement in aeration and fluid balance. - Currently on IV Levaquin per ID. - continue Bipap nocturnal and as needed. - Albuterol/ipratropium aerosols every 6 hours with albuterol aerosols every 2 hours as needed dyspnea. - d/c steroids. - Incentive spirometry. - PT/ OT. End-stage renal disease On hemodialysis Tuesday//Tuesday. Fistula has been problematic. Vas- cath placed 04/01. - Continue calcium acetate 667 mg p.o. twice daily with meals. - dialysis per nephrology. - Perm cath to be placed 04/04. Gastroesophageal reflux disease/ Pancreatitis with pancreatic pseudocyst Status post EGD/EUS with sampling from pancreatic pseudocyst done on 03/27. CT abdomen/pelvis revealed 8 cm pancreatic pseudocyst at tail of pancreas. Colonic diverticulosis. Seroma midline abdominal mesh. Evaluated by GI. They recommended ID consult and drainage placed by IR. IR currently does not recommend as previously placed 2014. Pathology reveals pancreatic cyst. - Patient is on ranitidine 150 mg p.o. daily at night at home/ esomeprazole 40 mg daily at home. Currently on pantoprazole. - pain control with docusate sodium/senna 1 tablet twice daily for bowel regimen. - follow up with GI as an outpt. Essential hypertension/ hypotension Off IVF. Currently not requiring vasopressors and/or antihypertensives - d/c amlodipine 5 mg daily - midodrine resumed. Diabetes mellitus Poorly controlled s/t steroids. Improved off of steroids. - d/c steroids. - Sliding scale insulin . Accu-Cheks. - Currently off linagliptin 5 mg p.o. daily and insulin aspart pen for diabetes at home. - Levemir 10 units daily. Adjust regimen as needed. Acute encephalopathy Secondary to sepsis/pancreatitis. Resolved. - Acetaminophen 650 mg p.o. every 6 hours as needed fever - Patient is currently on oxycodone/acetaminophen 5/325 1 tablet every 4 hours as needed pain 1 through 5. Hydromorphone 1 mg IV every 4 hours as needed pain 6 or 10 - Currently on gabapentin 400mg p.o. twice daily home medication for neuropathy. Prophylaxis -GI -pantoprazole -DVT -SCD/heparin subcu Discharge Planning Anticipate d/c to SNF 04/04 after perm cath placed and dialysis if cleared by ID Problem Qualifiers (1) Abdominal pain: Qualified Codes: R10.84 - Generalized abdominal pain John Blackburn DO April 03, 2018 12:04
[2018-04-03] MEDS: RESP: ALBUTEROL 2.5 MG/IPRATROPIUM 0.5 MG NEB (SCH) NEB ×2 (12:56→19:58)
[2018-04-04] VITALS (10 sets, daily range): BP systolic 93–161; BP diastolic 40–81; PULSE 54–100; RESP 16–22; TEMP 98.1–98.4; O2SAT 92–100
[2018-04-04] MEDS: CHLORHEXIDINE GLUCONATE 2 % 1 PACK (2 CLOTHS) TOP SCH ×2 (04:00→20:37)
[2018-04-04] MEDS: INSULIN ASPART SUPPLEMENTAL SCALE SQ SCH ×5 (04:00→20:29)
[2018-04-04] MEDS: MIDODRINE 5 MG TAB PO SCH ×3 (05:15→16:34)
[2018-04-04 07:19] LABS: HEMATOCRIT 28.8 % (35.0-46.0); HEMOGLOBIN 8.7 GM/DL (11.6-15.3); MEAN CORPUSCULAR HGB CONC 30.3 % (32.0-36.0); MEAN PLATELET VOLUME 9.2 FL (7.0-11.0); PLATELET COUNT 389 TH/MM3 (150-450); RED BLOOD COUNT 2.91 MIL/MM3 (4.00-5.30); RED CELL DISTRIBUTION WIDTH 15.9 % (11.6-17.2); WHITE BLOOD COUNT 14.1 TH/MM3 (4.0-11.0)
[2018-04-04 07:30] LABS: INTERNATIONAL NORMALIZED RATIO 1.1 RATIO; PROTHROMBIN TIME - PATIENT 10.8 SEC (9.8-11.6)
[2018-04-04 07:58] LABS: BICARBONATE 27.8 MEQ/L (21.0-32.0); CALCIUM 9.1 MG/DL (8.5-10.1); CREATININE 8.71 MG/DL (0.50-1.00); MAGNESIUM 2.3 MG/DL (1.5-2.5)
[2018-04-04] MEDS: CHLORHEXIDINE 0.12% (ORAL KIT) 15 ML CUP MT SCH ×2 (08:00→20:00)
[2018-04-04] MEDS: AURYXIA 210 MG PO SCH ×3 (08:00→16:32)
[2018-04-04] MEDS: RESP: ALBUTEROL 2.5 MG/IPRATROPIUM 0.5 MG NEB (SCH) NEB (08:03)
[2018-04-04] MEDS: SODIUM CHLORIDE 0.9% FLUSH 10 ML FLUSH IV FLUSH SCH ×3 (08:35→20:30)
[2018-04-04] MEDS: ARTIFICIAL TEARS OPTH SOLN 15 ML BTL EACH EYE SCH ×3 (08:35→16:34)
[2018-04-04] MEDS: ASPIRIN 325 MG TAB PO SCH (08:35)
[2018-04-04] MEDS: INSULIN DETEMIR 100 UNITS/ML VIAL SQ SCH ×2 (08:36→20:30)
[2018-04-04] MEDS: HEPARIN SODIUM - SQ 10,000 UNITS/ML VIAL SQ SCH ×2 (08:36→20:29)
--- NOTE | 2018-04-04 09:08 | HHI.NPPN ---
Subjective General Problems: Anemia Renal Failure: Chronic, End Stage Renal Disease Interval History Seen in route to dialysis. To have permcath exchange later today. (Mili Abarca) Objective Data Data Vital Signs Date Time Temp Pulse Resp B/P (MAP) Pulse Ox O2 Delivery O2 Flow Rate FiO2 04/04/18 08:26 Room Air 4.00 04/04/18 08:03 99 Nasal Cannula 4.00 04/04/18 04:06 54 04/04/18 00:00 98.1 55 17 117/58 (77) 97 04/03/18 23:54 53 04/03/18 21:39 94 Nasal Cannula 4.00 04/03/18 20:00 98.0 52 17 116/56 (76) 94 04/03/18 19:59 Nasal Cannula 4.00 04/03/18 18:11 55 111/55 (73) 04/03/18 16:00 98.0 57 18 99/48 (65) 91 04/03/18 12:00 98.0 59 18 94/55 (68) 93 04/03/18 10:20 18 (Mili Abarca) -: 04/04/18 0602 04/04/18 0602 Tubes & Lines: Vas-Cath (Mili Abarca) Physical Exam General Appearance: Well Developed, Well Nourished, No Acute Distress, Comfortable, Obese (Mili Abarca) Eyes Eye Exam: Pupils Equal, Pupils Reactive (Mili Abarca) Ears & Nose Ears & Nose Remarks congestion (Mili Abarca) Throat Throat Exam: Oral Mucosa [place] & Moist (Mili Abarca) Pulmonary Resp Exam: Breath Sounds Equal, No Distress, Crackles, Diminished Breath Sounds (Mili Abarca) Cardiology CV Exam: Regular, Normal Sinus Rhythm, Good Perfusion (Mili Abarca) Gastrointestinal/Abdomen GI Exam: Soft, Bowel Sounds Present, Positive Bowel Movement, Distended GI Remarks obese (Mili Abarca) Musculoskeletal MS Exam: Joints Intact, Normal Tone, Unable to Ambulate (Mili Abarca) Integumentary Skin Exam: Clear, Warm, Dry, Intact (Mili Abarca) Extremeties Extremities Exam: No Edema, Pedal Pulses Palpable (Mili Abarca) Neurologic Neuro Exam: Alert, Awake, Oriented, Speech Clear, Moving All Extremities (Mili Abarca) Psychiatric Psych Exam: Appropriate Responses (Mili Abarca) Assessment/Plan Discussed Condition With: Patient, Spouse Assessment Summary: Anemia of CKD, Hypotension, End Stage Renal Disease Problem List: (1) ESRD (end stage renal disease) ICD Codes: N18.6 - ESRD (end stage renal disease) Status: Acute Plan: Continue HD support TTS. Due for treatment today IR to exchange PermCath today Will need to follow with vascular after discharge. High protein diet encouraged. She takes Auryxia for a phosphate binder. (2) Hypotension ICD Codes: I95.9 - Hypotension Status: Acute Plan: On midodrine TID, 10 mg BP improved (3) Abdominal pain ICD Codes: R10.9 - Abdominal pain Status: Acute Plan: CT report noted, had pancreatic cyst. s/p EUS 03/28 with FNA biopsy of the pancreatic pseudocyst, no malignant cells on biopsy. (4) Pancreatic pseudocyst ICD Codes: K86.3 - Pseudocyst of pancreas Status: Acute Plan: see above Unclear if that was the cause of her pain (5) Diabetes mellitus ICD Codes: E11.9 - Diabetes mellitus Status: Chronic Plan: Insulin coverage, maintain blood glucose between 140 and 180. (6) Pneumonia ICD Codes: J18.9 - Pneumonia Status: Acute Plan: ? aspiration On Levaquin ID has evaluated (7) Anemia ICD Codes: D64.9 - Anemia Status: Acute Plan: Epogen with dialysis as ordered Plan Can be discharged after dialysis and permcath placement today from renal perspective. (Mili Abarca) Plan patient was seen and examined during dialysis. On 3K, UF goal is 2 liters, but her BP is low, given fluid boluses. Also, blood flow rate is low, PermCath placement is scheduled for later today. (Lokesh Joshua MD) Mili Abarca April 04, 2018 09:08 Lokesh Joshua MD April 04, 2018 11:06
[2018-04-04] MEDS: ALBUMIN 25% INJ 100 ML IV PRN (11:04)
[2018-04-04] MEDS: EPOETIN ALFA 10,000 UNITS/ML VIAL IV PUSH PRN (11:04)
[2018-04-04] MEDS: HEPARIN SODIUM - IV 10,000 UNITS/10 ML VIAL PRN (11:05)
[2018-04-04] MEDS: GENTAMICIN SULFATE 20 MG/2 ML VIAL OTHER PRN (11:05)
[2018-04-04] MEDS ORDERED: MIDAZOLAM HCL 5 MG/5 ML VIAL ONE (12:06)
[2018-04-04] MEDS ORDERED: fentaNYL CITRATE 250 MCG/5 ML AMP ONE (12:07)
[2018-04-04] MEDS ORDERED: SODIUM CHLOR 0.9% 250 ML INJ 250 ML ONE (12:20)
[2018-04-04] MEDS ORDERED: VANCOMYCIN HCL 1000 MG VIAL ONE (12:20)
[2018-04-04] MEDS ORDERED: LIDOCAINE 1%/EPINEPHrine 1:100,000 SOLN 30 ML VIAL ONE (12:30)
--- NOTE | 2018-04-04 13:21 | PD.RAD ---
Post Procedure Progress Note Pre Procedure Diagnosis: (1) ESRD on peritoneal dialysis Post Procedure Diagnosis: (1) ESRD (end stage renal disease) Procedure Date: April 04, 2018 Supervising Radiologist: Broderick Machado Estimated blood loss: 2cc Anesthesia: Local, Conscious Sedation Plan of Activity Patient to Unit: Nursing Unit Patient Condition: Fair Additional Comments: Right IJ permcath placed without difficulty Catheter in good position OK for use See PACS Report for procedural detail/treatment Broderick Machado MD April 04, 2018 13:21
[2018-04-04] MEDS ORDERED: SODIUM CHLORIDE 0.9% FLUSH 10 ML FLUSH IV FLUSH PRN (13:30)
[2018-04-04] MEDS ORDERED: HEPARIN SODIUM - IV 2,000 UNITS/2 ML VIAL IV FLUSH PRN (13:30)
--- NOTE | 2018-04-04 16:09 | RADRPT ---
EXAM DATE: 04/04/2018 1:58 PM EDT AGE/SEX: 52 years / Female INDICATIONS: Patient with end stage renal disease in need of permanent dialysis catheter placement. CLINICAL DATA: This is the patient's subsequent encounter. Patient reports that signs and symptoms h ave been present for 4 - 6 days and indicates a pain score of 0/10. MEDICAL/SURGICAL HISTORY: Renal disease, end stage. Diabetes. Anemia. HyperlipidemiaGastropa resisNeuropathyPeritonitisSecondary hyperparathyroidismPancreatitis with pancreatic pseudocystHTN Ch olecystectomy. EGDJ-tube insertion and subsequent removalHernia repairLeft upper arm fistulaLeft femu r fracture with surgical repair COMPARISON: No prior [facility] exams available for comparison. FLUORO TIME (min): 2:16 IMAGE SERIES: 1 ACCESS SITE: SEDATION TIME (min): 30 MEDICATION(S): 3mg midazolam (Versed) IV 150mcg fentanyl (Sublimaze) IV DEVICE(S): 15 fr 23cm Lin II Plus PROCEDURE : 1. Fluoroscopically-guided venipuncture. 2. PermaCath placement. 3. Conscious sedation with continuous EKG and oximetry monitoring. The risks, benefits and alternatives to the procedure were explained and verbal and written consent w as obtained. The site was prepped in sterile fashion. Full sterile technique was used, including ca p, mask, sterile gloves and gown and a large sterile sheet. Hand hygiene and 2% chlorhexidine Betadi ne was utilized per protocol for cutaneous antisepsis with appropriate dry time for site. The skin a nd subcutaneous tissues were infiltrated with local anesthetic solution. The existing site was evaluated and found acceptable to use for placement of a permacath. A suitable site on the chest wall was localized. The skin was incised with 10 cc 1% lidocaine. A capping cathete r was tunneled retrograde across the chest wall up to the venotomy site the right neck. The existing Vas-Cath was removed over a 0.035 angle Glidewire. The peel-away sheath was advanced over the wire. T he Lin catheter was advanced through the peel-away sheath and positioned at the level of the dista l SVC. The catheter was flushed and assembled and locked with heparin. The catheter was sutured in place. Conscious sedation was performed with the prescribed dosages and duration as above in the presence of an independent trained radiology nurse to assist in the monitoring of the patient. EKG and oximetry remained stable throughout the procedure. The patient tolerated the procedure well and there were n o complications. The patient was sent to post anesthesia recovery in stable condition. CONCLUSION: 1. Uncomplicated PermaCath placement as above. Electronically signed by: Broderick Machado MD 04/04/2018 4:08 PM EDT
[2018-04-04] MEDS: GABAPENTIN 400 MG CAP PO SCH ×2 (16:31→20:28)
[2018-04-04] MEDS: DOCUSATE SODIUM 50 MG/SENNA 8.6 MG TAB PO SCH ×2 (16:32→20:28)
[2018-04-04] MEDS: PANTOPRAZOLE SOD 40 MG DELAYED RELEASE TAB PO SCH (16:32)
--- NOTE | 2018-04-04 19:10 | HHI.PR ---
Subjective Remarks The patient denies chest pain or shortness of breath. Patient is a febrile. Status post permacath placement. Objective Vitals Vital Signs Date Time Temp Pulse Resp B/P (MAP) Pulse Ox O2 Delivery O2 Flow Rate FiO2 04/04/18 16:00 98.1 66 18 104/51 (68) 96 04/04/18 14:45 71 16 93/40 (57) 93 04/04/18 14:15 80 16 101/45 (63) 100 04/04/18 13:45 78 22 113/50 (71) 98 04/04/18 13:30 98.4 77 16 142/52 (82) 99 04/04/18 08:26 Room Air 4.00 04/04/18 08:03 99 Nasal Cannula 4.00 04/04/18 08:00 98.2 66 18 138/63 (88) 96 04/04/18 04:06 54 04/04/18 00:00 98.1 55 17 117/58 (77) 97 04/03/18 23:54 53 04/03/18 21:39 94 Nasal Cannula 4.00 04/03/18 20:00 98.0 52 17 116/56 (76) 94 04/03/18 19:59 Nasal Cannula 4.00 I/O 04/03/18 04/03/18 04/03/18 04/04/18 04/04/18 04/04/18 07:00 15:00 23:00 07:00 15:00 23:00 Intake Total 240 ml 1200 ml 0 ml 100 ml 720 ml Output Total 1500 ml Balance 240 ml 1200 ml 0 ml -1400 ml 720 ml Intake Oral 240 ml 1200 ml 0 ml 720 ml IV Total 100 ml Hemodialysis 1500 ml # Voids 0 0 0 0 # Bowel Movements 0 0 0 Result Diagram: 04/04/18 0602 04/04/18 0602 Imaging Last 72 hours Impressions Catheter Placement X-Ray 04/04/18 0000 Signed Impressions: CONCLUSION: 1. Uncomplicated PermaCath placement as above. Objective Remarks GENERAL: No apparent distress. SKIN: Warm and dry. HEAD: Atraumatic. Normocephalic. EYES: Pupils equal and round. No scleral icterus. No injection or drainage. ENT: No nasal bleeding or discharge. Mucous membranes pink and moist. NECK: Trachea midline. No JVD. Vas-cath in place. CARDIOVASCULAR: Regular rate and rhythm. S1, S2. RESPIRATORY: CTAB. No W/R/R. GASTROINTESTINAL: Abdomen soft, obese. No guarding or rigidity. Normoactive bowel sounds. MUSCULOSKELETAL: Extremities with trace bilateral lower extremity edema. Left AV fistula with positive thrill. NEUROLOGICAL: No obvious cranial nerve deficits. Moving all extremities without focal deficit. Procedures Vas-cath placed A/P Problem List: (1) Pancreatic pseudocyst ICD Code: K86.3 - Pseudocyst of pancreas Status: Acute (2) Pancreatitis ICD Code: K85.90 - Acute pancreatitis without necrosis or infection, unspecified (3) Nausea & vomiting ICD Code: R11.2 - Nausea with vomiting, unspecified (4) Abdominal pain ICD Code: R10.9 - Unspecified abdominal pain (5) ESRD on hemodialysis ICD Code: N18.6 - End stage renal disease; Z99.2 - Dependence on renal dialysis Assessment and Plan 1. Acute respiratory failure/ PNA ASHLYN? Extubated on 03/26. Aspiration pneumonia vs HCAP. Stable on 3L NC. Repeat CXR with improvement in aeration and fluid balance. - Currently on IV Levaquin per ID. - continue Bipap nocturnal and as needed. - Albuterol/ipratropium aerosols every 6 hours with albuterol aerosols every 2 hours as needed dyspnea. -Steroids discontinued. - Incentive spirometry. - PT/ OT. 04/04 repeat chest x-ray in a.m. 2. End-stage renal disease on hemodialysis. On hemodialysis Tuesday//Tuesday. Fistula has been problematic. Vas- cath placed 04/01. - Continue calcium acetate 667 mg p.o. twice daily with meals. - dialysis per nephrology. 04/04 status post permacath placement. 3. Gastroesophageal reflux disease/ Pancreatitis with pancreatic pseudocyst Status post EGD/EUS with sampling from pancreatic pseudocyst done on 03/27. CT abdomen/pelvis revealed 8 cm pancreatic pseudocyst at tail of pancreas. Colonic diverticulosis. Seroma midline abdominal mesh. Evaluated by GI. They recommended ID consult and drainage placed by IR. IR currently does not recommend as previously placed 2014. Pathology reveals pancreatic cyst. - Patient is on ranitidine 150 mg p.o. daily at night at home/ esomeprazole 40 mg daily at home. Currently on pantoprazole. - pain control with docusate sodium/senna 1 tablet twice daily for bowel regimen. - follow up with GI as an outpt. 4. Essential hypertension/ hypotension Off IVF. Currently not requiring vasopressors and/or antihypertensives - d/c amlodipine 5 mg daily 04/04 one episode of systolic blood pressure in the 90s. Continue Midrin. Continue to monitor vital signs. 5. Diabetes mellitus type II Poorly controlled s/t steroids. Improved off of steroids. - Sliding scale insulin . Accu-Cheks. - Currently off linagliptin 5 mg p.o. daily and insulin aspart pen for diabetes at home. - Levemir 10 units daily. Adjust regimen as needed. 04/04 blood sugars much improved today. Continue insulin Levemir 10 units subcu daily and continue SSI with insulin and monitor Accu-Cheks. 6. Acute encephalopathy Secondary to sepsis/pancreatitis. Resolved. - Acetaminophen 650 mg p.o. every 6 hours as needed fever - Patient is currently on oxycodone/acetaminophen 5/325 1 tablet every 4 hours as needed pain 1 through 5. Hydromorphone 1 mg IV every 4 hours as needed pain 6 or 10 - Currently on gabapentin 400mg p.o. twice daily home medication for neuropathy. Prophylaxis -GI -pantoprazole -DVT -SCD/heparin subcu Discharge Planning Possible DC in a.m. Pending nephrology and infectious disease clearance. Problem Qualifiers (1) Abdominal pain: Qualified Codes: R10.84 - Generalized abdominal pain George Zelaya MD April 04, 2018 19:10
[2018-04-04] MEDS: oxyCODONE/ACETAMINOPHEN 5 MG/325 MG TAB PO PRN (20:28)
[2018-04-04] MEDS: LEVOFLOXACIN 500 MG PREMIX INJ 100 ML IV SCH (20:30)
[2018-04-05] VITALS: BP 95/55; PULSE 68; RESP 19; TEMP 97.9; O2SAT 95
[2018-04-05] MEDS: INSULIN ASPART SUPPLEMENTAL SCALE SQ SCH ×5 (00:19→17:19)
[2018-04-05] MEDS: oxyCODONE/ACETAMINOPHEN 5 MG/325 MG TAB PO PRN (03:54)
[2018-04-05 04:00] VITALS: BP 104/54; PULSE 63; RESP 17; TEMP 97.8; O2SAT 95
[2018-04-05] MEDS: MIDODRINE 5 MG TAB PO SCH ×3 (05:49→17:18)
[2018-04-05 08:00] VITALS: BP 98/53; PULSE 61; RESP 18; TEMP 97.8; O2SAT 98
[2018-04-05] MEDS: CHLORHEXIDINE 0.12% (ORAL KIT) 15 ML CUP MT SCH (08:00)
--- NOTE | 2018-04-05 08:24 | RADRPT ---
EXAM DATE: 04/05/2018 8:13 AM EDT AGE/SEX: 52 years / Female INDICATIONS: Infiltrate. CLINICAL DATA: This is the patient's subsequent encounter. Patient reports that signs and symptoms h ave been present for 4 - 6 days and indicates a pain score of Nonresponsive. MEDICAL/SURGICAL HISTORY: Diabetes. Hypertension. Venous insufficiency. Dialysis. . Dialysis. Renal Cholecystectomy. [place] [facility] [place]. . FINDINGS: Dialysis catheter in good position. Cardiomegaly with moderate interstitial edema. Persistent consoli dative changes right base. CONCLUSION: Deterioration with increasing interstitial edema. Electronically signed by: Smith Machado MD 04/05/2018 8:23 AM EDT
[2018-04-05] MEDS: ARTIFICIAL TEARS OPTH SOLN 15 ML BTL EACH EYE SCH ×3 (09:00→17:19)
[2018-04-05] MEDS: SODIUM CHLORIDE 0.9% FLUSH 10 ML FLUSH IV FLUSH SCH ×2 (09:00→09:11)
[2018-04-05] MEDS: GABAPENTIN 400 MG CAP PO SCH (09:09)
[2018-04-05] MEDS: PANTOPRAZOLE SOD 40 MG DELAYED RELEASE TAB PO SCH (09:09)
[2018-04-05] MEDS: AURYXIA 210 MG PO SCH ×3 (09:09→17:18)
[2018-04-05] MEDS: ASPIRIN 325 MG TAB PO SCH (09:09)
[2018-04-05] MEDS: HEPARIN SODIUM - SQ 10,000 UNITS/ML VIAL SQ SCH (09:09)
[2018-04-05] MEDS: DOCUSATE SODIUM 50 MG/SENNA 8.6 MG TAB PO SCH (09:09)
[2018-04-05] MEDS: INSULIN DETEMIR 100 UNITS/ML VIAL SQ SCH (09:11)
--- NOTE | 2018-04-05 09:24 | HHI.NPPN ---
Subjective General Problems: Anemia Renal Failure: Chronic, End Stage Renal Disease Interval History Resting but is appropriate. Dialyzed yesterday, 1.5L UF. (Mili Abarca) Objective Data Data Vital Signs Date Time Temp Pulse Resp B/P (MAP) Pulse Ox O2 Delivery O2 Flow Rate FiO2 04/05/18 04:00 97.8 63 17 104/54 (71) 95 04/05/18 00:00 97.9 68 19 95/55 (68) 95 04/04/18 20:42 4.00 04/04/18 20:00 98.3 68 19 106/50 (68) 96 04/04/18 16:00 98.1 66 18 104/51 (68) 96 04/04/18 14:45 71 16 93/40 (57) 93 04/04/18 14:15 80 16 101/45 (63) 100 04/04/18 13:45 78 22 113/50 (71) 98 04/04/18 13:30 98.4 77 16 142/52 (82) 99 (Mili Abarca) -: 04/04/18 0602 04/04/18 0602 Imaging Last 72 hours Impressions Chest X-Ray 04/05/18 0700 Signed Impressions: CONCLUSION: Deterioration with increasing interstitial edema. Catheter Placement X-Ray 04/04/18 0000 Signed Impressions: CONCLUSION: 1. Uncomplicated PermaCath placement as above. Tubes & Lines: Vas-Cath (Mili Abarca) Physical Exam General Appearance: Well Developed, Well Nourished, No Acute Distress, Comfortable, Sleeping, Obese (Mili Abarca) Eyes Eye Exam: Pupils Equal, Pupils Reactive (Mili Abarca) Ears & Nose Ears & Nose Remarks congestion (Mili Abarca) Throat Throat Exam: Oral Mucosa [place] & Moist (Mili Abarca) Pulmonary Resp Exam: Breath Sounds Equal, No Distress, Crackles, Diminished Breath Sounds (Mili Abarca) Cardiology CV Exam: Regular, Normal Sinus Rhythm, Good Perfusion (Mili Abarca) Gastrointestinal/Abdomen GI Exam: Soft, Non-Tender, Bowel Sounds Present GI Remarks obese (Mili Abarca) Musculoskeletal MS Exam: Joints Intact, Normal Tone, Unable to Ambulate (Mili Abarca) Integumentary Skin Exam: Clear, Warm, Dry, Intact (Mili Abarca) Extremeties Extremities Exam: No Edema, Pedal Pulses Palpable (Mili Abarca) Neurologic Neuro Exam: Alert, Awake, Oriented, Speech Clear, Moving All Extremities (Mili Abarca) Psychiatric Psych Exam: Appropriate Responses (Mili Abarca) Assessment/Plan Discussed Condition With: Patient, Spouse Assessment Summary: Anemia of CKD, Hypotension, End Stage Renal Disease Problem List: (1) ESRD (end stage renal disease) ICD Codes: N18.6 - ESRD (end stage renal disease) Status: Acute Plan: Continue HD support TTS. 1.5L UF yesterday Successful Permcath exchange, okay for use. Intermittently monitor electrolytes while admitted Avoid IVF. High protein diet encouraged. She takes Auryxia for a phosphate binder. (2) Pneumonia ICD Codes: J18.9 - Pneumonia Status: Acute Plan: ? aspiration On Levaquin Pending ID approval for discharge CXR reviewed. (3) Hypotension ICD Codes: I95.9 - Hypotension Status: Acute Plan: BP stable, she is on midodrine TID, 10 mg (4) Abdominal pain ICD Codes: R10.9 - Abdominal pain Status: Acute Plan: CT report noted, had pancreatic cyst. s/p EUS 03/28 with FNA biopsy of the pancreatic pseudocyst, no malignant cells on biopsy. (5) Pancreatic pseudocyst ICD Codes: K86.3 - Pseudocyst of pancreas Status: Acute Plan: see above Unclear if that was the cause of her pain (6) Diabetes mellitus ICD Codes: E11.9 - Diabetes mellitus Status: Chronic Plan: Insulin coverage, maintain blood glucose between 140 and 180. (7) Anemia ICD Codes: D64.9 - Anemia Status: Acute Plan: Epogen with dialysis as ordered Plan . (Mili Abarca) Plan patient was seen and examined. Had PermCath placed. Dialysis will be continued TTS. Epogen for anemia. (Lokesh Joshua MD) Mili Abarca April 05, 2018 09:24 Lokesh Joshua MD April 05, 2018 09:31
--- NOTE | 2018-04-05 10:47 | HHI.IDPN ---
Subjective Subjective Remarks Patient seen and examined on behalf of Dr. Rodriguez This is a 52-year-old AA female. Date of admission 03/21/2018. Past medical history includes end-stage renal disease on hemodialysis Tuesday// Tuesday. Diabetes mellitus with gastroparesis, hypertension, hyperlipidemia, history of's pancreatic cyst, anemia chronic kidney disease and secondary hyperparathyroidism. She presented to [facility] on 03/21 with a chief complaint of denies abdominal pain associated with nausea/vomiting. Rated as 10 on a scale of 1-10. CT the abdomen/pelvis revealed large complex mixed attenuation mass lesion involving the tail the pancreas. Large pseudocyst consideration.. Patient was placed on levofloxacin and metronidazole.. Patient was evaluated by nephrology and gastroenterology. Gastrology recommend repeat CT due to continued abdominal pain. This revealed seroma both her abdominal midline mesh and 8 cm pancreatic pseudocyst. Colonic diverticuli. Pulmonary infiltration. . Most recently there was a drainage catheter in this area 08/12/15.This was evaluated by interventional radiology did not do not recommend drainage at this time unless necessary for infectious causes. GI also recommended infectious disease consult which will be performed today. Overnight, patient became acutely hypoxic and short of breath. Confused with altered mental status. There have a pH is 7.18 with CO2 retention. Failed BiPAP was transferred to ICU for further evaluation treatment. Patient had no IV access on admission and after several times a central line was placed in the left femoral region. Failed internal jugular placement. Cannot identify subclavian vessels. She did fail high flow nasal cannula and is currently orotracheally intubated Notes reviewed Afebrile patient s/p HD yesterday. States she is breathing well. +cough with whitish sputum production. eating well no fever no chills no rash no SOB No N/V no diarrhea afebrile WBC stable Underwent GI procedure 03/27, and had aspiration of the pancreatic pseudocyst Pancreatic pseudocyst fluid culture negative CXR shows increasing interstitial edema Antibiotics IV Levaquin Current Medications Medications (Trade) Dose Ordered Sig/Valery Route Start Time Stop Time Status Last Admin (Narcan Inj) 0.4 mg UNSCH PRN IV PUSH 03/21/18 17:00 03/23/18 09:57 (D50w (Vial) Inj) 50 ml UNSCH PRN IV PUSH 03/21/18 17:00 (Glucagon Inj) 1 mg UNSCH PRN OTHER 03/21/18 17:00 Sodium Chloride 1,000 ml @ 0 mls/hr Q0M PRN OTHER 03/21/18 17:11 (Heparin Inj) 8,000 units UNSCH PRN IV FLUSH 03/21/18 17:15 Sodium Chloride 1,000 ml @ 200 mls/hr Q5H PRN IV 03/21/18 17:11 Sodium Chloride 1,000 ml @ 0 mls/hr Q0M PRN OTHER 03/21/18 17:11 (Mannitol Inj) 12.5 gm UNSCH PRN IV 03/21/18 17:15 04/01/18 17:34 Albumin Human 100 ml @ 60 mls/hr UNSCH PRN IV 03/21/18 17:15 04/04/18 11:04 (NS Flush) 5 ml UNSCH PRN IV FLUSH 03/21/18 17:15 (Heparin Inj) UNSCH PRN .XX 03/21/18 17:15 04/04/18 11:05 (Gentamicin Inj) 20 mg UNSCH PRN OTHER 03/21/18 17:15 04/04/18 11:05 (Tylenol) 650 mg UNSCH PRN PO 03/21/18 17:15 (Benadryl) 25 mg UNSCH PRN PO 03/21/18 17:15 (Nitrostat Sl) 0.4 mg UNSCH PRN SL 03/21/18 17:15 (Catapres) 0.1 mg UNSCH PRN PO 03/21/18 17:15 (Gelfoam 12 Mm/7 Mm Top) 1 foam UNSCH PRN TOP 03/21/18 17:15 04/01/18 14:38 (Reglan Inj) 5 mg Q6H PRN IV PUSH 03/21/18 18:30 (Dilaudid Pf Inj) 1 mg Q3H PRN IV PUSH 03/21/18 18:45 03/22/18 14:06 (Catapres) 0.1 mg Q6H PRN PO 03/21/18 19:00 (Neurontin) 400 mg BID PO 03/22/18 21:00 04/05/18 09:09 Patient Own Medication PT OWN MED: FANI... TIDAC PO 03/22/18 17:00 04/05/18 09:09 Levofloxacin/ Dextrose 100 ml @ 100 mls/hr Q48H IV 03/25/18 20:00 04/04/18 20:30 (Peridex 0.12% Liq) 15 ml BID@08,20 MT 03/24/18 08:00 03/29/18 08:00 (NS Flush) 2 ml UNSCH PRN IV FLUSH 03/24/18 00:45 03/25/18 02:56 (NS Flush) 2 ml BID IV FLUSH 03/24/18 09:00 04/05/18 09:11 (Tears Naturale Opth Soln) 1 drop TID EACH EYE 03/24/18 09:00 03/28/18 17:14 (Albuterol Neb) 2.5 mg Q2HR NEB PRN INH 03/24/18 00:45 ([facility]) 1 Q361D XX 03/24/18 00:45 03/24/18 00:45 (Chlorhexidine 2% Cloth) Taper DAILY@04 TOP 03/24/18 04:00 03/20/19 03:59 03/29/18 04:00 (Chlorhexidine 2% Cloth) 3 pack UNSCH PRN TOP 03/24/18 00:45 (Izzy-Colace) 1 tab BID PO 03/24/18 09:00 04/05/18 09:09 (Milk Of Magnesia Liq) 30 ml Q12H PRN PO 03/24/18 00:45 04/04/18 20:28 (Senokot) 17.2 mg Q12H PRN PO 03/24/18 00:45 (Dulcolax Supp) 10 mg DAILY PRN RECTAL 03/24/18 00:45 (Lactulose Liq) 30 ml DAILY PRN PO 03/24/18 00:45 (NS Flush) DAILY IV FLUSH 03/24/18 09:00 03/30/18 08:47 (NS Flush) UNSCH PRN IV FLUSH 03/24/18 01:45 (Percocet 5-325 Mg) 1 tab Q4H PRN PO 03/24/18 03:15 04/05/18 03:54 ([facility]) 1 Q361D XX 03/24/18 03:15 03/24/18 03:15 (Heparin Inj) 5,000 units Q12HR SQ 03/24/18 09:00 04/05/18 09:09 (Zofran Odt) 4 mg Q6H PRN PO 03/24/18 04:15 (NovoLOG SUPPLEMENTAL SCALE) 1 Q4HR SQ 03/24/18 08:00 04/05/18 09:11 (Epogen Inj) 10,000 units UNSCH PRN IV PUSH 03/29/18 10:00 04/04/18 11:04 (Protonix) 40 mg DAILY PO 03/30/18 09:00 04/05/18 09:09 (Proamatine) 10 mg TID@07,12,17 PO 03/30/18 12:00 04/05/18 05:49 (Aspirin) 325 mg DAILY PO 03/31/18 14:30 04/05/18 09:09 (NS Flush) UNSCH PRN IV FLUSH 04/01/18 15:00 (Heparin Inj) UNSCH PRN IV FLUSH 04/01/18 15:00 (Levemir Inj) 10 units DAILY SQ 04/02/18 09:30 04/05/18 09:11 (Levemir Inj) 5 units HS SQ 04/02/18 21:00 04/04/18 20:30 (NS Flush) UNSCH PRN IV FLUSH 04/04/18 13:30 (Heparin Inj) UNSCH PRN IV FLUSH 04/04/18 13:30 Lines Line no evidence of infection Past Medical History End-stage renal disease on hemodialysis Tuesday//Tuesday Essential hypertension Hyperlipidemia 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 Anemia of chronic kidney disease Secondary hyperparathyroidism Recurrent pancreatitis with pancreatic pseudocyst History of peritonitis Footdrop left greater than right Past Surgical History History of G-tube insertion and subsequent removal 2014 History of tracheostomy status post decannulation Left upper arm fistula History of midline hernia repair status post cholecystectomy Left femur fracture with surgical repair (Nancy Beaver) Allergies: Coded Allergies: Sulfa (Sulfonamide Antibiotics) (Unverified Allergy, Severe, Rash, ) morphine (Unverified Allergy, Severe, ITCHING, 09/21/17) penicillin G (Unverified Allergy, Severe, UNKNOWN, 09/21/17) amoxicillin (Verified Allergy, Intermediate, Rash, 09/21/17) *MDRO Multi-Drug Resistant Organism (Verified Allergy, Unknown, 09/21/17) VRE Buttock Wound 01/15/2013 C Diff 05/2014 Objective . Vital Signs Date Time Temp Pulse Resp B/P (MAP) Pulse Ox O2 Delivery O2 Flow Rate FiO2 04/05/18 08:00 97.8 61 18 98/53 (68) 98 04/05/18 04:00 97.8 63 17 104/54 (71) 95 04/05/18 00:00 97.9 68 19 95/55 (68) 95 04/04/18 20:42 4.00 04/04/18 20:00 98.3 68 19 106/50 (68) 96 04/04/18 16:00 98.1 66 18 104/51 (68) 96 04/04/18 14:45 71 16 93/40 (57) 93 04/04/18 14:15 80 16 101/45 (63) 100 04/04/18 13:45 78 22 113/50 (71) 98 04/04/18 13:30 98.4 77 16 142/52 (82) 99 . Laboratory Tests Test 04/04/18 06:02 White Blood Count 14.1 TH/MM3 Red Blood Count 2.91 MIL/MM3 Hemoglobin 8.7 GM/DL Hematocrit 28.8 % Mean Corpuscular Volume 99.0 FL Mean Corpuscular Hemoglobin 30.0 PG Mean Corpuscular Hemoglobin Concent 30.3 % Red Cell Distribution Width 15.9 % Platelet Count 389 TH/MM3 Mean Platelet Volume 9.2 FL Laboratory Tests Test 04/04/18 06:02 Blood Urea Nitrogen 62 MG/DL Creatinine 8.71 MG/DL Random Glucose 158 MG/DL Calcium Level 9.1 MG/DL Magnesium Level 2.3 MG/DL Sodium Level 135 MEQ/L Potassium Level 4.1 MEQ/L Chloride Level 97 MEQ/L Carbon Dioxide Level 27.8 MEQ/L Anion Gap 10 MEQ/L Estimat Glomerular Filtration Rate 6 ML/MIN Imaging Last Impressions Chest X-Ray 04/05/18 0700 Signed Impressions: CONCLUSION: Deterioration with increasing interstitial edema. Catheter Placement X-Ray 04/04/18 0000 Signed Impressions: CONCLUSION: 1. Uncomplicated PermaCath placement as above. Shunt Study 03/31/18 0000 Signed Impressions: CONCLUSION: 1. Left upper extremity brachiobasilic fistula. 2. Patent previously placed stent in the very proximal outflow vein just beyon d the arterial anastomosis. 3. Severe approximately 1 cm length stenosis of the proximal basilic outflow v ein approximately 2 cm beyond the central stent. This was resistant to balloon dilatation with 6 mm and 8 mm balloons. Therefore, the originally placed stent was extended approximately 3 cm more centrally with an 8 x 40 mm self-expanding stent. Patient's skin was marked demarcating the central aspect of the stent. This should be sufficient [place] outflow vein for cannulation. Findings were personally discussed with Dr. Joshua. Abdomen/Pelvis CT 03/23/18 1820 Signed Impressions: Service Date/Time: March 21:21 - CONCLUSION: 1. 8 cm cystic mass in the pancreatic tail. The slight erosions of pseudocysts. Other cystic masses in the pancreatic tail couldn't similar appearance. 2. Hernia mesh in the midline with a suspected seroma seen superficial to this. This is unchanged. 3. Colonic diverticula in the sigmoid region without inflammatory change. 4. Bibasilar areas of consolidation. Tanmay Bella MD Consultation 03/22/18 1433 Signed Impressions: Service Date/Time: Thursday, March 22, 2018 14:33 - CONCLUSION: 1. This patient has had previous pancreatitis with drainage catheters placed in the same collection back in 2015 as such, I would not recommend drainage of this unless there is significant suspicion for infection or obstructive symptoms Broderick Machado MD Abdomen Ultrasound 03/22/18 0000 Signed Impressions: Service Date/Time: Thursday, March 22, 2018 19:40 - CONCLUSION: 1. 10 cm complex cystic mass the pancreatic tail. This is nonspecific. A pseudocyst would be the most common mass. Other cystic masses/neoplasms cannot be excluded on the ultrasound alone. 2. Small echogenic kidneys consistent with chronic renal disease. Tanmay Bella MD Physical Exam GENERAL: Obese, well-developed female patient, INAD. Awake and alert. SKIN: Cool and dry. No obvious rash. HEAD: Atraumatic. Normocephalic. No temporal or scalp tenderness. EYES: Pupils equal round and reactive. No scleral icterus. No injection or drainage. ENT: No nasal drainage. Airway patent. MMM. NECK: Trachea midline. Supple, nontender, no meningeal signs. CARDIOVASCULAR: Regular rhythm and rate without any murmurs. RESPIRATORY: Nonlabored. Clear to auscultation. Bilateral decreased AE in bases anteriorly. GASTROINTESTINAL: Abdomen soft, non-tender, nondistended. Obese. MUSCULOSKELETAL: Extremities without clubbing, cyanosis, or edema. AV fistula site ok. NEUROLOGICAL: Grossly nonfocal Psych calm and cooperative PIV with no e/o infection (Nancy Beaver) Assessment & Plan Remarks Possible new sepsis, improving Pneumonia ? aspiration vs HCAP - nl madhu on resp clx - blood clx all negative @ 72 hrs - CXR shows worsening interstitial edema, no active infection Acute resp failure on vent, now extubated Acute pancreatitis with pseudocyst. Morbidly obese BMI 41.3 kg/m2 DM2 uncontrolled with Nephropathy ESRD on HD using AV fistula. HD on ,Th,Sat - pt is anuric Recs: Discontinue IV Levaquin Monitor progress ID will sign off. Please reconsult if needed. (Nancy Beaver) Remarks The exam, history, and the medical decision-making described in the above note were completed with the assistance of the mid-level provider. I reviewed and agree with the findings presented. I attest that I had a [id number] encounter with the patient on the same day, and personally performed and documented my assessment and findings in the medical record. Doing well. No fevers. No rash. No diarrhea. Feels better. Lungs CTA BL. Abd soft NT Recs DC levaquin ok to DC from ID standpoint. Will sign off please call back if any change in clinical condition or questions. (Ivelisse Rodriguez MD) Nancy Beaver April 05, 2018 10:47 Ivelisse Rodriguez MD April 05, 2018 15:51
[2018-04-05 12:00] VITALS: BP 98/52; PULSE 67; RESP 18; TEMP 97.7; O2SAT 95
[2018-04-05] MEDS ORDERED: MIDO5TAB PO (15:00)
[2018-04-05] MEDS ORDERED: LEVEMIR SQ ×2 (15:00)
--- NOTE | 2018-04-05 15:03 | HHI.DCPOC ---
Discharge Care Plan Diagnosis: (1) Encephalopathy (2) Hypotension (3) ESRD (end stage renal disease) on dialysis (4) Anemia (5) Pneumonia (6) Respiratory failure (7) Abdominal pain (8) Pancreatic pseudocyst (9) Leukocytosis (10) ESRD on hemodialysis (11) Pancreatitis (12) Hypertension (13) Diabetes mellitus Goals to Promote Your Health * To prevent worsening of your condition and complications * To maintain your health at the optimal level Directions to Meet Your Goals Take your medications as prescribed Follow your dietary instruction Follow activity as directed Keep your appointments as scheduled Take your immunizations and boosters as scheduled If your symptoms worsen call your PCP, if no PCP go to Urgent Care Center or Emergency Room Smoking is Dangerous to Your Health. Avoid second hand smoke Call the 24-hour hour crisis hotline for domestic abuse at George Zelaya MD April 05, 2018 15:03
--- NOTE | 2018-04-05 15:06 | HHI.DS ---
Discharge Summary Admission Date March 21, 2018 at 16:46 Discharge Date: April 05, 2018 Admitting Diagnosis Abdominal pain, pancreatic pseudocyst (1) Pancreatic pseudocyst ICD Code: K86.3 - Pseudocyst of pancreas Status: Acute (2) Pancreatitis ICD Code: K85.90 - Acute pancreatitis without necrosis or infection, unspecified (3) Nausea & vomiting ICD Code: R11.2 - Nausea with vomiting, unspecified (4) Abdominal pain ICD Code: R10.9 - Unspecified abdominal pain (5) ESRD on hemodialysis ICD Code: N18.6 - End stage renal disease; Z99.2 - Dependence on renal dialysis Procedures Vas-cath placed Brief History - From Admission Ms. Vega is a 52-year-old -[place] female with past medical history significant for HTN, HLD, ESRD on HD T,TH,Sat, gastroparesis, pancreatitis, pancreatic cyst, DM, neuropathy, and anemia who presents to the emergency department with complaints of abdominal pain, nausea and vomiting. Patient reports that abdominal pain began around 1 AM along with nausea and vomiting. She reports that the night before she had SpaghettiOs for dinner which she normally does not have. She describes pain as burning and aching rating it 10/ 10, moving on her left side would make pain radiated to her left side of her abdomen. She reports taking something for acid reflux without any relief of pain, nausea or vomiting. She denies any black, dark, or bloody emesis. She denies any recent fevers, chills, vomiting prior to this morning, shortness of breath, cough, diarrhea, constipation, black black stools, abdominal pain or discomfort previously. She also denies any recent ill contacts. She was not able to go to HD this morning as due to nausea and vomiting and she is currently seen in hemodialysis department undergoing HD. At the moment she reports pain is 9/10 with some ongoing nausea but no longer vomiting. She denies any headache, dizziness, or chest pain. She does endorse shortness of breath, reports that this has been ongoing for several months, no cough or fevers reported. CBC/BMP: 04/04/18 0602 04/04/18 0602 Significant Findings Laboratory Tests Test 04/03/18 07:00 04/04/18 06:02 White Blood Count 12.8 TH/MM3 (4.0-11.0) 14.1 TH/MM3 (4.0-11.0) Red Blood Count 2.75 MIL/MM3 (4.00-5.30) 2.91 MIL/MM3 (4.00-5.30) Hemoglobin 8.4 GM/DL (11.6-15.3) 8.7 GM/DL (11.6-15.3) Hematocrit 27.3 % (35.0-46.0) 28.8 % (35.0-46.0) Mean Corpuscular Hemoglobin Concent 30.6 % (32.0-36.0) 30.3 % (32.0-36.0) Blood Urea Nitrogen 50 MG/DL (7-18) 62 MG/DL (7-18) Creatinine 7.34 MG/DL (0.50-1.00) 8.71 MG/DL (0.50-1.00) Random Glucose 127 MG/DL (74-106) 158 MG/DL (74-106) Chloride Level 97 MEQ/L (98-107) 97 MEQ/L (98-107) Estimat Glomerular Filtration Rate 7 ML/MIN (>89) 6 ML/MIN (>89) Activated Partial Thromboplast Time 23.9 SEC (24.3-30.1) Sodium Level 135 MEQ/L (136-145) Imaging Last Impressions Chest X-Ray 04/05/18 0700 Signed Impressions: CONCLUSION: Deterioration with increasing interstitial edema. Catheter Placement X-Ray 04/04/18 0000 Signed Impressions: CONCLUSION: 1. Uncomplicated PermaCath placement as above. Shunt Study 03/31/18 0000 Signed Impressions: CONCLUSION: 1. Left upper extremity brachiobasilic fistula. 2. Patent previously placed stent in the very proximal outflow vein just beyon d the arterial anastomosis. 3. Severe approximately 1 cm length stenosis of the proximal basilic outflow v ein approximately 2 cm beyond the central stent. This was resistant to balloon dilatation with 6 mm and 8 mm balloons. Therefore, the originally placed stent was extended approximately 3 cm more centrally with an 8 x 40 mm self-expanding stent. Patient's skin was marked demarcating the central aspect of the stent. This should be sufficient [place] outflow vein for cannulation. Findings were personally discussed with Dr. Joshua. Abdomen/Pelvis CT 03/23/18 1820 Signed Impressions: Service Date/Time: March 21:21 - CONCLUSION: 1. 8 cm cystic mass in the pancreatic tail. The slight erosions of pseudocysts. Other cystic masses in the pancreatic tail couldn't similar appearance. 2. Hernia mesh in the midline with a suspected seroma seen superficial to this. This is unchanged. 3. Colonic diverticula in the sigmoid region without inflammatory change. 4. Bibasilar areas of consolidation. Tanmay Bella MD Consultation 03/22/18 1433 Signed Impressions: Service Date/Time: Thursday, March 22, 2018 14:33 - CONCLUSION: 1. This patient has had previous pancreatitis with drainage catheters placed in the same collection back in 2014 as such, I would not recommend drainage of this unless there is significant suspicion for infection or obstructive symptoms Broderick Machado MD Abdomen Ultrasound 03/22/18 0000 Signed Impressions: Service Date/Time: Thursday, March 22, 2018 19:40 - CONCLUSION: 1. 10 cm complex cystic mass the pancreatic tail. This is nonspecific. A pseudocyst would be the most common mass. Other cystic masses/neoplasms cannot be excluded on the ultrasound alone. 2. Small echogenic kidneys consistent with chronic renal disease. Tanmay Bella MD PE at Discharge GENERAL: No apparent distress. SKIN: Warm and dry. HEAD: Atraumatic. Normocephalic. EYES: Pupils equal and round. No scleral icterus. No injection or drainage. ENT: No nasal bleeding or discharge. Mucous membranes pink and moist. NECK: Trachea midline. No JVD. Vas-cath in place. CARDIOVASCULAR: Regular rate and rhythm. S1, S2. RESPIRATORY: CTAB. No W/R/R. GASTROINTESTINAL: Abdomen soft, obese. No guarding or rigidity. Normoactive bowel sounds. MUSCULOSKELETAL: Extremities with trace bilateral lower extremity edema. Left AV fistula with positive thrill. NEUROLOGICAL: No obvious cranial nerve deficits. Moving all extremities without focal deficit. Pt update on day of discharge Denies cp/sob. Afebrile. Hospital Course 1. Acute respiratory failure/ PNA ASHLYN? Extubated on 03/26. Aspiration pneumonia vs HCAP. Stable on 3L NC. Repeat CXR with improvement in aeration and fluid balance. - Currently on IV Levaquin per ID. - continue Bipap nocturnal and as needed. - Albuterol/ipratropium aerosols every 6 hours with albuterol aerosols every 2 hours as needed dyspnea. -Steroids discontinued. - Incentive spirometry. - PT/ OT. 04/04 repeat chest x-ray in a.m. 2. End-stage renal disease on hemodialysis. On hemodialysis Tuesday//Tuesday. Fistula has been problematic. Vas- cath placed 04/01. - Continue calcium acetate 667 mg p.o. twice daily with meals. - dialysis per nephrology. 04/04 status post permacath placement. 3. Gastroesophageal reflux disease/ Pancreatitis with pancreatic pseudocyst Status post EGD/EUS with sampling from pancreatic pseudocyst done on 03/27. CT abdomen/pelvis revealed 8 cm pancreatic pseudocyst at tail of pancreas. Colonic diverticulosis. Seroma midline abdominal mesh. Evaluated by GI. They recommended ID consult and drainage placed by IR. IR currently does not recommend as previously placed 2014. Pathology reveals pancreatic cyst. - Patient is on ranitidine 150 mg p.o. daily at night at home/ esomeprazole 40 mg daily at home. Currently on pantoprazole. - pain control with docusate sodium/senna 1 tablet twice daily for bowel regimen. - follow up with GI as an outpt. 4. Essential hypertension/ hypotension Off IVF. Currently not requiring vasopressors and/or antihypertensives - d/c amlodipine 5 mg daily 04/04 one episode of systolic blood pressure in the 90s. Continued Midodrin. 5. Diabetes mellitus type II Poorly controlled s/t steroids. Improved off of steroids. - Sliding scale insulin . Accu-Cheks. - Currently off linagliptin 5 mg p.o. daily and insulin aspart pen for diabetes at home. - Levemir 10 units daily. 6. Acute encephalopathy Secondary to sepsis/pancreatitis. Resolved. - Acetaminophen 650 mg p.o. every 6 hours as needed fever - Patient is currently on oxycodone/acetaminophen 5/325 1 tablet every 4 hours as needed pain 1 through 5. Hydromorphone 1 mg IV every 4 hours as needed pain 6 or 10 - Currently on gabapentin 400mg p.o. twice daily home medication for neuropathy. Prophylaxis -GI -pantoprazole -DVT -SCD/heparin subcu Pt Condition on Discharge: Stable Discharge Disposition: Discharge to SNF Discharge Time: > 30 minutes Discharge Instructions DIET: Follow Instructions for: Renal Failure Diet Activities you can perform: Regular-No Restrictions Other Activity Instructions: As per PT Follow up Referrals: PCP Follow-up - 2 Weeks New Medications: Insulin Detemir Inj (Levemir Inj) 1,000 unit/ 10 ML Vial 5 UNITS SQ HS for Blood Sugar Management, #1 INJECTION Do not mix with any other Insulin. Insulin Detemir Inj (Levemir Inj) 1,000 unit/ 10 ML Vial 10 UNITS SQ DAILY for Blood Sugar Management, #1 INJECTION Do not mix with any other Insulin. Midodrine (Midodrine) 5 Mg Tab 10 MG PO TID@07,12,17 for Blood Pressure Management, #90 TAB Oxycodone HCl/Acetaminophen (Oxycodone-Acetaminophen 5-325) 5 Mg-325 Mg Tablet 1 TAB PO Q4H PRN for PAIN SCALE 1 TO 10, #15 TAB-CAP Continued Medications: Bisacodyl DR (Bisacodyl EC) 5 Mg Tabec 5 MG PO DAILY PRN for CONSTIPATION, TAB 0 Refills Calcium Acetate (Phosphate Binder) (Calcium Acetate (Phosphate Binder)) 667 Mg Cap 667 MG PO BID for Hyperphosphatemia, CAP 0 Refills TAKE WITH MEALS Esomeprazole DR (Esomeprazole DR) 40 Mg Capdr 40 MG PO DAILY, #30 CAP 0 Refills Ferric Citrate (Auryxia) 210 Mg Iron Tab 2 TAB PO TIDAC Gabapentin (Gabapentin) 400 Mg Cap 400 CAP PO BID, CAP 0 Refills Insulin Aspart Inj (Novolog Flexpen Inj) Unknown Strength Pen Unknown Dose SQ for Blood Sugar Management, #1 PEN 0 Refills Linagliptin (Tradjenta) 5 Mg Tab 5 MG PO DAILY for Blood Sugar Management, #30 TAB 0 Refills Ondansetron (Ondansetron) 4 Mg Tab 4 MG PO TUTHSA PRN for NAUSEA, TAB TUESDAY,TUESDAY, TUESDAY Ranitidine (Ranitidine) 150 Mg Tab 150 MG PO HS for Heartburn Management, TAB 0 Refills Discontinued Medications: Hydrocodone-Acetaminophen (Center) 7.5-325 mg Tab 1 TAB PO HS PRN for PAIN, #30 TAB 0 Refills Midodrine (Midodrine) 5 Mg Tab 5 MG PO //Tue for Control Low Blood Pressure, #1 TAB 0 Refills TUESDAY,TUESDAY,TUESDAY,TUESDAY George Zelaya MD April 05, 2018 15:06
[2018-04-05] MEDS ORDERED: OXYC1TAB63 PO (15:39)
[2018-04-05 16:00] VITALS: BP 110/53; PULSE 74; RESP 17; TEMP 97.7; O2SAT 94
== END 2018-04-05 19:19 | DRG 438 ==
LOC: NEPE 14:11 → NEDA 16:46 → N07A 21:00 → HCPC 03-23 23:36 → HIMN 03-24 00:40 → N03A 03-26 04:38 → HIMN 03-26 05:45 → N07B 03-29 15:20
PROVIDERS: ADMIT Hospitalist; ATTEND Hospitalist
PROC: 5A1D70Z Performance of Urinary Filtration, Intermittent, Less than 6 Hours Per Day (ICD-10-PCS; 2018-03-21)
PROC: 5A1945Z Respiratory Ventilation, 24-96 Consecutive Hours (ICD-10-PCS; 2018-03-24)
PROC: 0BH17EZ Insertion of Endotracheal Airway into Trachea, Via Natural or Artificial Opening (ICD-10-PCS; 2018-03-24)
PROC: 5A09357 Assistance with Respiratory Ventilation, Less than 24 Consecutive Hours, Continuous Positive Airway Pressure (ICD-10-PCS; 2018-03-24)
PROC: 02HV33Z Insertion of Infusion Device into Superior Vena Cava, Percutaneous Approach (ICD-10-PCS; 2018-03-24)
PROC: 06H033Z Insertion of Infusion Device into Inferior Vena Cava, Percutaneous Approach (ICD-10-PCS; 2018-03-24)
PROC: 0DB68ZX Excision of Stomach, Via Natural or Artificial Opening Endoscopic, Diagnostic (ICD-10-PCS; 2018-03-27)
PROC: 0F9G8ZZ Drainage of Pancreas, Via Natural or Artificial Opening Endoscopic (ICD-10-PCS; principal; 2018-03-27 09:19)
PROC: 05HM33Z Insertion of Infusion Device into Right Internal Jugular Vein, Percutaneous Approach (ICD-10-PCS; 2018-04-01)
PROC: 05HM33Z Insertion of Infusion Device into Right Internal Jugular Vein, Percutaneous Approach (ICD-10-PCS; 2018-04-04)
DX: K86.3 Pseudocyst of pancreas (principal); N18.6 End stage renal disease; J96.01 Acute respiratory failure with hypoxia; R65.20 Severe sepsis without septic shock; J69.0 Pneumonitis due to inhalation of food and vomit; G93.41 Metabolic encephalopathy; A41.9 Sepsis, unspecified organism; K31.84 Gastroparesis; J18.9 Pneumonia, unspecified organism; E11.43 Type 2 diabetes mellitus with diabetic autonomic (poly)neuropathy; K85.90 Acute pancreatitis without necrosis or infection, unspecified; N25.81 Secondary hyperparathyroidism of renal origin; I12.0 Hypertensive chronic kidney disease with stage 5 chronic kidney disease or end stage renal disease; Z68.41 Body mass index [BMI] 40.0-44.9, adult; E87.2 Acidosis; L76.34 Postprocedural seroma of skin and subcutaneous tissue following other procedure; T82.590A Other mechanical complication of surgically created arteriovenous fistula, initial encounter; E11.22 Type 2 diabetes mellitus with diabetic chronic kidney disease; E11.65 Type 2 diabetes mellitus with hyperglycemia; Z99.2 Dependence on renal dialysis; Z79.4 Long term (current) use of insulin; E78.5 Hyperlipidemia, unspecified; D63.1 Anemia in chronic kidney disease; K21.0 Gastro-esophageal reflux disease with esophagitis; M21.372 Foot drop, left foot; Z84.1 Family history of disorders of kidney and ureter; E66.01 Morbid (severe) obesity due to excess calories; K29.70 Gastritis, unspecified, without bleeding; K86.1 Other chronic pancreatitis; K57.30 Diverticulosis of large intestine without perforation or abscess without bleeding; G47.33 Obstructive sleep apnea (adult) (pediatric); Y82.8 Other medical devices associated with adverse incidents; T17.918A Gastric contents in respiratory tract, part unspecified causing other injury, initial encounter; Y95 Nosocomial condition
CPT/HCPCS: 31500; 36556; 36558; 36600; 36906; 43242; 71045; 74176; 76700; 76937; 77001; 80048; 80053; 80061; 80076; 80202; 82140; 82150; 82378; 82550; 82784; 82787; 82805; 82947; 82948; 83036; 83605; 83615; 83690; 83735; 84100; 84443; 84484; 84702; 85007; 85025; 85027; 85610; 85730; 86038; 86039; 86140; 86301; 87040; 87070; 87205; 87641; 87804; 88112; 88173; 88305; 88312; 90935; 93005; 94002; 94003; 94150; 94640; 94664; 96365; 96374; 96375; 99152; 99153; C1725; C1750; C1752; C1769; C1876; C1887; C1894; C9113; J1170; J1580; J1644; J1815; J1956; J2150; J2250; J2310; J2370; J2405; J2710; J2920; J3010; J3370; J7030; J7040; J7050; J7613; P9047; Q4081; Q9963